=== PATIENT | male | born 1985 | race Caucasian/White ===

== ENCOUNTER → 2016-07-11 | Outpatient (REF) | payer OTHER | LOC: M SFHCCLAY 16:25 | PROVIDERS: ATTEND Nurse Practitioner Family | DX: J02.9 Acute pharyngitis, unspecified (principal) ==

== ENCOUNTER → 2016-08-20 | Outpatient (REF) | payer OTHER ==
[2016-08-20 18:34] LABS: ALBUMIN 4.3 GM/DL (3.2-5.2); ALBUMIN/GLOBULIN RATIO 1.16 (1.00-1.93); ALKALINE PHOSPHATASE 126 U/L (45-117); ALT/SGPT 40 U/L (12-78); ANION GAP 11 MEQ/L (8-16); AST/SGOT 21 U/L (15-37); BILIRUBIN,TOTAL 0.8 MG/DL (0.2-1.0); BLOOD UREA NITROGEN 13 MG/DL (7-18); CALCIUM LEVEL 9.2 MG/DL (8.5-10.1); CARBON DIOXIDE LEVEL 28 MEQ/L (21-32); CHLORIDE LEVEL 100 MEQ/L (98-107); CHOLESTEROL LEVEL 255 MG/DL (<200); CREATININE FOR GFR 0.69 MG/DL (0.70-1.30); GLOMERULAR FILTRATION RATE > 60.0 (>60); GLUCOSE, FASTING 190 MG/DL (70-105); POTASSIUM SERUM 4.2 MEQ/L (3.5-5.1); SODIUM LEVEL 139 MEQ/L (136-145); TRIGLYCERIDES LEVEL 105 MG/DL (<150)
[2016-08-20 18:35] LABS: BASO % 0.4 % (0.0-1.0); EOS # 0.1 K/mm3 (0.0-0.50); EOS % 1.3 % (0.0-3.0); LARGE UNSTAINED CELL # 0.1 K/mm3 (0.0-0.4); LARGE UNSTAINED CELL % 0.9 % (0.0-4.0); LYMPH # 1.3 K/mm3 (1.5-4.5); MEAN CORPUSCULAR HEMOGLOBIN 30.2 pg (27.0-33.0); MEAN CORPUSCULAR HGB CONC 33.5 g/dl (32.0-36.5); MEAN CORPUSCULAR VOLUME 90.1 fl (80.0-96.0); MONO # 0.3 K/mm3 (0.0-0.8); MONO % 5.3 % (0.0-5.0); NEUTROPHILS # 4.3 K/mm3 (1.8-7.7); NEUTROPHILS % 71.1 % (36.0-66.0); PLATELET COUNT, AUTOMATED 305 k/mm3 (150-450); RED CELL DISTRIBUTION WIDTH 12.3 % (11.5-14.5); WHITE BLOOD COUNT 6.1 K/mm3 (4.0-10.0)
== END ==
LOC: M SFHCCLAY 11:50
PROVIDERS: ATTEND Nurse Practitioner
DX: M25.541 Pain in joints of right hand (principal); R19.7 Diarrhea, unspecified; E11.9 Type 2 diabetes mellitus without complications; M25.542 Pain in joints of left hand

== ENCOUNTER → 2017-08-11 | Outpatient (REF) | payer OTHER ==
[2017-08-11 11:47] LABS: BASO % 0.4 % (0.0-1.0); EOS # 0.1 10^3/uL (0.0-0.50); HEMATOCRIT 45.2 % (42.0-52.0); HEMOGLOBIN 16.1 g/dl (14.0-18.0); IMMATURE GRANULOCYTE % 0.4 % (0-3.0); LYMPH # 1.6 10^3/uL (1.5-4.5); LYMPH % 31.6 % (24.0-44.0); MEAN CORPUSCULAR HEMOGLOBIN 30.3 pg (27.0-33.0); MEAN CORPUSCULAR HGB CONC 35.6 g/dl (32.0-36.5); MEAN CORPUSCULAR VOLUME 85.1 fl (80.0-96.0); MONO # 0.4 10^3/uL (0.0-0.8); NEUTROPHILS # 2.9 10^3/uL (1.8-7.7); NEUTROPHILS % 58.6 % (36.0-66.0); PLATELET COUNT, AUTOMATED 325 10^3/uL (150-450); RED BLOOD COUNT 5.31 10^6/uL (4.30-6.10); RED CELL DISTRIBUTION WIDTH 11.6 % (11.5-14.5)
[2017-08-11 12:11] LABS: ESTIMATED AVERAGE GLUCOSE 243 MG/DL (60-110); HEMOGLOBIN A1c 10.1 %
[2017-08-11 12:23] LABS: CREATININE, URINE 92.1 MG/DL; MAU/CREAT RATIO 90.1 MCG/MG (0.0-30.0)
[2017-08-11 12:24] LABS: ALBUMIN 4.1 GM/DL (3.2-5.2); ALBUMIN/GLOBULIN RATIO 1.11 (1.00-1.93); ALKALINE PHOSPHATASE 139 U/L (45-117); ALT/SGPT 37 U/L (12-78); ANION GAP 6 MEQ/L (8-16); AST/SGOT 20 U/L (7-37); BILIRUBIN,TOTAL 0.8 MG/DL (0.2-1.0); BLOOD UREA NITROGEN 9 MG/DL (7-18); CALCIUM LEVEL 9.1 MG/DL (8.5-10.1); CARBON DIOXIDE LEVEL 31 MEQ/L (21-32); CHLORIDE LEVEL 100 MEQ/L (98-107); CHOLESTEROL LEVEL 255 MG/DL (<200); CHOLESTEROL RISK RATIO 3.805 (<5); CREATININE FOR GFR 0.67 MG/DL (0.70-1.30); GLOMERULAR FILTRATION RATE > 60.0 (>60); GLUCOSE, FASTING 300 MG/DL (70-100); HDL CHOLESTEROL 67 MG/DL (>40); LDL CHOLESTEROL 167.8 MG/DL (<100); NON-HDL-C 188 MG/DL; POTASSIUM SERUM 4.3 MEQ/L (3.5-5.1); SODIUM LEVEL 137 MEQ/L (136-145); TOTAL PROTEIN 7.8 GM/DL (6.4-8.2); TRIGLYCERIDES LEVEL 101 MG/DL (<150)
[2017-08-11 12:31] LABS: TESTOSTERONE 264 NG/DL (241-827)
[2017-08-13 00:06] LABS: PSA TOTAL 0.2 ng/mL (0.0-4.0)
== END ==
LOC: M SFHCCLAY 09:17
DX: E11.9 Type 2 diabetes mellitus without complications (principal); G43.509 Persistent migraine aura without cerebral infarction, not intractable, without status migrainosus; N52.9 Male erectile dysfunction, unspecified
CPT/HCPCS: 84403

== ENCOUNTER → 2017-08-19 | Outpatient (CLI) | payer OTHER | LOC: M RAD 10:43 | DX: R10.31 Right lower quadrant pain (principal); Q55.9 Congenital malformation of male genital organ, unspecified; R93.8 Abnormal findings on diagnostic imaging of other specified body structures | CPT/HCPCS: 76870 ==

== ENCOUNTER → 2018-01-15 | Outpatient (REF) | payer OTHER | LOC: M LAB REF 16:17 | DX: L97.529 Non-pressure chronic ulcer of other part of left foot with unspecified severity (principal) | CPT/HCPCS: 87186 ==

== ENCOUNTER → 2018-01-19 | Outpatient (REF) | payer OTHER ==
[2018-01-19 11:53] LABS: HEMOGLOBIN 15.1 g/dl (13.5-17.5); MEAN CORPUSCULAR HEMOGLOBIN 29.8 pg (27.0-33.0); MEAN CORPUSCULAR HGB CONC 35.1 g/dl (32.0-36.5); PLATELET COUNT, AUTOMATED 340 10^3/uL (150-450); RED BLOOD COUNT 5.06 10^6/uL (4.30-6.10); RED CELL DISTRIBUTION WIDTH 11.7 % (11.5-14.5); WHITE BLOOD COUNT 6.1 10^3/uL (4.0-10.0)
[2018-01-19 12:25] LABS: ALBUMIN 3.8 GM/DL (3.2-5.2); ALBUMIN/GLOBULIN RATIO 0.93 (1.00-1.93); ALKALINE PHOSPHATASE 150 U/L (45-117); ALT/SGPT 57 U/L (12-78); ANION GAP 10 MEQ/L (8-16); AST/SGOT 31 U/L (7-37); BILIRUBIN,TOTAL 0.8 MG/DL (0.2-1.0); BLOOD UREA NITROGEN 18 MG/DL (7-18); CALCIUM LEVEL 9.2 MG/DL (8.5-10.1); CARBON DIOXIDE LEVEL 26 MEQ/L (21-32); CHLORIDE LEVEL 103 MEQ/L (98-107); CHOLESTEROL LEVEL 251 MG/DL (<200); CHOLESTEROL RISK RATIO 3.691 (<5); CREATININE FOR GFR 0.68 MG/DL (0.70-1.30); GLOMERULAR FILTRATION RATE > 60.0 (>60); GLUCOSE, FASTING 216 MG/DL (70-100); HDL CHOLESTEROL 68 MG/DL (>40); LDL CHOLESTEROL 167.4 MG/DL (<100); NON-HDL-C 183 MG/DL; POTASSIUM SERUM 4.7 MEQ/L (3.5-5.1); SODIUM LEVEL 139 MEQ/L (136-145); TOTAL PROTEIN 7.9 GM/DL (6.4-8.2); TRIGLYCERIDES LEVEL 78 MG/DL (<150)
[2018-01-19 12:27] LABS: CREATININE, URINE 52.8 MG/DL; MALB URINE SIEMENS 26.7 MG/L; MAU/CREAT RATIO 50.5 MCG/MG (0.0-30.0)
[2018-01-19 12:40] LABS: ESTIMATED AVERAGE GLUCOSE 203 MG/DL (60-110); HEMOGLOBIN A1c 8.7 %
== END ==
LOC: M SFHCCLAY 09:21
DX: E11.9 Type 2 diabetes mellitus without complications (principal); E78.5 Hyperlipidemia, unspecified
CPT/HCPCS: 80053

== ENCOUNTER → 2018-01-19 | Outpatient (CLI) | payer OTHER | LOC: M CLY 09:33 | DX: L97.529 Non-pressure chronic ulcer of other part of left foot with unspecified severity (principal); M79.89 Other specified soft tissue disorders | CPT/HCPCS: 73630 ==

== ENCOUNTER → 2018-02-09 | Outpatient (REF) | payer OTHER | LOC: M SFHCCLAY 12:17 | DX: L97.529 Non-pressure chronic ulcer of other part of left foot with unspecified severity (principal); Z22.322 Carrier or suspected carrier of Methicillin resistant Staphylococcus aureus ==

== ENCOUNTER → 2018-04-14 | Outpatient (REF) | payer OTHER | LOC: M SFHCCLAY 12:20 | DX: L02.91 Cutaneous abscess, unspecified (principal) ==

== ENCOUNTER → 2018-05-25 | Outpatient (REF) | payer OTHER ==
[2018-05-25 11:30] LABS: HEMOGLOBIN 15.7 g/dl (13.5-17.5); MEAN CORPUSCULAR HEMOGLOBIN 30.4 pg (27.0-33.0); MEAN CORPUSCULAR HGB CONC 34.9 g/dl (32.0-36.5); PLATELET COUNT, AUTOMATED 318 10^3/uL (150-450); RED BLOOD COUNT 5.17 10^6/uL (4.30-6.10); RED CELL DISTRIBUTION WIDTH 11.6 % (11.5-14.5); WHITE BLOOD COUNT 6.8 10^3/uL (4.0-10.0)
[2018-05-25 12:09] LABS: ALBUMIN 3.9 GM/DL (3.2-5.2); ALKALINE PHOSPHATASE 174 U/L (45-117); ALT/SGPT 55 U/L (12-78); ANION GAP 8 MEQ/L (8-16); AST/SGOT 22 U/L (7-37); BILIRUBIN,TOTAL 0.7 MG/DL (0.2-1.0); BLOOD UREA NITROGEN 12 MG/DL (7-18); CALCIUM LEVEL 9.2 MG/DL (8.5-10.1); CARBON DIOXIDE LEVEL 30 MEQ/L (21-32); CHLORIDE LEVEL 98 MEQ/L (98-107); CHOLESTEROL LEVEL 235 MG/DL (<200); CHOLESTEROL RISK RATIO 3.263 (<5); CREATININE FOR GFR 0.68 MG/DL (0.70-1.30); GLOMERULAR FILTRATION RATE > 60.0 (>60); GLUCOSE, FASTING 321 MG/DL (70-100); HDL CHOLESTEROL 72 MG/DL (>40); LDL CHOLESTEROL 143 MG/DL (<100); NON-HDL-C 163 MG/DL; SODIUM LEVEL 136 MEQ/L (136-145); TOTAL PROTEIN 7.8 GM/DL (6.4-8.2); TRIGLYCERIDES LEVEL 102 MG/DL (<150)
[2018-05-25 12:59] LABS: ESTIMATED AVERAGE GLUCOSE 209 MG/DL (60-110); HEMOGLOBIN A1c 8.9 %
== END ==
LOC: M SFHCCLAY 09:24
DX: E11.9 Type 2 diabetes mellitus without complications (principal); E78.5 Hyperlipidemia, unspecified
CPT/HCPCS: 80053

== ENCOUNTER → 2018-05-27 | Outpatient (REF) | payer OTHER | LOC: M SFHCCLAY 10:17 | DX: L02.215 Cutaneous abscess of perineum (principal) | CPT/HCPCS: 87186 ==

== ENCOUNTER → 2018-07-26 | Outpatient (REF) | payer OTHER ==
[~2018-07-26] MED LIST: ASPI81TA85 PO; CIPR-250 PO; LISI2.5T5 PO; METF-877 PO; OXYC1TAB23 PO; SIMV40TA2 PO
== END ==
LOC: M LAB REF 17:27
PROVIDERS: ATTEND Podiatrist
DX: L11.0 Acquired keratosis follicularis (principal); M79.672 Pain in left foot

== ENCOUNTER 2018-07-27 13:48 | Day surgery (SDC) | payer OTHER ==
[~2018-07-27] VITALS: Ht 180.3 cm; Wt 88.0 kg
[2018-07-27] MEDS ORDERED: VANCOMYCIN HCL 1,000 MG, VIAL MATE ADAPTER 1 EACH in D5W 250 ML IV ONE (14:00)
[2018-07-27] MEDS ORDERED: CIPR-250 PO (14:43)
[2018-07-27] MEDS ORDERED: ASPI81TA85 PO (14:43)
[2018-07-27] MEDS ORDERED: OXYC1TAB23 PO (14:43)
[2018-07-27] MEDS ORDERED: SIMV40TA2 PO (14:43)
[2018-07-27] MEDS ORDERED: LISI2.5T5 PO (14:43)
[2018-07-27] MEDS ORDERED: METF-877 PO (14:43)
[2018-07-27] MEDS ORDERED: HumaLOG INSULIN (NovoLOG) PER UNIT SC ONE (16:00)
[2018-07-27] MEDS ORDERED: dexameTHASONE 4 MG/ML 1ML VIAL (J1100) As Ordered ONE (16:01)
[2018-07-27] MEDS ORDERED: BACITRACIN PWD 50,000 UNITS VIAL As Ordered ONE (16:01)
[2018-07-27] MEDS ORDERED: BUPIVACAINE HCL 0.5% 30 ML VIAL As Ordered ONE (16:01)
[2018-07-27] MEDS ORDERED: NEOSPORIN GU IRRIG 20 ML VIAL As Ordered ONE (16:02)
[2018-07-27] MEDS ORDERED: LIDOCAINE 2% MDV 20 ML VIAL As Ordered ONE (16:02)
[2018-07-27] MEDS ORDERED: VANCOMYCIN 1000 MG/20 ML VIAL (J3370) As Ordered ONE (16:28)
[2018-07-27] MEDS ORDERED: LIDOCAINE 2% INJ 100 MG/5 ML SDV (FOR ANES.) As Ordered ONE (16:37)
[2018-07-27] MEDS ORDERED: fentaNYL 100 MCG/2 ML INJECTION (J3010) As Ordered ONE (16:37)
[2018-07-27] MEDS ORDERED: MIDAZOLAM INJ 2 MG/2 ML VIAL (J2250) As Ordered ONE (16:37)
[2018-07-27] MEDS ORDERED: PROPOFOL 200 MG/20 ML VIAL As Ordered ONE (16:37)
[2018-07-27] MEDS ORDERED: ONDANSETRON 4MG/2ML VIAL (J2405) As Ordered ONE (16:37)
[2018-07-27 18:00] VITALS: BP 136/87
--- NOTE | 2018-07-29 12:12 | RO ---
DATE OF PROCEDURE: 07/27/2018 PREOPERATIVE DIAGNOSES: Abscess left foot. POSTOPERATIVE DIAGNOSES: Abscess medial and superficial central space left foot. PROCEDURE: Release of medial and superficial central space with packing with iodoform gauze left foot. SURGEON: David Garcia DPM WIRE BASKET MAKER: None. ANESTHESIA: Local, monitored anesthesia care (MAC). IRRIGATION: 3 liters dilute vancomycin solution low pressure pulse lavage system. DRAINS UTILIZED: 1/4 inch iodoform gauze. ESTIMATED BLOOD LOSS: 10 mL. HEMOSTASIS: None. DESCRIPTION OF PROCEDURE: On 07/27/2018, this 33-year-old male was taken from his hospital room to the operating room and placed on the operating room table in a supine position. Following the induction of IV sedation and local and regional anesthesia, the left lower extremity was prepped and draped in the usual aseptic manner and the left lower extremity was returned to the operating room table, and the following procedure was performed. RELEASE OF MEDIAL AND SUPERFICIAL CENTRAL SPACE WITH PACKING WITH IODOFORM GAUZE LEFT FOOT: Attention was directed to the patient's left foot where a 5 cm incision was placed on the plantar surface of the foot in line with the plantar fascia. Dissection was then carried deep and a considerable amount of purulent material was then released and cultured from the superficial central space. The medial space was then entered and there was an abscess in that location that extended approximately 3 cm in the medial space superficial to the abductor hallucis muscle. The plantar fascia was then incised. The purulence did not extend deep to the plantar fascia. Then, utilizing 3 liters of dilute of vancomycin solution with a low pressure pulse lavage system, the wound was thoroughly irrigated. The wound was then packed including the superficial and medial compartment with iodoform gauze, and a sterile dressing was applied consisting of Adaptic, 4 x 4's, ABD and Kerlix, and a light compression Yimi wrap. The patient having apparently tolerated the surgical procedure well was taken from the operating room (OR) to the recovery room for further monitoring by the anesthesia department. The patient will continue Keflex 500 mg every 6 hours until his culture becomes available. His questions are answered.
== END 2018-07-27 18:10 | disposition home or self-care (01) ==
LOC: M SDC 13:48
PROVIDERS: ATTEND Podiatrist
DX: E11.621 Type 2 diabetes mellitus with foot ulcer (principal); L97.522 Non-pressure chronic ulcer of other part of left foot with fat layer exposed; E11.42 Type 2 diabetes mellitus with diabetic polyneuropathy; M71.072 Abscess of bursa, left ankle and foot; Z79.84 Long term (current) use of oral hypoglycemic drugs; Z79.82 Long term (current) use of aspirin; Z79.899 Other long term (current) drug therapy; I10 Essential (primary) hypertension; E78.5 Hyperlipidemia, unspecified
CPT/HCPCS: 10060; 87070; 87075; 87077; 87186; 87205; J2250; J2405; J3010; J3370

== ENCOUNTER → 2018-08-06 | Outpatient (REF) | payer OTHER ==
[2018-08-06 13:07] LABS: ALBUMIN 3.8 GM/DL (3.2-5.2); ALT/SGPT 33 U/L (12-78); BILIRUBIN,TOTAL 0.6 MG/DL (0.2-1.0); BLOOD UREA NITROGEN 18 MG/DL (7-18); CALCIUM LEVEL 9.3 MG/DL (8.5-10.1); CARBON DIOXIDE LEVEL 28 MEQ/L (21-32); CHLORIDE LEVEL 98 MEQ/L (98-107); CHOLESTEROL LEVEL 199 MG/DL (<200); CHOLESTEROL RISK RATIO 3.685 (<5); CREATININE FOR GFR 0.97 MG/DL (0.70-1.30); GLOMERULAR FILTRATION RATE > 60.0 (>60); GLUCOSE, FASTING 292 MG/DL (70-100); HDL CHOLESTEROL 54 MG/DL (>40); LDL CHOLESTEROL 111 MG/DL (<100); NON-HDL-C 145 MG/DL; POTASSIUM SERUM 4.7 MEQ/L (3.5-5.1); SODIUM LEVEL 134 MEQ/L (136-145); TRIGLYCERIDES LEVEL 169 MG/DL (<150)
[2018-08-06 13:33] LABS: HEMOGLOBIN A1c 9.6 %; MALB URINE SIEMENS 69.9 MG/L; MAU/CREAT RATIO 43.6 MCG/MG (0.0-30.0)
== END ==
LOC: M SFHCCLAY 08:38
PROVIDERS: ATTEND Nurse Practitioner Family
DX: E11.9 Type 2 diabetes mellitus without complications (principal); E78.5 Hyperlipidemia, unspecified

== ENCOUNTER → 2018-08-16 | Outpatient (REF) | payer OTHER | LOC: M LAB REF 16:40 | PROVIDERS: ATTEND Surgery | DX: E11.621 Type 2 diabetes mellitus with foot ulcer (principal) ==

== ENCOUNTER → 2018-08-24 | Outpatient (REF) | payer OTHER ==
[2018-08-24 13:39] LABS: HEMATOCRIT 39.7 % (42.0-52.0); HEMOGLOBIN 13.8 g/dl (13.5-17.5); MEAN CORPUSCULAR HEMOGLOBIN 30.7 pg (27.0-33.0); MEAN CORPUSCULAR HGB CONC 34.8 g/dl (32.0-36.5); MEAN CORPUSCULAR VOLUME 88.2 fl (80.0-96.0); PLATELET COUNT, AUTOMATED 330 10^3/uL (150-450); WHITE BLOOD COUNT 4.6 10^3/uL (4.0-10.0)
[2018-08-24 14:24] LABS: BLOOD UREA NITROGEN 17 MG/DL (7-18); CALCIUM LEVEL 9.3 MG/DL (8.5-10.1); CARBON DIOXIDE LEVEL 29 MEQ/L (21-32); CHLORIDE LEVEL 102 MEQ/L (98-107); CREATININE FOR GFR 0.71 MG/DL (0.70-1.30); ERYTHROCYTE SEDIMENTATION RATE 39 mm/hr (0-15); GLOMERULAR FILTRATION RATE > 60.0 (>60); GLUCOSE, FASTING 205 MG/DL (70-100); POTASSIUM SERUM 4.2 MEQ/L (3.5-5.1); SODIUM LEVEL 137 MEQ/L (136-145)
== END ==
LOC: M LAB REF 12:24
PROVIDERS: ATTEND Physician Assistant
DX: E11.621 Type 2 diabetes mellitus with foot ulcer (principal)

== ENCOUNTER → 2018-10-05 | Outpatient (CLI) | payer OTHER ==
[~2018-10-05] MED LIST changes: +LISI-1046 PO; -LISI2.5T5 PO
[2018-10-05 12:03] LABS: CREATININE, URINE 77.7 MG/DL; MALB URINE SIEMENS 67.8 MG/L; MAU/CREAT RATIO 87.2 MCG/MG (0.0-30.0)
== END ==
LOC: M LAB 11:06
PROVIDERS: ATTEND Nurse Practitioner Family
DX: E11.65 Type 2 diabetes mellitus with hyperglycemia (principal)

== ENCOUNTER → 2018-10-11 | Outpatient (CLI) | payer OTHER ==
--- NOTE | 2018-10-12 04:50 | REP ---
Clinical: Type 2 diabetes with lower extremity ulcers. Technique: Real time brooks scale and color Doppler evaluation of the bilateral lower extremity arterial vasculature using linear high frequency transducer. Findings: Brooks scale and color images demonstrate minimal amounts of calcified atheromatous plaquing without areas of significant stenosis identified bilaterally. Doppler interrogation demonstrates normal triphasic arterial wave forms and velocities bilaterally. Peak systolic velocities (cm/sec) RIGHT LEFT Common femoral artery 103.0 103.0 Profunda femoris 78.3 66.4 SFA (proximal) 93.2 91.1 SFA (mid) 69.0 75.2 SFA (distal) 68.3 77.4 Popliteal artery 56.5 64.2 GI (prox.) 38.9 29.2 Tibioperoneal trunk 80.6 64.2 CRAFT MANAGER (prox.) 64.4 56.0 CRAFT MANAGER (distal) 40.8 68.0 GI (distal) 78.6 60.9 Impression: Mild partially calcified atheromatous changes with areas of narrowing but no obvious focal occlusion or stenosis. Electronically Signed by Sam Dick MD 10/12/2018 04:41 A
== END ==
LOC: M RAD 10:57
PROVIDERS: ATTEND Surgery
DX: E11.621 Type 2 diabetes mellitus with foot ulcer (principal); I70.202 Unspecified atherosclerosis of native arteries of extremities, left leg; L97.529 Non-pressure chronic ulcer of other part of left foot with unspecified severity

== ENCOUNTER 2019-05-04 17:03 | Inpatient (IN) | payer OTHER ==
[~2019-05-04] VITALS: Ht 180.3 cm; Wt 93.7 kg
[2019-05-04] MEDS ORDERED: HUMA100I5 SC (17:10)
[2019-05-04] MEDS ORDERED: LANTINJ4 (17:10)
[2019-05-04] MEDS ORDERED: INVO300T PO (17:10)
[2019-05-04] MEDS ORDERED: ONDANSETRON 4MG/2ML VIAL (J2405) IV ONE (17:30)
[2019-05-04] MEDS ORDERED: MORPHINE 2 MG/ML 1ML VIAL (J2270) IV ONE (17:30)
[2019-05-04] MEDS ORDERED: NS 1,000 ML IV ONE (17:30)
[2019-05-04 18:32] LABS: BASO % 0.1 % (0.0-1.0); HEMATOCRIT 37.3 % (42.0-52.0); HEMOGLOBIN 12.9 g/dl (13.5-17.5); MEAN CORPUSCULAR HEMOGLOBIN 29.9 pg (27.0-33.0); MEAN CORPUSCULAR HGB CONC 34.6 g/dl (32.0-36.5); MEAN CORPUSCULAR VOLUME 86.3 fl (80.0-96.0); MONO # 1.1 10^3/uL (0.0-0.8); MONO % 6.6 % (0.0-5.0); NEUTROPHILS # 14.2 10^3/uL (1.5-8.5); NEUTROPHILS % 86.9 % (36.0-66.0); PLATELET COUNT, AUTOMATED 371 10^3/uL (150-450); RED BLOOD COUNT 4.32 10^6/uL (4.30-6.10); WHITE BLOOD COUNT 16.3 10^3/uL (4.0-10.0)
[2019-05-04 18:45] LABS: INR 1.19; PROTHROMBIN TIME 14.8 SECONDS (11.8-14.0)
[2019-05-04 18:46] LABS: PARTIAL THROMBOPLASTIN TIME 30.3 SECONDS (25.0-38.4)
[2019-05-04 18:47] LABS: ALBUMIN 3.4 GM/DL (3.2-5.2); ALT/SGPT 21 U/L (12-78); AMYLASE 42 U/L (25-115); BILIRUBIN,DIRECT 0.2 MG/DL (0.0-0.2); BILIRUBIN,TOTAL 0.8 MG/DL (0.2-1.0); BLOOD UREA NITROGEN 18 MG/DL (7-18); CALCIUM LEVEL 8.8 MG/DL (8.5-10.1); CARBON DIOXIDE LEVEL 24 MEQ/L (21-32); CHLORIDE LEVEL 99 MEQ/L (98-107); CK-MB VALUE MASS < 1.0 NG/ML (<3.6); CPK CREATINE PHOSPHOKINASE 95 U/L (39-308); CREATININE FOR GFR 1.03 MG/DL (0.70-1.30); GLOMERULAR FILTRATION RATE > 60.0 (>60); GLUCOSE, FASTING 243 MG/DL (70-100); MB/CK RELATIVE INDEX 1.05 (< OR =4); POTASSIUM SERUM 4.3 MEQ/L (3.5-5.1); SODIUM LEVEL 135 MEQ/L (136-145); TOTAL PROTEIN 7.3 GM/DL (6.4-8.2); TROPONIN I < 0.02 NG/ML (< 0.10)
--- NOTE | 2019-05-04 18:47 | REP ---
Four views left foot: 05/04/2019. Indication: Left foot pain and swelling. Comparison: 01/19/2018. Findings: There is no acute fracture, subluxation or dislocation. No erosive lesions of the visualized bony structures are present. Suspected left great toe swelling is noted. Impression: No acute osseous injury of the left foot. No erosive changes. Electronically Signed by Low Morales DO 05/04/2019 06:39 P
[2019-05-04 19:59] LABS: HEMOGLOBIN A1c 7.2 %
[2019-05-04] MEDS ORDERED: ACETAMINOPHEN TAB 650MG DOSE (2X325MG) PO ONE (20:00)
[2019-05-04 20:30] LABS: APPEARANCE, URINE CLEAR (CLEAR); BACTERIA, URINE AUTO NEGATIVE (NEGATIVE); BILIRUBIN, URINE AUTO NEGATIVE (NEGATIVE); BLOOD, URINE BLOOD NEGATIVE (NEGATIVE); COLOR, URINE YELLOW (YELLOW); GLUCOSE, URINE (UA) AUTO 3+ mg/dL (NEGATIVE); KETONE, URINE AUTO 1+ mg/dL (NEGATIVE); LEUKOCYTE ESTERASE, URINE AUTO NEGATIVE (NEGATIVE); NITRITE, URINE AUTO NEGATIVE (NEGATIVE); PROTEIN, URINE AUTO NEGATIVE (NEGATIVE); RBC, URINE AUTO 0 /HPF (0-3); SPECIFIC GRAVITY URINE AUTO 1.038 (1.002-1.035); SQUAMOUS EPITHELIAL CELL UR AU 0 /HPF (0-6); UROBILINOGEN, URINE AUTO 0.2 mg/dL (0.0-2.0); WBC, URINE AUTO 0 /HPF (0-3)
[2019-05-04 20:50] LABS: ERYTHROCYTE SEDIMENTATION RATE 57 mm/hr (0-15)
--- NOTE | 2019-05-04 21:03 | HPEPDOC ---
General Date of Admission 05/04/19 Date of Service: May 04, 2019 Chief Complaint The patient is a 34-year-old male admitted with a reason for visit of Skin Problem. Source: Patient Exam Limitations: No limitations Timing/Duration: Week(s) Severity: Moderate Associated Symptoms: Other (left foot pain) History of Present Illness Patient is a 34 years old male with past history of type 2 diabetes with diabetes neuropathy, hypertension presented hospital with unhealed left great toe ulcer. Patient stated that he has been having ulcer for past 2 years treated with multiple debridement by Dr. Shelton with positive effect. However, when he started a new job few weeks ago we he needs to stand up for 8 hours he started feeling that his ulcer became worse. For past few days he noticed increased pain of the left great toe associated with pus. Also he noticed chills. In emergency room patient was found to have tachycardia with heart rate 121, leukocytosis of 16.3, CRP 10.9, lactic acid with normal limit. Left foot x- ray showed no acute osseous injury of the left foot. no erosive changes. Home Medications Scheduled Canagliflozin (Invokana) 300 Mg Tablet, 300 MG PO DAILY, (Reported) Insulin Glargine,Hum.rec.anlog (Lantus Solostar) 100 Unit/1 Ml Insuln.pen, 24 UNITS QHS, (Reported) Insulin Lispro (Humalog Kwikpen U-100) 100 Unit/1 Ml Insuln.pen, 8 UNITS SC AC, (Reported) Lisinopril (Lisinopril) 2.5 Mg Tab, 2.5 MG PO DAILY, (Reported) Magnesium Oxide (Magnesium) 400 Mg Capsule, 400 MG PO DAILY, (Reported) Simvastatin (Simvastatin) 40 Mg Tab, 40 MG PO DAILY, (Reported) Allergies Coded Allergies: No Known Allergies (Unverified , 01/11/16) Past Medical History Medical History Hypertension, diabetes type 2, diabetes neuropathy Family History Both parents have hypertension, mother has diabetes Social History * Smoker: Denies Alcohol: Denies Drugs: denies A-FIB/CHADSVASC A-FIB History Current/History of A-Fib/PAF?: No Current PO Anticoag Therapy: No Review of Systems Constitutional: Reports: Chills; Denies: Fever Eyes: Denies: Pain, Vision change ENT: Denies: Head Aches, Ear Pain Skin: Denies: Rash, Lesions Pulmonary: Denies: Dyspnea, Cough Cardiovascular: Denies: Chest Pain, Palpitations Gastrointestinal: Denies: Nausea, Vomiting Genitourinary: Denies: Dysuria, Frequency Hematologic: Denies: Bruising Endocrine: Denies: Polydipsia, Polyphagia Musculoskeletal: Reports: Leg Pain, Foot Pain (left great toe pain) Neurological: Denies: Weakness, Numbness Psych: Reports: Mood Normal Physical Examination General Exam: Positive: Alert, Cooperative Eye Exam: Positive: PERRLA, Conjunctiva & lids normal ENT Exam: Positive: Atraumatic, Mucous membr. moist/pink Neck Exam: Positive: Supple; Negative: JVD Heart Exam: Positive: Tachycardic Telemetry: Positive: No significant arrhythmia Abdomen Exam: Positive: Normal bowel sounds Extremity Exam: Positive: Tenderness (over left great toe area), Swelling, Other (stage III left great toe ulcer with pus); Negative: Clubbing, Cyanosis Skin Exam: Positive: Nl turgor and temperature Neuro Exam: Positive: Strength at 5/5 X4 ext, Cranial Nerves 3-12 NL Psych Exam: Positive: Mental status NL Vital Signs Vital Signs Date Time Temp Pulse Resp B/P (MAP) Pulse Ox O2 Delivery O2 Flow Rate FiO2 05/04/19 20:44 18 05/04/19 20:43 100.1 110 104/59 (74) 97 Room Air Laboratory Data Labs 24H Laboratory Tests 2 05/04/19 17:56: Lactic Acid Level 1.6 05/04/19 18:11: Immature Granulocyte % (Auto) 0.4, Neutrophils (%) (Auto) 86.9H, Lymphocytes (%) (Auto) 6.0L, Monocytes (%) (Auto) 6.6H, Eosinophils (%) (Auto) 0.0, Basophils (%) (Auto) 0.1, Neutrophils # (Auto) 14.2H, Lymphocytes # (Auto) 1.0L, Monocytes # (Auto) 1.1H, Eosinophils # (Auto) 0.0, Basophils # (Auto) 0.0, Nucleated Red Blood Cells % (auto) 0.0, Prothrombin Time 14.8H, Prothromb Time International Ratio 1.19, Activated Partial Thromboplast Time 30.3, Anion Gap 12, Glomerular Filtration Rate > 60.0, Estimated Mean Plasma Glucose 160H, Hemoglobin A1c 7.2, Calcium Level 8.8, Total Bilirubin 0.8, Direct Bilirubin 0.2, Aspartate Amino Transf (AST/SGOT) 11, Alanine Aminotransferase (ALT/SGPT) 21, Alkaline Juan sphatase 105, Total Creatine Kinase 95, Creatine Kinase MB < 1.0, Creatine Kinase MB Relative Index 1.05, Troponin I < 0.02, C-Reactive Protein, Quantitative 10.90H, Total Protein 7.3, Albumin 3.4, Albumin/Globulin Ratio 0.87L, Amylase Level 42 05/04/19 20:17: Urine Color YELLOW, Urine Appearance CLEAR, Urine pH 5.0, Urine Specific [place] 1.038, Urine Protein NEGATIVE, Urine Glucose (Auto)(UA) 3+H, Urine Ketones (Auto) 1+H, Urine Blood NEGATIVE, Urine Nitrite NEGATIVE, Urine Bilirubin NEGATIVE, Urine Urobilinogen 0.2, Urine Leukocyte Esterase (Auto) NEGATIVE, Urine WBC (Auto) 0, Urine RBC (Auto) 0, Urine Hyaline Casts (Auto) 0, Urine Bacteria (Auto) NEGATIVE, Urine Squamous Epithelial Cells 0, Urine Sperm (Auto) CBC/BMP Laboratory Tests 05/04/19 18:11 Microbiology Microbiology 05/04/19 Gram Stain, Received Pending 05/04/19 Wound Culture, Received Pending 05/04/19 Blood Culture, Received Pending 05/04/19 Blood Culture, Received Pending Assessment/Plan Patient is a 34 years old male with past history of type 2 diabetes with diabetes neuropathy, hypertension presented hospital with unhealed left great toe ulcer. Patient stated that he has been having ulcer for past 2 years treated with multiple debridement by Dr. Shelton with positive effect. However, when he started a new job few weeks ago we he needs to stand up for 8 hours he started feeling that his ulcer became worse. For past few days he noticed increased pain of the left great toe associated with pus. Problems (1) Sepsis Status: Acute Problem Text: Secondary to left great toe ulcer. There is high suspicious for acute osteomyelitis. Patient has leukocytosis with tachycardia with increased CRP, ESR pending Wound culture, blood culture IV meropenem, IV vancomycin IV fluid Consider shoe parts molder and wound care consult in the morning (2) Infected ulcer of skin Status: Acute Problem Text: There is high suspicious for acute osteomyelitis of left great toe given stage III unhealed ulcer with pus Left foot x-ray negative. Will proceed with MRI of left foot Sedimentation rate pending, CRP 10.9 (3) Diabetes mellitus Status: Chronic Problem Text: Diabetes diet Levemir twice a day Insulin sliding scale Plan / VTE VTE Prophylaxis Ordered?: Yes EM REED DO May 04, 2019 21:03
[2019-05-04] MEDS ORDERED: GLUCOSE 4 GM CHEW TABLET PO PRN (21:15)
[2019-05-04] MEDS ORDERED: GLUCAGON FOR INJ 1 MG VIAL (J1610) SC PRN (21:15)
[2019-05-04] MEDS ORDERED: DEXTROSE 50% 50 ML SYRINGE IV PRN (21:15)
[2019-05-04] MEDS ORDERED: MAGN400C2 PO (21:17)
[2019-05-04] MEDS ORDERED: MORPHINE 2 MG/ML 1ML VIAL (J2270) IV SCH (22:00)
[2019-05-04] MEDS ORDERED: MORPHINE 2 MG/ML 1ML VIAL (J2270) IV PRN (22:30)
[2019-05-04] MEDS: NS 1,000 ML IV SCH (23:12)
[2019-05-04] MEDS: MEROPENEM INJ 1 GM in IV 1 EA IV SCH (23:13)
[2019-05-04] MEDS: HEPARIN SOD (PORCINE) 5000 UNITS/ML VIAL SC SCH (23:13)
[2019-05-04 23:50] VITALS: BP 128/72
[2019-05-05] MEDS ORDERED: VANCOMYCIN HCL 1,000 MG, VIAL MATE ADAPTER 1 EACH in D5W 250 ML IV ONE ×3
[2019-05-05] MEDS: LEVEMIR (INSULIN DETEMIR) 1 UNITS/0.01ML SC SCH ×3 (00:32→21:08)
[2019-05-05] MEDS: VANCOMYCIN HCL 1,000 MG, VIAL MATE ADAPTER 1 EACH in D5W 250 ML IV SCH ×4 (00:38→23:33)
--- NOTE | 2019-05-05 03:47 | PHACANCOPD ---
PHARMACY VANCOMYCIN DOSING Pt Demographics Demographics Patient Age:34 , Weight:93.700 , Gender: male Adjusted Body Weight Date: 05/05/19, Adjusted Body Weight: [82.66] Kg Events Past 24 Hours Events Past 24 Hours: NO: Dialysis, Diuretic Therapy, Change in CrCl, Fever, Elevation in WBC, Pending Diagnostics, Pending Procedures, Other Vancomycin Vancomycin indication: LEFT FOOT OSTEOMYELITIS Vancomycin Target Ranges: 15-20 mcg/ml Vancomycin Load Y/N: Yes Load Dose Date Time Vancomycin Load Dose: 2G Date: 05/05/19 Time:23:00 Vancomycin Dose Date: 05/05/19. Current Vancomycin Dose: [1G IV Q8H] Intermittent Dosing?: No Labs Labs Item Value Date Time White Blood Count 16.3 10^3/uL H 05/04/191810 Neutrophils # (Auto) 14.2 10^3/uL H 05/04/191810 Creatinine 1.03 MG/DL 05/04/191810 Micro Microbiology 05/04/19 Gram Stain, Received Pending 05/04/19 Wound Culture, Received Pending 05/04/19 Blood Culture, Received Pending 05/04/19 Blood Culture, Received Pending Creatinine Clearance Date:05/05/19. Creatinine Clearance: [106ML/MIN]. Pending Labs trough 05/06/19 @06:00 Assessment and Plan Maintaining Current Dose?: Yes Reason for dose change: No Dose Change Pharmacist Note Pharmacist Note Date: 05/05/19. Pharmacist note:Pt is a 34 year old male being treated for osteomyelitis of the left foot goal trough 15-20mcg/ml. The patient was last treated with vancomycin in July 2018. To achieve goal a 2g loading dose will start 05/04/19 @23:00. Maintenance therapy will consist of 1g IV every 8 hours. A trough is scheduled for 05/06/19 @06:00. We will continue to monitor and adjust the dose as needed. SHANDA BABCOCK PHARMACY May 05, 2019 03:47
[2019-05-05] MEDS: NS 1,000 ML IV SCH ×4 (05:25→23:33)
[2019-05-05] MEDS: MEROPENEM INJ 1 GM in IV 1 EA IV SCH ×3 (05:25→21:07)
[2019-05-05 06:00] VITALS: BP 105/56
[2019-05-05] MEDS: ACETAMINOPHEN TAB 650MG DOSE (2X325MG) PO PRN ×3 (06:02→18:10)
[2019-05-05 06:54] LABS: HEMATOCRIT 36.7 % (42.0-52.0); HEMOGLOBIN 12.5 g/dl (13.5-17.5); MEAN CORPUSCULAR HEMOGLOBIN 29.8 pg (27.0-33.0); MEAN CORPUSCULAR HGB CONC 34.1 g/dl (32.0-36.5); MEAN CORPUSCULAR VOLUME 87.6 fl (80.0-96.0); PLATELET COUNT, AUTOMATED 319 10^3/uL (150-450); RED BLOOD COUNT 4.19 10^6/uL (4.30-6.10); WHITE BLOOD COUNT 8.2 10^3/uL (4.0-10.0)
[2019-05-05 07:19] LABS: BLOOD UREA NITROGEN 12 MG/DL (7-18); CALCIUM LEVEL 8.3 MG/DL (8.5-10.1); CARBON DIOXIDE LEVEL 26 MEQ/L (21-32); CHLORIDE LEVEL 102 MEQ/L (98-107); CREATININE FOR GFR 0.63 MG/DL (0.70-1.30); GLOMERULAR FILTRATION RATE > 60.0 (>60); GLUCOSE, FASTING 121 MG/DL (70-100); MAGNESIUM LEVEL 1.7 MG/DL (1.8-2.4); POTASSIUM SERUM 3.7 MEQ/L (3.5-5.1); SODIUM LEVEL 135 MEQ/L (136-145)
[2019-05-05] MEDS: HumaLOG INSULIN (NovoLOG) PER UNIT SC SCH ×3 (08:59→17:38)
[2019-05-05 09:00] VITALS: BP 105/56
[2019-05-05] MEDS: HEPARIN SOD (PORCINE) 5000 UNITS/ML VIAL SC SCH ×2 (09:00→21:07)
[2019-05-05] MEDS ORDERED: LISINOPRIL *2.5 MG* TAB PO SCH (09:00)
--- NOTE | 2019-05-05 11:20 | IPNPDOC ---
Subjective Date Seen The patient was seen on 05/05/19. Subjective Chief Complaint/HPI No significant foot pain at rest. Tolerating Vanco Constitutional: Denies: Chills, Fever Pulmonary: Denies: Dyspnea, Cough Cardiovascular: Denies: Chest Pain Gastrointestinal: Denies: Nausea, Vomiting, Abdominal Pain, Diarrhea, Constipation Objective Physical Examination General Exam: Positive: Alert, Cooperative, No Acute Distress Neck Exam: Positive: Supple; Negative: JVD Heart Exam: Positive: Rate Normal, Regular Rhythm Abdomen Exam: Positive: Normal bowel sounds, Soft; Negative: Tenderness Extremity Exam: Positive: Normal pulses (2+ DP pulse Left), Tenderness (over dorsal aspect of left foot ), Swelling (Left great toe extendinginto ankle), Other (stage III left great toe ulcer with pus, no surrounding erythema) Skin Exam: Positive: Nl turgor and temperature Psych Exam: Positive: Mental status NL Assessment /Plan Problems (1) Toe osteomyelitis, left Status: Acute Problem Text: favor L 1 toe amputation (2) Sepsis Status: Acute Problem Text: Cont IVF for now. BP 105 this am. Less tachy now. Hold DEMIAN for now (3) Diabetic foot ulcer Status: Acute Problem Text: Previous h/o Left great toe ulcer had heeled with wound care by Rishabh lomax New ulcer developed about 2+ weeks ago likely related to standing on feet for long periods of time at his new job H/O MRSA in past-07/2018 B/C, Wound cultures pending Concern for osteomyeleits due to high CRP Foot x-ray neg. MRI foot ordered Cont Vanco/Meropenem 05/05 R foot MRI: Ulceration of the medial first toe. Osteomyelitis of first proximal and distal phalanges with associated cellulitis of the medial forefoot. 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 Status: Chronic (5) Diabetes mellitus Status: Chronic Problem Text: Cont Levemir and SSI Plan/VTE VTE Prophylaxis Ordered?: Yes (SQ heparin) VS, I&O, 24H, Fishbone Vital Signs/I&O Vital Signs Date Time Temp Pulse Resp B/P (MAP) Pulse Ox O2 Delivery O2 Flow Rate FiO2 05/05/19 09:00 105/56 05/05/19 06:00 97.7 97 18 98 Room Air I&O- Last 24 Hours up to 6 AM 05/05/19 06:00 Intake Total 1480 ml Output Total 650 ml Balance 830 ml Laboratory Data 24H LABS Laboratory Tests 2 05/04/19 17:56: Lactic Acid Level 1.6 05/04/19 18:11: Immature Granulocyte % (Auto) 0.4, Neutrophils (%) (Auto) 86.9H, Lymphocytes (%) (Auto) 6.0L, Monocytes (%) (Auto) 6.6H, Eosinophils (%) (Auto) 0.0, Basophils (%) (Auto) 0.1, Neutrophils # (Auto) 14.2H, Lymphocytes # (Auto) 1.0L, Monocytes # (Auto) 1.1H, Eosinophils # (Auto) 0.0, Basophils # (Auto) 0.0, Nucleated Red Blood Cells % (auto) 0.0, Erythrocyte Sedimentation Rate 57H, Prothrombin Time 14.8H, Prothromb Time International Ratio 1.19, Activated Partial Thromboplast Time 30.3, Anion Gap 12, Glomerular Filtration Rate > 60.0, Estimated Mean Plasma Glucose 160H, Hemoglobin A1c 7.2, Calcium Level 8.8, Total Bilirubin 0.8, Direct Bilirubin 0.2, Aspartate Amino Transf (AST/SGOT) 11, Alanine Aminotransferase (ALT/SGPT) 21, Alkaline Phosphatase 105, Total Creatine Kinase 95, Creatine Kinase MB < 1.0, Creatine Kinase MB Relative Index 1.05, Troponin I < 0.02, C-Reactive Protein, Quantitative 10.90H, Total Protein 7.3, Albumin 3.4, Albumin/Globulin Ratio 0.87L, Amylase Level 42 05/04/19 20:17: Urine Color YELLOW, Urine Appearance CLEAR, Urine pH 5.0, Urine Specific [place] 1.038, Urine Protein NEGATIVE, Urine Glucose (Auto)(UA) 3+H, Urine Ketones (Aut o) 1+H, Urine Blood NEGATIVE, Urine Nitrite NEGATIVE, Urine Bilirubin NEGATIVE, Urine Urobilinogen 0.2, Urine Leukocyte Esterase (Auto) NEGATIVE, Urine WBC (Auto) 0, Urine RBC (Auto) 0, Urine Hyaline Casts (Auto) 0, Urine Bacteria (Auto) NEGATIVE, Urine Squamous Epithelial Cells 0, Urine Sperm (Auto) 05/05/19 00:10: Bedside Glucose (Misc Panel) 128H 05/05/19 06:04: Methicillin-Resist S.aureus DNA PCR DETECTEDH 05/05/19 06:06: Bedside Glucose (Misc Panel) 128H 05/05/19 06:26: Nucleated Red Blood Cells % (auto) 0.0, Anion Gap 7L, Glomerular Filtration Rate > 60.0, Calcium Level 8.3L, Magnesium Level 1.7L CBC/BMP Laboratory Tests 05/04/19 18:11 05/05/19 06:26 Microbiology Microbiology 05/04/19 Gram Stain - Final, Resulted 05/04/19 Wound Culture, Resulted Pending 05/04/19 Blood Culture, Received Pending 05/04/19 Blood Culture, Received Pending DAMARI LYMAN PA-C May 05, 2019 11:20 Sj Edwards M.D. May 05, 2019 17:26
[2019-05-05] MEDS ORDERED: PROHANCE 279.3MG/ML 15ML VIAL (A9576) As Ordered ONE (12:20)
[2019-05-05] MEDS ORDERED: PROHANCE 279.3MG/ML 5ML VIAL (A9576) As Ordered ONE (12:20)
[2019-05-05 14:30] VITALS: BP 147/60
--- NOTE | 2019-05-05 15:01 | ECGEPIP ---
[facility] - ED Test Date: 2019-05-04 Pat Name: ALISSA CARR Department: Room: [place] [address] Gender: Male Post Acute Care Registered Nurse: maggy : [id number] Requested By: BACILIO MCKEON Order Number: [id number] Reading MD: Ubaldo Chao Measurements Intervals [place] Rate: 110 P: 47 ID: [id number] QRS: 3 QRSD: 96 T: 21 QT: 313 QTc: 425 Interpretive Statements SINUS TACHYCARDIA ABNORMAL RHYTHM ECG LEFT ATRIAL ENLARGEMENT NO PRIORS FOR COMPARISON Electronically Signed on 05-05-2019 15:01:22 EST by Ubaldo Chao
--- NOTE | 2019-05-05 17:15 | REP ---
MRI LEFT FOOT WITH AND WITHOUT CONTRAST: TECHNIQUE: Multiple sequences were obtained in the axial, coronal and sagittal planes prior to and following the intravenous administration of 18 mL ProHance. Skin ulceration is seen at the medial aspect of the first toe. There is diffuse ill-defined high signal in the soft-tissues of the left foot, predominately in the medial forefoot. There is associated enhancement of these soft-tissues compatible with cellulitis. There is a small amount of joint fluid seen at the first metatarsal phalangeal and interphalangeal joints. Otherwise no abscess collection is seen. There is diffuse abnormal signal of the first proximal and distal phalanges, with diffuse low signal and T1 and high signal on T2. There is diffuse enhancement as well. Findings are consistent with osteomyelitis. The remaining osseous structures of the left foot demonstrate no evidence of occult fracture or osteomyelitis. IMPRESSION: Ulceration of the medial first toe. Osteomyelitis of first proximal and distal phalanges with associated cellulitis of the medial forefoot. A small amount of joint fluid at the first metatarsal phalangeal and interphalangeal joints without other evidence of abscess. Electronically Signed by Gabriel Brooks MD 05/06/2019 04:58 P
[2019-05-05 20:00] VITALS: BP 126/74
[2019-05-06] MEDS: MEROPENEM INJ 1 GM in IV 1 EA IV SCH ×3 (05:15→20:58)
[2019-05-06 06:00] VITALS: BP 122/74
[2019-05-06 06:39] LABS: HEMATOCRIT 38.6 % (42.0-52.0); HEMOGLOBIN 12.7 g/dl (13.5-17.5); MEAN CORPUSCULAR HEMOGLOBIN 29.5 pg (27.0-33.0); MEAN CORPUSCULAR HGB CONC 32.9 g/dl (32.0-36.5); MEAN CORPUSCULAR VOLUME 89.6 fl (80.0-96.0); PLATELET COUNT, AUTOMATED 330 10^3/uL (150-450); RED BLOOD COUNT 4.31 10^6/uL (4.30-6.10); WHITE BLOOD COUNT 5.2 10^3/uL (4.0-10.0)
[2019-05-06] MEDS: NS 1,000 ML IV SCH ×3 (06:59→20:58)
[2019-05-06 07:00] LABS: ALBUMIN 2.6 GM/DL (3.2-5.2); ALT/SGPT 24 U/L (12-78); BILIRUBIN,TOTAL 0.4 MG/DL (0.2-1.0); BLOOD UREA NITROGEN 9 MG/DL (7-18); CALCIUM LEVEL 8.5 MG/DL (8.5-10.1); CARBON DIOXIDE LEVEL 27 MEQ/L (21-32); CHLORIDE LEVEL 106 MEQ/L (98-107); GLOMERULAR FILTRATION RATE > 60.0 (>60); GLUCOSE, FASTING 150 MG/DL (70-100); POTASSIUM SERUM 3.9 MEQ/L (3.5-5.1); SODIUM LEVEL 138 MEQ/L (136-145); TOTAL PROTEIN 6.8 GM/DL (6.4-8.2); VANCOMYCIN LEVEL TROUGH 10.4 UG/ML (10.0-20.0)
[2019-05-06] MEDS: ACETAMINOPHEN TAB 650MG DOSE (2X325MG) PO PRN (07:00)
[2019-05-06] MEDS: VANCOMYCIN HCL 1,000 MG, VIAL MATE ADAPTER 1 EACH in D5W 250 ML IV SCH (07:07)
[2019-05-06] MEDS: HumaLOG INSULIN (NovoLOG) PER UNIT SC SCH ×3 (07:39→17:19)
[2019-05-06] MEDS: LEVEMIR (INSULIN DETEMIR) 1 UNITS/0.01ML SC SCH ×2 (08:10→20:58)
[2019-05-06] MEDS: HEPARIN SOD (PORCINE) 5000 UNITS/ML VIAL SC SCH ×2 (08:14→20:58)
--- NOTE | 2019-05-06 08:26 | IPNPDOC ---
Subjective Date Seen The patient was seen on 05/06/19. Subjective Chief Complaint/HPI c/o headache associated with nausea this am consistent with his usual migraines. Tylenol has not helped - He usually take Excedrin Migraine at home Constitutional: Denies: Chills, Fever Pulmonary: Denies: Dyspnea, Cough Cardiovascular: Denies: Chest Pain, Palpitations, Orthopnea Gastrointestinal: Reports: Nausea; Denies: Vomiting, Abdominal Pain, Diarrhea, Constipation Objective Physical Examination General Exam: Positive: Alert, Cooperative, No Acute Distress Neck Exam: Positive: Supple; Negative: JVD Heart Exam: Positive: Rate Normal, Regular Rhythm Abdomen Exam: Positive: Normal bowel sounds, Soft; Negative: Tenderness Extremity Exam: Positive: Normal pulses (2+ DP pulse Left), Tenderness (over dorsal aspect of left foot ), Swelling (Left great toe extendinginto ankle), Other (stage III left great toe ulcer with pus, no surrounding erythema) Skin Exam: Positive: Nl turgor and temperature Psych Exam: Positive: Mental status NL Assessment /Plan Problems (1) Toe osteomyelitis, left Status: Acute Problem Text: favor L 1 toe amputation consult podiatry - Renny (2) Sepsis Status: Acute Problem Text: Cont IVF for now. BP 105 this am. Less tachy now. Hold DEMIAN for now (3) Diabetic foot ulcer Status: Acute Problem Text: Previous h/o Left great toe ulcer had heeled with wound care by Dr. lomax New ulcer developed about 2+ weeks ago likely related to standing on feet for long periods of time at his new job H/O MRSA in past-07/2018 B/C, Wound cultures pending Concern for osteomyeleits due to high CRP Foot x-ray neg. MRI foot ordered Cont Vanco/Meropenem 05/05 R foot MRI: Ulceration of the medial first toe. Osteomyelitis of first proximal and distal phalanges with associated cellulitis of the medial forefoot. 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 Status: Chronic (5) Diabetes mellitus Status: Chronic Problem Text: Cont Levemir and SSI (6) Migraine Status: Acute Problem Text: Give Excedrin migraine Plan/VTE VTE Prophylaxis Ordered?: Yes (SQ heparin) VS, I&O, 24H, Fishbone Vital Signs/I&O Vital Signs Date Time Temp Pulse Resp B/P (MAP) Pulse Ox O2 Delivery O2 Flow Rate FiO2 05/06/19 06:00 97.7 102 18 122/74 (90) 98 Room Air I&O- Last 24 Hours up to 6 AM 05/06/19 06:00 Intake Total 2335 ml Output Total 400 ml Balance 1935 ml Laboratory Data 24H LABS Laboratory Tests 2 05/05/19 13:29: Bedside Glucose (Misc Panel) 98 05/06/19 06:20: Nucleated Red Blood Cells % (auto) 0.0, Anion Gap 5L, Glomerular Filtration Rate > 60.0, Calcium Level 8.5, Total Bilirubin 0.4, Aspartate Amino Transf (AST/SGOT) 19, Alanine Aminotransferase (ALT/SGPT) 24, Alkaline Phosphatase 115, C-Reactive Protein, Quantitative 10.60H, Total Protein 6.8, Albumin 2.6#L, Albumin/Globulin Ratio 0.62L, Vancomycin Level Trough 10.4 CBC/BMP Laboratory Tests 05/06/19 06:20 Microbiology Microbiology 05/04/19 Gram Stain - Final, Resulted 05/04/19 Wound Culture - Preliminary, Resulted Klebsiella Oxytoca 05/04/19 Blood Culture - Preliminary, Resulted No growth after 24 hours . All specim... 05/04/19 Blood Culture - Preliminary, Resulted No growth after 24 hours . All specim... DAMARI LYMAN PA-C May 06, 2019 08:26
[2019-05-06] MEDS: EXCEDRIN MIGRAINE TABLET PO PRN (08:47)
[2019-05-06] MEDS ORDERED: INFLUENZA QUADRIVALENT PF VACCINE 0.5ML SYRINGE (90686) IM ONE (09:00)
[2019-05-06 14:00] VITALS: BP 130/72
[2019-05-06] MEDS: VANCOMYCIN HCL 500 MG in D5W MINI-BAG PLUS 100 ML IV SCH ×2 (14:40→22:59)
[2019-05-06] MEDS ORDERED: VANCOMYCIN HCL 750 MG in D5W 250 ML IV SCH (16:00)
[2019-05-06] MEDS: VANCOMYCIN HCL 750 MG, VIAL MATE ADAPTER 1 EACH in D5W 250 ML IV SCH (16:09)
[2019-05-06 20:00] VITALS: BP 132/81
[2019-05-07] MEDS: VANCOMYCIN HCL 750 MG, VIAL MATE ADAPTER 1 EACH in D5W 250 ML IV SCH ×4 (00:09→23:15)
[2019-05-07] MEDS: NS 1,000 ML IV SCH (04:38)
[2019-05-07] MEDS: MEROPENEM INJ 1 GM in IV 1 EA IV SCH ×3 (06:00→21:14)
[2019-05-07 06:14] VITALS: BP 134/60
[2019-05-07 07:05] LABS: ALBUMIN 2.6 GM/DL (3.2-5.2); ALT/SGPT 26 U/L (12-78); BILIRUBIN,TOTAL 0.5 MG/DL (0.2-1.0); BLOOD UREA NITROGEN 9 MG/DL (7-18); CALCIUM LEVEL 8.2 MG/DL (8.5-10.1); CARBON DIOXIDE LEVEL 28 MEQ/L (21-32); CHLORIDE LEVEL 104 MEQ/L (98-107); CREATININE FOR GFR 0.54 MG/DL (0.70-1.30); GLOMERULAR FILTRATION RATE > 60.0 (>60); GLUCOSE, FASTING 167 MG/DL (70-100); POTASSIUM SERUM 4.2 MEQ/L (3.5-5.1); SODIUM LEVEL 139 MEQ/L (136-145); TOTAL PROTEIN 6.1 GM/DL (6.4-8.2)
[2019-05-07] MEDS: HumaLOG INSULIN (NovoLOG) PER UNIT SC SCH ×3 (07:15→16:57)
[2019-05-07] MEDS: VANCOMYCIN HCL 500 MG in D5W MINI-BAG PLUS 100 ML IV SCH ×3 (07:15→22:14)
[2019-05-07] MEDS: LEVEMIR (INSULIN DETEMIR) 1 UNITS/0.01ML SC SCH ×2 (08:18→20:29)
[2019-05-07] MEDS: HEPARIN SOD (PORCINE) 5000 UNITS/ML VIAL SC SCH ×2 (08:19→20:29)
--- NOTE | 2019-05-07 08:33 | IPN ---
DATE: 05/06/2019 CHIEF COMPLAINT: 34-year-old male seen for evaluation of an ulceration on his left big toe. He states he has been dealing with this ulcer on and off for the last two years. He has been seeing Dr. Benavides in the past as well as myself. Patient states he got a new job approximately a month ago and over the last two weeks he states his ulcer became more painful. The last few days, he had considerable more pus and went to the emergency room, had a tachycardia with increased drainage and leukocytosis, was admitted, had subsequent MRI positive for osteomyelitis and is seen today for evaluation. HOME MEDICATIONS: - Invokana 300 mg daily - insulin - lisinopril 2.5 mg daily - magnesium oxide 400 mg capsule daily - simvastatin 40 mg daily ALLERGIES: No known drug allergies. PAST MEDICAL HISTORY: Hypertension. Type 2 diabetes. Diabetic neuropathy. Diabetic foot ulcers. PHYSICAL EXAMINATION: Reveals an alert, well oriented 34-year-old male in no acute distress. Evaluation of his foot reveals an ulceration on the plantar aspect of the foot with purulent discharge. The ulcer extends down to bone. The flexor halluces tendon is visible in the wound. The wound measures 1.3 cm from distal to proximal and 1.4 cm from medial to lateral, 0.4 cm in depth down to bone, stage IV infected ulcer. Dorsalis pedis and posterior tibial pulses are palpable. Erythema is present around the hallux extending onto the base of the toe. X-rays were negative for osteomyelitis, however, MRI reveals infection, ulcer and osteomyelitis of the distal and proximal phalanx. ASSESSMENT: Osteomyelitis with stage IV infected ulcer left hallux. PLAN: We discussed with the patient continuing on his present antibiotics. He is scheduled for a partial hallux amputation. The wound, depending on its appearance will be packed open for probable delayed primary closure. His questions were answered.
[2019-05-07] MEDS: EXCEDRIN MIGRAINE TABLET PO PRN ×2 (12:10→20:28)
[2019-05-07 14:00] VITALS: BP 132/77
--- NOTE | 2019-05-07 19:26 | IPNPDOC ---
Subjective Date Seen The patient was seen on 05/07/19. Subjective Chief Complaint/HPI He reports he is doing well today. Nursing asked if he still needed fluids going at 150cc/hr since he is eating and drinking fine. His vitals are fine today. He reports that his L leg feels much less swollen and tender. He still has significant drainage from his toe wound. He is going to have an amputation with Dr. Lawson on Thursday. General: Reports: Normal Appetite Constitutional: Denies: Chills, Fever Pulmonary: Denies: Dyspnea, Cough Cardiovascular: Denies: Chest Pain, Palpitations Gastrointestinal: Denies: Nausea, Vomiting, Diarrhea Genitourinary: Reports: Frequency (probably related to drinking plus fluids at 150cc/hr); Denies: Dysuria Hematologic: Denies: Bruising, Bleeding Excessively Psych: Reports: Mood Normal Objective Physical Examination General Exam: Positive: Alert, Cooperative, No Acute Distress Eye Exam: Positive: Conjunctiva & lids normal; Negative: Sclera icteric ENT Exam: Positive: Mucous membr. moist/pink Neck Exam: Positive: Supple; Negative: JVD, Lymphadenopathy Chest Exam: Positive: Clear to auscultation, Normal air movement Heart Exam: Positive: Rate Normal, Regular Rhythm Abdomen Exam: Positive: Normal bowel sounds, Soft; Negative: Tenderness Extremity Exam: Positive: Tenderness (over dorsal aspect of left foot ), Other (the toe was bandaged with a serous and purulent discharge noted on the bandage); Negative: Edema Neuro Exam: Positive: Normal Speech Psych Exam: Positive: Mental status NL Assessment /Plan Problems (1) Toe osteomyelitis, left Status: Acute Discussed With: Cutter Grinder Operator Problem Text: Dr. Lawson saw the patient and is planning to do a partial amputation of the infected toe. (2) Sepsis Status: Acute Problem Text: His vitals have stabilized and he no longer needs fluid support. He remains on vancomycin and meropenem at least through the amputation. (3) Diabetic foot ulcer Status: Acute Problem Text: B/C negative so far. Wound cultures are polymicrobial but include MRSA in the mix. Continue vancomycin and meropenem. Previous h/o Left great toe ulcer had healed with wound care by Dr. Benavides New ulcer developed about 2+ weeks ago likely related to standing on feet for long periods of time at his new job H/O MRSA in past-07/2018. 05/05 R foot MRI: Ulceration of the medial first toe. Osteomyelitis of first proximal and distal phalanges with associated cellulitis of the medial forefoot. 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 Status: Chronic Problem Text: He is growing it in his wound during this admission too. (5) Diabetes mellitus Status: Chronic Problem Text: Cont Levemir and SSI (6) Migraine Status: Acute Problem Text: Give Excedrin migraine Plan/VTE VTE Prophylaxis Ordered?: Yes (SQ heparin) VS, I&O, 24H, Fishbone Vital Signs/I&O Vital Signs Date Time Temp Pulse Resp B/P (MAP) Pulse Ox O2 Delivery O2 Flow Rate FiO2 05/07/19 14:00 96.7 94 18 132/77 (95) 98 Room Air I&O- Last 24 Hours up to 6 AM 05/07/19 06:00 Intake Total 6470 ml Output Total 1875 ml Balance 4595 ml Laboratory Data 24H LABS Laboratory Tests 2 05/06/19 20:46: Bedside Glucose (Misc Panel) 191H 05/07/19 06:14: Anion Gap 7L, Glomerular Filtration Rate > 60.0, Calcium Level 8.2L, Total Bilirubin 0.5, Aspartate Amino Transf (AST/SGOT) 14, Alanine Aminotransferase (ALT/SGPT) 26, Alkaline Phosphatase 118H, Total Protein 6.1L, Albumin 2.6L, Albumin/Globulin Ratio 0.74L, Vancomycin Level Trough 14.8 05/07/19 11:14: Bedside Glucose (Misc Panel) 142H 05/07/19 16:43: Bedside Glucose (Misc Panel) 221H CBC/BMP Laboratory Tests 05/07/19 06:14 Microbiology Microbiology 05/04/19 Gram Stain - Final, Complete 05/04/19 Wound Culture - Final, Complete Klebsiella Oxytoca Strep Agalactiae Group B Streptococcus Mitis Staph.aureus Methicillin Resis 05/04/19 Blood Culture - Preliminary, Resulted No Growth after 72 hours. All specime... 05/04/19 Blood Culture - Preliminary, Resulted No Growth after 72 hours. All specime... Sanchez Madrigal MD May 07, 2019 19:26
[2019-05-07 20:00] VITALS: BP 130/76
[2019-05-08 04:00] VITALS: BP 137/65
[2019-05-08] MEDS: MEROPENEM INJ 1 GM in IV 1 EA IV SCH ×3 (05:36→21:28)
[2019-05-08] MEDS: VANCOMYCIN HCL 500 MG in D5W MINI-BAG PLUS 100 ML IV SCH ×3 (06:08→22:19)
[2019-05-08 07:02] LABS: ALBUMIN 2.5 GM/DL (3.2-5.2); ALT/SGPT 35 U/L (12-78); BILIRUBIN,TOTAL 0.4 MG/DL (0.2-1.0); BLOOD UREA NITROGEN 12 MG/DL (7-18); CALCIUM LEVEL 8.8 MG/DL (8.5-10.1); CARBON DIOXIDE LEVEL 27 MEQ/L (21-32); CHLORIDE LEVEL 105 MEQ/L (98-107); CREATININE FOR GFR 0.54 MG/DL (0.70-1.30); GLOMERULAR FILTRATION RATE > 60.0 (>60); GLUCOSE, FASTING 192 MG/DL (70-100); POTASSIUM SERUM 4.2 MEQ/L (3.5-5.1); SODIUM LEVEL 138 MEQ/L (136-145); TOTAL PROTEIN 6.7 GM/DL (6.4-8.2)
[2019-05-08] MEDS: VANCOMYCIN HCL 750 MG, VIAL MATE ADAPTER 1 EACH in D5W 250 ML IV SCH ×2 (07:32→16:52)
[2019-05-08] MEDS: HumaLOG INSULIN (NovoLOG) PER UNIT SC SCH ×3 (07:32→16:53)
[2019-05-08] MEDS: LEVEMIR (INSULIN DETEMIR) 1 UNITS/0.01ML SC SCH ×2 (08:37→20:23)
[2019-05-08] MEDS: HEPARIN SOD (PORCINE) 5000 UNITS/ML VIAL SC SCH ×2 (08:37→20:23)
--- NOTE | 2019-05-08 10:35 | IPN ---
DATE: 05/08/2019 George is seen on [facility]. He is feeling well. No fever or chills. He feels better since he was hospitalized. Amputation is planned for tomorrow by Dr. Garcia. PHYSICAL EXAMINATION: Vital signs stable. Afebrile. 137/65. LUNGS: Clear. HEART: Regular rhythm. ABDOMEN: Soft, nontender. EXTREMITIES: His left foot is dressed. LABORATORIES: Renal function is normal. Blood sugars have been well controlled in the 100 to 200 range. White count is down to 5.2, hemoglobin 12.7, platelets 330. I reviewed his electrocardiogram (EKG) and it was normal. IMPRESSION: 1. Osteomyelitis of the left foot with partial amputation planned for tomorrow by Dr. Garcia. Surgical risk is elevated due to his diabetes, but he is optimized for surgery at this time and should be able to proceed without excessive risk. 2. Diabetic foot ulcer. Continue is current vancomycin and meropenem. 3. Diabetes. Blood sugar is well controlled on his current regimen of Levemir and sliding scale insulin.
[2019-05-08 13:59] VITALS: BP 133/82
[2019-05-08 20:00] VITALS: BP 131/81
[2019-05-08] MEDS: EXCEDRIN MIGRAINE TABLET PO PRN (20:22)
[2019-05-09] MEDS: VANCOMYCIN HCL 750 MG, VIAL MATE ADAPTER 1 EACH in D5W 250 ML IV SCH ×4 (00:15→23:47)
[2019-05-09 04:00] VITALS: BP 137/85
[2019-05-09] MEDS: MEROPENEM INJ 1 GM in IV 1 EA IV SCH ×3 (05:43→21:36)
[2019-05-09 06:43] LABS: BLOOD UREA NITROGEN 12 MG/DL (7-18); CALCIUM LEVEL 8.6 MG/DL (8.5-10.1); CARBON DIOXIDE LEVEL 29 MEQ/L (21-32); CHLORIDE LEVEL 105 MEQ/L (98-107); CREATININE FOR GFR 0.57 MG/DL (0.70-1.30); GLOMERULAR FILTRATION RATE > 60.0 (>60); GLUCOSE, FASTING 212 MG/DL (70-100); SODIUM LEVEL 140 MEQ/L (136-145)
[2019-05-09 06:44] LABS: ALBUMIN 2.5 GM/DL (3.2-5.2); ALT/SGPT 55 U/L (12-78); BILIRUBIN,TOTAL 0.4 MG/DL (0.2-1.0); TOTAL PROTEIN 6.4 GM/DL (6.4-8.2); VANCOMYCIN LEVEL TROUGH 15.3 UG/ML (10.0-20.0)
[2019-05-09] MEDS: VANCOMYCIN HCL 500 MG in D5W MINI-BAG PLUS 100 ML IV SCH ×3 (06:47→22:20)
--- NOTE | 2019-05-09 06:52 | PHACANCOPD ---
PHARMACY VANCOMYCIN DOSING Pt Demographics Demographics Patient Age:34 , Weight:93.700 , Gender: male Adjusted Body Weight Date: 05/05/19, Adjusted Body Weight: [82.66] Kg Events Past 24 Hours Events Past 24 Hours: NO: Dialysis, Diuretic Therapy, Change in CrCl, Fever, Elevation in WBC, Pending Diagnostics, Pending Procedures, Other Vancomycin Vancomycin indication: LEFT FOOT OSTEOMYELITIS Vancomycin Target Ranges: 15-20 mcg/ml Vancomycin Load Y/N: Yes Load Dose Date Time Vancomycin Load Dose: 2G Date: 05/05/19 Time:23:00 Vancomycin Dose Date: 05/09/19. Current Vancomycin Dose: [1.25G IV Q8H] Intermittent Dosing?: No Labs Labs Item Value Date Time White Blood Count 5.2 10^3/uL 05/06/19 0620 Glomerular Filtration Rate > 60.0 05/09/19 0556 Creatinine 0.57 MG/DL L 05/09/19 0556 Blood Urea Nitrogen 12 MG/DL 05/09/19 0556 Vancomycin Level Trough 15.3 UG/ML 05/09/19 0556 Vital Signs Label Value Date Time Patient Temperature 96.6 degrees F 05/09/19 0400 Temperature Source Temporal 05/09/19 0400 Micro Microbiology 05/04/19 Gram Stain - Final, Complete 05/04/19 Wound Culture - Final, Complete Klebsiella Oxytoca Strep Agalactiae Group B Streptococcus Mitis Staph.aureus Methicillin Resis 05/04/19 Blood Culture - Preliminary, Resulted No Growth after 72 hours. All specime... 05/04/19 Blood Culture - Preliminary, Resulted No Growth after 72 hours. All specime... Creatinine Clearance Date:05/05/19. Creatinine Clearance: [106ML/MIN]. Assessment and Plan Maintaining Current Dose?: Yes Reason for dose change: No Dose Change Pharmacist Note Pharmacist Note Date: 05/09/19. Pharmacist note: Trough of 15.3 is within target range. Will continue current dosing. Will continue to monitor and make adjustments as needed. DEUCE JACOME PHARMACY May 09, 2019 06:52
[2019-05-09] MEDS: HumaLOG INSULIN (NovoLOG) PER UNIT SC SCH ×3 (07:41→17:30)
[2019-05-09] MEDS: HEPARIN SOD (PORCINE) 5000 UNITS/ML VIAL SC SCH (08:36)
[2019-05-09] MEDS: LEVEMIR (INSULIN DETEMIR) 1 UNITS/0.01ML SC SCH ×2 (08:36→21:37)
[2019-05-09] MEDS: EXCEDRIN MIGRAINE TABLET PO PRN (08:43)
--- NOTE | 2019-05-09 08:51 | IPNPDOC ---
Subjective Date Seen The patient was seen on 05/09/19. Subjective Chief Complaint/HPI osteomyelitis Events since last encounter planned amputation today of LLE. Patient denies c/o. Constitutional: Denies: Chills, Fever, Night Sweats Pulmonary: Denies: Dyspnea, Cough Cardiovascular: Denies: Chest Pain, Palpitations, Orthopnea, Paroxysmal Noc. D yspnea, Lt Headedness Gastrointestinal: Denies: Nausea, Vomiting, Abdominal Pain, Diarrhea, Constipation Objective Physical Examination General Exam: Positive: Alert, Cooperative, No Acute Distress Eye Exam: Positive: Conjunctiva & lids normal; Negative: Sclera icteric ENT Exam: Positive: Mucous membr. 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 Dr. Lawson saw the patient and is planning to do a partial amputation of the infected toe. (2) Sepsis Status: Acute Problem Text: His vitals have stabilized and he no longer needs fluid support. He remains on vancomycin and meropenem at least through the amputation. (3) Diabetic foot ulcer Status: Acute Problem Text: B/C negative so far. Wound cultures are polymicrobial but include MRSA in the mix. Continue vancomycin and meropenem. Previous h/o Left great toe ulcer had healed with wound care by Dr. Benavides New ulcer developed about 2+ weeks ago likely related to standing on feet for long periods of time at his new job H/O MRSA in past-07/2018. 05/05 R foot MRI: Ulceration of the medial first toe. Osteomyelitis of first proximal and distal phalanges with associated cellulitis of the medial forefoot. 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 Status: Chronic Problem Text: He is growing it in his wound during this admission too. (5) Diabetes mellitus Status: Chronic Problem Text: Cont Levemir and SSI (6) Migraine Status: Acute Problem Text: Give Excedrin migraine Plan/VTE VTE Prophylaxis Ordered?: Yes (SQ heparin) VS, I&O, 24H, Fishbone Vital Signs/I&O Vital Signs Date Time Temp Pulse Resp B/P (MAP) Pulse Ox O2 Delivery O2 Flow Rate FiO2 05/09/19 04:00 96.6 87 16 137/85 (102) 99 Room Air I&O- Last 24 Hours up to 6 AM 05/09/19 05:59 Intake Total 3295 ml Output Total 3875 ml Balance -580 ml Laboratory Data 24H LABS Laboratory Tests 2 05/08/19 11:25: Bedside Glucose (Misc Panel) 160H 05/08/19 16:23: Bedside Glucose (Misc Panel) 255H 05/08/19 19:57: Bedside Glucose (Misc Panel) 167H 05/09/19 05:56: Anion Gap 6L, Glomerular Filtration Rate > 60.0, Calcium Level 8.6, Total Bili diamond 0.4, Aspartate Amino Transf (AST/SGOT) 42H, Alanine Aminotransferase (ALT/SGPT) 55, Alkaline Phosphatase 163H, Total Protein 6.4, Albumin 2.5L, Albumin/Globulin Ratio 0.64L, Vancomycin Level Trough 15.3 CBC/BMP Laboratory Tests 05/09/19 05:56 Microbiology Microbiology 05/04/19 Gram Stain - Final, Complete 05/04/19 Wound Culture - Final, Complete Klebsiella Oxytoca Strep Agalactiae Group B Streptococcus Mitis Staph.aureus Methicillin Resis 05/04/19 Blood Culture - Preliminary, Resulted No Growth after 72 hours. All specime... 05/04/19 Blood Culture - Preliminary, Resulted No Growth after 72 hours. All specime... Madisyn Roberts QUILT SEWER May 09, 2019 08:51
[2019-05-09 08:54] LABS: HEMATOCRIT 38.2 % (42.0-52.0); HEMOGLOBIN 12.5 g/dl (13.5-17.5); MEAN CORPUSCULAR HEMOGLOBIN 29.3 pg (27.0-33.0); MEAN CORPUSCULAR HGB CONC 32.7 g/dl (32.0-36.5); MEAN CORPUSCULAR VOLUME 89.5 fl (80.0-96.0); PLATELET COUNT, AUTOMATED 352 10^3/uL (150-450); RED BLOOD COUNT 4.27 10^6/uL (4.30-6.10); WHITE BLOOD COUNT 4.6 10^3/uL (4.0-10.0)
[2019-05-09] MEDS: D5W/0.45% SODIUM CHLORIDE 1,000 ML IV SCH (13:52)
[2019-05-09 14:36] VITALS: BP 122/77
[2019-05-09] MEDS ORDERED: PROPOFOL 200 MG/20 ML VIAL As Ordered ONE (18:19)
[2019-05-09] MEDS ORDERED: LIDOCAINE 2% INJ 100 MG/5 ML SDV (FOR ANES.) As Ordered ONE (18:19)
[2019-05-09] MEDS ORDERED: fentaNYL 100 MCG/2 ML INJECTION (J3010) As Ordered ONE (18:20)
[2019-05-09] MEDS ORDERED: MIDAZOLAM INJ 2 MG/2 ML VIAL (J2250) As Ordered ONE (18:20)
[2019-05-09] MEDS ORDERED: BUPIVACAINE HCL 0.5% 30 ML VIAL As Ordered ONE (19:11)
[2019-05-09] MEDS ORDERED: LIDOCAINE 2% MDV 20 ML VIAL As Ordered ONE (19:11)
[2019-05-09] MEDS ORDERED: VANCOMYCIN 1000 MG/20 ML VIAL (J3370) As Ordered ONE (19:21)
[2019-05-09] MEDS ORDERED: ONDANSETRON 4MG/2ML VIAL (J2405) IV PRN (20:30)
[2019-05-09] MEDS ORDERED: fentaNYL 100 MCG/2 ML INJECTION (J3010) IV PRN (20:30)
[2019-05-09] MEDS ORDERED: LR 1,000 ML IV SCH (20:30)
[2019-05-09] MEDS ORDERED: oxyCODONE 5MG TAB PO PRN (20:30)
[2019-05-09 20:45] VITALS: BP 145/87
[2019-05-10] MEDS: D5W/0.45% SODIUM CHLORIDE 1,000 ML IV SCH (01:42)
[2019-05-10] MEDS: MEROPENEM INJ 1 GM in IV 1 EA IV SCH ×3 (05:59→21:17)
[2019-05-10 06:00] VITALS: BP 132/85
[2019-05-10] MEDS: EXCEDRIN MIGRAINE TABLET PO PRN (06:43)
[2019-05-10 07:01] LABS: HEMOGLOBIN 13.2 g/dl (13.5-17.5); MEAN CORPUSCULAR HEMOGLOBIN 29.6 pg (27.0-33.0); MEAN CORPUSCULAR VOLUME 89.7 fl (80.0-96.0); PLATELET COUNT, AUTOMATED 368 10^3/uL (150-450); RED BLOOD COUNT 4.46 10^6/uL (4.30-6.10); WHITE BLOOD COUNT 6.2 10^3/uL (4.0-10.0)
[2019-05-10 07:22] LABS: BLOOD UREA NITROGEN 7 MG/DL (7-18); CALCIUM LEVEL 8.6 MG/DL (8.5-10.1); CARBON DIOXIDE LEVEL 32 MEQ/L (21-32); CHLORIDE LEVEL 102 MEQ/L (98-107); CREATININE FOR GFR 0.62 MG/DL (0.70-1.30); GLOMERULAR FILTRATION RATE > 60.0 (>60); GLUCOSE, FASTING 238 MG/DL (70-100); POTASSIUM SERUM 3.9 MEQ/L (3.5-5.1); SODIUM LEVEL 138 MEQ/L (136-145)
[2019-05-10] MEDS: VANCOMYCIN HCL 500 MG in D5W MINI-BAG PLUS 100 ML IV SCH ×3 (07:22→22:35)
--- NOTE | 2019-05-10 07:29 | REP ---
Clinical: Baseline postoperative evaluation. Technique: AP, lateral, oblique views of the left foot. Findings: The patient is status post surgical amputation through the first proximal phalanx. Overlying postsurgical changes noted. Impression: Status post surgical amputation first proximal phalanx. Electronically Signed by Sam Dick MD 05/10/2019 07:20 A
[2019-05-10] MEDS: HumaLOG INSULIN (NovoLOG) PER UNIT SC SCH ×3 (07:48→16:33)
[2019-05-10] MEDS: LEVEMIR (INSULIN DETEMIR) 1 UNITS/0.01ML SC SCH ×2 (09:24→21:17)
[2019-05-10] MEDS: HEPARIN SOD (PORCINE) 5000 UNITS/ML VIAL SQ SCH ×2 (09:24→21:17)
[2019-05-10] MEDS: VANCOMYCIN HCL 750 MG, VIAL MATE ADAPTER 1 EACH in D5W 250 ML IV SCH ×2 (09:24→16:12)
[2019-05-10] MEDS: ACETAMINOPHEN TAB 650MG DOSE (2X325MG) PO PRN ×2 (11:37→21:36)
--- NOTE | 2019-05-10 11:49 | IPNPDOC ---
Subjective Date Seen The patient was seen on 05/10/19. Subjective Chief Complaint/HPI foot ulcer Events since last encounter s/p toe amp in LLE with Dr. Garcia. WB on heel. PT/OT eval pending. Constitutional: Denies: Chills, Fever, Night Sweats Pulmonary: Denies: Dyspnea, Cough Cardiovascular: Denies: Chest Pain, Palpitations, Orthopnea, Paroxysmal Noc. Dyspnea, Lt Headedness Gastrointestinal: Denies: Nausea, Vomiting, Abdominal Pain, Diarrhea, Constipation Psych: Reports: Mood Normal; Denies: Depression, Memory Issues Objective Physical Examination General Exam: Positive: Alert, Cooperative, No Acute Distress Eye Exam: Positive: Conjunctiva & lids normal; Negative: Sclera icteric ENT Exam: Positive: Mucous membr. moist/pink Neck Exam: Positive: Supple; Negative: JVD, Lymphadenopathy Chest Exam: Positive: Clear to auscultation, Normal air movement Heart Exam: Positive: Rate Normal, Regular Rhythm Abdomen Exam: Positive: Normal bowel sounds, Soft; Negative: Tenderness Extremity Exam: Positive: Tenderness, Other (bandage to LLE); Negative: Edema Neuro Exam: Positive: Normal Speech Psych Exam: Positive: Mental status NL Assessment /Plan Problems (1) Toe osteomyelitis, left Status: Acute Discussed With: Certified Athletic Trainer Problem Text: 07/10/18: appreciate podiatry input. Anticipate potential DC home in 1-3 days. 05/09/19: planned amputation today. Dr. Garcia saw the patient and is planning to do a partial amputation of the infected toe. (2) Sepsis Status: Acute Problem Text: His vitals have stabilized and he no longer needs fluid support. He remains on vancomycin and meropenem at least through the amputation. (3) Diabetic foot ulcer Status: Acute Problem Text: B/C negative so far. Wound cultures are polymicrobial but include MRSA in the mix. Continue vancomycin and meropenem. Previous h/o Left great toe ulcer had healed with wound care by Dr. Benavides New ulcer developed about 2+ weeks ago likely related to standing on feet for long periods of time at his new job H/O MRSA in past-07/2018. 05/05 R foot MRI: Ulceration of the medial first toe. Osteomyelitis of first proximal and distal phalanges with associated cellulitis of the medial forefoot. 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 Status: Chronic Problem Text: He is growing it in his wound during this admission too. (5) Diabetes mellitus Status: Chronic Problem Text: Cont Levemir and SSI (6) Migraine Status: Acute Problem Text: Give Excedrin migraine Plan/VTE VTE Prophylaxis Ordered?: Yes (SQ heparin) VS, I&O, 24H, Fishbone Vital Signs/I&O Vital Signs Date Time Temp Pulse Resp B/P (MAP) Pulse Ox O2 Delivery O2 Flow Rate FiO2 05/10/19 06:00 97.4 84 18 132/85 (101) 98 05/09/19 20:45 Room Air I&O- Last 24 Hours up to 6 AM 05/10/19 05:59 Intake Total 1665 ml Output Total 1410 ml Balance 255 ml Laboratory Data 24H LABS Laboratory Tests 2 05/09/19 11:53: Bedside Glucose (Misc Panel) 166H 05/09/19 17:11: Bedside Glucose (Misc Panel) 117H 05/09/19 20:07: Bedside Glucose (Misc Panel) 160H 05/10/19 06:33: Nucleated Red Blood Cells % (auto) 0.0, Anion Gap 4L, Glomerular Filtration Rate > 60.0, Calcium Level 8.6 05/10/19 11:40: Bedside Glucose (Misc Panel) 183H CBC/BMP Laboratory Tests 05/10/19 06:33 Microbiology Microbiology 05/09/19 Gram Stain - Final, Resulted 05/09/19 Surgical Biopsy Culture, Resulted Pending 05/09/19 Anaerobic Culture, Resulted Pending 05/04/19 Gram Stain - Final, Complete 05/04/19 Wound Culture - Final, Complete Klebsiella Oxytoca Strep Agalactiae Group B Streptococcus Mitis Staph.aureus Methicillin Resis 05/04/19 Blood Culture - Final, Complete NO GROWTH AFTER 5 DAYS 05/04/19 Blood Culture - Final, Complete NO GROWTH AFTER 5 DAYS Madisyn Roberts MECHANICAL ENGINEERING TEACHER May 10, 2019 11:49
[2019-05-10 14:33] VITALS: BP 146/87
[2019-05-10 21:00] VITALS: BP 139/87
[2019-05-11] MEDS: VANCOMYCIN HCL 750 MG, VIAL MATE ADAPTER 1 EACH in D5W 250 ML IV SCH ×2 (00:10→08:56)
[2019-05-11] MEDS: MEROPENEM INJ 1 GM in IV 1 EA IV SCH (05:02)
[2019-05-11 06:00] VITALS: BP 132/80
[2019-05-11 06:25] LABS: HEMATOCRIT 36.9 % (42.0-52.0); HEMOGLOBIN 12.1 g/dl (13.5-17.5); MEAN CORPUSCULAR HEMOGLOBIN 29.4 pg (27.0-33.0); MEAN CORPUSCULAR HGB CONC 32.8 g/dl (32.0-36.5); MEAN CORPUSCULAR VOLUME 89.8 fl (80.0-96.0); PLATELET COUNT, AUTOMATED 353 10^3/uL (150-450); RED BLOOD COUNT 4.11 10^6/uL (4.30-6.10); WHITE BLOOD COUNT 5.7 10^3/uL (4.0-10.0)
[2019-05-11 06:54] LABS: BLOOD UREA NITROGEN 11 MG/DL (7-18); CALCIUM LEVEL 8.4 MG/DL (8.5-10.1); CARBON DIOXIDE LEVEL 33 MEQ/L (21-32); CHLORIDE LEVEL 104 MEQ/L (98-107); CREATININE FOR GFR 0.57 MG/DL (0.70-1.30); GLOMERULAR FILTRATION RATE > 60.0 (>60); GLUCOSE, FASTING 196 MG/DL (70-100); POTASSIUM SERUM 3.9 MEQ/L (3.5-5.1); SODIUM LEVEL 138 MEQ/L (136-145)
[2019-05-11] MEDS: VANCOMYCIN HCL 500 MG in D5W MINI-BAG PLUS 100 ML IV SCH (06:54)
--- NOTE | 2019-05-11 07:38 | RO ---
DATE OF PROCEDURE: 05/09/2019 PREPROCEDURE DIAGNOSIS: Osteomyelitis left hallux. POSTPROCEDURE DIAGNOSIS: Osteomyelitis left hallux. PROCEDURE: Partial hallux amputation left foot. SURGEON: David Garcia DPM CABLE TELEVISION TECHNICIAN: None. ANESTHESIA: Local, MAC. HEMOSTASIS: None. IRRIGATION: Dilute vancomycin solution, 3 liter, low pressure pulse lavage system. DRAINS UTILIZED: 1/4 inch Iodoform gauze. IMPLANTABLES USED: None. DESCRIPTION OF PROCEDURE: On 05/09/2019, this 34-year-old male was taken from his hospital room to the operating room and placed on the operating room table in a supine position. Following the induction of IV sedation, local and regional anesthesia, the left lower extremity was prepped and draped in the usual aseptic manner. Attention was directed to the patient' s left foot where there was noted to be an ulcer draining purulent matter with probing to bone on the distal interphalangeal joint of the left toe. At this time, a fishmouth was placed on the left hallux just proximal to the draining ulcer. Incision was made sharply to bone. Bleeders as encountered were ligated with #3-0 undyed Monocryl or electrocoagulated. The skin flap was retracted in a proximal direction and utilizing a power saw an osteotomy was performed through the proximal phalanx of the hallux, with more bone being taken off the plantar surface and the hallux was removed. All remaining bleeders were electrocoagulated. The wound was copiously lavaged with 3 liters with a low pressure of pulse lavage system of dilute vancomycin solution. The bone was then cultured aerobically and anaerobically and sent to microbacteriology. Specimen was sent to pathology for evaluation. After the wound was copiously lavaged, 1/4 inch Iodoform gauze was placed in the wound and three retention stitches were placed around the distal incision to prevent proximal retraction of the skin margins. The medial and lateral margins were not sutured. A sterile dressing was applied consisting of Adaptic, 4x4s, and Kerlix. The patient having apparently tolerated the surgical procedure well was taken to the recovery room for further monitoring by the anesthesia department. The patient may bear weight on his heel to pivot and transfer with a surgical shoe. His questions were answered. ROMINA
[2019-05-11 07:56] LABS: VANCOMYCIN RANDOM 14.7 UG/ML
[2019-05-11] MEDS: HEPARIN SOD (PORCINE) 5000 UNITS/ML VIAL SQ SCH (08:57)
[2019-05-11] MEDS: LEVEMIR (INSULIN DETEMIR) 1 UNITS/0.01ML SC SCH (08:57)
[2019-05-11] MEDS: HumaLOG INSULIN (NovoLOG) PER UNIT SC SCH ×2 (08:58→14:19)
[2019-05-11] MEDS: EXCEDRIN MIGRAINE TABLET PO PRN (08:58)
[2019-05-11] MEDS ORDERED: CEFU50TA PO (11:17)
[2019-05-11] MEDS ORDERED: BACT800T5 PO (11:17)
--- NOTE | 2019-05-12 13:35 | IPN ---
DATE OF VISIT: 05/11/2019 CHIEF COMPLAINT: The patient seen today for evaluation status post left partial hallux amputation. The patient states he is feeling no pain in his left foot. He denies shortness of breath or chest pain. The bandage was removed today. The iodoform gauze was pulled from the wound. The wound margins are viable. The surgical site is closed distally, however, it was left opened on the proximal aspect to allow drainage. No purulent discharge. Laboratory studies reviewed revealing his white count at 5.7, reduced from his admission of 8.2. ASSESSMENT: His wound culture from surgery are pending, however, his previous soft tissue culture reveals group B strep Klebsiella and Streptococcus and methicillin-resistant Staphylococcus aureus. PLAN: A dry sterile dressing was applied. The patient should leave in place until Thursday where this can be changed at my office. His primary care provider has put him on antibiotic coverage consisting of Bactrim DS and Ceftin. His questions are answered. He was advised to limit his weightbearing status on his left foot.
--- NOTE | 2019-05-12 19:46 | DSES ---
DATE OF ADMISSION: 05/04/2019 DATE OF DISCHARGE: 05/11/2019 PRIMARY CARE PROVIDER: Sj Edwards MD ATTENDING PHYSICIAN: Viet Ross MD HISTORY OF PRESENT ILLNESS: 34-year-old male with significant past medical history of type 2 diabetes with neuropathy, hypertension, presented to the emergency department (ED) with an unhealed left great toe ulcer. Patient had previous wound care treatment with debridement by Dr. Benavides, however patient had started a new place of employment and the ulcer continually worsened due to standing on feet. ED workup proved positive for leukocytosis with a white blood cell count of 15,000, elevated CRP of 10.9, and a heart rate of 121. Patient was subsequently admitted for infectious ulcer. HOSPITAL COURSE: Patient is status post consultation with Dr. David Garcia. It was determined patient needed a partial hallux amputation, this was completed on 05/09/2019. Patient has participated in physical therapy and has been deemed safe for discharge to home. Patient did develop significant amount of organisms on culture of this ulcer including Klebsiella, Streptococcus group B, Streptococcus mitis, and methicillin-resistant Staphylococcus aureus (MRSA). Patient was placed on meropenem as well as vancomycin IV and received a full 7 days of treatment. Patient's insulin was maintained throughout hospitalization, blood sugars were adjusted accordingly with regular insulin sliding scale. IMAGING: Patient is status post foot x-ray as well as MRI of the foot and proved positive for osteomyelitis of the first proximal and distal phalanges with associated cellulitis of the medial forefoot. PROCEDURES: Partial Hallux amputation as previously stated. CONSULTATIONS: Dr. David Garcia PHYSICAL EXAMINATION: Vital signs are stable, he is afebrile. HEENT: Neck is supple without lymphadenopathy or jugular venous distention (JVD). CARDIOVASCULAR: Heart rate and rhythm are regular. PULMONARY: Lungs are clear. ABDOMEN: Soft and nontender. BILATERAL LOWER EXTREMITIES: Without edema. Patient's left lower extremity has a dressing which is clean, dry, and intact. ASSESSMENT: 1. Osteomyelitis of the left great toe. 2. Methicillin-resistant Staphylococcus aureus (MRSA), Klebsiella, and Streptococcus infection to ulceration. 3. Diabetes with neuropathy. 4. Hypertension. PLAN: Patient will be discharged to home. Diet is carbohydrate consistent, 2 gram sodium. Activity is as tolerated with weightbearing to the heel only of the left foot. Dressing change orders will be provided by Dr. Garcia today prior to patient's discharge. He will followup with primary care provider (PCP) within the next 5-7 days and will followup with Dr. Garcia per his recommendations. PRESCRIPTIONS: Are as follows: - cefuroxime 500 mg one by mouth three times a day - Bactrim one tablet by mouth twice a day CONTINUED MEDICATIONS: Include: - Invokana 300 mg by mouth daily - Lantus SoloStar 24 units subcutaneous nightly - Lispro 8 units subcutaneus before food - lisinopril 2.5 mg by mouth daily - magnesium oxide 400 mg by mouth daily - simvastatin 40 mg by mouth daily Patient is discharged in stable and satisfactory condition with no further questions at the time of discharge.
== END 2019-05-11 15:35 | disposition home or self-care (01) | DRG 854 ==
LOC: M ED 17:03 → M ED INP 20:41 → M MS4PR 23:50 → M MSPAV 05-05 12:26 → M MS4PR 05-05 12:29 → M MSPAV 05-05 12:36 → M MS4PR 05-05 12:39
PROVIDERS: ADMIT Internal Medicine; ATTEND Family Medicine
PROC: 0Y6Q0Z1 Detachment at Left 1st Toe, High, Open Approach (ICD-10-PCS; principal; 2019-05-09 08:30)
DX: A41.9 Sepsis, unspecified organism (principal); M86.172 Other acute osteomyelitis, left ankle and foot; L97.526 Non-pressure chronic ulcer of other part of left foot with bone involvement without evidence of necrosis; E11.621 Type 2 diabetes mellitus with foot ulcer; E11.40 Type 2 diabetes mellitus with diabetic neuropathy, unspecified; G43.909 Migraine, unspecified, not intractable, without status migrainosus; B95.62 Methicillin resistant Staphylococcus aureus infection as the cause of diseases classified elsewhere; B95.1 Streptococcus, group B, as the cause of diseases classified elsewhere; B96.1 Klebsiella pneumoniae [K. pneumoniae] as the cause of diseases classified elsewhere; I10 Essential (primary) hypertension; E11.69 Type 2 diabetes mellitus with other specified complication; Z79.4 Long term (current) use of insulin; Z79.899 Other long term (current) drug therapy

== ENCOUNTER → 2019-05-30 | Outpatient (CLI) | payer OTHER ==
[~2019-05-30] MED LIST changes: +BACT800T5 PO; +CEFU50TA PO; +HUMA100I5 SC; +INVO300T PO; +LANTINJ4; +MAGN400C2 PO; -SIMV40TA2 PO; +SIMV40TA20 PO
--- NOTE | 2019-05-30 13:33 | REP ---
Chest x-ray: Two views. History: Chest discomfort, rule out pneumonia. Comparison chest x-ray: June 20, 2013. Findings: There is an infiltrate in the left lower lobe laterally consistent with pneumonia. There are a few increased markings in the left upper perihilar region as well. Pleural angles are sharp. No other infiltrate is seen. Cardiomediastinal silhouette is unremarkable. No bony abnormalities seen. Impression: Infiltrate in the left lower lobe consistent with pneumonia. Electronically Signed by Tarun Oquendo MD 05/30/2019 01:24 P
== END ==
LOC: M RAD 12:47
PROVIDERS: ATTEND Physician Assistant Medical
DX: R10.9 Unspecified abdominal pain (principal)

== ENCOUNTER → 2019-07-28 | Outpatient (CLI) | payer OTHER ==
[2019-07-28 12:48] LABS: BASO % 0.4 % (0.0-1.0); EOS # 0.1 10^3/uL (0.0-0.5); HEMATOCRIT 47.8 % (42.0-52.0); HEMOGLOBIN 15.7 g/dl (13.5-17.5); LYMPH # 2.1 10^3/uL (1.5-5.0); LYMPH % 26.2 % (24.0-44.0); MEAN CORPUSCULAR HGB CONC 32.8 g/dl (32.0-36.5); MEAN CORPUSCULAR VOLUME 88.4 fl (80.0-96.0); MONO # 0.6 10^3/uL (0.0-0.8); MONO % 6.9 % (0.0-5.0); NEUTROPHILS # 5.3 10^3/uL (1.5-8.5); NEUTROPHILS % 65.1 % (36.0-66.0); PLATELET COUNT, AUTOMATED 316 10^3/uL (150-450); RED BLOOD COUNT 5.41 10^6/uL (4.30-6.10); WHITE BLOOD COUNT 8.1 10^3/uL (4.0-10.0)
[2019-07-28 12:51] LABS: ALT/SGPT 39 U/L (12-78); BILIRUBIN,TOTAL 0.9 MG/DL (0.2-1.0); BLOOD UREA NITROGEN 14 MG/DL (7-18); CALCIUM LEVEL 9.2 MG/DL (8.5-10.1); CARBON DIOXIDE LEVEL 32 MEQ/L (21-32); CHLORIDE LEVEL 101 MEQ/L (98-107); FERRITIN 530 NG/ML (26-388); GLOMERULAR FILTRATION RATE > 60.0 (>60); GLUCOSE, FASTING 191 MG/DL (70-100); IRON (FE) 99 UG/DL (65-175); PERCENT SATURATION 32.8 % (19.7-50.0); POTASSIUM SERUM 3.9 MEQ/L (3.5-5.1); SODIUM LEVEL 139 MEQ/L (136-145); TOTAL IRON BINDING CAPACITY 302 UG/DL (250-450); TOTAL PROTEIN 7.7 GM/DL (6.4-8.2); VITAMIN B12 LEVEL 791 PG/ML (247-911)
[2019-07-28 13:21] LABS: HEMOGLOBIN A1c 7.2 %
== END ==
LOC: M PLALAB 09:14
PROVIDERS: ATTEND Physician Assistant Medical
DX: E11.8 Type 2 diabetes mellitus with unspecified complications (principal); I10 Essential (primary) hypertension; D64.9 Anemia, unspecified

== ENCOUNTER → 2019-08-09 | Outpatient (REF) | payer OTHER | LOC: M SFHCPLAZ 13:01 | PROVIDERS: ATTEND Physician Assistant Medical | DX: L73.9 Follicular disorder, unspecified (principal) ==

== ENCOUNTER → 2019-10-04 | Outpatient (REF) | payer OTHER | LOC: M SFHCPLAZ 10:03 | PROVIDERS: ATTEND Physician Assistant | DX: J34.0 Abscess, furuncle and carbuncle of nose (principal) ==

== ENCOUNTER → 2019-12-22 | Outpatient (REF) | payer OTHER ==
[~2019-12-22] MED LIST changes: -ASPI81TA85 PO; +ASPI81TA86 PO; +JARD1TAB PO; -LISI-1046 PO; +LISI2.5T2 PO; +TOBRSUS41 OU
[2019-12-22 13:03] LABS: BASO % 0.5 % (0.0-1.0); EOS # 0.1 10^3/uL (0.0-0.5); HEMATOCRIT 40.7 % (42.0-52.0); HEMOGLOBIN 13.7 g/dl (13.5-17.5); LYMPH # 2.3 10^3/uL (1.5-5.0); LYMPH % 34.9 % (24.0-44.0); MEAN CORPUSCULAR HEMOGLOBIN 29.7 pg (27.0-33.0); MEAN CORPUSCULAR HGB CONC 33.7 g/dl (32.0-36.5); MEAN CORPUSCULAR VOLUME 88.3 fl (80.0-96.0); MONO # 0.6 10^3/uL (0.0-0.8); MONO % 8.7 % (0.0-5.0); NEUTROPHILS # 3.5 10^3/uL (1.5-8.5); NEUTROPHILS % 53.4 % (36.0-66.0); PLATELET COUNT, AUTOMATED 318 10^3/uL (150-450); RED BLOOD COUNT 4.61 10^6/uL (4.30-6.10); WHITE BLOOD COUNT 6.6 10^3/uL (4.0-10.0)
[2019-12-22 13:11] LABS: ALBUMIN 3.7 GM/DL (3.2-5.2); ALT/SGPT 38 U/L (12-78); BILIRUBIN,TOTAL 0.7 MG/DL (0.2-1.0); BLOOD UREA NITROGEN 15 MG/DL (7-18); CALCIUM LEVEL 9.5 MG/DL (8.5-10.1); CARBON DIOXIDE LEVEL 31 MEQ/L (21-32); CHLORIDE LEVEL 104 MEQ/L (98-107); CREATININE FOR GFR 0.74 MG/DL (0.70-1.30); GLOMERULAR FILTRATION RATE > 60.0 (>60); GLUCOSE, FASTING 147 MG/DL (70-100); POTASSIUM SERUM 4.2 MEQ/L (3.5-5.1); SODIUM LEVEL 141 MEQ/L (136-145); TOTAL PROTEIN 7.4 GM/DL (6.4-8.2)
[2019-12-22 13:33] LABS: HEMOGLOBIN A1c 9.8 %
== END ==
LOC: M SFHCPLAZ 09:16
PROVIDERS: ATTEND Physician Assistant Medical
DX: L73.9 Follicular disorder, unspecified (principal); I10 Essential (primary) hypertension; E11.65 Type 2 diabetes mellitus with hyperglycemia; D64.9 Anemia, unspecified

== ENCOUNTER 2020-04-18 10:40 | Emergency (ER) | payer OTHER ==
[~2020-04-18] VITALS: Ht 180.3 cm; Wt 103.3 kg
[~2020-04-18 10:40] MED LIST changes: -JARD1TAB PO; -TOBRSUS41 OU
[2020-04-18] MEDS ORDERED: JARD1TAB PO (10:46)
[2020-04-18] MEDS ORDERED: FLUORESCEIN OPHTH 1 MG STRIP OU ONE (12:00)
[2020-04-18] MEDS ORDERED: TETRACAINE 0.5% OPHTH SOLN 4ML OU ONE (12:00)
[2020-04-18] MEDS ORDERED: TOBRSUS41 OU (12:40)
[2020-04-18 12:51] VITALS: BP 150/90
== END 2020-04-18 12:52 | disposition home or self-care (01) ==
LOC: M ED 10:40
DX: H01.001 Unspecified blepharitis right upper eyelid (principal)

== ENCOUNTER 2020-05-19 05:58 | Emergency (ER) | payer OTHER ==
[~2020-05-19] VITALS: Ht 180.3 cm; Wt 100.0 kg
[~2020-05-19 05:58] MED LIST changes: +JARD1TAB PO; +TOBRSUS41 OU
[2020-05-19] MEDS ORDERED: CLINDAMYCIN 900 MG in IV 1 EA IV ONE (07:00)
[2020-05-19 07:28] LABS: BASO % 0.4 % (0.0-1.0); EOS # 0.1 10^3/uL (0.0-0.5); HEMATOCRIT 46.8 % (42.0-52.0); HEMOGLOBIN 15.9 g/dl (13.5-17.5); LYMPH % 19.9 % (24.0-44.0); MEAN CORPUSCULAR HEMOGLOBIN 28.8 pg (27.0-33.0); MEAN CORPUSCULAR VOLUME 84.8 fl (80.0-96.0); MONO # 0.8 10^3/uL (0.0-0.8); NEUTROPHILS % 70.2 % (36.0-66.0); PLATELET COUNT, AUTOMATED 355 10^3/uL (150-450); RED BLOOD COUNT 5.52 10^6/uL (4.30-6.10)
[2020-05-19 07:52] LABS: BLOOD UREA NITROGEN 18 MG/DL (7-18); C REACTIVE PROTEIN QUANTITATIV 6.49 MG/DL (0.00-0.30); CALCIUM LEVEL 9.6 MG/DL (8.5-10.1); CARBON DIOXIDE LEVEL 30 MEQ/L (21-32); CHLORIDE LEVEL 100 MEQ/L (98-107); CREATININE FOR GFR 0.88 MG/DL (0.70-1.30); GLOMERULAR FILTRATION RATE > 60.0 (>60); GLUCOSE, FASTING 276 MG/DL (70-100); SODIUM LEVEL 137 MEQ/L (136-145)
[2020-05-19] MEDS ORDERED: ISOVUE-370 76% 100ML VIAL As Ordered ONE (07:55)
[2020-05-19] MEDS ORDERED: ACETAMINOPHEN 325 MG TAB PO ONE (08:00)
--- NOTE | 2020-05-19 08:20 | REP ---
INDICATION: nasal/maxilla inflammation, infection. COMPARISON: None. TECHNIQUE: 75 mL of intravenous Isovue 370 is administered. 3 mm axial images are re-formatted. Sagittal and coronal MPR images are generated and reviewed. FINDINGS: Preliminary digital photo intern radiographs are unremarkable. Maxillary sinuses are clear. The ethmoid and sphenoid sinuses are clear. Frontal sinuses show no evidence of mucosal thickening. Mastoid aeration is normal and symmetric. Bony sinus margins and orbital margins are intact. No intraorbital soft tissue mass is seen. Bony nasal septum is in the midline. Nasal turbinates soft tissues are unremarkable. Nasal ethmoid recesses and ostiomeatal complexes are clear. Zygomatic arches are intact. The bony mandible is intact. No intraorbital soft tissue lesion is seen. Visualized intracranial structures are unremarkable. Parotid and submandibular glands are normal and symmetric. There is a single hypertrophied right submandibular lymph node measuring 12 by 22 by 13 mm. No other evidence of adenopathy is seen. Tonsillar and peritonsillar soft tissues are unremarkable. There is a calcific density in the skin of the right malar region. No other soft tissue inflammatory changes are seen. IMPRESSION: There is a single mildly enlarged right lymph node consistent with reactive adenopathy. No other significant abnormality. The paranasal sinuses are clear. <Electronically signed by Gonzalez Oquendo > 05/19/20 [id number]
[2020-05-19 08:22] LABS: ERYTHROCYTE SEDIMENTATION RATE 42 mm/hr (0-15)
[2020-05-19] MEDS ORDERED: CLEO300C2 PO (08:46)
[2020-05-19 08:55] VITALS: BP 145/86
== END 2020-05-19 09:10 | disposition home or self-care (01) ==
LOC: M ED 05:58
DX: J34.0 Abscess, furuncle and carbuncle of nose (principal); Z86.14 Personal history of Methicillin resistant Staphylococcus aureus infection; K08.89 Other specified disorders of teeth and supporting structures; E11.9 Type 2 diabetes mellitus without complications; I10 Essential (primary) hypertension; Z79.899 Other long term (current) drug therapy; Z79.4 Long term (current) use of insulin
CPT/HCPCS: 70487; 80048; 85025; 85652; 86140; 96365; 99284; Q9967

== ENCOUNTER → 2020-05-21 | Outpatient (REF) | payer OTHER ==
[~2020-05-21] MED LIST changes: +CLEO300C2 PO
[2020-05-21 17:49] LABS: BASO % 0.3 % (0.0-1.0); EOS # 0.1 10^3/uL (0.0-0.5); EOS % 1.7 % (0.0-3.0); HEMATOCRIT 44.4 % (42.0-52.0); HEMOGLOBIN 14.6 g/dl (13.5-17.5); LYMPH # 1.7 10^3/uL (1.5-5.0); LYMPH % 29.6 % (24.0-44.0); MEAN CORPUSCULAR HEMOGLOBIN 28.4 pg (27.0-33.0); MEAN CORPUSCULAR HGB CONC 32.9 g/dl (32.0-36.5); MEAN CORPUSCULAR VOLUME 86.4 fl (80.0-96.0); MONO # 0.4 10^3/uL (0.0-0.8); MONO % 6.4 % (0.0-5.0); NEUTROPHILS # 3.5 10^3/uL (1.5-8.5); NEUTROPHILS % 61.5 % (36.0-66.0); PLATELET COUNT, AUTOMATED 340 10^3/uL (150-450); RED BLOOD COUNT 5.14 10^6/uL (4.30-6.10); WHITE BLOOD COUNT 5.8 10^3/uL (4.0-10.0)
[2020-05-21 17:50] LABS: ALBUMIN 3.6 GM/DL (3.2-5.2); ALT/SGPT 30 U/L (12-78); BILIRUBIN,TOTAL 0.3 MG/DL (0.2-1.0); BLOOD UREA NITROGEN 22 MG/DL (7-18); CALCIUM LEVEL 9.1 MG/DL (8.5-10.1); CARBON DIOXIDE LEVEL 30 MEQ/L (21-32); CHLORIDE LEVEL 102 MEQ/L (98-107); CHOLESTEROL LEVEL 252 MG/DL (<200); CHOLESTEROL RISK RATIO 4.666 (<5); CREATININE FOR GFR 0.82 MG/DL (0.70-1.30); GLOMERULAR FILTRATION RATE > 60.0 (>60); GLUCOSE, FASTING 233 MG/DL (70-100); HDL CHOLESTEROL 54 MG/DL (>40); LDL CHOLESTEROL 165 MG/DL (<100); NON-HDL-C 198 MG/DL; POTASSIUM SERUM 4.8 MEQ/L (3.5-5.1); SODIUM LEVEL 137 MEQ/L (136-145); TOTAL PROTEIN 7.4 GM/DL (6.4-8.2); TRIGLYCERIDES LEVEL 167 MG/DL (<150)
[2020-05-21 18:23] LABS: HEMOGLOBIN A1c 9.6 %
[2020-05-21 18:54] LABS: CREATININE, URINE 45.9 MG/DL; MAU/CREAT RATIO 270.1 MCG/MG (0.0-30.0)
== END ==
LOC: M SFHCPLAZ 13:57
PROVIDERS: ATTEND Physician Assistant Medical
DX: E11.65 Type 2 diabetes mellitus with hyperglycemia (principal); E78.5 Hyperlipidemia, unspecified; I10 Essential (primary) hypertension

== ENCOUNTER 2020-10-05 11:39 | Emergency (ER) | payer OTHER ==
[~2020-10-05] VITALS: Ht 180.3 cm; Wt 98.7 kg
[2020-10-05] MEDS ORDERED: SIMV20TA22 PO (11:47)
[2020-10-05] MEDS ORDERED: INSUHUMDS SC (11:47)
[2020-10-05 12:35] LABS: HEMATOCRIT 38.8 % (42.0-52.0); HEMOGLOBIN 13.7 g/dl (13.5-17.5); MEAN CORPUSCULAR HEMOGLOBIN 29.5 pg (27.0-33.0); MEAN CORPUSCULAR HGB CONC 35.3 g/dl (32.0-36.5); MEAN CORPUSCULAR VOLUME 83.6 fl (80.0-96.0); PLATELET COUNT, AUTOMATED 317 10^3/uL (150-450); RED BLOOD COUNT 4.64 10^6/uL (4.30-6.10); WHITE BLOOD COUNT 7.4 10^3/uL (4.0-10.0)
--- NOTE | 2020-10-05 13:01 | REP ---
INDICATION: ulcer great toe r/o osteo COMPARISON: None. TECHNIQUE: AP, lateral, bilateral oblique views right foot. FINDINGS: Soft tissue swelling surrounds the 1st toe. Lateral view demonstrates ulceration along the skin surface and soft tissue underlying the distal phalanx. There is no periosteal reaction or osseous changes to suggest osteomyelitis by radiographic evaluation. Remainder of the examination is normal. IMPRESSION: Soft tissue swelling and ulceration. Possible cellulitis. No radiographic evidence to suggest associated osteomyelitis. <Electronically signed by Sam Dick > 10/05/20 [id number]
[2020-10-05 13:17] LABS: ERYTHROCYTE SEDIMENTATION RATE 45 mm/hr (0-15)
[2020-10-05] MEDS ORDERED: BACTRIM 160MG/800MG DS TAB PO ONE (14:50)
[2020-10-05] MEDS ORDERED: BACT800T5 PO (14:53)
[2020-10-05 15:22] VITALS: BP 148/99
== END 2020-10-05 15:45 | disposition home or self-care (01) ==
LOC: M ED 11:39
DX: L03.115 Cellulitis of right lower limb (principal); E11.621 Type 2 diabetes mellitus with foot ulcer; Z89.422 Acquired absence of other left toe(s); I10 Essential (primary) hypertension; E78.00 Pure hypercholesterolemia, unspecified; F41.9 Anxiety disorder, unspecified; Z79.4 Long term (current) use of insulin; Z79.899 Other long term (current) drug therapy; Z88.8 Allergy status to other drugs, medicaments and biological substances

== ENCOUNTER 2020-11-16 00:59 | Emergency (ER) | payer OTHER ==
[~2020-11-16] VITALS: Ht 180.3 cm; Wt 101.0 kg
[~2020-11-16 00:59] MED LIST changes: +INSUHUMDS SC; +SIMV20TA22 PO
[2020-11-16] MEDS ORDERED: ASPI-161 PO (01:09)
[2020-11-16] MEDS ORDERED: BACT800T5 PO (05:24)
[2020-11-16 05:37] VITALS: BP 120/62
[2020-11-16] MEDS ORDERED: BACTRIM 160MG/800MG DS TAB PO ONE (06:00)
== END 2020-11-16 05:39 | disposition home or self-care (01) ==
LOC: M ED 00:59
DX: L03.90 Cellulitis, unspecified (principal); E11.9 Type 2 diabetes mellitus without complications; Z79.4 Long term (current) use of insulin; Z79.82 Long term (current) use of aspirin; Z79.899 Other long term (current) drug therapy; Z88.8 Allergy status to other drugs, medicaments and biological substances; Z86.14 Personal history of Methicillin resistant Staphylococcus aureus infection

== ENCOUNTER 2021-03-11 10:26 | Inpatient (IN) | payer OTHER ==
[~2021-03-11] VITALS: Ht 175.3 cm; Wt 98.4 kg
[~2021-03-11 10:26] MED LIST changes: +ASPI-161 PO; -LISI2.5T2 PO; +LISI2.5T9 PO
[2021-03-11 12:50] LABS: BASO % 0.3 % (0.0-1.0); EOS # 0.1 10^3/uL (0.0-0.5); EOS % 0.9 % (0.0-3.0); HEMATOCRIT 37.1 % (42.0-52.0); HEMOGLOBIN 13.1 g/dl (13.5-17.5); LYMPH # 1.1 10^3/uL (1.5-5.0); LYMPH % 11.1 % (24.0-44.0); MEAN CORPUSCULAR HEMOGLOBIN 29.2 pg (27.0-33.0); MEAN CORPUSCULAR HGB CONC 35.3 g/dl (32.0-36.5); MEAN CORPUSCULAR VOLUME 82.6 fl (80.0-96.0); MONO # 0.6 10^3/uL (0.0-0.8); MONO % 6.1 % (2.0-8.0); NEUTROPHILS # 7.8 10^3/uL (1.5-8.5); NEUTROPHILS % 81.2 % (36.0-66.0); PLATELET COUNT, AUTOMATED 398 10^3/uL (150-450); RED BLOOD COUNT 4.49 10^6/uL (4.30-6.10); WHITE BLOOD COUNT 9.6 10^3/uL (4.0-10.0)
--- NOTE | 2021-03-11 12:57 | REP ---
INDICATION: right great toe only: cellulitis r/o osteo. COMPARISON: Comparison right foot radiographs October 05, 2020. TECHNIQUE: Four views of the right great toe. FINDINGS: Four views of the right great toe demonstrate soft tissue swelling about the proximal and distal phalanges. Joint spaces are preserved. There is a focal soft tissue deficit adjacent to the medial aspect of the distal phalanx. On oblique radiograph, there is radiolucency within the bony distal phalanx consistent with osteomyelitis. No fracture or subluxation is seen. No opaque foreign body noted. There is a plantar heel spur and some dorsal forefoot swelling is seen. No soft tissue gas is seen apart from the ulceration in the distal phalanx of the great toe. IMPRESSION: Findings consistent with osteomyelitis with bone destruction in the distal phalanx of the great toe adjacent to a soft tissue deficit representing an ulcer. There is soft tissue swelling. <Electronically signed by Gonzalez Oquendo > 03/11/21 [id number]
[2021-03-11 13:24] LABS: BLOOD UREA NITROGEN 17 MG/DL (7-18); C REACTIVE PROTEIN QUANTITATIV 8.97 MG/DL (0.00-0.30); CALCIUM LEVEL 9.4 MG/DL (8.5-10.1); CARBON DIOXIDE LEVEL 27 MEQ/L (21-32); CHLORIDE LEVEL 101 MEQ/L (98-107); CREATININE FOR GFR 0.94 MG/DL (0.70-1.30); GLOMERULAR FILTRATION RATE > 60.0 (>60); GLUCOSE, FASTING 421 MG/DL (70-100); POTASSIUM SERUM 4.3 MEQ/L (3.5-5.1); SODIUM LEVEL 135 MEQ/L (136-145); URIC ACID 4.6 MG/DL (3.5-7.2)
[2021-03-11 13:25] LABS: ERYTHROCYTE SEDIMENTATION RATE 72 mm/hr (0-15)
[2021-03-11] MEDS ORDERED: VANCOMYCIN HCL 1,000 MG, VIAL MATE ADAPTER 1 EACH in NS 250 ML IV SCH (15:00)
[2021-03-11] MEDS ORDERED: HOME MED LIST COMPLETE! XX SCH (15:20)
[2021-03-11] MEDS ORDERED: GLUCAGON INJ 1MG VIAL SC PRN (15:55)
[2021-03-11] MEDS ORDERED: GLUCOSE 4GM CHEW TABLET PO PRN (15:55)
[2021-03-11] MEDS ORDERED: DEXTROSE 50% 50 ML SYRINGE IV PRN (15:55)
[2021-03-11 16:05] LABS: HEMOGLOBIN A1c 11.1 %
--- NOTE | 2021-03-11 16:50 | HPEPDOC ---
[facility] Medical History & Physical Date of Admission Mar 11, 2021 Date of Service: Mar 11, 2021 Primary Care Physician: Lexus Marquez Other Provider Dr. Julio Garcia Attending Physician: OBINNA TOSCANO MD History and Physical CHIEF COMPLAINT: Pain/swelling in right great toe along with accompanying diabetic ulcer HISTORY OF PRESENT ILLNESS: Patient is a 36-year-old male with an extensive history of type 2 diabetes accompanied by complications; states that last Thursday, his right great toe became sore and redness Since then it has worsened and has started to drain [id number] fluid from the ulcer, and has developed shooting pain from his toe up to his knee. He also states that he experiences charley horse-like cramping in his right calf. He has tried Excedrin, aspirin, Tylenol and has experienced temporary relief. He states this pain is worse when sitting still and when his foot is raised. He states the only relief he gets is when he is sleeping. Last year, he states he experienced the same presenting symptoms in his left great toe, which was subsequently amputated. He has not experienced any fevers or chills while at home. PAST MEDICAL HISTORY: 1. Chronic type 2 diabetes under poor control with secondary peripheral neur opathy/diabetic foot ulcers status post left first hallux amputation, microalbuminuria. 2. Hyperlipidemia 3. Hypertension 4. Migraine headaches. 5. Recurrent MRSA infection 6. Overweight hypertension 7. Chronic sinusitis PAST SURGICAL HISTORY: 1. January 2016: Left inguinal hernia repair. 2. May 09, 2019: Left partial hallux amputation. SOCIAL HISTORY: Marital status: . Resides in: Apartment Children: 2 sons Employment: Works in [employer] Tobacco use: No ETOH: < 1 glass a month Illicit drug use: No Tattoos done unprofessionally: No IV drug use: No FAMILY HISTORY: Father: 48 yrs, workplace accident, diagnosed with Hypertension Mother: alive 63 yrs, Hypertension, Diabetes in 40 Siblings: alive, brother diabetes at age 37 yo Children: 2 sons Hereditary Diseases: Diabetes Unexpected deaths due to medical reasons: Paternal aunt passed from heart valve defect 15yo ALLERGIES: Metformin (headaches and vomiting), cat dander REVIEW OF SYSTEMS: CONSTITUTIONAL: Endorses night sweats, denies fever. CARDIOVASCULAR: Denies chest pain; endorses tachycardia and palpitations when the pain is severe. RESPIRATORY: Denies shortness of breath, pain with breathing. GASTROINTESTINAL: Denies nausea, vomiting, diarrhea, constipation, melena, bright red blood per rectum GENITOURINARY: Denies dysuria, hematuria. SKIN: Endorses swelling and redness of right lower extremity and right great toe along with ulcer on the bottom of right great toe. MUSCULOSKELETAL: Right lower extremity pain. NEUROLOGICAL: Endorses migraine history; denies dizziness, loss of consciousne ss. HOME MEDICATIONS: Please see below. PHYSICAL EXAMINATION: VITAL SIGNS: Temperature [97.7], pulse [110], respiratory rate [18], blood pressure [152/83], pulse oximetry [97]% on room air. GENERAL APPEARANCE: 36-year-old male, resting on bed, no acute distress. HEENT: Head normocephalic atraumatic, eyes EOMI. CARDIOVASCULAR: Regular rate and rhythm; no murmurs, rubs, gallop. LUNGS: Clear to auscultation bilaterally. ABDOMEN: Normoactive bowel sounds in all 4 quadrants, nontender to palpation in all 4 quadrants. EXTREMITIES: Moderate swelling appreciated in the patient's right foot versus left foot, right great toe is obviously erythematous and swollen compared to left foot, open ulcer appreciated on the plantar aspect of the right great toe, not draining during examination LABORATORY DATA: See below. IMAGING: X-ray 03/11/2021: Findings consistent with osteomyelitis with bone destruction in the distal phalanx of the great toe adjacent to a soft tissue deficit representing an ulcer. There is soft tissue swelling. MICROBIOLOGY: Please see below. ASSESSMENT: Patient is a 36-year-old male with a history of uncontrolled type 2 diabetes mellitus with accompanying complications. He presented to the ED today after a week long period of right foot pain, swelling, erythema, diabetic ulcer on the plantar surface of the first great toe. PLAN: #Osteomyelitis/diabetic foot ulcer of the plantar aspect of the first great toe - Afebrile - Physical with RLE swelling and R 1st digit with ulceration and drainage, surround by erythema - Elevated ESR / CRP - Imaging noted above consistent with osteomyelitis - Will get Duplex US of RLE to r/o DVT - Vancomycin and Zosyn has been started for infection prophylaxis and treatment - Dr. Garcia has been consulted for management and will be performing surgery tomorrow afternoon -Make patient n.p.o. after breakfast tomorrow morning -Morphine 2 mg every 4 hours as needed for moderate pain #Hyperlipidemia -Simvastatin #Hypertension -Lisinopril #Type 2 diabetes -Levemir and Humalog insulins, glucagon -Levemir dose reduced; will adjust based on glucose levels inpatient #DVT prophylaxis -Lovenox Vital Signs Vital Signs Date Time Temp Pulse Resp B/P (MAP) Pulse Ox O2 Delivery O2 Flow Rate FiO2 03/11/21 15:58 97.7 110 18 152/83 (106) 97 Room Air Laboratory Data Labs 24H Laboratory Tests 2 03/11/21 11:53: Immature Granulocyte % (Auto) 0.4, Neutrophils (%) (Auto) 81.2H, Lymphocytes (%) (Auto) 11.1L, Monocytes (%) (Auto) 6.1, Eosinophils (%) (Auto) 0.9, Basophils (%) (Auto) 0.3, Neutrophils # (Auto) 7.8, Lymphocytes # (Auto) 1.1L, Monocytes # (Auto) 0.6, Eosinophils # (Auto) 0.1, Basophils # (Auto) 0.0, Nucleated Red Blood Cells % (auto) 0.0, Erythrocyte Sedimentation Rate 72H, Anion Gap 7L, Susana merular Filtration Rate > 60.0, Uric Acid 4.6, Calcium Level 9.4, C-Reactive Protein, Quantitative 8.97H 03/11/21 12:06: Estimated Mean Plasma Glucose 272H, Hemoglobin A1c 11.1 CBC/BMP Laboratory Tests 03/11/21 11:53 Microbiology Microbiology 03/11/21 Gram Stain - Final, Resulted 03/11/21 Wound Culture, Resulted Pending 03/11/21 Respiratory Virus Panel (PCR) (SUJATA) - Final, Complete Home Medications Scheduled Aspirin (Aspirin EC) 81 Mg Tablet.dr, 81 MG PO DAILY Empagliflozin (Jardiance) 10 Mg Tablet, 10 MG PO DAILY Insulin Glargine,Hum.rec.anlog (Lantus Solostar) 100 Unit/1 Ml Insuln.pen, 24 UNITS QHS Insulin Human Lispro (Humalog) 100 Unit/1 Ml Vial, 8 UNITS SC ACHS Lisinopril (Lisinopril) 2.5 Mg Tab, 2.5 MG PO DAILY Simvastatin (Simvastatin) 20 Mg Tablet, 20 MG PO QPM Allergies Coded Allergies: metformin (Verified Adverse Reaction, Mild, VOMITING, 03/11/21) GME ATTESTATION GME ATTESTATION My faculty preceptor for this patient encounter was physically present during the encounter and was fully available. All aspects of the patient interview, examination, medical decision making process, and medical care plan development were reviewed and approved by the faculty preceptor. The faculty preceptor is aware and concurs with the plan as stated in the body of this note and will attest to such by his/her cosignature. ATTENDING NOTE I, Obinna Toscano, have independently examined this patient and performed my own physical exam, as well as reviewed the documentation and edited where necessary. I have discussed in detail with the resident / student the findings and plan of treatment as documented by the resident / student and edited their note. I agree with their findings and treatment plan and have edited their documentation. I will continue to follow the patient during this hospital stay. David Larkin DO Mar 11, 2021 16:50 OBINNA TOSCANO MD Mar 11, 2021 17:04
[2021-03-11] MEDS: MORPHINE 2 MG/ML 1ML VIAL (J2270) IV PRN ×2 (17:07→21:43)
--- NOTE | 2021-03-11 17:08 | REP ---
INDICATION: RLE Swelling. COMPARISON: None. TECHNIQUE: Right {lower extremity duplex venous scanning is performed from the groin to the ankle level. FINDINGS: The deep veins are anechoic and fully compressible from the groin to the popliteal fossa in the right lower extremity. Color flow imaging is homogeneous. Spectral Doppler interrogation demonstrates intact respiratory variation in flow and normal manual augmentation of flow. There is no evidence of deep vein thrombosis above the knee. There is no evidence of DVT in the visualized calf veins. Doppler interrogation of the contralateral common femoral vein shows normal symmetric respiratory phasicity. IMPRESSION: No evidence of DVT in the right lower extremity femoropopliteal veins. No DVT in the visible portions of the calf veins. <Electronically signed by Gonzalez Oquendo > 03/11/21 [id number]
[2021-03-11] MEDS: HumaLOG INSULIN (NovoLOG) PER UNIT SC SCH ×2 (17:38→21:00)
[2021-03-11] MEDS ORDERED: VANCOMYCIN HCL 1,000 MG, VIAL MATE ADAPTER 1 EACH in NS 250 ML IV ONE ×2 (18:00→19:00)
[2021-03-11 18:30] VITALS: BP 147/91
[2021-03-11] MEDS: LISINOPRIL *2.5 MG* TAB PO SCH (19:02)
[2021-03-11] MEDS: ASPIRIN 81MG ENTERIC TABLET PO SCH (19:02)
[2021-03-11] MEDS: PIPERACILLIN/TAZOBACTAM SOD 3.375 GM in D5W MINI-BAG PLUS 50 ML IV SCH (19:03)
[2021-03-11] MEDS: SIMVASTATIN 20 MG TAB PO SCH (21:38)
[2021-03-11] MEDS: LEVEMIR (INSULIN DETEMIR) 1 UNITS/0.01ML SC SCH (21:40)
[2021-03-11 22:00] VITALS: BP 158/87
[2021-03-11] MEDS: NS 1,000 ML IV SCH (23:09)
--- NOTE | 2021-03-11 23:52 | IPN ---
PROGRESS NOTE DATE: 03/11/2021 at approximately 8:45 p.m. CHIEF COMPLAINT: This 36-year-old male, well known to me, was seen today at bedside for evaluation of an ulceration on the plantar aspect of the right foot. He had a similar problem in the past which required a partial left hallux amputation. Patient states that approximately last Thursday he noticed increased redness and pain, and on Thursday it became painful, worsening and discharging a whitish to yellow discharge from the ulcer itself. The patient states this increased swelling of his foot as well as lower leg and he has noticed some calf tenderness in that right calf. Patient states that he went to work, but the pain got worse and he presented to the Emergency Room for evaluation. PAST MEDICAL HISTORY: Type 2 diabetes; poor control, hypertension, hypertension, migraines, recurrent MRSA infections. PAST SURGICAL HISTORY: Left inguinal hernia repair, left partial hallux amputation. HOME MEDICATIONS: Aspirin, Jardiance 10 mg daily, Lantus, Lisinopril 2.5 mg p.o. daily, Simvastatin 20 mg at night. ALLERGIES: Metformin. EVALUATION: Evaluation of the patient's right foot reveals 6 cm of erythema and swelling proximal from the ulcer site of the foot. There was a yellow type discharge from the ulceration on the plantar aspect of the right hallux. The ulceration measures 1.5 cm from distal to proximal, 1 cm from medial to lateral and approximately 0.5 cm in depth. X-rays were reviewed and reveal some erosive changes on the medial aspect of the distal phalanx, consistent with osteomyelitis. The dorsalis pedis and posterior tibial pulses are palpable. ASSESSMENT: Osteomyelitis right hallux. PLAN: We discussed with the patient a partial right hallux amputation. Patient will be n.p.o. after breakfast. He is scheduled around approximately 5:00 p.m. for a partial right hallux amputation. Informed consent was obtained and signed by the patient.
[2021-03-12] VITALS (8 sets, daily range): BP systolic 123–150; BP diastolic 70–92
[2021-03-12] MEDS: PIPERACILLIN/TAZOBACTAM SOD 3.375 GM in D5W MINI-BAG PLUS 50 ML IV SCH ×4 (00:24→20:03)
[2021-03-12] MEDS: ONDANSETRON 4MG/2ML VIAL IV PRN (02:52)
[2021-03-12] MEDS: MORPHINE 2 MG/ML 1ML VIAL (J2270) IV PRN (02:53)
[2021-03-12] MEDS: VANCOMYCIN HCL 750 MG, VIAL MATE ADAPTER 1 EACH in NS 250 ML IV SCH ×3 (05:52→21:38)
[2021-03-12 06:25] LABS: BASO % 0.3 % (0.0-1.0); EOS # 0.1 10^3/uL (0.0-0.5); EOS % 1.1 % (0.0-3.0); HEMATOCRIT 33.8 % (42.0-52.0); HEMOGLOBIN 11.9 g/dl (13.5-17.5); MEAN CORPUSCULAR HEMOGLOBIN 29.4 pg (27.0-33.0); MEAN CORPUSCULAR HGB CONC 35.2 g/dl (32.0-36.5); MEAN CORPUSCULAR VOLUME 83.5 fl (80.0-96.0); MONO # 0.6 10^3/uL (0.0-0.8); MONO % 8.5 % (2.0-8.0); NEUTROPHILS # 5.8 10^3/uL (1.5-8.5); NEUTROPHILS % 76.7 % (36.0-66.0); PLATELET COUNT, AUTOMATED 341 10^3/uL (150-450); RED BLOOD COUNT 4.05 10^6/uL (4.30-6.10); WHITE BLOOD COUNT 7.6 10^3/uL (4.0-10.0)
[2021-03-12 06:49] LABS: ALBUMIN 2.6 GM/DL (3.2-5.2); ALT/SGPT 16 U/L (12-78); BILIRUBIN,TOTAL 0.8 MG/DL (0.2-1.0); BLOOD UREA NITROGEN 19 MG/DL (7-18); C REACTIVE PROTEIN QUANTITATIV 8.44 MG/DL (0.00-0.30); CALCIUM LEVEL 8.3 MG/DL (8.5-10.1); CARBON DIOXIDE LEVEL 28 MEQ/L (21-32); CHLORIDE LEVEL 100 MEQ/L (98-107); CREATININE FOR GFR 0.92 MG/DL (0.70-1.30); GLOMERULAR FILTRATION RATE > 60.0 (>60); GLUCOSE, FASTING 310 MG/DL (70-100); POTASSIUM SERUM 4.1 MEQ/L (3.5-5.1); SODIUM LEVEL 134 MEQ/L (136-145); TOTAL PROTEIN 6.1 GM/DL (6.4-8.2)
[2021-03-12] MEDS: VANCOMYCIN HCL 500 MG in D5W MINI-BAG PLUS 100 ML IV SCH ×3 (07:07→22:56)
[2021-03-12] MEDS: HumaLOG INSULIN (NovoLOG) PER UNIT SC SCH ×4 (08:50→20:14)
[2021-03-12] MEDS: ENOXAPARIN 40MG/0.4ML SYRINGE (J1650 PER 10MG) SC SCH (08:52)
[2021-03-12] MEDS ORDERED: INFLUENZA QUADRIVALENT PF VACCINE 0.5ML SYRINGE IM ONE (09:00)
[2021-03-12] MEDS ORDERED: MOM 30ML SUSPENSION UDC PO PRN ×2 (10:35)
[2021-03-12] MEDS ORDERED: SENNA 8.6 MG TAB (SENOKOT) PO PRN (10:35)
--- NOTE | 2021-03-12 10:43 | IPNPDOC ---
Date Seen The patient was seen on 03/12/21. Progress Note SUBJECTIVE: Patient is a 36-year-old male with diabetic foot ulcer on plantar aspect of right great hallux Chief Complaint Pain/swelling in right great toe along with accompanying diabetic ulcer History of Present Illness: Patient is a 36-year-old male with an extensive history of type 2 diabetes accompanied by complications; states that last Thursday, his right great toe became sore and redness Since then it has worsened and has started to drain [id number]-[id number] fluid from the ulcer, and has developed shooting pain from his toe up to his knee. He also states that he experiences charley horse-like cramping in his right calf. He has tried Excedrin, aspirin, Tylenol and has experienced temporary relief. He states this pain is worse when sitting still and when his foot is raised. He states the only relief he gets is when he is sleeping. Last year, he states he experienced the same presenting symptoms in his left great toe, which was subsequently amputated. Events since last encounter: Per patient he did not sleep well overnight. Had a migraine and vomited overnight which is normal for him. Morphine did help with pain control. Dr. Garcia did come and see the patient in a partial right hallux amputation is scheduled for later today. This morning the patient describes the pain as much better than it was yesterday (today he reports the pain at a 3-4/10, yesterday he reported it was an 8-9/10; 10 being the worst pain). He still describes a slight throbbing sensation at times especially when he puts weight on his right foot. He also states that the calf and foot are not nearly as swollen and tender as they were yesterday. At this time he reports adequate pain control. Review of systems: Constitutional: Endorses night sweats and chills; denies fever Cardiovascular: Endorses tachycardia at times; denies chest pain, palpitations Respiratory: Denies shortness of breath, pain with breathing Gastrointestinal: Endorses vomiting and vomiting when had migraine; denies diarrhea, constipation, melena, bright red blood per rectum Genitourinary: Denies dysuria, hematuria Skin: Reports decreased swelling and pain in his right lower extremity Musculoskeletal: Pain is exacerbated when patient stands up and occasionally when lying down Neurological: Endorses recent migraine with nausea and vomiting (patient reports that this is a normal occurrence for him); denies dizziness, loss of consciousness OBJECTIVE Physical Examination: General: 36-year-old male, resting comfortably in bed, no acute distress HEENT: Normocephalic atraumatic Cardiovascular: Regular rate and rhythm, no murmurs, no rubs, no gallops Respiratory: Clear to auscultation bilaterally Abdominal: Normoactive bowel sounds in all 4 quadrants, non-tender to palpation Extremities: Swelling seem to decrease compared to yesterday in his right ankle versus left ankle; right lower extremity not nearly as tender to palpation as was yesterday; right ankle and wound generously wrapped up by Dr. Garcia, area of bandage under ulcer on right great toe is tinged with brownish discharge from ulcer LABORATORY DATA, IMAGING STUDIES, MICROBIOLOGY: Please see below. DVT prophylaxis ordered?: Vinoangie ASSESSMENT AND PLAN: ASSESSMENT AND PLAN: This is a 36-year-old male with diabetic foot ulcer on plantar surface of right great toe. Dr. Garcia plans to perform a right partial hallux amputation this afternoon for which the patient has been made n.p.o. for. Reporting adequate pain control at the moment and is currently on antibiotics. #Osteomyelitis/diabetic foot ulcer of the plantar aspect of the first great toe - Afebrile - Physical with RLE swelling and R 1st digit with ulceration and drainage, surround by erythema - Elevated ESR / CRP - Imaging consistent with osteomyelitis - Duplex ultrasound (03/11/2021) of RLE ruled out DVT - Vancomycin and Zosyn have been started for infection prophylaxis and treatment - Dr. Garcia has been consulted for management and will be performing surgery tomorrow afternoon - Patient is n.p.o. - PT will be ordered and consulted to help patient adjust after surgery - Morphine 2 mg every 4 hours as needed for moderate pain - Senna and milk of magnesia will be ordered for constipation #Hyperlipidemia -Simvastatin #Hypertension -Lisinopril #Type 2 diabetes -Levemir and Humalog insulins, glucagon -Levemir dose reduced; will adjust based on glucose levels inpatient -Glucose is down trended from 421 yesterday to 310 today; will continue to monitor #DVT prophylaxis -Lovenox DISPOSITION: N.p.o. prior to procedure this afternoon; discharge pending clinical improvement. VS, I&O, 24H, Fishbone Vital Signs/I&O Vital Signs Date Time Temp Pulse Resp B/P (MAP) Pulse Ox O2 Delivery O2 Flow Rate FiO2 03/12/21 06:00 97.9 97 18 134/78 (96) 97 Room Air I&O- Last 24 Hours up to 6 AM 03/12/21 06:00 Intake Total 1870 ml Output Total 600 ml Balance 1270 ml Laboratory Data 24H LABS Laboratory Tests 2 03/11/21 11:53: Immature Granulocyte % (Auto) 0.4, Neutrophils (%) (Auto) 81.2H, Lymphocytes (%) (Auto) 11.1L, Monocytes (%) (Auto) 6.1, Eosinophils (%) (Auto) 0.9, Basophils (%) (Auto) 0.3, Neutrophils # (Auto) 7.8, Lymphocytes # (Auto) 1.1L, Monocytes # (Auto) 0.6, Eosinophils # (Auto) 0.1, Basophils # (Auto) 0.0, Nucleated Red Blood Cells % (auto) 0.0, Erythrocyte Sedimentation Rate 72H, Anion Gap 7L, Glomerular Filtration Rate > 60.0, Uric Acid 4.6, Calcium Level 9.4, C-Reactive Protein, Quantitative 8.97H 03/11/21 12:06: Estimated Mean Plasma Glucose 272H, Hemoglobin A1c 11.1 03/11/21 17:02: Lactic Acid Level 1.5, Procalcitonin <0.05 03/11/21 17:27: Bedside Glucose (Misc Panel) 310H 03/11/21 19:50: Bedside Glucose (Misc Panel) 177H 03/12/21 03:01: Bedside Glucose (Misc Panel) 312H 03/12/21 05:34: Immature Granulocyte % (Auto) 0.4, Neutrophils (%) (Auto) 76.7H, Lymphocytes (%) (Auto) 13.0L, Monocytes (%) (Auto) 8.5H, Eosinophils (%) (Auto) 1.1, Basophils (%) (Auto) 0.3, Neutrophils # (Auto) 5.8, Lymphocytes # (Auto) 1.0L, Monocytes # (Auto) 0.6, Eosinophils # (Auto) 0.1, Basophils # (Auto) 0.0, Nucleated Red Blood Cells % (auto) 0.0, Anion Gap 6L, Glomerular Filtration Rate > 60.0, Calcium Level 8.3L, Total Bilirubin 0.8, Aspartate Amino Transf (AST/SGOT) 10, Alanine Aminotransferase (ALT/SGPT) 16, Alkaline Phosphatase 120H, C-Reactive Protein, Quantitative 8.44H, Total Protein 6.1L, Albumin 2.6L, Albumin/Globulin Ratio 0.7 CBC/BMP Laboratory Tests 03/11/21 11:53 03/12/21 05:34 Microbiology Microbiology 03/11/21 Blood Culture, Received Pending 03/11/21 Blood Culture, Received Pending 03/11/21 Gram Stain - Final, Resulted 03/11/21 Wound Culture, Resulted Pending 03/11/21 Respiratory Virus Panel (PCR) (SUJATA) - Final, Complete GME ATTESTATION GME ATTESTATION My faculty preceptor for this patient encounter was physically present during the encounter and was fully available. All aspects of the patient interview, examination, medical decision making process, and medical care plan development were reviewed and approved by the faculty preceptor. The faculty preceptor is aware and concurs with the plan as stated in the body of this note and will attest to such by his/her cosignature. ATTENDING NOTE I have personally examined the patient and discussed his physical examination, imaging and lab findings with the resident team, and I agree with the above no matheus exam findings, studies and plan as detailed above. Briefly, Mr. Cleaning is a 36-year-old man with poorly controlled DM, HTN, obesity with a history of LE diabetic foot ulcers, who was admitted for a R plantar surface foot ulcer and osteomyelitis currently empirically on vanc/piptazo and pending a right partial hallux amputation this afternoon by Dr. Garcia. David Larkin DO Mar 12, 2021 10:43 MURALI RUIZ MD Mar 12, 2021 11:37
[2021-03-12] MEDS: ASPIRIN 81MG ENTERIC TABLET PO SCH (10:44)
[2021-03-12] MEDS: LISINOPRIL *2.5 MG* TAB PO SCH (10:45)
[2021-03-12] MEDS: NS 1,000 ML IV SCH ×2 (10:46→20:10)
[2021-03-12] MEDS ORDERED: LIDOCAINE 2% MDV 20ML VIAL As Ordered ONE (17:40)
[2021-03-12] MEDS ORDERED: BUPIVACAINE HCL 0.5% 10ML VIAL As Ordered ONE (17:40)
[2021-03-12] MEDS ORDERED: fentaNYL 100 MCG/2 ML INJECTION (J3010) As Ordered ONE (17:49)
[2021-03-12] MEDS ORDERED: LIDOCAINE 2% 100MG/5ML SDV (FOR ANES.) As Ordered ONE (17:49)
[2021-03-12] MEDS ORDERED: propofoL 200 MG/20 ML VIAL As Ordered ONE ×2 (17:49→18:50)
[2021-03-12] MEDS ORDERED: MIDAZOLAM INJ 2MG/2ML VIAL (J2250 PER 1MG) As Ordered ONE (17:50)
[2021-03-12] MEDS ORDERED: VANCOMYCIN 1000MG/20ML VIAL As Ordered ONE (17:50)
[2021-03-12] MEDS ORDERED: GENTAMICIN SULF 80MG/2ML VIAL As Ordered ONE (17:51)
[2021-03-12] MEDS: SIMVASTATIN 20 MG TAB PO SCH (20:12)
[2021-03-12] MEDS: LEVEMIR (INSULIN DETEMIR) 1 UNITS/0.01ML SC SCH (20:14)
--- NOTE | 2021-03-12 20:31 | RO ---
OPERATIVE NOTE DATE OF OPERATION: 03/12/2021 PREOPERATIVE DIAGNOSIS: Osteomyelitis, distal phalanx, right hallux. POSTOPERATIVE DIAGNOSIS: Osteomyelitis, distal phalanx, right hallux. PROCEDURES PERFORMED: Partial right hallux amputation, right foot. ESTIMATED BLOOD LOSS: Less than 10 mL. SURGEON: David Garcia DPM OPERATIONS REPRESENTATIVE: None. ANESTHESIA: Local MAC. IRRIGATION: Dilute gentamicin solution, low pressure pulse lavage system. IMPLANTABLES UTILIZED: Three 5-mm Vancomycin impregnated beads. HEMOSTASIS: None. DESCRIPTION OF OPERATION PROCEDURE: On 03/12/2021, this 36-year-old male was taken from his hospital room to the operating room and placed on the operating room table in the supine position. Following the induction of IV sedation and local and regional anesthesia, the right lower extremity was prepped and draped in the usual aseptic manner. Attention was directed to the patient's right hallux where there was a draining ulceration noted to bone. At this time, a modified fishmouth incision was placed on the right hallux at the level of the interphalangeal joint. The incision was carried straight to bone. The hallux was disarticulated at the interphalangeal joint. All bleeders encountered were electrocoagulated. Dissection was carried to the level of the proximal phalanx where an oblique osteotomy was performed with more bone being removed from the inferior surface on the dorsal just proximal to the articular cartilage. The distal aspect of the wound was debulked to allow good coaptation of the flaps. The wound was flushed with 1 liter of dilute gentamicin solution with a low pressure pulse lavage system. Three 5-mm Vancomycin impregnated beads were placed in the wound and the wound was closed with 3-0 nylon suture in a simple interrupted type fashion. Sterile dressings were applied consisting of Adaptic, 4 x 4's, 4 x 4 splints, Marcus, Kerlix, and Coban. The patient, having apparently tolerated the surgical procedure well, was taken from the OR to the recovery room for further monitoring by the anesthesia department. Postoperative instructions were given to the patient.
[2021-03-13] MEDS: ONDANSETRON 4MG/2ML VIAL IV PRN ×4 (00:03→22:22)
[2021-03-13] MEDS: MORPHINE 2 MG/ML 1ML VIAL (J2270) IV PRN ×2 (00:04→21:43)
[2021-03-13] MEDS: PIPERACILLIN/TAZOBACTAM SOD 3.375 GM in D5W MINI-BAG PLUS 50 ML IV SCH ×5 (00:05→22:10)
[2021-03-13 00:40] VITALS: BP 137/91
[2021-03-13 02:00] VITALS: BP 137/89
[2021-03-13] MEDS: NS 1,000 ML IV SCH ×3 (04:45→20:35)
[2021-03-13 06:00] VITALS: BP 144/78
[2021-03-13] MEDS: VANCOMYCIN HCL 750 MG, VIAL MATE ADAPTER 1 EACH in NS 250 ML IV SCH (06:14)
[2021-03-13 06:51] LABS: BASO % 0.3 % (0.0-1.0); EOS % 0.1 % (0.0-3.0); HEMATOCRIT 33.1 % (42.0-52.0); HEMOGLOBIN 11.5 g/dl (13.5-17.5); LYMPH % 13.8 % (24.0-44.0); MEAN CORPUSCULAR HEMOGLOBIN 29.5 pg (27.0-33.0); MEAN CORPUSCULAR HGB CONC 34.7 g/dl (32.0-36.5); MEAN CORPUSCULAR VOLUME 84.9 fl (80.0-96.0); MONO # 0.4 10^3/uL (0.0-0.8); MONO % 6.3 % (2.0-8.0); NEUTROPHILS # 5.5 10^3/uL (1.5-8.5); NEUTROPHILS % 79.2 % (36.0-66.0); PLATELET COUNT, AUTOMATED 334 10^3/uL (150-450)
[2021-03-13 07:03] LABS: ALBUMIN 2.6 GM/DL (3.2-5.2); ALT/SGPT 16 U/L (12-78); BILIRUBIN,TOTAL 0.6 MG/DL (0.2-1.0); BLOOD UREA NITROGEN 17 MG/DL (7-18); C REACTIVE PROTEIN QUANTITATIV 5.37 MG/DL (0.00-0.30); CALCIUM LEVEL 8.1 MG/DL (8.5-10.1); CARBON DIOXIDE LEVEL 29 MEQ/L (21-32); CHLORIDE LEVEL 104 MEQ/L (98-107); CREATININE FOR GFR 1.31 MG/DL (0.70-1.30); GLOMERULAR FILTRATION RATE > 60.0 (>60); GLUCOSE, FASTING 341 MG/DL (70-100); POTASSIUM SERUM 4.4 MEQ/L (3.5-5.1); SODIUM LEVEL 136 MEQ/L (136-145); TOTAL PROTEIN 6.4 GM/DL (6.4-8.2)
[2021-03-13] MEDS: HumaLOG INSULIN (NovoLOG) PER UNIT SC SCH ×4 (08:36→21:00)
[2021-03-13] MEDS: ASPIRIN 81MG ENTERIC TABLET PO SCH (08:36)
[2021-03-13] MEDS: LISINOPRIL *2.5 MG* TAB PO SCH (08:36)
[2021-03-13] MEDS: ENOXAPARIN 40MG/0.4ML SYRINGE (J1650 PER 10MG) SC SCH (08:37)
--- NOTE | 2021-03-13 08:50 | REP ---
INDICATION: POST OP RIGHT FOOT 3 VIEWS COMPARISON: None. TECHNIQUE: AP, lateral, oblique views of the right foot FINDINGS: Baseline images demonstrate the patient to be status post amputation through the 1st toe proximal phalanx. Remainder of the examination is essentially normal. IMPRESSION: Status post partial amputation at the 1st proximal phalanx. <Electronically signed by Sam Dick > 03/13/21 0846
[2021-03-13 10:49] VITALS: BP 152/96
[2021-03-13] MEDS ORDERED: PROMETHAZINE INJ 25 MG/ML VIAL (J2550) IV PRN (12:45)
[2021-03-13] MEDS ORDERED: MOM 30ML SUSPENSION UDC PO PRN (13:45)
--- NOTE | 2021-03-13 13:52 | IPNPDOC ---
Date Seen The patient was seen on 03/13/21. Progress Note SUBJECTIVE: Patient is a 36-year-old male with diabetic foot ulcer on plantar aspect of right great hallux History of present illness: Patient is a 36-year-old male with an extensive history of type 2 diabetes accompanied by complications; states that between last Thursday and when he presented to the ER, his right great toe became sore and red. In that time it has worsened and has started to drain [id number] fluid from the ulcer, and a shooting pain from his toe up to his knee developed. He also states that he experiencing charley horse-like cramping in his right calf. He has tried Excedrin, aspirin, Tylenol producing temporary relief. He stated this pain is worse when sitting still and when his foot is raised. He stated the only relief he gets is when he is sleeping. Last year, states experiencing the same presenting symptoms in his left great toe, which was subsequently amputated. Events his last encounter: Patient had a rough night last night. Was vomiting and nauseous on and off through the night and he could not keep any food down. He was given Zofran but that did not seem to help. At one point his morphine was stopped to see if that was making him nauseous but he continued to be. He says he is able to move around and hobble on his heel. He describes some stinging sensation when he tries to move around on it. He reports last right lower extremity pain than yesterday. Review of systems: Constitutional: Denies fevers, chills, night sweats Cardiovascular: Denies chest pain, palpitations; endorses tachycardia at times but attributes it to anxiety and pain Respiratory: Denies shortness of breath, pain with breathing Gastrointestinal: Denies diarrhea, constipation, recent bowel movement; no bowel movement since being here, but has not eaten a lot and been able to keep it down); endorses vomiting and nausea Genitourinary: Denies dysuria, hematuria Skin: Reports decreased swelling of his right foot and leg Musculoskeletal: Reports adequate pain control; is able to hobble on his heel to the bathroom; feels some stinging pain at times when pressure is applied; leg is less tender to the touch as it was yesterday Neurological: Denies dizziness, loss consciousness, no headache since last night OBJECTIVE PHYSICAL EXAMINATION: VITAL SIGNS: Please see below. General: 36-year-old male, sitting in bed, dry heaving in a catch bag, otherwise no acute distress HEENT: Head normocephalic atraumatic, eyes EOMI and PERRLA Cardiovascular: Regular rate and rhythm; no murmurs, rubs, or gallops Respiratory: Clear to auscultation bilaterally Gastrointestinal: Normoactive bowel sounds in all 4 quadrants, tender to palpation in right upper quadrant and left lower quadrant; bile-tinged vomit seen in blue bags in the trash Lower extremities: Right lower extremity slightly tender to palpation; right foot prescribed medications thoroughly bandaged and wrapped, unable to visualize surgical site as a result LABORATORY DATA, IMAGING STUDIES, MICROBIOLOGY: Please see below. DVT prophylaxis ordered?: Lovenox ASSESSMENT AND PLAN: This is a 36-year-old male status post right partial hallux amputation performed last night by Dr. Garcia. He reports adequate pain control but did suffer from nausea and vomiting overnight. PROBLEMS: #Osteomyelitis/diabetic foot ulcer of the plantar aspect of the first great toe - Afebrile - Elevated ESR / CRP - Imaging consistent with osteomyelitis - Duplex ultrasound (03/11/2021) of RLE ruled out DVT - Vancomycin and Zosyn have been started for infection prophylaxis and treatment - Dr. Garcia performed right partial hallux amputation of first toe last night - PT will be ordered and consulted to help patient adjust after surgery - Morphine 2 mg every 4 hours as needed for moderate pain - Milk of magnesia will be ordered for constipation - Continue with physical therapy and adhere to recommendations for recovery #Hyperlipidemia -Simvastatin #Hypertension -Lisinopril #Type 2 diabetes -Levemir and Humalog insulins, glucagon -Levemir dose reduced; will adjust based on glucose levels inpatient #Nausea -Ondansetron and Phenergan have been added as needed -100 mL/h normal saline started #DVT prophylaxis -Lovenox Disposition: Discharge pending PT evaluation VS, I&O, 24H, Fishbone Vital Signs/I&O Vital Signs Date Time Temp Pulse Resp B/P (MAP) Pulse Ox O2 Delivery O2 Flow Rate FiO2 03/13/21 10:49 152/96 (114) 03/13/21 06:00 97.2 97 14 97 Room Air I&O- Last 24 Hours up to 6 AM 03/13/21 06:00 Intake Total 2715 ml Output Total 2060 ml Balance 655 ml Laboratory Data 24H LABS Laboratory Tests 2 03/12/21 12:10: Bedside Glucose (Misc Panel) 351H 03/12/21 14:45: Methicillin-Resist S.aureus DNA PCR DETECTEDA 03/12/21 17:57: Bedside Glucose (Misc Panel) 299H 03/12/21 19:13: Bedside Glucose (Misc Panel) 253H 03/12/21 20:53: Vancomycin Level Trough 20.6H 03/13/21 06:23: Immature Granulocyte % (Auto) 0.3, Neutrophils (%) (Auto) 79.2H, Lymphocytes (%) (Auto) 13.8L, Monocytes (%) (Auto) 6.3, Eosinophils (%) (Auto) 0.1, Basophils (%) (Auto) 0.3, Neutrophils # (Auto) 5.5, Lymphocytes # (Auto) 1.0L, Monocytes # (Auto) 0.4, Eosinophils # (Auto) 0.0, Basophils # (Auto) 0.0, Nucleated Red Blood Cells % (auto) 0.0, Anion Gap 3L, Glomerular Filtration Rate > 60.0, Calcium Level 8.1L, Total Bilirubin 0.6, Aspartate Amino Transf (AST/SGOT) 12, Alanine Aminotransferase (ALT/SGPT) 16, Alkaline Phosphatase 120H, C-Reactive Protein, Quantitative 5.37H, Total Protein 6.4, Albumin 2.6L, Albumin/Globulin Ratio 0.7 CBC/BMP Laboratory Tests 03/13/21 06:23 Microbiology Microbiology 03/12/21 Wound Culture, Received Pending 03/12/21 Anaerobic Culture, Received Pending 03/11/21 Blood Culture - Preliminary, Resulted No growth after 24 hours . All specim... 03/11/21 Blood Culture - Preliminary, Resulted No growth after 24 hours . All specim... 03/11/21 Gram Stain - Final, Resulted 03/11/21 Wound Culture, Resulted Pending 03/11/21 Respiratory Virus Panel (PCR) (SUJATA) - Final, Complete GME ATTESTATION GME ATTESTATION My faculty preceptor for this patient encounter was physically present during the encounter and was fully available. All aspects of the patient interview, examination, medical decision making process, and medical care plan development were reviewed and approved by the faculty preceptor. The faculty preceptor is aware and concurs with the plan as stated in the body of this note and will attest to such by his/her cosignature. ATTENDING NOTE I personally examined the patient, and discussed his exam findings, investigations and management with the resident team, and I agree with the above noted summary. Mr Cleaning is now s/p surgery and his course is c/b post-op nausea today but is otherwise afebrile and doing well. David Larkin DO Mar 13, 2021 13:33 MURALI RUIZ MD Mar 13, 2021 17:19
[2021-03-13 14:00] VITALS: BP 156/96
[2021-03-13] MEDS: VANCOMYCIN HCL 1,000 MG, VIAL MATE ADAPTER 1 EACH in NS 250 ML IV SCH ×2 (14:32→23:40)
[2021-03-13] MEDS: SIMVASTATIN 20 MG TAB PO SCH (21:41)
[2021-03-13] MEDS: LEVEMIR (INSULIN DETEMIR) 1 UNITS/0.01ML SC SCH (21:43)
[2021-03-13 22:00] VITALS: BP 168/82
[2021-03-13] MEDS ORDERED: diphenhydrAMINE 50MG/ML VIAL (J1200) IV ONE (23:15)
[2021-03-13] MEDS ORDERED: KETOROLAC 30 MG/ML 1ML VIAL IV ONE (23:15)
[2021-03-13] MEDS ORDERED: METOCLOPRAMIDE INJ 10MG/2ML VIAL (J2765 PER 1) IV ONE (23:15)
[2021-03-14] MEDS: NS 1,000 ML IV SCH ×2 (04:07→16:57)
[2021-03-14] MEDS: PIPERACILLIN/TAZOBACTAM SOD 3.375 GM in D5W MINI-BAG PLUS 50 ML IV SCH (04:19)
[2021-03-14 06:00] VITALS: BP 156/86
[2021-03-14] MEDS: VANCOMYCIN HCL 1,000 MG, VIAL MATE ADAPTER 1 EACH in NS 250 ML IV SCH ×2 (06:34→17:00)
[2021-03-14 07:01] LABS: BASO % 0.3 % (0.0-1.0); EOS # 0.1 10^3/uL (0.0-0.5); EOS % 0.8 % (0.0-3.0); HEMATOCRIT 34.4 % (42.0-52.0); HEMOGLOBIN 11.7 g/dl (13.5-17.5); LYMPH # 1.7 10^3/uL (1.5-5.0); LYMPH % 28.8 % (24.0-44.0); MEAN CORPUSCULAR HEMOGLOBIN 29.2 pg (27.0-33.0); MEAN CORPUSCULAR VOLUME 85.8 fl (80.0-96.0); MONO # 0.5 10^3/uL (0.0-0.8); MONO % 8.5 % (2.0-8.0); NEUTROPHILS # 3.7 10^3/uL (1.5-8.5); NEUTROPHILS % 61.3 % (36.0-66.0); PLATELET COUNT, AUTOMATED 374 10^3/uL (150-450); RED BLOOD COUNT 4.01 10^6/uL (4.30-6.10)
[2021-03-14 07:27] LABS: ALBUMIN 2.4 GM/DL (3.2-5.2); ALT/SGPT 15 U/L (12-78); BILIRUBIN,TOTAL 0.7 MG/DL (0.2-1.0); BLOOD UREA NITROGEN 14 MG/DL (7-18); C REACTIVE PROTEIN QUANTITATIV 2.73 MG/DL (0.00-0.30); CALCIUM LEVEL 8.2 MG/DL (8.5-10.1); CARBON DIOXIDE LEVEL 29 MEQ/L (21-32); CHLORIDE LEVEL 108 MEQ/L (98-107); GLOMERULAR FILTRATION RATE > 60.0 (>60); GLUCOSE, FASTING 207 MG/DL (70-100); POTASSIUM SERUM 3.8 MEQ/L (3.5-5.1); SODIUM LEVEL 143 MEQ/L (136-145); TOTAL PROTEIN 6.1 GM/DL (6.4-8.2)
[2021-03-14] MEDS: HumaLOG INSULIN (NovoLOG) PER UNIT SC SCH ×4 (07:59→20:39)
[2021-03-14] MEDS: LISINOPRIL *2.5 MG* TAB PO SCH (08:00)
[2021-03-14] MEDS: ASPIRIN 81MG ENTERIC TABLET PO SCH (08:00)
[2021-03-14] MEDS: ENOXAPARIN 40MG/0.4ML SYRINGE (J1650 PER 10MG) SC SCH (08:02)
[2021-03-14] MEDS ORDERED: SENNA 8.6 MG TAB (SENOKOT) PO PRN (09:45)
[2021-03-14] MEDS ORDERED: AUGMENTIN 875 MG TAB PO SCH (11:00)
[2021-03-14] MEDS ORDERED: cefTRIAXone SOD 1 GM in D5W MINI-BAG PLUS 50 ML IV SCH (11:00)
[2021-03-14] MEDS: ONDANSETRON 4MG/2ML VIAL IV PRN (11:28)
--- NOTE | 2021-03-14 11:39 | REP ---
INDICATION: Nausea and vomiting. COMPARISON: None. TECHNIQUE: Single view KUB. FINDINGS: Supine view of the abdomen demonstrates a normal bowel gas pattern. Flank stripes are intact. Psoas margins appear normal. No mass or organomegaly is seen. There is some calcification in the left pelvis suggesting vas deferens calcification. No other pathologic calcification seen. IMPRESSION: Normal bowel gas pattern. <Electronically signed by Gonzalez Oquendo > 03/14/21 1835
[2021-03-14 14:00] VITALS: BP 178/92
[2021-03-14] MEDS ORDERED: lisinopriL 5 MG TAB PO ONE (15:05)
--- NOTE | 2021-03-14 15:33 | IPNPDOC ---
Date Seen The patient was seen on 03/14/21. Progress Note SUBJECTIVE: Patient is a 36-year-old male status post partial right hallux amputation due to diabetic ulcer and osteomyelitis, experiencing ongoing nausea and vomiting since the procedure. Review of systems: Constitutional: Denies fevers, chills, night sweats Cardiovascular: Denies chest pain, palpitations; endorses periods of tachycardia with vomiting Respiratory: Denies shortness of breath, pain with breathing Gastrointestinal: Denies diarrhea, constipation; endorses vomiting and nausea, has not had a bowel movement since being admitted Genitourinary: Denies dysuria, hematuria Skin: Reports continued decrease feeling of the right leg Musculoskeletal: Reports adequate pain control and stinging sensation experienced when puts pressure on foot when walking is less painful than it was yesterday; right lower extremity is less tender to the touch OBJECTIVE PHYSICAL EXAMINATION: VITAL SIGNS: Please see below. GENERAL: 36-year-old male, resting in bed, holding vomit catch back, in no acute distress HEENT: Normocephalic atraumatic, clear conjunctivobilaterally CARDIOVASCULAR: Regular rate and rhythm, no rubs, no gallops. RESPIRATORY: Clear to auscultation bilaterally. ABDOMINAL: Normoactive bowel sounds in all quadrants, nontender to palpation EXTREMITIES: Lower extremities visually appears similar in size, left decreasingly tender to palpation compared to right LABORATORY DATA, IMAGING STUDIES, MICROBIOLOGY: Please see below. Echocardiogram: . DVT prophylaxis ordered?: Lovenox ASSESSMENT AND PLAN: This is a 36-year-old [GENDER] with nausea vomiting status post partial right hallux amputation. PROBLEMS: #Osteomyelitis/diabetic foot ulcer of the plantar aspect of the first great toe - Afebrile - Elevated ESR / CRP - Imaging consistent with osteomyelitis - Duplex ultrasound (03/11/2021) of RLE ruled out DVT - Dr. Garcia performed right partial hallux amputation - Currently on vancomycin and ceftriaxone - PT as determined patient is in safe to discharge pending medical clearance - Morphine 2 mg every 4 hours as needed for moderate pain - Senna ordered for constipation prophylaxis #Hyperlipidemia -Simvastatin #Hypertension - Patient's blood pressure continues to be elevated - Patient will receive 5 mg lisinopril this afternoon in addition to the 2.5 mg lisinopril he already received this morning - Going forward patient will be on 5 mg lisinopril daily #Type 2 diabetes -Tanialog insulins, glucagon -Levemir dose reduced; will adjust based on glucose levels inpatient #Nausea -Ondansetron and Phenergan have been added as needed -100 mL/h normal saline started DVT prophylaxis: Lovenox DISPOSITION: Discharge pending clinical improvement and able to tolerate p.o. intake. VS, I&O, 24H, Fishbone Vital Signs/I&O Vital Signs Date Time Temp Pulse Resp B/P (MAP) Pulse Ox O2 Delivery O2 Flow Rate FiO2 03/14/21 08:00 163/102 03/14/21 06:00 97.5 90 16 97 Room Air I&O- Last 24 Hours up to 6 AM 03/14/21 05:59 Intake Total 3420 ml Output Total 2000 ml Balance 1420 ml Laboratory Data 24H LABS Laboratory Tests 2 03/13/21 17:21: Bedside Glucose (Misc Panel) 154H 03/13/21 20:11: Bedside Glucose (Misc Panel) 195H 03/14/21 06:45: Immature Granulocyte % (Auto) 0.3, Neutrophils (%) (Auto) 61.3, Lymphocytes (%) (Auto) 28.8, Monocytes (%) (Auto) 8.5H, Eosinophils (%) (Auto) 0.8, Basophils ( %) (Auto) 0.3, Neutrophils # (Auto) 3.7, Lymphocytes # (Auto) 1.7, Monocytes # (Auto) 0.5, Eosinophils # (Auto) 0.1, Basophils # (Auto) 0.0, Nucleated Red Blood Cells % (auto) 0.0, Anion Gap 6L, Glomerular Filtration Rate > 60.0, Calcium Level 8.2L, Total Bilirubin 0.7, Aspartate Amino Transf (AST/SGOT) 12, Alanine Aminotransferase (ALT/SGPT) 15, Alkaline Phosphatase 109, C-Reactive Protein, Quantitative 2.73H, Total Protein 6.1L, Albumin 2.4L, Albumin/Globulin Ratio 0.6 03/14/21 12:20: Bedside Glucose (Misc Panel) 164H 03/14/21 14:19: Vancomycin Level Trough 19.4 CBC/BMP Laboratory Tests 03/14/21 06:45 Microbiology Microbiology 03/12/21 Wound Culture, Received Pending 03/12/21 Anaerobic Culture, Received Pending 03/11/21 Blood Culture - Preliminary, Resulted No Growth after 48 hours. All Specime... 03/11/21 Blood Culture - Preliminary, Resulted No Growth after 48 hours. All Specime... 03/11/21 Gram Stain - Final, Resulted 03/11/21 Wound Culture - Preliminary, Resulted Staph.aureus Methicillin Resis Strep Agalactiae Group B Corynebacterium Species 03/11/21 Respiratory Virus Panel (PCR) (SUJATA) - Final, Complete GME ATTESTATION GME ATTESTATION My faculty preceptor for this patient encounter was physically present during the encounter and was fully available. All aspects of the patient interview, examination, medical decision making process, and medical care plan development were reviewed and approved by the faculty preceptor. The faculty preceptor is aware and concurs with the plan as stated in the body of this note and will attest to such by his/her cosignature. ATTENDING NOTE I personally examined the patient and gathered the interim history of profound n ausea and some emesis and dry heaving post op. I discussed his findings, investigative results and I agree with the above noted resident findings, assessment and plan. David Larkin DO Mar 14, 2021 15:33 MURALI RUIZ MD Mar 15, 2021 09:03
[2021-03-14] MEDS ORDERED: CALCIUM CARBONATE 500 MG CHEW U/D PO PRN (19:55)
[2021-03-14] MEDS: SIMVASTATIN 20 MG TAB PO SCH (20:38)
[2021-03-14] MEDS: LEVEMIR (INSULIN DETEMIR) 1 UNITS/0.01ML SC SCH (20:39)
[2021-03-14] MEDS ORDERED: DOXYCYCLINE HYCLATE 100MG TABLET PO SCH (21:00)
[2021-03-15] MEDS: METOCLOPRAMIDE INJ 10MG/2ML VIAL (J2765 PER 1) IV PRN ×2 (01:24→20:51)
[2021-03-15] MEDS: NS 1,000 ML IV SCH ×3 (03:33→22:32)
[2021-03-15] MEDS: VANCOMYCIN HCL 1,000 MG, VIAL MATE ADAPTER 1 EACH in NS 250 ML IV SCH (04:29)
[2021-03-15 06:00] VITALS: BP 162/90
[2021-03-15 06:50] LABS: BASO % 0.3 % (0.0-1.0); EOS % 0.1 % (0.0-3.0); HEMATOCRIT 32.1 % (42.0-52.0); LYMPH # 0.9 10^3/uL (1.5-5.0); LYMPH % 12.4 % (24.0-44.0); MEAN CORPUSCULAR HEMOGLOBIN 29.3 pg (27.0-33.0); MEAN CORPUSCULAR HGB CONC 34.3 g/dl (32.0-36.5); MEAN CORPUSCULAR VOLUME 85.4 fl (80.0-96.0); MONO # 0.4 10^3/uL (0.0-0.8); MONO % 5.6 % (2.0-8.0); NEUTROPHILS # 5.6 10^3/uL (1.5-8.5); NEUTROPHILS % 80.9 % (36.0-66.0); PLATELET COUNT, AUTOMATED 399 10^3/uL (150-450); RED BLOOD COUNT 3.76 10^6/uL (4.30-6.10); WHITE BLOOD COUNT 6.9 10^3/uL (4.0-10.0)
[2021-03-15 07:18] LABS: ALBUMIN 2.5 GM/DL (3.2-5.2); ALT/SGPT 15 U/L (12-78); BLOOD UREA NITROGEN 12 MG/DL (7-18); CALCIUM LEVEL 8.3 MG/DL (8.5-10.1); CARBON DIOXIDE LEVEL 26 MEQ/L (21-32); CHLORIDE LEVEL 106 MEQ/L (98-107); CREATININE FOR GFR 1.19 MG/DL (0.70-1.30); GLOMERULAR FILTRATION RATE > 60.0 (>60); GLUCOSE, FASTING 211 MG/DL (70-100); POTASSIUM SERUM 3.7 MEQ/L (3.5-5.1); SODIUM LEVEL 140 MEQ/L (136-145); TOTAL PROTEIN 6.2 GM/DL (6.4-8.2)
[2021-03-15] MEDS: PANTOPRAZOLE 40MG VIAL (C9113 PER 1) IV SCH (08:44)
[2021-03-15] MEDS: ENOXAPARIN 40MG/0.4ML SYRINGE (J1650 PER 10MG) SC SCH (08:45)
[2021-03-15] MEDS: HumaLOG INSULIN (NovoLOG) PER UNIT SC SCH ×4 (08:45→20:52)
[2021-03-15] MEDS: ASPIRIN 81MG ENTERIC TABLET PO SCH (08:45)
[2021-03-15] MEDS ORDERED: lisinopriL 5 MG TAB PO SCH (09:00)
[2021-03-15] MEDS ORDERED: SCOPOLAMINE 1MG TRANSDERMAL PATCH TOP SCH (11:00)
--- NOTE | 2021-03-15 13:10 | IPN ---
PROGRESS NOTE DATE: 03/15/2021 CHIEF COMPLAINT: Patient seen at bedside for evaluation of his right foot. Patient states he no longer has calf pain and swelling. He has no foot pain today. He does have nausea still from utilizing vancomycin. PHYSICAL EXAMINATION: The bandage was removed today. The incision is well coapted and maintained. IMAGING DATA: X-rays were reviewed revealing good resection at the neck area of the proximal interphalangeal joint. Antibiotic beads are visible in the wound. LABORATORY DATA: Culture was reviewed revealing growth of methicillin-resistant Staphylococcus aureus (MRSA) and Streptococcus group B and Streptococcus mitis. Patient's white count is 6.9. ASSESSMENT: Resection of osteomyelitis with a resolving cellulitis. PLAN: Since the patient is having considerable nausea with vancomycin, several studies have shown good success with utilizing amoxicillin and doxycycline. Would recommend amoxicillin 500 mg every 8 hours and doxycycline 100 mg twice a day. This will cover all three organisms. Patient has had both medications in the past and states that they did not cause him any issues. His questions are answered. From a podiatric standpoint, patient can be discharged on oral medication. He can be seen in my office in one week for followup examination.
[2021-03-15 14:00] VITALS: BP 170/90
[2021-03-15] MEDS: DOXYCYCLINE HYCLATE 100MG TABLET PO SCH ×2 (14:26→20:49)
[2021-03-15] MEDS: AUGMENTIN 875 MG TAB PO SCH ×2 (14:26→20:49)
[2021-03-15] MEDS ORDERED: lisinopriL 5 MG TAB PO ONE (17:10)
--- NOTE | 2021-03-15 18:17 | IPNPDOC ---
Date Seen The patient was seen on 03/15/21. Progress Note SUBJECTIVE: Patient is a 36-year-old male status post right partial hallux amputation with recurrent nausea and vomiting since procedure was performed. Event since last encounter: Patient continues to report improvement in pain in right lower extremity. He states that he is able to walk with increasingly less stabbing pain in his right foot. However nausea and vomiting are still persistent. Last night metoclopramide was added to the regimen of ondansetron and Phenergan, but the nausea persisted. Scopolamine patch was added today for attempted control nausea while patient transitions to p.o. medications and a full diet. Review of systems: Constitutional: Denies fevers, chills, night sweats Cardiovascular: Denies chest pain; reports tachycardia and palpitations with nausea vomiting Respiratory: Denies shortness of breath, pain with breathing Gastrointestinal: Denies diarrhea, constipation; reports vomiting and nausea commenting tiny bowel movements yesterday Genitourinary: Denies dysuria, hematuria OBJECTIVE PHYSICAL EXAMINATION: VITAL SIGNS: Please see below. GENERAL: 36-year-old male, lying in bed, no acute distress on exam HEENT: Head normocephalic atraumatic, eyes EOMI PERRLA CARDIOVASCULAR: The rate and rhythm, no murmurs, no rubs, no gallop. RESPIRATORY: Clear to auscultation bilaterally, no wheezes, no rhonchi, no crackles. ABDOMINAL: Normoactive bowel sounds in all 4 quadrants, nontender to palpation EXTREMITIES: Right lower extremity left lower extremity appear to be equal size, right leg no longer tender to palpation LABORATORY DATA, IMAGING STUDIES, MICROBIOLOGY: Please see below. Echocardiogram: . DVT prophylaxis ordered?: Lovenox ASSESSMENT AND PLAN: This is a -year-old [RACE] [GENDER] with . PROBLEMS: #Osteomyelitis/diabetic foot ulcer of the plantar aspect of the first great toe - Afebrile - Elevated ESR / CRP - Dr. Garcia performed right partial hallux amputation - Vancomycin and ceftriaxone have been stopped - Oral doxycycline and Augmentin have been started - PT as determined patient is in safe to discharge pending medical clearance - Morphine 2 mg every 4 hours as needed for moderate pain - Senna ordered for constipation prophylaxis #Nausea -Since coming out of the procedure, patient has been having difficulty with nausea and vomiting making p.o. intake difficult. He has seemed to tolerate p.o. antibiotics as of this note and has eaten part of a meal. -Is on ondansetron, Phenergan, Zofran -Scopolamine patch is also been given for nausea prophylaxis -Regular diet has been started in patient will be monitored to see if this needs to be adjusted to clear full liquid diet #Hyperlipidemia -Simvastatin #Hypertension - Patient's blood pressure continues to be elevated - Patient's blood pressure continues to be difficult to control. Believe this is due to response to nausea and vomiting - Extra dose of 5 mg lisinopril was given today for a total of 10 mg - Going forward patient will take 7.5 mg lisinopril daily #Type 2 diabetes - Levemir and Humalog insulins, glucagon - Levemir dose reduced; will adjust based on glucose levels inpatient DVT prophylaxis: Lovenox DISPOSITION: Discharge pending clinical improvement and able to tolerate p.o. intake. VS, I&O, 24H, Fishbone Vital Signs/I&O Vital Signs Date Time Temp Pulse Resp B/P (MAP) Pulse Ox O2 Delivery O2 Flow Rate FiO2 03/15/21 08:49 176/94 03/15/21 06:00 97.6 98 18 97 Room Air I&O- Last 24 Hours up to 6 AM 03/15/21 06:00 Intake Total 3145 ml Output Total 1800 ml Balance 1345 ml Laboratory Data 24H LABS Laboratory Tests 2 03/14/21 20:17: Bedside Glucose (Misc Panel) 199H 03/15/21 05:41: Immature Granulocyte % (Auto) 0.7, Neutrophils (%) (Auto) 80.9H, Lymphocytes (%) (Auto) 12.4L, Monocytes (%) (Auto) 5.6, Eosinophils (%) (Auto) 0.1, Basophils (%) (Auto) 0.3, Neutrophils # (Auto) 5.6, Lymphocytes # (Auto) 0.9L, Monocytes # (Auto) 0.4, Eosinophils # (Auto) 0.0, Basophils # (Auto) 0.0, Nucleated Red Blood Cells % (auto) 0.0, Anion Gap 8, Glomerular Filtration Rate > 60.0, Calcium Level 8.3L, Total Bilirubin 1.0, Aspartate Amino Transf (AST/SGOT) 14, Alanine Aminotransferase (ALT/SGPT) 15, Alkaline Phosphatase 106, Total Protein 6.2L, Albumin 2.5L, Albumin/Globulin Ratio 0.7 03/15/21 12:19: Bedside Glucose (Misc Panel) 194H 03/15/21 17:09: Bedside Glucose (Misc Panel) 232H CBC/BMP Laboratory Tests 03/15/21 05:41 Microbiology Microbiology 03/12/21 Wound Culture, Received Pending 03/12/21 Anaerobic Culture, Received Pending 03/11/21 Blood Culture - Preliminary, Resulted No Growth after 72 hours. All specime... 03/11/21 Blood Culture - Preliminary, Resulted No Growth after 72 hours. All specime... 03/11/21 Gram Stain - Final, Complete 03/11/21 Wound Culture - Final, Complete Staph.aureus Methicillin Resis Strep Agalactiae Group B Streptococcus Mitis Corynebacterium Species 03/11/21 Respiratory Virus Panel (PCR) (SUJATA) - Final, Complete GME ATTESTATION GME ATTESTATION My faculty preceptor for this patient encounter was physically present during the encounter and was fully available. All aspects of the patient interview, examination, medical decision making process, and medical care plan development were reviewed and approved by the faculty preceptor. The faculty preceptor is aware and concurs with the plan as stated in the body of this note and will attest to such by his/her cosignature. ATTENDING NOTE I personally examined the patient and discussed his interim history, assessment and plan with the resident staff as noted above. I agree with the above assessment and plan and we will proceed with switching his IV antibiotics to PO antibiotics with doxy/augmentin and offer a scopolamine patch for ongoing N/V that is persistent without obvious abdominal pathology except likely postop nausea. David Larkin DO Mar 15, 2021 18:17 MURALI RUIZ MD Mar 16, 2021 08:49
[2021-03-15] MEDS ORDERED: KETOROLAC 30 MG/ML 1ML VIAL IV PRN (20:10)
[2021-03-15] MEDS: SIMVASTATIN 20 MG TAB PO SCH (20:49)
[2021-03-15] MEDS: LEVEMIR (INSULIN DETEMIR) 1 UNITS/0.01ML SC SCH (20:52)
[2021-03-15 22:00] VITALS: BP 174/78
[2021-03-16] MEDS: METOCLOPRAMIDE INJ 10MG/2ML VIAL (J2765 PER 1) IV PRN ×2 (03:03→09:21)
[2021-03-16 06:00] VITALS: BP 168/68
[2021-03-16 07:17] LABS: BASO % 0.3 % (0.0-1.0); EOS % 0.3 % (0.0-3.0); HEMATOCRIT 28.6 % (42.0-52.0); HEMOGLOBIN 9.8 g/dl (13.5-17.5); LYMPH # 1.2 10^3/uL (1.5-5.0); LYMPH % 16.3 % (24.0-44.0); MEAN CORPUSCULAR HEMOGLOBIN 29.1 pg (27.0-33.0); MEAN CORPUSCULAR HGB CONC 34.3 g/dl (32.0-36.5); MEAN CORPUSCULAR VOLUME 84.9 fl (80.0-96.0); MONO # 0.6 10^3/uL (0.0-0.8); NEUTROPHILS # 5.6 10^3/uL (1.5-8.5); NEUTROPHILS % 74.3 % (36.0-66.0); PLATELET COUNT, AUTOMATED 402 10^3/uL (150-450); RED BLOOD COUNT 3.37 10^6/uL (4.30-6.10); WHITE BLOOD COUNT 7.5 10^3/uL (4.0-10.0)
[2021-03-16 07:47] LABS: ALBUMIN 2.1 GM/DL (3.2-5.2); ALT/SGPT 13 U/L (12-78); BILIRUBIN,TOTAL 0.9 MG/DL (0.2-1.0); BLOOD UREA NITROGEN 15 MG/DL (7-18); CALCIUM LEVEL 7.9 MG/DL (8.5-10.1); CARBON DIOXIDE LEVEL 26 MEQ/L (21-32); CHLORIDE LEVEL 109 MEQ/L (98-107); CREATININE FOR GFR 1.07 MG/DL (0.70-1.30); GLOMERULAR FILTRATION RATE > 60.0 (>60); GLUCOSE, FASTING 225 MG/DL (70-100); POTASSIUM SERUM 3.6 MEQ/L (3.5-5.1); SODIUM LEVEL 142 MEQ/L (136-145); TOTAL PROTEIN 5.4 GM/DL (6.4-8.2)
[2021-03-16] MEDS ORDERED: LISINOPRIL *2.5 MG* TAB PO SCH (09:00)
[2021-03-16] MEDS: AUGMENTIN 875 MG TAB PO SCH (09:20)
[2021-03-16] MEDS: DOXYCYCLINE HYCLATE 100MG TABLET PO SCH (09:20)
[2021-03-16] MEDS: ASPIRIN 81MG ENTERIC TABLET PO SCH (09:20)
[2021-03-16 09:21] VITALS: BP 168/68
[2021-03-16] MEDS: ENOXAPARIN 40MG/0.4ML SYRINGE (J1650 PER 10MG) SC SCH (09:21)
[2021-03-16] MEDS: PANTOPRAZOLE 40MG VIAL (C9113 PER 1) IV SCH (09:21)
[2021-03-16] MEDS: HumaLOG INSULIN (NovoLOG) PER UNIT SC SCH ×2 (09:22→12:47)
--- NOTE | 2021-03-16 11:00 | ECGEPIP ---
[facility] Test Date: 2021-03-15 Pat Name: DAKOTA CARR Department: Room: [place] [address] Gender: Male Director Risk: TAMARA : 1985 Requested By: David Wiley Order Number: [id number] Reading MD: Jorge Trinidad Measurements Intervals [place] Rate: 97 P: 41 [place]: 142 QRS: -6 QRSD: 88 T: 26 QT: 360 QTc: 457 Interpretive Statements Normal sinus rhythm Decreased heart rate compared with 05/04/2019. Electronically Signed on 03-16-2021 10:59:50 EDT by Jorge Trinidad
[2021-03-16] MEDS ORDERED: DOXY100T PO (11:25)
[2021-03-16] MEDS ORDERED: TRAN1DIS4 TOP (11:25)
[2021-03-16] MEDS ORDERED: LISI10TA22 PO (11:25)
[2021-03-16] MEDS ORDERED: AMOX875T2 PO (11:25)
--- NOTE | 2021-03-16 12:55 | DS.PDOC ---
Discharge Summary General Date of Admission Mar 11, 2021 at 13:55 Date of Discharge Mar 16, 2021 Primary Care Physician: Lexus Marquez Attending Physician: MURALI RUIZ MD Specialist/Consultants Involve: David Garcia DPM Discharge Summary PROCEDURES PERFORMED DURING STAY: Partial right hallux amputation. ADMITTING DIAGNOSES: 1. Osteomyelitis/diabetic foot ulcer the plantar aspect of the first great toe 2. Hyperlipidemia 3. Hypertension 4. Type 2 diabetes DISCHARGE DIAGNOSES: 1. Osteomyelitis/diabetic foot ulcer the plantar aspect of the first great toe 2. Hyperlipidemia 3. Hypertension 4. Type 2 diabetes COMPLICATIONS/CHIEF COMPLAINT: Osteomyelitis Of Great Toe Of Right Foot. HISTORY OF PRESENT ILLNESS: Patient is a 36-year-old male with extensive history of type 2 diabetes accompanied by complications who presented to the ED on 03/11/2021. Stated that beginning Thursday, March 04, his great right toe started to become sore and inflamed which gradually worsened throughout the week. He developed into a diabetic ulcer which started to drain white-cream like fluid, along with a shooting pain that would go from his toe up to his knee. This was also accompanied by charley horse-like cramping in his right calf. Znzg-sda-biwokun medications only provided temporary relief. He also experienced similar complications and presenting symptoms in 2018 and his left great toe which was eventually partially amputated as well. HOSPITAL COURSE: 03/11/2021: Patient presented to the ED with right great toe pain and erythema. Was admitted for further inpatient management and treatment. Antibiotics were started as well and a podiatry consult was placed 03/12/2021: Patient reported better pain control with morphine. Dr. Garcia came to see the patient. Enter partial right hallux amputation was planned for later that day. Swelling and tenderness in the right calf also improved. Was made n.p.o. for procedure. 03/13/2021: Per patient Dr. Garcia surgery went well. However after procedure patient started developed nausea and vomiting. He was given Zofran but that did not seem to help. He states the pain control is still adequate. Phenergan was also added for nausea prophylaxis he was started on normal saline at 100 mL/h. IV antibiotics were continued. PT determined patient was safe to be discharged when medically clear. 03/14: IV antibiotics were continued. Patient reported continuing improvement and pain and decreased swelling. He was given an extra dose of 5 mg lisinopril for the day totaling 7.5 mg a day. Nausea persisted and patient was started on metoclopramide as well. 03/15/2021: Nausea and vomiting still persisted but per patient less than previous days. Decision was made to transition to p.o. antibiotics and full diet. Patient was able to tolerate p.o. oral antibiotics (doxycycline and Augmentin). Scopolamine patch was also ordered for further nausea prophylaxis. Blood pressure was still elevated and was given a total of 10 mg lisinopril for the day. 03/16/2021: Patient reported feeling better and nausea and vomiting have been less than they have been in previous days. Reports continuing adequate pain control in his right lower extremity. Has been tolerating p.o. antibiotics and p.o. intake. He is to be discharged with follow-up with Dr. Garcia and PCP for hypertension. He is to continue taking 5 mg lisinopril daily along with home propranolol as directed. He is to continue course of antibiotics until finished. DISCHARGE MEDICATIONS: Please see below. ALLERGIES: Please see below. PHYSICAL EXAMINATION ON DISCHARGE: General: 36-year-old male, lying in bed, no acute distress HEENT: Head normocephalic atraumatic eyes EOMI Cardiovascular: Regular rate and rhythm, no murmurs, rubs, no gallops Respiratory: Clear to auscultation bilaterally, no wheezes, no rhonchi, no crackles Abdominal: Normoactive bowel sounds in all 4 quadrants nontender to palpation Extremities: Right lower extremity no longer tender to palpation, right foot and toe newly patch by Dr. Garcia LABORATORY DATA: Please see below. IMAGING: Toe x-ray 03/11/2021: Findings consistent with osteomyelitis with bone destruction in the distal phalanx of the right great toe adjacent to the soft tissue deficit representing an ulcer along with soft tissue swelling. Vascular ultrasound 03/11/2021: No evidence of DVT in the right lower extremity femoral-popliteal veins; no DVT in the visible portions of the calf veins. Foot x-ray 03/13/2021: Essentially normal status post amputation of the first proximal phalanx of the right foot. Abdomen x-ray 03/14/2021: Normal gas pattern. PROGNOSIS: Good ACTIVITY: [As tolerated]. DIET: As tolerated DISPOSITION: Home DISCHARGE INSTRUCTIONS AND ITEMS TO FOLLOW-UP ON OUTPATIENT Call Dr. Garcia's office Thursday and schedule follow-up within 1 week. Follow-up with PCP within next 2 weeks to discuss recent hospitalization and blood pressure management. Continue lisinopril 5 mg daily, and resume propranolol as directed. Continue other home medications as directed Use Scopolamine patches prescribed for antinausea. Complete course of antibiotics (doxycycline and Augmentin). Do not take Tums wi thin, or before 2 hours of taking doxycycline. Keep incision/wound site clean and dry. Presenting symptoms return and/or worsen, or signs of infection at incision site appear (erythema, drainage, pain) call PCP/Dr. Garcia and/or return to ED for further management and evaluation. DISCHARGE CONDITION: [Stable]. TIME SPENT ON DISCHARGE: 35 minutes. Vital Signs/I&Os Vital Signs Date Time Temp Pulse Resp B/P (MAP) Pulse Ox O2 Delivery O2 Flow Rate FiO2 03/16/21 09:21 168/68 03/16/21 06:00 97.9 98 16 98 Room Air I&O- Last 24 Hours up to 6 AM 03/16/21 06:00 Intake Total 1980 ml Output Total 1100 ml Balance 880 ml Laboratory Data Labs 24H Laboratory Tests 2 03/15/21 17:09: Bedside Glucose (Misc Panel) 232H 03/15/21 20:37: Bedside Glucose (Misc Panel) 240H 03/16/21 05:52: Immature Granulocyte % (Auto) 0.8, Neutrophils (%) (Auto) 74.3H, Lymphocytes (%) (Auto) 16.3L, Monocytes (%) (Auto) 8.0, Eosinophils (%) (Auto) 0.3, Basophils (%) (Auto) 0.3, Neutrophils # (Auto) 5.6, Lymphocytes # (Auto) 1.2L, Monocytes # (Auto) 0.6, Eosinophils # (Auto) 0.0, Basophils # (Auto) 0.0, Nucleated Red Blood Cells % (auto) 0.0, Anion Gap 7L, Glomerular Filtration Rate > 60.0, Calcium Level 7.9L, Total Bilirubin 0.9, Aspartate Amino Transf (AST/SGOT) 9, Alanine Aminotransferase (ALT/SGPT) 13, Alkaline Phosphatase 91, Total Protein 5.4L, Albumin 2.1L, Albumin/Globulin Ratio 0.6 03/16/21 11:50: Bedside Glucose (Misc Panel) 167H CBC/BMP Laboratory Tests 03/16/21 05:52 FSBS Laboratory Tests Test 03/15/21 17:09 03/15/21 20:37 03/16/21 11:50 Range/Units Bedside Glucose (Misc Panel) 232 240 167 70-105 MG/DL Microbiology Microbiology 03/12/21 Wound Culture - Final, Resulted Strep Alactolyticus (Viridan) Corynebacterium Species 03/12/21 Anaerobic Culture, Resulted Pending 03/11/21 Blood Culture - Preliminary, Resulted No Growth after 72 hours. All specime... 03/11/21 Blood Culture - Preliminary, Resulted No Growth after 72 hours. All specime... 03/11/21 Gram Stain - Final, Complete 03/11/21 Wound Culture - Final, Complete Staph.aureus Methicillin Resis Strep Agalactiae Group B Streptococcus Mitis Corynebacterium Species 03/11/21 Respiratory Virus Panel (PCR) (SUJATA) - Final, Complete Discharge Medications Scheduled Amoxicillin/Potassium Clav (Amox-Clav 875-125 mg Tablet) 1 Each Tablet, 875 MG PO BID Take ONCE at night of 03/16/2021; take 1 tab twice daily from 03/17/2021 to 03/21/2021 Aspirin (Aspirin EC) 81 Mg Tablet.dr, 81 MG PO DAILY, (Reported) Doxycycline Hyclate (Doxycycline Hyclate) 100 Mg Tablet, 100 MG PO BID Take ONCE in p.m. of 03/16/2021; take 1 tab twice daily from 03/17/2021 till 03/21/2021. Empagliflozin (Jardiance) 10 Mg Tablet, 10 MG PO DAILY, (Reported) Insulin Glargine,Hum.rec.anlog (Lantus Solostar) 100 Unit/1 Ml Insuln.pen, 24 UNITS QHS, (Reported) Insulin Human Lispro (Humalog) 100 Unit/1 Ml Vial, 8 UNITS SC ACHS, (Reported) Lisinopril (Lisinopril) 10 Mg Tablet, 5 MG PO DAILY Take 1 tab daily; follow-up with PCP for blood pressure management Scopolamine (Transderm-Scop) 1 Each Patch.td.3, 1 MG TOP Q72H Apply as needed for nausea; 1 patch lasts 72 hours; DO NOT apply more than 1 patch at a time. Simvastatin (Simvastatin) 20 Mg Tablet, 20 MG PO QPM, (Reported) Allergies Coded Allergies: metformin (Verified Adverse Reaction, Mild, VOMITING, 03/11/21) GME ATTESTATION GME ATTESTATION My faculty preceptor for this patient encounter was physically present during the encounter and was fully available. All aspects of the patient interview, examination, medical decision making process, and medical care plan development were reviewed and approved by the faculty preceptor. The faculty preceptor is aware and concurs with the plan as stated in the body of this note and will at test to such by his/her cosignature. ATTENDING NOTE I personally examined the patient and discussed his interim improvement, hospital course, assessment and discharge plan with the resident as noted above. I agree with the above assessment and plan and at this time, we are discharging him home with plan for PO antibiotic course with doxy/augmentin with close PCP follow up and podiatry follow up. David Larkin DO Mar 16, 2021 12:55 MURALI RUIZ MD Mar 17, 2021 17:07
== END 2021-03-16 13:51 | disposition home or self-care (01) | DRG 617 ==
LOC: M ED 10:26 → M ED INP 13:55 → ENRESERV 15:50 → M MSPAV 18:28
PROVIDERS: ADMIT Internal Medicine; ATTEND Internal Medicine
PROC: 0Y6P0Z3 Detachment at Right 1st Toe, Low, Open Approach (ICD-10-PCS; principal; 2021-03-12 16:30)
DX: E11.69 Type 2 diabetes mellitus with other specified complication (principal); L97.518 Non-pressure chronic ulcer of other part of right foot with other specified severity; M86.171 Other acute osteomyelitis, right ankle and foot; E11.42 Type 2 diabetes mellitus with diabetic polyneuropathy; E11.65 Type 2 diabetes mellitus with hyperglycemia; E78.5 Hyperlipidemia, unspecified; R11.2 Nausea with vomiting, unspecified; I10 Essential (primary) hypertension; B95.62 Methicillin resistant Staphylococcus aureus infection as the cause of diseases classified elsewhere; G43.909 Migraine, unspecified, not intractable, without status migrainosus; L03.031 Cellulitis of right toe; J32.9 Chronic sinusitis, unspecified; E11.621 Type 2 diabetes mellitus with foot ulcer; Z79.4 Long term (current) use of insulin; Z79.82 Long term (current) use of aspirin; Z79.899 Other long term (current) drug therapy; Z88.8 Allergy status to other drugs, medicaments and biological substances

== ENCOUNTER 2021-04-03 12:48 | Observation (INO) | payer OTHER ==
[~2021-04-03] VITALS: Ht 180.3 cm; Wt 88.9 kg
[~2021-04-03 12:48] MED LIST changes: +AMOX875T2 PO; +DOXY100T PO; -LANTINJ4; +LANTINJ4 SC; +LISI10TA22 PO; +TRAN1DIS4 TOP
--- OUTSIDE RECORDS SUMMARY | 2021-04-03 12:56 | CCD ---
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 Name Role Phone Lyndsay ANDRADE EDWARD RPA Unavailable Unavailable ANDRADE, G EDWARD RPA Unavailable Unavailable ANDRADE, Lyndsay EDWARD RPA Unavailable Unavailable ANDRADE, G EDWARD RPA Unavailable Unavailable ANDRADE, G EDWARD RPA Unavailable Unavailable ANDRADE, G EDWARD RPA Unavailable Unavailable ANDRADE, G EDWARD RPA Unavailable Unavailable RAYMOND G EDWARD RPA Unavailable Unavailable ANDRADE, G EDWARD RPA Unavailable Unavailable ANDRADE, G EDWARD RPA Unavailable Unavailable ANDRADE, G EDWARD RPA Unavailable Unavailable ANDRADE, G EDWARD RPA Unavailable Unavailable ANDRADE, G EDWARD RPA Unavailable Unavailable ANDRADE, G EDWARD RPA Unavailable Unavailable ANDRADE, G EDWARD RPA Unavailable Unavailable ANDRADE, G EDWARD RPA Unavailable Unavailable ANDRADE, G EDWARD RPA Unavailable Unavailable ANDRADE, G EDWARD RPA Unavailable Unavailable ANDRADE, G EDWARD RPA Unavailable Unavailable ANDRADE, G EDWARD RPA Unavailable Unavailable ANDRADE, G EDWARD RPA Unavailable Unavailable ANDRADE, G EDWARD RPA Unavailable Unavailable ANDRADE, G EDWARD RPA Unavailable Unavailable ANDRADE, G EDWARD RPA Unavailable Unavailable ANDRADE, G EDWARD RPA Unavailable Unavailable ANDRADE, G EDWARD RPA Unavailable Unavailable ANDRADE, G EDWARD RPA Unavailable Unavailable ANDRADE, G EDWARD RPA Unavailable Unavailable ANDRADE, G EDWARD RPA Unavailable Unavailable ANDRADE, G EDWARD RPA Unavailable Unavailable ANDRADE, G EDWARD RPA Unavailable Unavailable ANDRADE, G EDWARD RPA Unavailable Unavailable ANDRADE, G EDWARD RPA Unavailable Unavailable ANDRADE, G EDWARD RPA Unavailable Unavailable ANDRADE, G EDWARD RPA Unavailable Unavailable Re-disclosure Warning The records that you are about to access may contain information from federally-assisted alcohol or drug abuse programs. If such information is present, then the following federally mandated warning applies: This information has been disclosed to you from records protected by federal confidentiality rules (42 CFR part 2). The federal rules prohibit you from making any further disclosure of this information unless further disclosure is expressly permitted by the written consent of the person to whom it pertains or as otherwise permitted by 42 CFR part 2. A general authorization for the release of medical or other information is NOT sufficient for this purpose. The Federal rules restrict any use of the information to criminally investigate or prosecute any alcohol or drug abuse patient.The records that you are about to access may contain highly sensitive health information, the redisclosure of which is protected by Article 27-F of the [facility] Public Health law. If you continue you may have access to information: Regarding HIV / AIDS; Provided by facilities licensed or operated by the [facility] Office of Mental Health; or Provided by the [facility] Office for People With Developmental Disabilities. If such information is present, then the following [facility] mandated warning applies: This information has been disclosed to you from confidential records which are protected by state law. State law prohibits you from making any further disclosure of this information without the specific written consent of the person to whom it pertains, or as otherwise permitted by law. Any unauthorized further disclosure in violation of state law may result in a fine or long-term sentence or both. A general authorization for the release of medical or other information is NOT sufficient authorization for further disc losure. Family History Family Member Name Family Member Gender Family Member Status Date o f Status Description Data Source(s) Unknown Male Problem MEDENT ([facility]) Unknown Female Problem MEDENT ([facility], ) Unknown Female Problem MEDENT ([facility], ) Encounters Encounter Providers Location Date Indications Data Source(s ) Unknown [address] [facility] [address] 12/07/2020 12:00:00 AM EDT eCW1 ([facility]) Outpatient [address] [facility] [address] 11/22/2020 12:00:00 AM EDT eCW1 ([facility]) Unknown [address] [facility] [place] [address] 11/21/2020 12:00:00 AM EDT eCW1 ([facility]) Outpatient Attender: ABI ANDRADE RPA 11/20 08:31:57 AM EDT - 11/20/2020 09:21:41 AM EDT DocuTap ([facility] ) [place] [address] [facility] [address] 08/07/2020 12:00:00 AM EST eCW1 ([facility]) Outpatient [address] [facility] [address] 07/11/2020 12:00:00 AM EST eCW1 ([facility]) Unknown [address] [facility] [address] 05/25/2020 12:00:00 AM EST eCW1 ([facility]) Unknown [address] [facility] [address] 05/24/2020 12:00:00 AM EST eCW1 ([facility]) Outpatient [address] [facility] [address] 05/22/2020 12:00:00 AM EST eCW1 ([facility]) Unknown [address] [facility] [address] 05/21/2020 12:00:00 AM EST eCW1 ([facility]) Unknown [address] [facility] [address] 04/19/2020 12:00:00 AM EST eCW1 ([facility]) Unknown [address] [facility] [address] 04/18/2020 12:00:00 AM EST eCW1 ([facility]) Unknown [address] [facility] [address] 04/10/2020 12:00:00 AM EDT eCW1 ([facility]) Unknown [address] [facility] [address] 04/10/2020 12:00:00 AM EDT eCW1 ([facility]) Unknown [address] [facility] [address] 04/02/2020 12:00:00 AM EDT eCW1 ([facility]) Immunizations Vaccine Date Status Description Data Source(s) COVID-19 VACCINE [employer] 07/31/2020 12:00:00 AM EST completed [facility] Vaccine Series Complete: NOThis Data was Submitted to [facility]. COVID-19 VACCINE Pfizer 07/10/2020 12:00:00 AM EST completed [facility] Vaccine Series Complete: NOThis Data was Submitted to [facility]. Medications Medication Brand Name Start Date Product Form Dose Route Admi nistrative Instructions Pharmacy Instructions Status Indications Reaction Description Data Source(s) Fluconazole 100 MG Oral Tablet [Diflucan] Diflucan 100 MG Di flucan 100 MG 11/22/2020 12:00:00 AM EDT 1.0 {tablet} active Diflucan 100 MG eCW1 (Formerly [facility], 1928[facility]1983) chlorhexidine gluconate 40 MG/ML Medicat ed Liquid Soap [Hibiclens] Hibiclens 4 % Hibiclens 4 % 11/22/2020 12:00:00 AM EDT act simran Hibiclens 4 % eCW1 (Formerly [facility], 1928–1983) Fluconazole 100 MG Oral Tablet [Diflucan] Diflucan 100 MG Di flucan 100 MG 11/22/2020 12:00:00 AM EDT 1.0 {tablet} active Diflucan 100 MG eCW1 (Formerly [facility], 1928–1983) chlorhexidine gluconate 40 MG/ML Medicat ed Liquid Soap [Hibiclens] Hibiclens 4 % Hibiclens 4 % 11/22/2020 12:00:00 AM EDT act simran Hibiclens 4 % eCW1 (Formerly [facility], 1928–1983) Mupirocin 20 MG/ML Topical Cream Mupirocin Calcium 2 % Mupir ocin Calcium 2 % 11/22/2020 12:00:00 AM EDT 1.0 {application} act simran Mupirocin Calcium 2 % eCW1 (Formerly [facility], 1928–1983) Sulfamethoxazole 800 MG / Trimethoprim 1 60 MG Oral Tablet [Bactrim] Bactrim DS 800-160 MG Bactrim DS 800-160 MG 11/22/2020 12:00:00 AM EDT 1.0 {table t} active Bactrim DS 800-160 MG eCW1 ( Formerly [facility], 1928–1983) Nystatin 402474 UNT/ML Topical Cream Nystatin 865007 U NIT/GM Nystatin 362259 UNIT/GM 11/22/2020 12:00:00 AM EDT 1.0 {application} active Nystatin 314701 UNIT/GM eCW1 (Formerly [facility], 1928–1983) Doxycycline Monohydrate 100 MG Oral Capsule Doxycycline [place] hydrate 100 MG 11/22/2020 12:00:00 AM EDT 1.0 {capsule} active Doxycycline Monohydrate 100 MG eCW1 (Formerly [facility], 1928–1983) Nystatin 100 UNT/MG Topical Powder Nystatin 406994 UNI T/GM Nystatin 918583 UNIT/GM 11/22/2020 12:00:00 AM EDT 1.0 {application} active Nystatin 251232 UNIT/GM eCW1 (Formerly [facility], 1928–1983) Nystatin 100 UNT/MG Topical Powder Nystatin 169926 UNI T/GM Nystatin 727693 UNIT/GM 11/22/2020 12:00:00 AM EDT 1.0 {application} active Nystatin 149833 UNIT/GM eCW1 (Formerly [facility], 1928–1983) Mupirocin 20 MG/ML Topical Cream Mupirocin Calcium 2 % Mupir ocin Calcium 2 % 11/22/2020 12:00:00 AM EDT 1.0 {application} act simran Mupirocin Calcium 2 % eCW1 (Formerly [facility], 1928–1983) Nystatin 794403 UNT/ML Topical Cream Nystatin 508674 U NIT/GM Nystatin 796852 UNIT/GM 11/22/2020 12:00:00 AM EDT 1.0 {application} active Nystatin 578636 UNIT/GM eCW1 (Formerly [facility], 1928–1983) Sulfamethoxazole 800 MG / Trimethoprim 1 60 MG Oral Tablet [Bactrim] Bactrim DS 800-160 MG Bactrim DS 800-160 MG 11/22/2020 12:00:00 AM EDT 1.0 {table t} active Bactrim DS 800-160 MG eCW1 ( Formerly [facility], 1928–1983) Doxycycline Monohydrate 100 MG Oral Capsule Doxycycline [place] hydrate 100 MG 11/22/2020 12:00:00 AM EDT 1.0 {capsule} active Doxycycline Monohydrate 100 MG eCW1 (Formerly [facility], 1928–1983) Amlodipine 5 MG Oral Tablet AmLODIPine Besylate 5 MG AmLODIP ine Besylate 5 MG 07/11/2020 12:00:00 AM EST 1.0 {tablet} active AmLODIPine Besylate 5 MG eCW1 (Formerly [facility], 1928–1983) Propranolol Hydrochloride 10 MG Oral Tablet Propranolo l HCl 10 MG Propranolol HCl 10 MG 05/24/2020 12:00:00 AM EST 1.0 {tablet} ac tive Propranolol HCl 10 MG eCW1 (Formerly [facility], [facility]–1983) Propranolol Hydrochloride 10 MG Oral Tablet Propranolo l HCl 10 MG Propranolol HCl 10 MG 05/24/2020 12:00:00 AM EST 1.0 {tablet} ac tive Propranolol HCl 10 MG eCW1 (Formerly [facility], 1928–1983) valacyclovir 1000 MG Oral Tablet [Valtrex] Valtrex 1 GM Valt samuel 1 GM 05/24/2020 12:00:00 AM EST 1.0 {tablet} active Va ltrex 1 GM eCW1 (Formerly [facility], 1928–1983) Propranolol Hydrochloride 10 MG Oral Tablet Propranolo l HCl 10 MG Propranolol HCl 10 MG 05/24/2020 12:00:00 AM EST 1.0 {tablet} ac tive Propranolol HCl 10 MG eCW1 (Formerly [facility], 1928–1983) valacyclovir 1000 MG Oral Tablet [Valtrex] Valtrex 1 GM Valt samuel 1 GM 05/24/2020 12:00:00 AM EST 1.0 {tablet} active Va ltrex 1 GM eCW1 (Formerly [facility], 1928–1983) valacyclovir 1000 MG Oral Tablet [Valtrex] Valtrex 1 GM Valt samuel 1 GM 05/24/2020 12:00:00 AM EST 1.0 {tablet} active Va ltrex 1 GM eCW1 (Formerly [facility], 1928–1983) Clindamycin 300 MG Oral Capsule Clindamycin HCl 300 MG Clind amycin HCl 300 MG 05/22/2020 12:00:00 AM EST 2.0 {capsules} active Clindamycin HCl 300 MG eCW1 (Formerly [facility], 1928–1983) Mupirocin 20 MG/ML Topical Cream Mupirocin Calcium 2 % Mupir ocin Calcium 2 % 05/22/2020 12:00:00 AM EST active Mupirocin Calcium 2 % eCW1 ([facility]ly [facility], 1928–1983) Mupirocin 20 MG/ML Topical Cream Mupirocin Calcium 2 % Mupir ocin Calcium 2 % 05/22/2020 12:00:00 AM EST active Mupirocin Calcium 2 % eCW1 ([facility], 1928–1983) Mupirocin 20 MG/ML Topical Cream Mupirocin Calcium 2 % Mupir ocin Calcium 2 % 05/22/2020 12:00:00 AM EST active Mupirocin Calcium 2 % eCW1 (Formerly [facility], 1928–1983) Clindamycin 300 MG Oral Capsule Clindamycin HCl 300 MG Clind amycin HCl 300 MG 05/22/2020 12:00:00 AM EST 2.0 {capsules} active Clindamycin HCl 300 MG eCW1 (Formerly [facility], 1928–1983) Clindamycin 300 MG Oral Capsule Clindamycin HCl 300 MG Clind amycin HCl 300 MG 05/22/2020 12:00:00 AM EST 2.0 {capsules} active Clindamycin HCl 300 MG eCW1 ([facility]ly [facility], 1928–1983) Mupirocin 20 MG/ML Topical Cream Mupirocin Calcium 2 % Mupir ocin Calcium 2 % 05/22/2020 12:00:00 AM EST active Mupirocin Calcium 2 % eCW1 ([facility]ly [facility], 1928–1983) Clindamycin 300 MG Oral Capsule Clindamycin HCl 300 MG Clind amycin HCl 300 MG 05/22/2020 12:00:00 AM EST 2.0 {capsules} active Clindamycin HCl 300 MG eCW1 (Formerly [facility], 1928–1983) Lancets - Lancets - 04/10/2020 12:00:00 AM EDT act simran Lancets - eCW1 (Formerly [facility], 1928–1983) Lancets - Lancets - 04/10/2020 12:00:00 AM EDT act simran Lancets - eCW1 (Formerly [facility], 1928–1983) Lancets - Lancets - 04/10/2020 12:00:00 AM EDT act simran Lancets - eCW1 (Formerly [facility], 1928–1983) Lancets - Lancets - 04/10/2020 12:00:00 AM EDT act simran Lancets - eCW1 (Formerly [facility], 1928–1983) Lancets - Lancets - 04/10/2020 12:00:00 AM EDT act simran Lancets - eCW1 (Formerly [facility], 1928–1983) Lancets - Lancets - 04/10/2020 12:00:00 AM EDT act simran Lancets - eCW1 (Formerly [facility], 1928–1983) Lancets - Lancets - 04/10/2020 12:00:00 AM EDT act simran Lancets - eCW1 ([facility]ly [facility], 1928–1983) Lancets - Lancets - 04/10/2020 12:00:00 AM EDT act simran Lancets - eCW1 ([facility]ly [facility], 1928–1983) Lancets - Lancets - 04/10/2020 12:00:00 AM EDT act simran Lancets - eCW1 ([facility]ly [facility], 1928–1983) Lancets - Lancets - 04/10/2020 12:00:00 AM EDT act simran Lancets - eCW1 ([facility]ly [facility], 1928–1983) Lancets - Lancets - 04/10/2020 12:00:00 AM EDT act simran Lancets - eCW1 (Formerly [facility], 1928–1983) Lancets - Lancets - 04/10/2020 12:00:00 AM EDT act simran Lancets - eCW1 (Formerly [facility], 1928–1983) Lancets - Lancets - 04/10/2020 12:00:00 AM EDT act simran Lancets - eCW1 (Formerly [facility], 1928–1983) Insurance Providers Payer name Policy type / Coverage type Policy ID Covered alliance party ID Covered alliance party's relationship to eaton Policy Eaton Plan Information [facility] [id number] SP [id number] [facility] Commercial Insurance Co. [id number] Spouse [id number] MEDICAID [id number] SP [id number] UNHC COMMUNITY PLAN MCDO [id number] SP [id number] [facility] [id number] 18 [id number] OTHER WORKERS COMPENSATION [id number] SP [id number] [place] [employer] [id number] SP [id number] [facility] P [id number] S [id number] SELF PAY UNAVAILABLE SP [facility] BLE [place] O [id number] S [id number] [facility] Health Maintenance Organization (HMO) [id number] Self UNHC COMMUNITY PLAN MCDO [id number] SP [id number] UNHC COMMUNITY PLAN MCDO [id number] SP [id number] [facility] O [id number] S [id number] ANSI-Commercial [id number] ANSI-Not a Secondary Insurance [id number] ANSI-Medicaid [id number] ANSI-Medicaid [id number] [facility] [id number] SP [id number] ANSI-Not a Secondary Insurance [id number] ANSI-Commercial [id number] ANSI-Medicaid [id number] ANSI-Medicaid [id number] R O [id number] S [id number] ANSI-Commercial [id number] ANSI-Medicaid [id number] ANSI-Medicaid [id number] ANSI-Not a Secondary Insurance [id number] ANSI-Commercial [id number] ANSI-Medicaid [id number] ANSI-Medicaid [id number] ANSI-Not a Secondary Insurance [id number] ANSI-Not a Secondary Insurance [id number] ANSI-Medicaid [id number] ANSI-Commercial [id number] ANSI-Medicaid [id number] ANSI-Medicaid [id number] ANSI-Not a Secondary Insurance [id number] ANSI-Medicaid [id number] ANSI-Commercial [id number] ANSI-Medicaid [id number] ANSI-Not a Secondary Insurance [id number] ANSI-Medicaid [id number] ANSI-Commercial [id number] ANSI-Not a Secondary Insurance [id number] ANSI-Commercial [id number] ANSI-Medicaid [id number] ANSI-Medicaid [id number] ANSI-Medicaid [id number] ANSI-Not a Secondary Insurance [id number] ANSI-Commercial [id number] ANSI-Medicaid [id number] ANSI-Not a Secondary Insurance [id number] ANSI-Medicaid [id number] ANSI-Medicaid [id number] ANSI-Commercial [id number] ANSI-Not a Secondary Insurance [id number] ANSI-Medicaid [id number] ANSI-Commercial [id number] ANSI-Medicaid [id number] ANSI-Not a Secondary Insurance [id number] ANSI-Medicaid [id number] ANSI-Commercial [id number] ANSI-Medicaid [id number] ANSI-Medicaid [id number] ANSI-Not a Secondary Insurance [id number] ANSI-Medicaid [id number] ANSI-Commercial [id number] ANSI-Not a Secondary Insurance [id number] ANSI-Commercial [id number] ANSI-Medicaid [id number] ANSI-Medicaid [id number] ANSI-Not a Secondary Insurance [id number] ANSI-Medicaid [id number] ANSI-Medicaid [id number] ANSI-Commercial [id number] ANSI-Commercial [id number] 2862uuzf-418d-5z436r03-8936-e9qv0e9wxc10 ANSI-Not a Secondary Insurance 1k9av5wo-9caz-6w6p-r5a5-od80p 9rs8rl8 2j3ur1tm-2cal-5u8v-d4h5-zg52d3cq4qv0 ANSI-Medicaid [id number] ANSI-Medicaid [id number] ANSI-Commercial w9qxd9ck-b987-1u50-9qo6-037q82y76b3x y7lds7ou-s983-0x58-4sa0-023u32k20q0h ANSI-Not a Secondary Insurance 5k7kuo90-3fo9-9512-088m-m01u4 5p5gt08 2i1sua14-3tm7-0298-174l-u79h93d0oy71 ANSI-Medicaid [id number] ANSI-Medicaid [id number] ANSI-Commercial 60l0q731-2xt3-6keb-kd91-14m51r4b209h 50y9u514-6nn3-5tpa-iq23-32g01t1t766x ANSI-Not a Secondary Insurance [id number]-41005 [id number]-[id number] ANSI-Medicaid [id number] ANSI-Medicaid [id number] 5nqz3x4o-kjn5-7z3q-gbw1-02pp7g229s9u ANSI-Commercial pkm52x7o-k94n-6a99-07w5-u305p972i40k iro20v7a-t46r-7r08-07k1-n967z800p13o ANSI-Medicaid [id number] ANSI-Medicaid [id number] ANSI-Not a Secondary Insurance g09pi154-a6u3-609i-f0y9-5s73u 845z110 j08lb547-m9c0-966r-[id number] ANSI-Medicaid [id number]-8s2u-[id number] ANSI-Medicaid [id number] ANSI-Not a Secondary Insurance [id number]-6a8t-[id number] 8p1032y 16p2i91s-5w7w-4u45-7888-889686v3273t ANSI-Commercial [id number]-5629-595b-q22t-p01e2509128i 0899v53h-3245-707i-v29k-e99t9053279g ANSI-Commercial 5b66c4gg-55co-031h-6w11-8787v9124q60 4u37e8av-01td-696o-8c33-4050h8895t45 ANSI-Medicaid [id number] ANSI-Medicaid [id number] ANSI-Not a Secondary Insurance 400301vj-7f03-4o7a-g148-ae8jd dh829u8 [id number]-9y55-1l6k-o947-[id number] ANSI-Medicaid [id number] ANSI-Medicaid [id number] ANSI-Commercial [id number]-tfj9-859b-4o1k-[id number] [id number]-mze0-808o-5w0f-[id number] ANSI-Not a Secondary Insurance 3x9powb9-15vj-2ehn-1ye6-2xh94 [id number] 9y8kgfb3-07po-4gfg-4cj6-4rg26pz26a44 ANSI-Medicaid [id number] ANSI-Not a Secondary Insurance [id number]-78fu-d20y-1569x 44id05r y5a361n3-5h4e-74ii-d42r-5233v10vn06s ANSI-Commercial 1j1z6eki-8q16-14vc-a54g-0fm60z1n34w8 9t3g3cuz-2v44-82jx-b32h-1fr91n7h04a9 ANSI-Medicaid [id number]-8x55-901e-99n6-[id number] 83t43sau-0s39-369z-59h8-g06t81h6l2j9 ANSI-Commercial 096k55uh-6980-4mz1-8951-4l4x3316e3y1 725p84db-1957-4nt7-5579-2l8t4956o1x5 ANSI-Not a Secondary Insurance 7m1433cg-93hr-7167-8731-xox41 15g342a 5h1795hb-63br-3786-4034-kqt0137v546g ANSI-Medicaid bk0zu6g3-u19d-8am5-vfvk-e3lqfs5vwfqq fn0xf5z2-h44w-0ns5-lvey-q0txvm3clfbx ANSI-Medicaid [id number]-[id number] ANSI-Medicaid [id number]-3y26-[id number] ANSI-Medicaid z8tsgxs5-0w89-78q6-796y-[id number] d6sbqtg5-1d24-47k4-089h-2dh36088m2di ANSI-Commercial y787285d-c220-32y5-373v-6tj277ly29a6 c196926g-q101-67b5-244k-0lz410xd06i4 ANSI-Not a Secondary Insurance 9487yk33-h25q-7ql9-1b0b-0nb4n 328u89u 8247lo58-d23y-2xc6-3f7k-2ol7s156i43b ANSI-Medicaid [id number]-g2e2-31ye-818d-[id number] 534b24i8-w9g8-61qw-604h-t7diq560u339 ANSI-Commercial c25f2vuz-6oxj-7s88-3u29-291x57y1f281 m95h7yyf-2gqu-8u34-9r80-828k85r7y698 ANSI-Medicaid [id number]-[id number] 4q77y16g-jg39-95y6-y7o7-3nd11522y5p9 ANSI-Not a Secondary Insurance 4971dju7-9m3t-787z-w06s-ep3d7 907v8tk 8588ymj3-7h3t-276z-b35t-fs6z4646l8rm ANSI-Medicaid [id number]-w005-[id number] 5ir7z0z1-1gn1-427z-g838-h9wet7o7660a ANSI-Not a Secondary Insurance 7u784u30-j5k1-015n-tt8l-01d49 y42k35z 1p983p52-y9g3-111x-dx8k-76i02n92j18q ANSI-Commercial f8r81vuf-i184-8860-4549-7g7q7vl4j572 z6j39dzd-r311-8515-4010-2b4x4mz0r629 ANSI-Medicaid [id number]-8l16-1285-mz49-14c9me8011ch ANSI-Medicaid [id number]-9g1g-[id number]-3a0v-9pjd-[id number] ANSI-Commercial 17m450ap-5li3-6960-h109-013ybah5q540 37k880fa-0yl6-0857-z119-124ebfz8b094 ANSI-Medicaid [id number]-eq23-3870-[id number]-[id number] 2pm12n48-fn78-8704-m596-[id number] ANSI-Not a Secondary Insurance hizv3258-o8fa-4613-j1e8-3931p u3wd5a7 bxmp6592-c3cq-4092-c1p6-9155zp6lq4d6 ANSI-Medicaid [id number]-[id number]-v8y7-3986-l8su-u4qyy81kap23 ANSI-Not a Secondary Insurance v0i8s754-0h23-87n8-fhne-iz8vc u30953f o1w4x157-7x21-88r6-jwbe-wy5oia78039o ANSI-Commercial 9k0081px-8j4s-2d32-63n7-582755212399 5v7441pq-2f7w-8u27-05j5-364389530704 ANSI-Medicaid [id number]-[id number]-32c0-6223-0s3f9ol3rhs0 ANSI-Not a Secondary Insurance c8q6rda0-0324-7ey4-k926-3e518 e028004 r4q6wlz3-6031-3ub7-z509-6i354g912614 ANSI-Medicaid [id number]-20z7-[id number] 6tp4o5t7-26cv-70d8-d942-[id number] ANSI-Commercial 648835gn-5g0a-6wg4-512s-0730y4u83929 482737fw-8w5v-8bp0-422b-3212t5m19007 ANSI-Medicaid [id number]-29ts-7okv-[id number] 3654l12l-40iy-0woo-xjc7-502b72x66zll ANSI-Commercial 63g92x88-xks6-43q7-nay7-w0yu3tq0n273 17h91a47-keb1-88x8-kgy6-u4pg5ed0u398 ANSI-Not a Secondary Insurance 53xhs6fv-s60o-7fru-1428-62j05 386ta8c 77svh3pq-o84z-2vkp-5728-52b36459vu2t ANSI-Medicaid [id number]-7156-[id number] 00stwj17-3kvj-8371-[id number] ANSI-Medicaid [id number]-1hzf-2306-01h0-[id number] any11p8w-6cyv-1173-52l4-jo3ol447w38f ANSI-Medicaid [id number]-[id number] l629h189-4x17-0xyc-vpr2-51s1tj2x5j04 ANSI-Medicaid [id number] 10j72t10-48gc-56g9-0929-v02951uur258 ANSI-Commercial 21ua052m-99x4-0205-8u0p-28538w2qre51 06ml559j-46x4-4475-5e0j-25600b7oxr39 ANSI-Not a Secondary Insurance p57l6672-by66-9612-7d27-15013 6618541 x86z8359-tr92-2039-1r26-733364512238 ANSI-Medicaid [id number]-[id number] pw1d6572-w6z8-6000-89n6-8901122s31bq ANSI-Medicaid [id number]-[id number]-[id number] 0979z5mi-6237-2645-bx91-[id number] ANSI-Commercial 73g4yk08-l958-1280-bi77-u4su81427sz8 39j7dm39-k995-4027-ty45-w6fj86768ng7 ANSI-Not a Secondary Insurance re0j8726-r205-56h2-j1r7-8o711 x12b6nk tn4e2179-n397-66i9-x1a8-9q413v03g3yz ANSI-Medicaid [id number]-4n7p-[id number] jw80vsa6-31op-824n-2d7w-2uby955g7263 ANSI-Commercial 307022w0-7m78-9pp1-v21f-941w29l5xq4c 729928z0-6d08-1tu7-g19h-732n62o1vv6r ANSI-Not a Secondary Insurance mg84407q-t108-58t3-8914-msar8 0j6fye8 du22442p-n777-82s0-0423-uwnx96g9asi5 ANSI-Medicaid [id number]-9iso-[id number] 0g20i4d4-317q-6lwh-[id number] [facility] Part B [id number] Self [id number] ANSI-Medicaid [id number]-[id number] 143o443s-gyb3-586b-8g7w-88a41987nx6z ANSI-Commercial jh9k0374-486q-8s07-87l9-5d6a3l577654 ak6w6180-499t-0k59-04d3-3v0r6l307595 ANSI-Medicaid [id number] n21q28c7-vo60-7u69-83k0-5620c68636pi ANSI-Not a Secondary Insurance a6g22222-9v26-0817-1s14-669k2 5581679 d9t22668-9y93-9343-3t38-472q17882378 ANSI-Medicaid t9feln9y-04fi-5x5a-p1o6-78922o9kv4e6 e7lhzj1q-85dk-4b1f-p4o8-64660y8os9o8 ANSI-Not a Secondary Insurance o877v5q0-7181-48sh-000w-x6987 hy11m42 s564e0i4-4228-21dr-099j-h1766xk86q42 ANSI-Commercial wu62u66y-n1qq-4py1-9r70-g8b45xe246u3 ej78y88g-c5ny-5rr7-7w32-u1a19qs895p1 ANSI-Medicaid [id number]-[id number]-o50x-[id number] ANSI-Medicaid [id number]-7ed0-7v4m-a23w-51i2p69m8wa8 3g3620ms-1ok5-9g8e-d70n-85e4z31c5rt4 ANSI-Medicaid [id number]-5855-y7me-[id number] 73b0hp99-631z-2284-c4rb-[id number] ANSI-Not a Secondary Insurance 5l4h2m89-o222-31p0-8jyd-7369q n2y59k6 4e7b0u66-q275-86n7-2ocw-6187vf4n89z2 ANSI-Commercial 6m1783cn-58o0-3010-1c6n-9e96od5ru603 5q2396bf-68a6-3344-2l1z-3b82df9tt912 ANSI-Medicaid [id number]-60x8-5w8g-o7um-[id number] p3at896p-16z4-9i1v-e0ir-j862079tec65 ANSI-Medicaid [id number]-i5n1-232b-j870-[id number] 7bma9727-g9f0-885z-g680-ov913v5f41g0 ANSI-Not a Secondary Insurance 1dwz0y18-60y3-4y04-p764-3w830 ch74977 1bpg8e62-74y5-1k75-n692-9m798se57321 ANSI-Commercial 143d1882-1228-66ik-qkk8-8277puf3e17e 490i4472-0859-37vq-opg5-9859xau7k42n ANSI-Commercial 73kc31a3-9sq5-1986-261k-x1976h8050ea 22zb07y4-6se3-9443-252z-s3252z8811jd ANSI-Medicaid 597a9m3g-8ath-5z4q-6yu3-[id number] 431l0j9p-9rfw-8c9l-4bv3-w524bh52zie6 ANSI-Not a Secondary Insurance 32rfd739-n943-8qv2-0e9e-c0bjg cd80l31 62rpw572-t601-8ua2-8a7u-i9oukbe21j63 ANSI-Medicaid qzf1drzg-t66c-[id number] iqf0wvhs-b60d-5629-8273-m08on2847389 ANSI-Medicaid [id number] 91t[id number] ANSI-Not a Secondary Insurance rl30id05-9eb2-11b5-s41w-h4199 86505p3 dj54db68-7gv8-05p5-g89k-b965004698x9 ANSI-Commercial 013nt4ak-f336-8741-j748-9x75e27nw09x 037sy8gi-n296-1753-f441-4n08v04gk90o ANSI-Medicaid l9nqv27v-68fs-2pkd-[id number] a4nxe30h-30ym-4nbc-ttu9-1q391ft00557 ANSI-Medicaid odmt10me-950c-190h-11pv-[id number] igik76az-331h-625m-74dt-gh93774g5v5f ANSI-Medicaid [id number]-[id number] [id number]-w2x5-7m75382f4v3y ANSI-Not a Secondary Insurance 5zx5a6zv-4y29-581p-ke11-y7629 81997r2 4zc7w0pq-4d93-918h-xm45-f966291143g4 ANSI-Commercial 72s9o8y6-f7m8-602t-bf6m-47om87xlob03 71f6l5q5-b9u7-421e-wc5t-59um85khie12 ANSI-Medicaid [id number]-q4zp-[id number]-i6cy-[id number] ANSI-Medicaid [id number]-v11o-87ig-lp34-i907ahh1cprf y4591p17-a90e-17au-ny10-e931epe0uhcz ANSI-Commercial owhndh39-6355-739w-b0k2-w0q289fs934u ofmvcz19-5772-865e-z1d2-m1c688iw256r ANSI-Not a Secondary Insurance 4y5cj1e6-lb15-3194-4t5z-re5re o315k9a 8p7zw5s1-te01-1935-2y6h-dz8pol107k2v ANSI-Not a Secondary Insurance k577015j-t54j-7409-56hz-074a4 acco74x d078436x-i85b-4913-89uh-215i2ppst70h ANSI-Medicaid 6boqxupo-21dp-[id number]-[id number]-[id number] 3ktzhjqs-88qe-8c987t18-i4ws-35n1385782nt ANSI-Commercial 8a792qbd-w210-2a95-l7e3-96g0day12369 2x401liw-a495-1t04-y9i0-43y3vff85023 ANSI-Medicaid 40j040og-277t-6300-[id number] 22s349mc-052f-1289-p5i3-2fg802352yf5 ANSI-Not a Secondary Insurance i1d120uj-t525-713h-1gbh-11924 42gb761 k0d593jh-h081-751v-1yzt-6869576mj366 ANSI-Medicaid [id number]-q597-9sfq-omvs-273g0qo770f7 lh2o6006-l536-4lrz-owtk-458g8du805n7 ANSI-Medicaid [id number]-vxra-544k-61uo-[id number] 891911v0-idfl-157h-80en-6asz6y177l83 ANSI-Commercial 990fltcz-5b6k-50x57m5g-94r1-14cu-ysc7t2304y65 351yqxky-2w0z-28h50a1s-33g2-16fg-gtu9t5784z57 ANSI-Not a Secondary Insurance ki6qbi72-956u-5v29-64e7-r1i1j jgm2780 cn1yrb11-277k-2r44-83z3-y9f7nipb4173 ANSI-Medicaid [id number]-[id number]-[id number] ANSI-Medicaid [id number]-[id number] 2q70q562-74g2-713s-wq65-3129yy8jm66u ANSI-Commercial 37g14f93-47i6-51hj-8239-y6i9jh02gg14 01a59c39-17w4-65ms-1964-a5p8cq03qk69 ANSI-Medicaid [id number]-e188-8ur8-[id number] ANSI-Not a Secondary Insurance w1k94398-9672-7mu6-w032-9zc49 5k421k8 n8q37681-9447-9hu9-v570-4kw971s737i1 ANSI-Medicaid 1g7nb756-327j-88s9-h97x-322ibusi8v67 6e8zp436-438f-40f7-s60s-059wrfya3y41 ANSI-Commercial 672fjhne-p13q-8671a72h-6947-6qo0-p4jxpv901d3l 084vjkqo-f82c-6911a17l-3713-3mn1-k8bbpu813d3u ANSI-Commercial g039x91m-030v-8b0b-wc15-6z6t9dtfi74x m034u11a-558o-9y2j-ky11-4l0r8xwfq73y ANSI-Not a Secondary Insurance qgyx6q92-7v55-517x-399r-w59k0 u5g2476 vume7m47-3b59-838m-350w-p42g0p9r3443 ANSI-Medicaid [id number] uxb61p47-3879-9i8f-t722-[id number] ANSI-Medicaid [id number]-[id number]-29i4-2t78-249g-dh91m132c855 ANSI-Medicaid [id number]-0b92-4st3-5r94939cxg7s 7w9o71k1-33vu-4f94-0mh2-1k48587wlf4d ANSI-Medicaid [id number]-584p-6063-4b19-[id number] 8oc3d80t-344d-5591-3u88-qqu552l75876 ANSI-Commercial 57f4cotz-q9y2-97j0-653r-7747k2o2082y 75v9uiju-b6k4-74m2-097x-4676k7n5547c ANSI-Not a Secondary Insurance z5xn9790-10uu-9q52-a5z8-3y992 [id number] x5fz8888-05ej-0t08-q5r3-9x9503448529 ANSI-Not a Secondary Insurance n552md7f-697c-93lk-807k-j040a 8f8f63c m994az4z-297p-30gf-224b-o339q9d4n80q ANSI-Medicaid [id number]-7044-5370-s56h-j90igubr22kq 8lst00xc-8172-2599-t75o-q21ojebq66ts ANSI-Commercial 0z8yc7zm-8353-8j22-l91e-7nz8i4oh947a 3u5am9tb-2306-3p55-x52x-2ux6x1oi398h ANSI-Medicaid [id number]-r391-7xcs-2582-[id number]-m772-3bcy-8761-z07ce9340cf7 ANSI-Medicaid [id number]-[id number] ANSI-Not a Secondary Insurance 35kt9sh7-0w6g-6ml1-no71-8q9o5 8f8bd41 84bo4ob0-8i5q-4xk9-oy43-8y6b63t8rq16 ANSI-Medicaid [id number]-286l-[id number]-665m-xh66-[id number] ANSI-Commercial pi31w218-nu47-7r1e-t4jj-q714ko940m32 da76k721-sz47-4b2v-w2wm-x730br282r69 ANSI-Medicaid [id number]-[id number]-p118-a4490fett3q9 ANSI-Not a Secondary Insurance y8857d58-6ve8-75a9-4561-795r4 nwiu3vh t8579b67-3ym6-79t3-3260-591h7poxr3ld ANSI-Commercial d9827960-5z61-42wr-j415-169921x05n5g b4839190-8x68-23ah-c036-083301b02j9g ANSI-Medicaid [id number]-a009-485s-xn40-[id number] ANSI-Commercial e5pj163n-c8g4-4wsk-32k3-230a9k402r74 f3su234f-l8c1-1fve-82z4-664g6a189m68 ANSI-Medicaid [id number] d9727co3-18m5-7l73-20jt-[id number] ANSI-Medicaid [id number]-3z76-[id number]-[id number]-f65t-2x10-e43m-s90hq4368zv8 ANSI-Not a Secondary Insurance k62v41c4-688f-7t36-0o0y-b8c36 4iw6695 a13k47r1-947a-5g66-1d5a-m2j518qd6415 ANSI-Medicaid [id number]-[id number] ANSI-Medicaid 101083w3-y9c3-7x97-fazr-[id number] 153670s3-j5v4-3l33-jlry-o1xh065xth32 ANSI-Not a Secondary Insurance 0ljxw050-x0w6-5093-3r48-mx71w 272k3fq 1rybp983-r0c4-8002-6o25-vd60a129f1wo ANSI-Commercial 3as05x68-857m-9t4w-wj9i-p8jr90yg77p8 6dg86b97-873b-2g7h-cq5i-q7pm86oa57l7 ANSI-Medicaid [id number]-ny58-[id number]-mu33-[id number] ANSI-Commercial 63gehs11-1952-4338-ucj9-1ls0co8dal79 71iudu37-6890-6411-dcl0-0si4bi0jyg89 ANSI-Not a Secondary Insurance 3bl23992-78i9-5dc1-rnm2-7385c 97c9qp1 8jo41763-99d2-4ow9-axm2-0496k43y7gh9 ANSI-Medicaid [id number]-[id number]-w685-02f7-scx6-8u8k600l78p7 r (pr) Commercial MRN.991.m63ac8q8-b300-36yr-ohi5-7n8x 518ex7p1 [place] [id number] MRN.991.[id number] -y249-29bd-wjx0-5y1m477ff0r3 Self [id number] [facility] Medigap Part B MRN.991.a77rc8n2-w373-74jq-ehm3-6g9k119ji4x8 Self [id number] ANSI-Commercial 441dn236-3i7h-6897-07n9-56y5d8y1lc22 333fh053-6m4t-5596-84r9-08a2w0v7qk58 ANSI-Medicaid [id number]-4387-5r46-[id number] ANSI-Not a Secondary Insurance 64s12844-203n-7716-w346-01sm5 07k4n7f 72h46871-646r-2161-g899-50zf036g8z9s ANSI-Medicaid [id number] 6q8k3736-7m55-2q4g-[id number] ANSI-Not a Secondary Insurance [id number]-583y-3k7b-00ft-u1942 5x702i7 0410618s-243f-5k5d-08gi-j33867j568c8 ANSI-Medicaid [id number]-058g-[id number]-809e-9k6y-[id number] ANSI-Medicaid [id number] ANSI-Commercial 9j5n9vnh-p158-7i4w-0550-z6f3tms7u84k 5d2w3qxq-o955-7q4s-6171-n5h0pbr9l61p ANSI-Not a Secondary Insurance 66023scz-302n-9i5z-lm83-lp097 rp40yxh 35901ilq-788n-0b7a-hf53-tg592tv09zqh ANSI-Medicaid [id number]-[id number] ANSI-Medicaid [id number] j1ubc3h4-l537-78u5-1x23-03x109hb65a3 ANSI-Commercial 7706u11l-nw7r-4k73-55x7-y5f6725g7g04 7346l45e-xa1e-6j75-76v7-d5n5420i8x07 [facility] [id number] [facility] [place] [id number] ANSI-Medicaid [id number] 125iidop-zxo9-60h873f4-[id number] ANSI-Not a Secondary Insurance 1q1x1nxs-2p6l-3923-fy7y-ilu2b 730by7v 6f2o1xcv-9c8r-2484-xc6t-qdi2z462tj5j ANSI-Commercial 83482224-7rnw-53ri-xv70-tig51588a156 89094712-7yje-38be-ln94-eoy17446d934 ANSI-Medicaid [id number]-unfn-[id number] [facility] [id number] ANSI-Not a Secondary Insurance 46yn4h2f-5531-3tx5-p857-[id number] ANSI-Commercial [id number] ANSI-Medicaid [id number] ANSI-Medicaid [id number] ANSI-Medicaid [id number] ANSI-Commercial [id number] ANSI-Medicaid [id number] ANSI-Not a Secondary Insurance [id number] ANSI-Commercial [id number] ANSI-Medicaid [id number] ANSI-Not a Secondary Insurance [id number] ANSI-Medicaid [id number] D Managed Care [facility] P [id number] S [id number] [facility] [id number] [id number] Medicaid Dental S [id number] O [id number] S [id number] Problems, Conditions, and Diagnoses Code Display Name Description Problem Type Effective Dates Data Source(s) Z86.14 717552247 H/O methicillin resistant Staphy lococcus aureus infection Problem 11/22/2020 12:00:00 AM EDT [facility] (Critical access hospital) Surgeries/Procedures No Information Results ID Date Data Source [id number] 03/11/2021 12:06:00 PM EDT [facility] Name Value Range Interpretation Code Description Data Kia rce(s) Supporting Document(s) SARS-CoV-2 (COVID 19) NEGATIVE - SARS-CoV-2 (COVID19) [facility] This lab was ordered by [facility] a nd reported by [facility]. ID Date Data Source [id number] 03/05/2021 12:00:00 AM EDT [facility] Name Value Range Interpretation Code Description Data Kia rce(s) Supporting Document(s) SARS coronavirus 2 Ag NEGATIVE [facility] This lab was ordered by [facility] and reported by [facility]. ID Date Data Source [id number] 02/21/2021 12:00:00 AM EDT [facility] Name Value Range Interpretation Code Description Data Kia rce(s) Supporting Document(s) SARS coronavirus 2 Ag NEGATIVE [facility] This lab was ordered by [facility] and reported by [facility]. ID Date Data Source [id number] 11/13/2020 12:00:00 AM EDT [facility] Name Value Range Interpretation Code Description Data Kia rce(s) Supporting Document(s) SARS coronavirus 2 Ag NEGATIVE [facility] This lab [facility] and reported by [facility]. ID Date Data Source [id number] 11/08/2020 12:00:00 AM EDT [facility] Name Value Range Interpretation Code Description Data Kia rce(s) Supporting Document(s) SARS coronavirus 2 Ag NEGATIVE [facility] This lab was ordered by [facility] and reported by [facility]. ID Date Data Source [id number] 11/05/2020 12:00:00 AM EDT [facility] Name Value Range Interpretation Code Description Data Kia rce(s) Supporting Document(s) SARS coronavirus 2 Ag NEGATIVE [facility] This lab was ordered by [facility] and reported by [facility]. ID Date Data Source [id number] 10/29/2020 12:00:00 AM EDT [facility] Name Value Range Interpretation Code Description Data Kia rce(s) Supporting Document(s) SARS coronavirus 2 Ag NEGATIVE [facility] This lab was ordered by [facility] and reported by [facility]. ID Date Data Source [id number] 10/25/2020 12:00:00 AM EDT [facility] Name Value Range Interpretation Code Description Data Kia rce(s) Supporting Document(s) SARS coronavirus 2 Ag NEGATIVE [facility] This lab was ordered [facility] and reported by [facility]. ID Date Data Source [id number] 10/22/2020 12:00:00 AM EDT [facility] Name Value Range Interpretation Code Description Data Kia rce(s) Supporting Document(s) SARS coronavirus 2 Ag NEGATIVE [facility] This lab was ordered by [facility] and reported by [facility]. ID Date Data Source [id number] 10/18/2020 12:00:00 AM EDT [facility] Name Value Range Interpretation Code Description Data Kia rce(s) Supporting Document(s) SARS coronavirus 2 Ag NEGATIVE [facility] This lab was ordered by [facility] and reported by [facility]. ID Date Data Source [id number] 10/15/2020 12:00:00 AM EDT [facility] Name Value Range Interpretation Code Description Data Kia rce(s) Supporting Document(s) SARS coronavirus 2 Ag NEGATIVE [facility] This lab was ordered by [facility] and reported by [facility]. ID Date Data Source [id number] 10/11/2020 12:00:00 AM EDT [facility] Name Value Range Interpretation Code Description Data Kia rce(s) Supporting Document(s) SARS coronavirus 2 Ag NEGATIVE [facility] This lab was ordered [facility] and reported by [facility]. ID Date Data Source [id number] 10/08/2020 12:00:00 AM EDT [facility] Name Value Range Interpretation Code Description Data Kia rce(s) Supporting Document(s) SARS coronavirus 2 Ag Negative [facility] This lab was ordered by [facility] and reported by [facility]. ID Date Data Source [id number] 10/04/2020 12:00:00 AM EDT [facility] Name Value Range Interpretation Code Description Data Kia rce(s) Supporting Document(s) SARS coronavirus 2 Ag NEGATIVE [facility] This lab was ordered by [facility] and reported by [facility]. ID Date Data Source [id number] 10/01/2020 12:00:00 AM EDT [facility] Name Value Range Interpretation Code Description Data Kia rce(s) Supporting Document(s) SARS coronavirus 2 Ag NEGATIVE [facility] This lab was ordered by [facility] and reported by [facility]. ID Date Data Source [id number] 09/17/2020 12:00:00 AM EDT [facility] Name Value Range Interpretation Code Description Data Kia rce(s) Supporting Document(s) SARS coronavirus 2 Ag NEGATIVE [facility] This lab was ordered by [facility] and reported by [facility]. ID Date Data Source [id number] 09/13/2020 12:00:00 AM EDT [facility] Name Value Range Interpretation Code Description Data Kia rce(s) Supporting Document(s) SARS coronavirus 2 Ag NEGATIVE [facility] This lab was ordered by [facility] and reported by [facility]. ID Date Data Source [id number] 09/10/2020 12:00:00 AM EDT [facility] Name Value Range Interpretation Code Description Data Kia rce(s) Supporting Document(s) SARS coronavirus 2 Ag NEGATIVE [facility] This lab was ordered by [facility] and reported by [facility]. ID Date Data Source [id number] 09/06/2020 12:00:00 AM EDT [facility] Name Value Range Interpretation Code Description Data Kia rce(s) Supporting Document(s) SARS coronavirus 2 Ag NEGATIVE [facility] This lab was ordered by [facility] and reported by [facility]. ID Date Data Source [id number] 09/03/2020 07:07:00 AM EDT [facility] Name Value Range Interpretation Code Description Data Kia rce(s) Supporting Document(s) SARS coronavirus 2 RNA Not Detected [facility] [place] This lab was ordered by [facility] and reported by [facility]. ID Date Data Source [id number] 08/30/2020 12:00:00 AM EDT [facility] Name Value Range Interpretation Code Description Data Kia rce(s) Supporting Document(s) SARS coronavirus 2 Ag NEGATIVE [facility] This lab was ordered by [facility] and reported by [facility]. ID Date Data Source [id number] 08/27/2020 07:30:00 AM EDT [facility] Name Value Range Interpretation Code Description Data Kia rce(s) Supporting Document(s) SARS coronavirus 2 RNA Not Detected [facility] [place] This lab was ordered by [facility] and reported by [facility]. ID Date Data Source [id number] 08/23/2020 12:00:00 AM EST [facility] Name Value Range Interpretation Code Description Data Kia rce(s) Supporting Document(s) SARS coronavirus 2 Ag NEGATIVE [facility] This lab was ordered by [facility] and reported by [facility]. ID Date Data Source [id number] 08/20/2020 07:39:00 AM EST [facility] Name Value Range Interpretation Code Description Data Kia rce(s) Supporting Document(s) SARS coronavirus 2 RNA Not Detected [facility] [place] This lab was ordered by [facility] and reported by [facility]. ID Date Data Source [id number] 08/16/2020 12:00:00 AM EST [facility] Name Value Range Interpretation Code Description Data Kia rce(s) Supporting Document(s) SARS coronavirus 2 Ag NEGATIVE [facility] This lab was ordered by [facility] and reported by [facility]. ID Date Data Source [id number] 08/13/2020 07:00:00 AM EST [facility] Name Value Range Interpretation Code Description Data Kia rce(s) Supporting Document(s) SARS coronavirus 2 RNA Not Detected [facility] [place] This lab was ordered by [facility] and reported by [facility]. ID Date Data Source [id number] 08/09/2020 12:00:00 AM EST [facility] Name Value Range Interpretation Code Description Data Kia rce(s) Supporting Document(s) SARS coronavirus 2 Ag NEGATIVE [facility] This lab was ordered by [facility] and reported by [facility]. ID Date Data Source [id number] 08/06/2020 08:00:00 AM EST [facility] Name Value Range Interpretation Code Description Data Kia rce(s) Supporting Document(s) SARS coronavirus 2 RNA Not Detected [facility] [place] This lab was ordered by [facility] and reported by [facility]. ID Date Data Source [id number] 08/03/2020 12:00:00 AM EST [facility] Name Value Range Interpretation Code Description Data Kia rce(s) Supporting Document(s) SARS-CoV2 Rapid Antigen Negative [facility] This lab was ordered by [facility] and reported by [facility]. ID Date Data Source [id number] 08/02/2020 12:00:00 AM EST [facility] Name Value Range Interpretation Code Description Data Kia rce(s) Supporting Document(s) SARS coronavirus 2 Ag NEGATIVE [facility] This lab was ordered by [facility] and [facility] [facility] ID Date Data Source [id number] 07/30/2020 02:00:00 PM EST [facility] Name Value Range Interpretation Code Description Data Kia rce(s) Supporting Document(s) SARS coronavirus 2 RNA Not Detected [facility] This lab was ordered by [facility] and reported by [facility]. ID Date Data Source [id number] 07/26/2020 12:00:00 AM EST [facility] Name Value Range Interpretation Code Description Data Kia rce(s) Supporting Document(s) SARS coronavirus 2 Ag NEGATIVE [facility] This lab was ordered by [facility] and reported by [facility]. ID Date Data Source [id number] 07/23/2020 06:00:00 AM EST [facility] Name Value Range Interpretation Code Description Data Kia rce(s) Supporting Document(s) SARS coronavirus 2 RNA Not Detected [facility] This lab was ordered by [facility] and reported by [facility]. ID Date Data Source [id number] 07/19/2020 12:00:00 AM EST [facility] Name Value Range Interpretation Code Description Data Kia rce(s) Supporting Document(s) SARS coronavirus 2 Ag [facility] This lab was ordered by [facility] and reported by [facility]. ID Date Data Source [id number] 07/16/2020 06:00:00 AM EST [facility] Name Value Range Interpretation Code Description Data Kia rce(s) Supporting Document(s) SARS coronavirus 2 RNA Not Detected [facility] This lab was ordered by [facility] and reported by [facility]. ID Date Data Source [id number] 07/09/2020 06:12:00 AM EST [facility] Name Value Range Interpretation Code Description Data Kia rce(s) Supporting Document(s) SARS coronavirus 2 RNA Not Detected [facility] This lab was ordered by [facility] and reported by [facility]. ID Date Data Source [id number] 07/05/2020 12:00:00 AM EST [facility] Name Value Range Interpretation Code Description Data Kia rce(s) Supporting Document(s) SARS coronavirus 2 Ag Negative [facility] This lab was ordered by [facility] and reported by [facility]. ID Date Data Source [id number] 07/02/2020 11:00:00 AM EST [facility] Name Value Range Interpretation Code Description Data Kia rce(s) Supporting Document(s) SARS coronavirus 2 RNA Not Detected [facility] This lab was ordered by [facility] and reported by [facility]. ID Date Data Source [id number] 06/28/2020 12:00:00 AM EST [facility] Name Value Range Interpretation Code Description Data Kia rce(s) Supporting Document(s) SARS-CoV2 Rapid Antigen Negative [facility] This lab was ordered by [facility] and reported by [facility]. ID Date Data Source [id number] 06/25/2020 10:57:00 AM EST [facility] Name Value Range Interpretation Code Description Data Kia rce(s) Supporting Document(s) SARS coronavirus 2 RNA Not Detected [facility] This lab was ordered by [facility] and reported by [facility]. ID Date Data Source [id number] 06/18/2020 06:00:00 AM EST [facility] Name Value Range Interpretation Code Description Data Kia rce(s) Supporting Document(s) SARS coronavirus 2 RNA [facility] This lab was ordered by [facility] and reported by [facility]. ID Date Data Source [id number] 06/11/2020 02:36:00 PM EST [facility] Name Value Range Interpretation Code Description Data Kia rce(s) Supporting Document(s) SARS coronavirus 2 RNA [facility] This lab was ordered by [facility] and reported by [facility]. ID Date Data Source [id number] 06/04/2020 07:00:00 AM EST [facility] Name Value Range Interpretation Code Description Data Kia rce(s) Supporting Document(s) SARS coronavirus 2 RNA [facility] This lab was ordered by [facility] and reported by [facility]. ID Date Data Source [id number] 05/28/2020 08:00:00 AM EST [facility] Name Value Range Interpretation Code Description Data Kia rce(s) Supporting Document(s) SARS coronavirus 2 RNA [facility] This lab was ordered by [facility] and reported by [facility]. ID Date Data Source [id number] 05/14/2020 10:23:00 AM EST [facility] Name Value Range Interpretation Code Description Data Kia rce(s) Supporting Document(s) SARS coronavirus 2 RNA [facility] This lab was ordered by [facility] and reported by [facility]. ID Date Data Source [id number] 05/12/2020 12:00:00 AM EST [facility] Name Value Range Interpretation Code Description Data Kia rce(s) Supporting Document(s) SARS-CoV2 Rapid Antigen [facility] This lab was ordered by [facility] and reported by [facility]. ID Date Data Source [id number] 05/07/2020 01:45:00 PM EST [facility] Name Value Range Interpretation Code Description Data Kia rce(s) Supporting Document(s) SARS coronavirus 2 RNA [facility] This lab was ordered by [facility] and reported by [facility]. ID Date Data Source [id number] 04/30/2020 11:09:00 AM EST [facility] Name Value Range Interpretation Code Description Data Kia rce(s) Supporting Document(s) SARS coronavirus 2 RNA [facility] This lab was ordered by [facility] and reported by [facility]. ID Date Data Source [id number] 04/23/2020 01:00:00 PM EST [facility] Name Value Range Interpretation Code Description Data Kia rce(s) Supporting Document(s) SARS coronavirus 2 RNA [facility] This lab was ordered by [facility] and reported by [facility]. ID Date Data Source [id number] 04/16/2020 02:00:00 PM EST [facility] Name Value Range Interpretation Code Description Data Kia rce(s) Supporting Document(s) SARS coronavirus 2 RNA [facility] This lab was ordered by [facility] and reported by [facility]. ID Date Data Source [id number] 04/09/2020 12:00:00 PM EDT [facility] Name Value Range Interpretation Code Description Data Kia rce(s) Supporting Document(s) SARS coronavirus 2 RNA [facility] This lab was ordered by [facility] and reported by [facility]. ID Date Data Source [id number] 04/02/2020 07:30:00 AM EDT [facility] Name Value Range Interpretation Code Description Data Kia rce(s) Supporting Document(s) SARS coronavirus 2 RNA [facility] This lab was ordered by [facility] and reported by [facility]. ID Date Data Source [id number] 03/26/2020 08:00:00 AM EDT [facility] Name Value Range Interpretation Code Description Data Kia rce(s) Supporting Document(s) SARS coronavirus 2 RNA [facility] This lab was ordered by [facility] and reported by [facility]. ID Date Data Source [id number] 03/19/2020 10:00:00 AM EDT [facility] Name Value Range Interpretation Code Description Data Kia rce(s) Supporting Document(s) SARS coronavirus 2 RNA [facility] This lab was ordered by [facility] and reported by [facility]. ID Date Data Source [id number] 03/12/2020 12:20:00 PM EDT [facility] Name Value Range Interpretation Code Description Data Kia rce(s) Supporting Document(s) SARS coronavirus 2 RNA [facility] This lab was ordered by [facility] and reported by [facility]. ID Date Data Source [id number] 03/05/2020 12:00:00 PM EDT [facility] Name Value Range Interpretation Code Description Data Kia rce(s) Supporting Document(s) SARS coronavirus 2 RNA [facility] This lab was ordered by [facility] and reported by [facility]. ID Date Data Source [id number] 02/27/2020 05:30:00 AM EDT [facility] Name Value Range Interpretation Code Description Data Kia rce(s) Supporting Document(s) SARS coronavirus 2 RNA [facility] This lab was ordered by [facility] and reported by [facility]. ID Date Data Source [id number] 02/22/2020 12:00:00 PM EDT [facility] Name Value Range Interpretation Code Description Data Kia rce(s) Supporting Document(s) SARS coronavirus 2 RNA [facility] This lab was ordered by [facility] and reported by [facility]. ID Date Data Source [id number] 02/13/2020 12:19:00 PM EDT [facility] Name Value Range Interpretation Code Description Data Kia rce(s) Supporting Document(s) SARS coronavirus 2 RNA [facility] This lab was ordered by [facility] and reported by [facility]. ID Date Data Source [id number] 02/06/2020 11:45:00 AM EDT [facility] Name Value Range Interpretation Code Description Data Kia rce(s) Supporting Document(s) SARS coronavirus 2 RNA [facility] This lab was ordered by [facility] and reported by [facility]. Procedure Social History Code Duration Value Status Description Data Source(s ) Smoking 11/22/2020 12:00:00 AM EDT Never Smoker completed Never S moker eCW1 (Formerly [facility], 1928–1983) Smoking 11/22/2020 12:00:00 AM EDT Never Smoker completed Never S moker eCW1 (Formerly [facility], 1928–1983) Smoking 07/11/2020 12:00:00 AM EST Never Smoker completed Never S moker eCW1 (Formerly [facility], 1928–1983) Smoking 07/11/2020 12:00:00 AM EST Never Smoker completed Never S moker eCW1 (Formerly [facility], 1928–1983) Smoking 07/11/2020 12:00:00 AM EST Never Smoker completed Never S moker eCW1 (Formerly [facility], [facility]–1983) Smoking 05/22/2020 12:00:00 AM EST Never Smoker completed Never S moker eCW1 (Formerly [facility], 1928–1983) Smoking 05/22/2020 12:00:00 AM EST Never Smoker completed Never S moker eCW1 (Formerly [facility], 1928–1983) Smoking 05/22/2020 12:00:00 AM EST Never Smoker completed Never S moker eCW1 (Formerly [facility], 1928–1983) Smoking 05/22/2020 12:00:00 AM EST Never Smoker completed Never S moker eCW1 (Formerly [facility], 1928–1983) Vital Signs ID Date Data Source UNK Name Value Range Interpretation Code Description Data Source(s) Body weight 221.2 [lb_av] 221.2 [lb_av] eCW1 ([facility]) Body height [in_i] eCW1 ([facility]) Body mass index (BMI) [Ratio] 31.29 kg/m2 31.29 kg/m2 W1 (Formerly [facility], 1928–1983) Heart rate 96 /min 96 /min eCW1 ([facility]) Respiratory rate 18 /min 18 /min eCW1 ([facility]) Body temperature 97 [degF] 97 [degF] eCW1 ([facility]) Systolic blood pressure 140 mm[Hg] 140 mm[Hg] e CW1 (Formerly [facility], 1928–1983) Diastolic blood pressure 90 mm[Hg] 90 mm[Hg] eCW1 (Formerly [facility], 1928–1983) Body weight 223.8 [lb_av] 223.8 [lb_av] eCW1 ([facility]) Body height [in_i] eCW1 ([facility]) Body mass index (BMI) [Ratio] 31.65 kg/m2 31.65 kg/m2 W1 (Formerly [facility], 1928–1983) Heart rate 108 /min 108 /min eCW1 ([facility]) Respiratory rate 18 /min 18 /min eCW1 ([facility]) Body temperature 97.1 [degF] 97.1 [degF] eCW1 ( Formerly [facility], [facility]) Systolic blood pressure 148 mm[Hg] 148 mm[Hg] e CW1 (Formerly [facility], 1928–1983) Diastolic blood pressure 90 mm[Hg] 90 mm[Hg] eCW1 (Formerly [facility], [facility]–1983) Heart rate 104 /min 104 /min eCW1 ([facility]) Body height [in_i] eCW1 ([facility]) Body weight 225.4 [lb_av] 225.4 [lb_av] eCW1 ([facility]) Respiratory rate 18 /min 18 /min eCW1 ([facility]) Body temperature 97.2 [degF] 97.2 [degF] eCW1 ( Formerly [facility], [facility]) Systolic blood pressure 170 mm[Hg] 170 mm[Hg] e CW1 (Formerly [facility], 1928–1983) Diastolic blood pressure 100 mm[Hg] 100 mm[Hg] eCW1 (Formerly [facility], 1928–1983) Body mass index (BMI) [Ratio] 31.88 kg/m2 31.88 kg/m2 eCW1 (Formerly [facility], 1928–1983) Patient Treatment Plan of Care Planned Activity Planned Date Details Description Data Source (s) Mupirocin 20 MG/ML Topical Cream 11/22/2020 12:00:00 AM EDT eCW1 (Formerly [facility], [facility]–1983) Nystatin 100 UNT/MG Topical Powder 11/22/2020 12:00:00 AM EDT eCW1 (Formerly [facility], 1928–1983) Nystatin 455591 UNT/ML Topical Cream 11/22/2020 12:00:00 AM EDT eCW1 (Formerly [facility], 1928–1983) chlorhexidine gluconate 40 MG/ML Medicated Liquid Soap [Hibiclens] 11/22/2020 12:00:00 AM EDT eCW1 ([facility]) Fluconazole 100 MG Oral Tablet [Diflucan] 11/22/2020 12:00:00 AM ED T eCW1 (Formerly [facility], 1928–1983) Doxycycline Monohydrate 100 MG Oral Capsule 11/22/2020 12:00:00 AM EDT eCW1 (Formerly [facility], 1928–1983) Sulfamethoxazole 800 MG / Trimethoprim 160 MG Oral Tab let [Bactrim] 11/22/2020 12:00:00 AM EDT eCW1 ([facility]) Mupirocin 20 MG/ML Topical Cream 11/22/2020 12:00:00 AM EDT eCW1 (Formerly [facility], 1928–1983) Nystatin 100 UNT/MG Topical Powder 11/22/2020 12:00:00 AM EDT eCW1 (Formerly [facility], 1928–1983) Nystatin 987753 UNT/ML Topical Cream 11/22/2020 12:00:00 AM EDT eCW1 (Formerly [facility], 1928–1983) chlorhexidine gluconate 40 MG/ML Medicated Liquid Soap [Hibiclens] 11/22/2020 12:00:00 AM EDT eCW1 ([facility]) Doxycycline Monohydrate 100 MG Oral Capsule 11/22/2020 12:00:00 AM EDT eCW1 (Formerly [facility], [facility]–1983) Fluconazole 100 MG Oral Tablet [Diflucan] 11/22/2020 12:00:00 AM ED T eCW1 (Formerly [facility], [facility]–1983) Sulfamethoxazole 800 MG / Trimethoprim 160 MG Oral Tab let [Bactrim] 11/22/2020 12:00:00 AM EDT eCW1 ([facility]) Amlodipine 5 MG Oral Tablet 07/11/2020 12:00:00 AM EST eCW1 (Formerly [facility], [facility]–1983) Propranolol Hydrochloride 10 MG Oral Tablet 05/24/2020 12:00:00 AM EST eCW1 (Formerly [facility], [facility]–1983) valacyclovir 1000 MG Oral Tablet [Valtrex] 05/24/2020 12:00:[address] eCW1 (Formerly [facility], [facility]–1983) Propranolol Hydrochloride 10 MG Oral Tablet 05/24/2020 12:00:00 AM EST eCW1 (Formerly [facility], 1928–1983) valacyclovir 1000 MG Oral Tablet [Valtrex] 05/24/2020 12:00:[address] eCW1 (Formerly [facility], [facility]–1983) Propranolol Hydrochloride 10 MG Oral Tablet 05/24/2020 12:00:00 AM EST eCW1 (Formerly [facility], [facility]–1983) valacyclovir 1000 MG Oral Tablet [Valtrex] 05/24/2020 12:00:[address] eCW1 (Formerly [facility], [facility]–1983) Mupirocin 20 MG/ML Topical Cream 05/22/2020 12:00:00 AM EST eCW1 (Formerly [facility], [facility]–1983) Clindamycin 300 MG Oral Capsule 05/22/2020 12:00:00 AM EST eCW1 (Formerly [facility], [facility]–1983) Mupirocin 20 MG/ML Topical Cream 05/22/2020 12:00:00 AM EST eCW1 (Formerly [facility], 1928–1983) Clindamycin 300 MG Oral Capsule 05/22/2020 12:00:00 AM EST eCW1 (Formerly [facility], 1928–1983) Mupirocin 20 MG/ML Topical Cream 05/22/2020 12:00:00 AM EST eCW1 (Formerly [facility], [facility]–1983) Clindamycin 300 MG Oral Capsule 05/22/2020 12:00:00 AM EST eCW1 (Formerly [facility], [facility]–1983) Clindamycin 300 MG Oral Capsule 05/22/2020 12:00:00 AM EST eCW1 (Formerly [facility], [facility]–1983) Mupirocin 20 MG/ML Topical Cream 05/22/2020 12:00:00 AM EST eCW1 (Formerly [facility], [facility]–1983) Lancets - 04/10/2020 12:00:00 AM EDT e CW1 (Formerly [facility], [facility]–1983) Lancets - 04/10/2020 12:00:00 AM EDT e CW1 (Formerly [facility], [facility]–1983) Lancets - 04/10/2020 12:00:00 AM EDT e CW1 (Formerly [facility], [facility]–1983) Lancets - 04/10/2020 12:00:00 AM EDT e CW1 (Formerly [facility], [facility]–1983)
[2021-04-03 13:23] LABS: BASO % 0.3 % (0.0-1.0); EOS # 0.1 10^3/uL (0.0-0.5); EOS % 1.1 % (0.0-3.0); HEMATOCRIT 37.9 % (42.0-52.0); HEMOGLOBIN 13.4 g/dl (13.5-17.5); LYMPH # 1.6 10^3/uL (1.5-5.0); LYMPH % 20.4 % (24.0-44.0); MEAN CORPUSCULAR HEMOGLOBIN 29.3 pg (27.0-33.0); MEAN CORPUSCULAR HGB CONC 35.4 g/dl (32.0-36.5); MEAN CORPUSCULAR VOLUME 82.9 fl (80.0-96.0); MONO # 0.5 10^3/uL (0.0-0.8); MONO % 6.1 % (2.0-8.0); NEUTROPHILS # 5.6 10^3/uL (1.5-8.5); NEUTROPHILS % 71.8 % (36.0-66.0); PLATELET COUNT, AUTOMATED 289 10^3/uL (150-450); RED BLOOD COUNT 4.57 10^6/uL (4.30-6.10); WHITE BLOOD COUNT 7.8 10^3/uL (4.0-10.0)
[2021-04-03 14:04] LABS: ALBUMIN 3.3 GM/DL (3.2-5.2); ALT/SGPT 27 U/L (12-78); BILIRUBIN,DIRECT 0.1 MG/DL (0.0-0.2); BILIRUBIN,TOTAL 0.6 MG/DL (0.2-1.0); BLOOD UREA NITROGEN 23 MG/DL (7-18); CARBON DIOXIDE LEVEL 26 MEQ/L (21-32); CHLORIDE LEVEL 95 MEQ/L (98-107); CREATININE FOR GFR 1.38 MG/DL (0.70-1.30); GLOMERULAR FILTRATION RATE > 60.0 (>60); GLUCOSE, FASTING 577 MG/DL (70-100); LIPASE 786 U/L (73-393); POTASSIUM SERUM 4.2 MEQ/L (3.5-5.1); SODIUM LEVEL 133 MEQ/L (136-145); TOTAL PROTEIN 7.4 GM/DL (6.4-8.2)
[2021-04-03] MEDS ORDERED: NS 1,000 ML IV ONE ×2 (14:25→18:05)
[2021-04-03 15:14] LABS: HEMOGLOBIN A1c 11.6 %
--- OUTSIDE RECORDS SUMMARY | 2021-04-03 15:18 | CCD ---
Author Author [facility] Organization [facility] Address Unknown Phone Unavailable Care Team Providers Care Launch Engineer Name Role Phone Lyndsay ANDRADE EDWARD RPA [...] is protected by Article 27-F of the [facility] Public Health law. If you continue you may have access to information: Regarding HIV / AIDS; Provided by facilities licensed or operated by the [facility] Office of Mental Health; or Provided by the [facility] Office for People With Developmental Disabilities. If such information is present, then the following [facility] mandated warning applies: This information has [...] law may result in a fine or shelter sentence or both. A general authorization for the release of medical or other information is NOT sufficient authorization for further disc losure. Family History Family Member Name Family Member Gender Family Member Status Date o f Status Description Data Source(s) Unknown Male Problem MEDENT ([facility]) Unknown Female Problem MEDENT ([facility], ) Unknown Female Problem MEDENT ([facility], ) Encounters Encounter Providers Location Date Indications Data Source(s ) [place] [address] [facility] [address] 12/07/2020 12:00:00 AM EDT [facility]CW1 [facility] [place] [address] [facility] [address] 11/22/2020 12:00:00 AM EDT [facility]CW1 [facility]) Unknown [address] [facility] [place] [address] 11/21/2020 12:00:00 AM EDT eCW1 ([facility]) Outpatient Attender: ABI ANDRADE RPA 11/20 08:31:57 AM EDT - 11/20/2020 09:21:41 AM EDT DocuTap ([facility] ) [place] [address] [facility] [address] 08/07/2020 12:00:00 AM EST eCW1 [facility] [place] [address] [facility] [address] 07/11/2020 12:00:00 AM EST [facility]CW1 [facility] [place] [address] [facility] [address] 05/25/2020 12:00:00 AM EST [facility]CW1 [facility] [place] [address] [facility] [address] 05/24/2020 12:00:00 AM EST [facility]CW1 [facility] Out[place] [address] [facility] [address] 05/22/2020 12:00:00 AM EST eCW1 ([facility]) Unknown [address] [facility] [address] 05/21/2020 12:00:00 AM EST eCW1 ([facility]) Unknown [address] [facility] [address] 04/19/2020 12:00:00 AM EST eCW1 ([facility]) Unknown [address] [facility] [address] 04/18/2020 12:00:00 AM EST eCW1 ([facility]) Unknown [address] [facility] [address] 04/10/2020 12:00:00 AM EDT eCW1 ([facility]) Unknown [address] [facility] [address] 04/10/2020 12:00:00 AM EDT eCW1 ([facility]) Unknown [address] [facility] [address] 04/02/2020 12:00:00 AM EDT eCW1 ([facility]) Immunizations Vaccine Date Status Description Data Source(s) COVID-19 VACCINE [email or web address] 07/31/2020 12:00:00 AM EST completed [facility] Vaccine Series Complete: NOThis Data was Submitted to [facility] Via [email or web address]. COVID-19 VACCINE Pfizer 07/10/2020 12:00:00 AM EST completed [facility] Vaccine Series Complete: NOThis Data was Submitted to [facility] Via [email or web address]. Medications Medication Brand Name Start Date Product Form Dose Route Admi nistrative Instructions Pharmacy Instructions Status Indications Reaction Description Data Source(s) Fluconazole 100 MG Oral Tablet [Diflucan] Diflucan 100 MG Di flucan 100 MG 11/22/2020 12:00:00 AM EDT 1.0 {tablet} active Diflucan 100 MG eCW1 ([facility]) chlorhexidine gluconate 40 MG/ML Medicat ed Liquid Soap [Hibiclens] Hibiclens 4 % Hibiclens 4 % 11/22/2020 12:00:00 AM EDT act simran Hibiclens 4 % eCW1 ([facility]) Fluconazole 100 MG Oral Tablet [Diflucan] Diflucan 100 MG Di flucan 100 MG 11/22/2020 12:00:00 AM EDT 1.0 {tablet} active Diflucan 100 MG eCW1 ([facility]) chlorhexidine gluconate 40 MG/ML Medicat ed Liquid Soap [Hibiclens] Hibiclens 4 % Hibiclens 4 % 11/22/2020 12:00:00 AM EDT act simran Hibiclens 4 % eCW1 ([facility]) Mupirocin 20 MG/ML Topical Cream Mupirocin Calcium 2 % Mupir ocin Calcium 2 % 11/22/2020 12:00:00 AM EDT 1.0 {application} act simran Mupirocin Calcium 2 % eCW1 ([facility]) Sulfamethoxazole 800 MG / Trimethoprim 1 60 MG Oral Tablet [Bactrim] Bactrim DS 800-160 MG Bactrim DS 800-160 MG 11/22/2020 12:00:00 AM EDT 1.0 {table t} active Bactrim DS 800-160 MG eCW1 ( [facility]) Nystatin 680500 UNT/ML Topical Cream Nystatin 175966 U NIT/GM Nystatin 845778 UNIT/GM 11/22/2020 12:00:00 AM EDT 1.0 {application} active Nystatin 938290 UNIT/GM eCW1 ([facility]) Doxycycline Monohydrate 100 MG Oral Capsule Doxycycline [place] hydrate 100 MG 11/22/2020 12:00:00 AM EDT 1.0 {capsule} active Doxycycline Monohydrate 100 MG eCW1 ([facility]) Nystatin 100 UNT/MG Topical Powder Nystatin 518382 UNI T/GM Nystatin 812570 UNIT/GM 11/22/2020 12:00:00 AM EDT 1.0 {application} active Nystatin 159626 UNIT/GM eCW1 ([facility]) Nystatin 100 UNT/MG Topical Powder Nystatin 995929 UNI T/GM Nystatin 572923 UNIT/GM 11/22/2020 12:00:00 AM EDT 1.0 {application} active Nystatin 989792 UNIT/GM eCW1 ([facility]) Mupirocin 20 MG/ML Topical Cream Mupirocin Calcium 2 % Mupir ocin Calcium 2 % 11/22/2020 12:00:00 AM EDT 1.0 {application} act simran Mupirocin Calcium 2 % eCW1 ([facility]) Nystatin 682365 UNT/ML Topical Cream Nystatin 360921 U NIT/GM Nystatin 314986 UNIT/GM 11/22/2020 12:00:00 AM EDT 1.0 {application} active Nystatin 387901 UNIT/GM eCW1 ([facility]) Sulfamethoxazole 800 MG / Trimethoprim 1 60 MG Oral Tablet [Bactrim] Bactrim DS 800-160 MG Bactrim DS 800-160 MG 11/22/2020 12:00:00 AM EDT 1.0 {table t} active Bactrim DS 800-160 MG eCW1 ( [facility]) Doxycycline Monohydrate 100 MG Oral Capsule Doxycycline [place] hydrate 100 MG 11/22/2020 12:00:00 AM EDT 1.0 {capsule} active Doxycycline Monohydrate 100 MG eCW1 ([facility]) Amlodipine 5 MG Oral Tablet AmLODIPine Besylate 5 MG AmLODIP ine Besylate 5 MG 07/11/2020 12:00:00 AM EST 1.0 {tablet} active AmLODIPine Besylate 5 MG eCW1 ([facility]) Propranolol Hydrochloride 10 MG Oral Tablet Propranolo l HCl 10 MG Propranolol HCl 10 MG 05/24/2020 12:00:00 AM EST 1.0 {tablet} ac tive Propranolol HCl 10 MG eCW1 ([facility]) Propranolol Hydrochloride 10 MG Oral Tablet Propranolo l HCl 10 MG Propranolol HCl 10 MG 05/24/2020 12:00:00 AM EST 1.0 {tablet} ac tive Propranolol HCl 10 MG eCW1 ([facility]) valacyclovir 1000 MG Oral Tablet [Valtrex] Valtrex 1 GM Valt samuel 1 GM 05/24/2020 12:00:00 AM EST 1.0 {tablet} active Va ltrex 1 GM eCW1 ([facility]) Propranolol Hydrochloride 10 MG Oral Tablet Propranolo l HCl 10 MG Propranolol HCl 10 MG 05/24/2020 12:00:00 AM EST 1.0 {tablet} ac tive Propranolol HCl 10 MG eCW1 ([facility]) valacyclovir 1000 MG Oral Tablet [Valtrex] Valtrex 1 GM Valt samuel 1 GM 05/24/2020 12:00:00 AM EST 1.0 {tablet} active Va ltrex 1 GM eCW1 ([facility]) valacyclovir 1000 MG Oral Tablet [Valtrex] Valtrex 1 GM Valt samuel 1 GM 05/24/2020 12:00:00 AM EST 1.0 {tablet} active Va ltrex 1 GM eCW1 ([facility]) Clindamycin 300 MG Oral Capsule Clindamycin HCl 300 MG Clind amycin HCl 300 MG 05/22/2020 12:00:00 AM EST 2.0 {capsules} active Clindamycin HCl 300 MG eCW1 ([facility]) Mupirocin 20 MG/ML Topical Cream Mupirocin Calcium 2 % Mupir ocin Calcium 2 % 05/22/2020 12:00:00 AM EST active Mupirocin Calcium 2 % eCW1 ([facility]) Mupirocin 20 MG/ML Topical Cream Mupirocin Calcium 2 % Mupir ocin Calcium 2 % 05/22/2020 12:00:00 AM EST active Mupirocin Calcium 2 % eCW1 ([facility]) Mupirocin 20 MG/ML Topical Cream Mupirocin Calcium 2 % Mupir ocin Calcium 2 % 05/22/2020 12:00:00 AM EST active Mupirocin Calcium 2 % eCW1 ([facility]) Clindamycin 300 MG Oral Capsule Clindamycin HCl 300 MG Clind amycin HCl 300 MG 05/22/2020 12:00:00 AM EST 2.0 {capsules} active Clindamycin HCl 300 MG eCW1 ([facility]) Clindamycin 300 MG Oral Capsule Clindamycin HCl 300 MG Clind amycin HCl 300 MG 05/22/2020 12:00:00 AM EST 2.0 {capsules} active Clindamycin HCl 300 MG eCW1 ([facility]) Mupirocin 20 MG/ML Topical Cream Mupirocin Calcium 2 % Mupir ocin Calcium 2 % 05/22/2020 12:00:00 AM EST active Mupirocin Calcium 2 % eCW1 ([facility]) Clindamycin 300 MG Oral Capsule Clindamycin HCl 300 MG Clind amycin HCl 300 MG 05/22/2020 12:00:00 AM EST 2.0 {capsules} active Clindamycin HCl 300 MG eCW1 ([facility]) Lancets - Lancets - 04/10/2020 12:00:00 AM EDT act simran Lancets - eCW1 ([facility]) Lancets - Lancets - 04/10/2020 12:00:00 AM EDT act simran Lancets - eCW1 ([facility]) Lancets - Lancets - 04/10/2020 12:00:00 AM EDT act simran Lancets - eCW1 ([facility]) Lancets - Lancets - 04/10/2020 12:00:00 AM EDT act ismran Lancets - eCW1 ([facility]) Lancets - Lancets - 04/10/2020 12:00:00 AM EDT act simran Lancets - eCW1 ([facility]) Lancets - Lancets - 04/10/2020 12:00:00 AM EDT act simran Lancets - eCW1 ([facility]) Lancets - Lancets - 04/10/2020 12:00:00 AM EDT act simran Lancets - eCW1 ([facility]) Lancets - Lancets - 04/10/2020 12:00:00 AM EDT act simran Lancets - eCW1 ([facility]) Lancets - Lancets - 04/10/2020 12:00:00 AM EDT act simran Lancets - eCW1 ([facility]) Lancets - Lancets - 04/10/2020 12:00:00 AM EDT act simran Lancets - eCW1 ([facility]) Lancets - Lancets - 04/10/2020 12:00:00 AM EDT act simran Lancets - eCW1 ([facility]) Lancets - Lancets - 04/10/2020 12:00:00 AM EDT act simran Lancets - eCW1 ([facility]) Lancets - Lancets - 04/10/2020 12:00:00 AM EDT act simran Lancets - eCW1 ([facility]) Insurance Providers Payer name Policy type / Coverage type Policy ID Covered libertarian ID Covered libertarian's relationship to eaton Policy [place] Plan Information [facility] [id number] SP [id number] [facility] Commercial Insurance Co. [id number] Spouse [id number] MEDICAID [id number] SP [id number] UNHC COMMUNITY PLAN MCDO [id number] SP [id number] [facility] [id number] 18 [id number] OTHER WORKERS COMPENSATION [id number] SP [id number] [employer] [id number] SP [id number] [employer] P [id number] S [id number] SELF PAY UNAVAILABLE SP UNAVAILA BLE [facility] [id number] S [id number] [facility] Health Maintenance Organization (HMO) [id number] Self UNHC COMMUNITY PLAN MCDO [id number] SP [id number] UNHC COMMUNITY PLAN MCDO [id number] SP [id number] [facility] O [id number] S [id number] ANSI-Commercial [id number] ANSI-Not a Secondary Insurance [id number] ANSI-Medicaid [id number] ANSI-Medicaid [id number] [facility] [id number] SP [id number] ANSI-Not a Secondary Insurance [id number] ANSI-Commercial [id number] ANSI-Medicaid [id number] ANSI-Medicaid [id number] R O [id number] S [id number] ANSI-Commercial [id number] ANSI-Medicaid [id number] ANSI-Medicaid [id number] ANSI-Not a Secondary Insurance [id number] ANSI-Commercial [id number] ANSI-Medicaid [id number] ANSI-Medicaid [id number] ANSI-Not a Secondary Insurance [id number] ANSI-Not a Secondary Insurance [id number] ANSI-Medicaid [id number] ANSI-Commercial [id number] ANSI-Medicaid [id number] ANSI-Medicaid [id number] ANSI-Not a Secondary Insurance [id number] ANSI-Medicaid [id number] ANSI-Commercial [id number] ANSI-Medicaid [id number] ANSI-Not a Secondary Insurance [id number] ANSI-Medicaid [id number] ANSI-Commercial [id number] ANSI-Not a Secondary Insurance [id number] ANSI-Commercial [id number]-6963-[id number] [id number]-[id number]-[id number] ANSI-Medicaid [id number] ANSI-Medicaid [id number] ANSI-Medicaid [id number] ANSI-Not a Secondary Insurance [id number] [id number]-[id number]-[id number] ANSI-Commercial [id number]-7q15-170n-40lr-[id number] [id number]-0t08-828e-57ce-[id number] ANSI-Medicaid [id number] ANSI-Not a Secondary Insurance [id number] ANSI-Medicaid [id number] ANSI-Medicaid [id number] ANSI-Commercial [id number]-[id number]-m1j7-8lzj-[id number] ANSI-Not a Secondary Insurance [id number] ANSI-Medicaid [id number] ANSI-Commercial [id number]-[id number] ANSI-Medicaid [id number] ANSI-Not a Secondary Insurance [id number]-[id number] ANSI-Medicaid [id number] ANSI-Commercial [id number] ANSI-Medicaid [id number] ANSI-Medicaid [id number] ANSI-Not a Secondary Insurance [id number] ANSI-Medicaid [id number] ANSI-Commercial [id number]-muzb-5gv4-zpss-[id number] [id number]-owsn-1qy7-bgmj-[id number] ANSI-Not a Secondary Insurance [id number] ANSI-Commercial [id number] ANSI-Medicaid [id number] ANSI-Medicaid [id number] ANSI-Not a Secondary Insurance [id number] ANSI-Medicaid [id number] ANSI-Medicaid [id number] ANSI-Commercial [id number]-[id number]-mv99-3w1g-[id number] ANSI-Commercial [id number]-[id number]-[id number] [id number]-976d-[id number]-[id number] ANSI-Not a Secondary Insurance [id number]-[id number]-m3l9-[id number]-8vqg-2n6t-b5h2-[id number] ANSI-Medicaid [id number] ANSI-Medicaid [id number] ANSI-Commercial [id number]-[id number] k4dce0wb-[id number] ANSI-Not a Secondary Insurance [id number] ANSI-Medicaid [id number] ANSI-Medicaid [id number] ANSI-Commercial [id number]-[id number]-[id number] ANSI-Not a Secondary Insurance [id number] ANSI-Medicaid [id number] ANSI-Medicaid [id number] ANSI-Commercial [id number]-1g32-19d4-[id number] gyc44o8y-g50v-8r44-60x6-[id number] ANSI-Medicaid [id number] ANSI-Medicaid [id number] ANSI-Not a Secondary Insurance [id number]-g8u3-389x-b8k8-9v65q [id number] m98qs728-d8x5-664g-z5g6-4o38h717q065 ANSI-Medicaid [id number]-[id number] ANSI-Medicaid [id number]-[id number] ANSI-Not a Secondary Insurance 92x2r46j-5n9u-0p25-3233-34922 [id number] 44v1j53d-6t8s-[id number] ANSI-Commercial 5693a34n-6277-038x-e85u-o91s8871564g 1647i96m-2700-820k-m28f-y64y3488923g ANSI-Commercial 9n03b8ly-61qr-069c-6e30-4618n0201t07 3n13a5tv-12wv-530t-[id number] ANSI-Medicaid [id number] ANSI-Medicaid [id number] ANSI-Not a Secondary Insurance 228191un-9z23-7f2z-h813-di8uz rj927n1 951433ov-3n09-1q1o-t000-he2nhrg629m8 ANSI-Medicaid [id number]-j04g-0q78-f30d-[id number] ANSI-Medicaid [id number] ANSI-Commercial [id number]-mkq0-239e-4d3v-f05761o85d21 2a063081-qlj3-030d-0g1e-o96559l34p73 ANSI-Not a Secondary Insurance 7t4bkhd1-35hu-0kue-4gw1-1vt10 rq77x78 1i0hqqf8-70im-1uxb-6lz3-4sx90av41c23 ANSI-Medicaid [id number] ANSI-Not a Secondary Insurance o2u254c5-3i8f-01cm-v56t-1535f 91ud74y y8v662u8-3f3d-81ax-m00o-8341b27gc98g ANSI-Commercial 8c8v8kgj-7m21-31yn-l01s-6gm23i5z77j4 3p3p5tbj-5v46-40pl-c36h-6ko20w1p66q8 ANSI-Medicaid [id number] 22g83rxo-0h93-285j-73s4-f19o78k3h3c9 ANSI-Commercial 355d25rc-0605-3fx3-5505-1w2l8349k2x8 028h93fg-4274-8az8-2572-5l6f7894n8k3 ANSI-Not a Secondary Insurance 4f2702xj-49jm-8700-8544-tuo80 64z898s 7p4577cv-56lm-0270-9117-dum9935x802y ANSI-Medicaid [id number]-2gj7-fkls-[id number] vf8tz0s1-g28v-1nm7-kbls-g6kcva4kbfoj ANSI-Medicaid [id number] ANSI-Medicaid [id number] ANSI-Medicaid [id number] c9wsmde2-6b50-07x5-677c-[id number] ANSI-Commercial q789871k-b816-49f6-562e-6gu134ty68c7 w529074j-n194-11l6-388a-0jq753hp64d3 ANSI-Not a Secondary Insurance 2284ci50-t18w-9bt8-2g0j-8fb4w 000o22t 0563aq34-x79y-1qt8-3w1r-9wd0l877i48m ANSI-Medicaid [id number]-h7h5-03ld-774z-[id number] ANSI-Commercial c68j6ksi-6yll-4q88-2m55-617y03s0c001 b63d8wnx-7utl-5b18-0o16-611u88i3d420 ANSI-Medicaid [id number] 1g46q13a-pj83-38z2-h9f5-6bb12721s0o9 ANSI-Not a Secondary Insurance 7699gkv5-1w7z-560n-t91f-ti7j4 625z7sp 8163aqr0-9t9w-490i-k60p-vi4f5097s1vt ANSI-Medicaid [id number] 2lx9k7f8-0rw8-746v-d391-l4xgk7f5039t ANSI-Not a Secondary Insurance 0y784k05-k4h1-459f-yg3o-52n97 l47q75d 0g727c22-u3e2-603f-zj1z-58e22j87e50j ANSI-Commercial f7p34mwq-d405-2287-8460-2h7e4ig9z632 p6y10rzf-v226-6247-5189-4v4s3gv0o655 ANSI-Medicaid [id number]-7j73-0076-qj87-71m3ah2053zu ANSI-Medicaid [id number] oj88r096-242m-2u6d-7rjd-25312x18ru41 ANSI-Commercial 01e148yp-5cv7-8794-c220-042mmys8u770 90x703gh-9uf5-8909-b305-773jrsq0h723 ANSI-Medicaid [id number] ANSI-Not a Secondary Insurance eeml3714-t2cq-4683-r2w4-2059c q3mv9x5 opvg9719-j0ct-4835-g8t7-1325dg7cd7n1 ANSI-Medicaid [id number]-j6et-[id number] ANSI-Not a Secondary Insurance s7q4b057-9w22-71j8-dlue-kr2qx b82579p z3h9t013-4v65-06h9-owmv-os4rqe61376f ANSI-Commercial 8l2690pd-8f7u-[id number] 4w3593pu-3p9m-[id number] ANSI-Medicaid [id number]-[id number] ANSI-Not a Secondary Insurance y7y9zur3-7657-0xr8-z951-7k331 [id number] w6a6qdc5-2858-2ou9-l861-9b477q004083 ANSI-Medicaid [id number]-[id number] ANSI-Commercial 941967uw-0s4c-6lu9-026e-0709i5d00803 809691ys-8x8x-8rn6-887d-6280c6l60980 ANSI-Medicaid [id number]-3rjk-[id number] ANSI-Commercial 71i65c09-ijb8-65c0-cbs6-n7jx0mt2c438 19w68v77-rhl3-13c4-wrc3-m3pk2ez5s956 ANSI-Not a Secondary Insurance 89dta7gf-g92u-9yab-6890-17m36 802af1i 57rkr8wz-i38w-9dea-5420-29z59814zh4n ANSI-Medicaid [id number] 80wjyq76-2dxt-0445-[id number] ANSI-Medicaid [id number] myw75n0u-4hry-6337-08q3-rp9hb795v00q ANSI-Medicaid [id number]-ejj8-51m7dr3k2o18 ANSI-Medicaid [id number] ANSI-Commercial 30cs820h-85s3-3240-0q8o-18740r1cwb80 69ed654m-77n8-1452-8k8z-66085g9kst02 ANSI-Not a Secondary Insurance [id number]-yb54-0095-9i18-89694 [id number]-[id number] ANSI-Medicaid [id number] ANSI-Medicaid [id number] ANSI-Commercial 61s1pv52-k496-5243-qm11-t5ct92005ak5 45z0vh82-l958-2560-np99-u7ag34339fp5 ANSI-Not a Secondary Insurance [id number]-y754-15j0-e0a8-9k835 q65c7wx da9k6093-n162-71h1-a3p5-5v727x62r4pf ANSI-Medicaid [id number] ANSI-Commercial 061269v9-1l72-5vj1-b17m-119d27v0ic5d 088796u4-0x14-2wx1-z06i-419f82r7fg8s ANSI-Not a Secondary Insurance [id number]-o526-80i8-9423-nwbb4 2b1lmb7 gh64471f-h612-30w1-4914-cxnq50r9cug4 ANSI-Medicaid [id number] [facility] Part B [id number] Self [id number] ANSI-Medicaid [id number] ANSI-Commercial wr1x1553-817d-5h79-39b0-4i8o3k329844 sv9y8574-054r-9s21-58h6-2c9k1z412916 ANSI-Medicaid [id number] ANSI-Not a Secondary Insurance [id number] ANSI-Medicaid [id number] ANSI-Not a Secondary Insurance [id number]-071h-y3828 [id number] z457o2w7-5000-70lh-305h-o7087qg14v80 ANSI-Commercial pl57z44a-z1bl-1lb7-2r86-d4e56gu039y2 cz25n43u-q0wt-1ty5-2u52-x3i11qc526t3 ANSI-Medicaid [id number] ANSI-Medicaid [id number]-[id number] ANSI-Medicaid [id number] ANSI-Not a Secondary Insurance [id number]-j939-94h2-0icp-0494n i3g90r7 9i3l2q80-z839-42d6-1ceq-8223va3u35r5 ANSI-Commercial 2b0908ln-88f6-0689-7h3o-7t81fg7wc884 6y6110vf-68c7-0492-2v3l-4n42yy8xq795 ANSI-Medicaid [id number] ANSI-Medicaid [id number] ANSI-Not a Secondary Insurance [id number]-n525-9t801 [id number] 1kvd5x04-57x5-9a38-u346-8b969nm19016 ANSI-Commercial 154h4180-5952-19ft-cio0-0359wdv8y12u 681z0694-9789-02tx-sdb9-0274yil0j75p ANSI-Commercial 29kg02q8-8ds3-1466-388a-n8433n6072nr 21fl85o9-3wq6-5984-607u-b0083d4639na ANSI-Medicaid [id number]-6fvr-5i8f-8og9-x571sp87uij5 ANSI-Not a Secondary Insurance 83uzi828-s838-7jh2-9y3f-k5paa fe59f87 48vlu406-p907-8nq2-6v1p-j3pogwb38b34 ANSI-Medicaid [id number] ANSI-Medicaid [id number] ANSI-Not a Secondary Insurance [id number]-z63e-f0562 [id number] qv05hs08-9za2-47c4-c47x-y523995219w2 ANSI-Commercial 616dv8zp-i555-6737-a876-0c93l67jq13o 872nt6lf-q225-5704-w078-6u02e59vk50d ANSI-Medicaid [id number] ANSI-Medicaid [id number] ANSI-Medicaid [id number] ANSI-Not a Secondary Insurance [id number]-4f69-720o-ik52-z9373 [id number] 4qe7b3od-3u07-374r-dq57-[id number] ANSI-Commercial 56j0t9c9-e7u1-923p-by7t-44qe92susp41 60m3a6d7-d4q8-133m-zj2v-81bg98lhxw60 ANSI-Medicaid [id number] ANSI-Medicaid [id number] ANSI-Commercial ctyswv12-5701-884p-a4o4-f6e531ah328p joukpi51-1341-852s-j0p3-n6j015xu658g ANSI-Not a Secondary Insurance 3o5gh1x2-rq16-1029-6j8s-ui2ph j403x2t 2b3el4p2-in78-9576-0b2f-us8rkt056i0d ANSI-Not a Secondary Insurance [id number]-w43j-9985-78hs-477l5 xnvc32d f496971k-o44n-8713-87sg-883c8pdyi74h ANSI-Medicaid [id number]-52ko-[id number] ANSI-Commercial 7q636xdu-e931-8g02-x8p3-46q4nyd50758 6k481mlb-f210-1u69-j7p4-52b7mhm14980 ANSI-Medicaid [id number] ANSI-Not a Secondary Insurance [id number]-o967-731j-0mfa-93551 28js329 t5f108pe-o894-504q-8hde-6414991go082 ANSI-Medicaid [id number] ANSI-Medicaid [id number] ANSI-Commercial 966achbp-3e5m-46o22w2y-18z7-24dx-dip5h6016k65 069vtevc-6t2h-21x17b3h-43i3-63xu-bow8i3868d76 ANSI-Not a Secondary Insurance ra4wlv77-830g-8j22-07k9-t1n8t pih2673 uk9zts92-103c-3c47-41f9-c3s7geoi0009 ANSI-Medicaid [id number] ANSI-Medicaid [id number] ANSI-Commercial 45p34v14-75a9-56hd-2712-y4q9uq75zo19 59d01g57-14d2-77ez-0660-n4z4gi04qa02 ANSI-Medicaid [id number] ANSI-Not a Secondary Insurance [id number]-n241-9mg66 9z673d0 f3j19373-9026-1ny3-g520-7sl914u134y1 ANSI-Medicaid [id number]-[id number] ANSI-Commercial 424tcuon-l84g-7767v84f-5761-3au4-d4lqmn067n8a 388rvrpn-k25h-8185y27q-2597-0fs5-k7tlrx754q9y ANSI-Commercial s329d98y-012u-5i2g-gn92-6w2l7bfqm67f q151s64k-202m-4b3l-jt24-5b9x2jqad07c ANSI-Not a Secondary Insurance vzqj8c53-9x31-512c-940f-l61c3 v6s1001 xfyc7w54-4n25-608l-902z-l04u6j6m8414 ANSI-Medicaid [id number] ANSI-Medicaid [id number] ANSI-Medicaid [id number]-[id number] ANSI-Medicaid [id number] ANSI-Commercial 36k2wklb-h5z1-42k6-933r-7080h2s5005l 06q6youj-w2c4-62t4-925x-9813g3f1658p ANSI-Not a Secondary Insurance [id number]-3k84-y8u5-7l644 [id number] c7pn3056-54hk-8k82-q6z1-1r0200155386 ANSI-Not a Secondary Insurance n957qi6b-788a-49zv-707f-o290j 6l4g60o f037jy5t-138f-41uc-683m-m005k2z9h44r ANSI-Medicaid [id number]-[id number] ANSI-Commercial 4f3ua8zc-5332-7a24-q70m-7ll6d7es580i 6a4tt9gf-9474-0j70-l50k-0wa6o8fc347n ANSI-Medicaid [id number]-[id number] ANSI-Medicaid [id number] ANSI-Not a Secondary Insurance 95gq7tw5-9y5b-1sp4-eu79-7g2m6 8y6dd48 44tl9ks5-2r8u-5rm9-uw55-0o5u40s4hz42 ANSI-Medicaid [id number] ANSI-Commercial jm50i694-un18-0j0r-b7hz-r603sj990y26 qm59p151-vm94-0j9k-i9jx-n554eb144b01 ANSI-Medicaid [id number]-u357-[id number] ANSI-Not a Secondary Insurance b9996i95-8lu3-81a3-0509-610j0 uwfo4lk o9089w08-5gk6-38n9-4127-339f8yszz5xx ANSI-Commercial v1862657-8c20-42nv-e675-779880q66j3m z1515270-7m27-11eq-z178-670114j80w8i ANSI-Medicaid [id number] ANSI-Commercial v3bv495p-q6l5-3kek-39a3-442r5f133k50 k9tk229h-t4i1-5caq-21s6-195b5y681x89 ANSI-Medicaid [id number] ANSI-Medicaid [id number] ANSI-Not a Secondary Insurance j57q55w7-283q-5n12-0q3k-q7m38 9uk3000 c74c78f6-013b-8c87-1f7c-u1k373xw8410 ANSI-Medicaid [id number] ANSI-Medicaid [id number]-uzzw-[id number] ANSI-Not a Secondary Insurance 6fphb332-b6j5-7077-1w48-ni46y 640u6eu 5kgla090-b0z0-4490-4o14-pg96u791o4jq ANSI-Commercial 3te38k34-985v-9o5o-de0i-d0pg31ue60k1 0pi66g67-138j-2u3x-ra1c-n7ys48bx58b7 ANSI-Medicaid [id number] ANSI-Commercial 89etrc14-5857-3799-hgy5-1oh6gk1tah97 24vemz65-5573-6280-yvq7-4kw6zx0udb51 ANSI-Not a Secondary Insurance [id number]-ufi6-0164q 70r7fc8 2bt98227-35e5-0oc3-ngf4-0002t57c2lb4 ANSI-Medicaid [id number]-[id number] r (pr) Commercial [id number].[id number] [place] [id number] Self [id number] [facility] Medigap Part B [id number] Self [id number] ANSI-Commercial 181yj944-4e8u-3873-90s4-70t8p6z8fu98 483io921-0f0e-3260-08k2-90f1l7y9rh59 ANSI-Medicaid [id number] ANSI-Not a Secondary Insurance [id number]-8045-r951-50tt1 87q5v6f 04z81554-181d-3100-y034-58im958f9c8f ANSI-Medicaid [id number] ANSI-Not a Secondary Insurance [id number]-8a2d-26fl-y1294 [id number] 5692957b-076s-2r1d-80nc-s21228g560d8 ANSI-Medicaid [id number] ANSI-Medicaid [id number] ANSI-Commercial 7i8h5kam-x969-2r2r-7218-c9w1qdd4x33p 4q4d8uhm-y438-9p2n-0889-j6l3kto5b48m ANSI-Not a Secondary Insurance [id number]-700w-5y6z-ml02-sw602 wr47umi 25785lmz-369k-5q1x-ef75-tr562ds41gtv ANSI-Medicaid [id number] ANSI-Medicaid [id number] r0lcz0c0-[id number] ANSI-Commercial 1576j22k-jm7v-8d97-67z5-q1y4222j9x13 6034b26v-fx5u-5e97-03y9-h7t2890d8t28 [facility] [id number] [facility] [place] [id number] ANSI-Medicaid [id number] ANSI-Not a Secondary Insurance 2w3s3vgs-6w2w-6095-ev4q-hfh4z 733yz6l 5d4r8hmd-9y2q-8213-or1s-wxc2p221mw7i ANSI-Commercial 57422277-6bvu-46id-wn51-gry06831j431 09393784-6hgd-45sx-gc30-wcc02226a052 ANSI-Medicaid [id number] [facility] [id number] ANSI-Not a Secondary Insurance 10cg6m4a-8775-5ak5-j156-x45s7 401lg8j 59cl4e5t-2721-4wr1-t301-h93f6316ui5z ANSI-Commercial xf178jp5-42k7-6ee4-zv2o-xvo55227736e jq769yd9-29e9-3pc1-cb6g-vis60928109j ANSI-Medicaid [id number] ANSI-Medicaid [id number] ANSI-Medicaid [id number] ANSI-Commercial [id number]-473x-9cg3-2423-v2a3lmv48943 8090241x-481p-0bb1-7375-l1i2izz84799 ANSI-Medicaid [id number] ANSI-Not a Secondary Insurance [id number]-p3p7-2t4w-e93i-y1233 [id number]-p5h9-8o1u-d18f-[id number] ANSI-Commercial 15rag714-fcn7-7994-8n53-i0z1t30n60ll 51fum841-mbd5-1651-5y87-w3u3q35d54qt ANSI-Medicaid [id number] ANSI-Not a Secondary Insurance [id number]-75y3-w84q8 [id number] u386a5qz-hb76-343q-35r1-c56z2e0495hz ANSI-Medicaid [id number] D Managed Care [facility] P [id number] S [id number] [facility] [id number] [place] [id number] Medicaid Dental S [id number] S [id number] O [id number] S [id number] Problems, Conditions, and Diagnoses Code Display Name Description Problem Type Effective Dates Data Source(s) Z86.14 271398865 H/O methicillin resistant Staphy lococcus aureus infection Problem 11/22/2020 12:00:00 AM EDT [facility] (Critical access hospital) Surgeries/Procedures No Information Results ID Date Data Source [id number] 03/11/2021 12:06:00 PM EDT [facility] Name Value Range Interpretation Code Description Data Kia rce(s) Supporting Document(s) SARS-CoV-2 (COVID 19) NEGATIVE - SARS-CoV-2 (COVID19) [facility] This lab was ordered by [facility] a nd reported by [facility]. ID Date Data Source [id number] 03/05/2021 12:00:00 AM EDT [facility] Name Value Range Interpretation Code Description Data Kia rce(s) Supporting Document(s) SARS coronavirus 2 Ag NEGATIVE [facility] This lab was ordered by [facility] and reported by [facility]. ID Date Data Source [id number] 02/21/2021 12:00:00 AM EDT [facility] Name Value Range Interpretation Code Description Data Kai rce(s) Supporting Document(s) SARS coronavirus 2 Ag NEGATIVE [facility] This lab was ordered by [facility] and reported by [facility]. ID Date Data Source [id number] 11/13/2020 12:00:00 AM EDT [facility] Name Value Range Interpretation Code Description Data Kia rce(s) Supporting Document(s) SARS coronavirus 2 Ag NEGATIVE [facility] This lab was ordered by [facility] and reported by [facility]. ID Date Data Source [id number] 11/08/2020 12:00:00 AM EDT [facility] Name Value Range Interpretation Code Description Data Kia rce(s) Supporting Document(s) SARS coronavirus 2 Ag NEGATIVE [facility] This lab was ordered by [facility] and reported by [facility]. ID Date Data Source [id number] 11/05/2020 12:00:00 AM EDT [facility] Name Value Range Interpretation Code Description Data Kia rce(s) Supporting Document(s) SARS coronavirus 2 Ag NEGATIVE [facility] This lab was ordered by [facility] and reported by [facility]. ID Date Data Source [id number] 10/29/2020 12:00:00 AM EDT [facility] Name Value Range Interpretation Code Description Data Kia rce(s) Supporting Document(s) SARS coronavirus 2 Ag NEGATIVE [facility] This lab was ordered by [facility] and reported by [facility]. ID Date Data Source [id number] 10/25/2020 12:00:00 AM EDT [facility] Name Value Range Interpretation Code Description Data Kia rce(s) Supporting Document(s) SARS coronavirus 2 Ag NEGATIVE [facility] This lab was ordered by [facility] and reported by [facility]. ID Date Data Source [id number] 10/22/2020 12:00:00 AM EDT [facility] Name Value Range Interpretation Code Description Data Kia rce(s) Supporting Document(s) SARS coronavirus 2 Ag NEGATIVE [facility] This lab was ordered by [facility] and reported by [facility]. ID Date Data Source [id number] 10/18/2020 12:00:00 AM EDT [facility] Name Value Range Interpretation Code Description Data Kia rce(s) Supporting Document(s) SARS coronavirus 2 Ag NEGATIVE [facility] This lab was ordered by [facility] and reported by [facility]. ID Date Data Source [id number] 10/15/2020 12:00:00 AM EDT [facility] Name Value Range Interpretation Code Description Data Kia rce(s) Supporting Document(s) SARS coronavirus 2 Ag NEGATIVE [facility] This lab was ordered by [facility] and reported by [facility]. ID Date Data Source [id number] 10/11/2020 12:00:00 AM EDT [facility] Name Value Range Interpretation Code Description Data Kia rce(s) Supporting Document(s) SARS coronavirus 2 Ag NEGATIVE [facility] This lab was ordered by [facility] and reported by [facility]. ID Date Data Source [id number] 10/08/2020 12:00:00 AM EDT [facility] Name Value Range Interpretation Code Description Data Kia rce(s) Supporting Document(s) SARS coronavirus 2 Ag Negative [facility] This lab was ordered by [facility] and reported by [facility]. ID Date Data Source [id number] 10/04/2020 12:00:00 AM EDT [facility] Name Value Range Interpretation Code Description Data Kia rce(s) Supporting Document(s) SARS coronavirus 2 Ag NEGATIVE [facility] This lab was ordered by [facility] and reported by [facility]. ID Date Data Source [id number] 10/01/2020 12:00:00 AM EDT [facility] Name Value Range Interpretation Code Description Data Kia rce(s) Supporting Document(s) SARS coronavirus 2 Ag NEGATIVE [facility] This lab was ordered by [facility] and reported by [facility]. ID Date Data Source [id number] 09/17/2020 12:00:00 AM EDT [facility] Name Value Range Interpretation Code Description Data Kia rce(s) Supporting Document(s) SARS coronavirus 2 Ag NEGATIVE [facility] This lab was ordered by [facility] and reported by [facility]. ID Date Data Source [id number] 09/13/2020 12:00:00 AM EDT [facility] Name Value Range Interpretation Code Description Data Kia rce(s) Supporting Document(s) SARS coronavirus 2 Ag NEGATIVE [facility] This lab was ordered by [facility] and reported by [facility]. ID Date Data Source [id number] 09/10/2020 12:00:00 AM EDT [facility] Name Value Range Interpretation Code Description Data Kia rce(s) Supporting Document(s) SARS coronavirus 2 Ag NEGATIVE [facility] This lab was ordered by [facility] and reported by [facility]. ID Date Data Source [id number] 09/06/2020 12:00:00 AM EDT [facility] Name Value Range Interpretation Code Description Data Kia rce(s) Supporting Document(s) SARS coronavirus 2 Ag NEGATIVE [facility] This lab was ordered by [facility] and reported by [facility]. ID Date Data Source [id number] 09/03/2020 07:07:00 AM EDT [facility] Name Value Range Interpretation Code Description Data Kia rce(s) Supporting Document(s) SARS coronavirus 2 RNA Not Detected [facility] This lab was ordered by [facility] and reported by [facility]. ID Date Data Source [id number] 08/30/2020 12:00:00 AM EDT [facility] Name Value Range Interpretation Code Description Data Kia rce(s) Supporting Document(s) SARS coronavirus 2 Ag NEGATIVE [facility] This lab was ordered by [facility] and reported by [facility]. ID Date Data Source [id number] 08/27/2020 07:30:00 AM EDT [facility] Name Value Range Interpretation Code Description Data Kia rce(s) Supporting Document(s) SARS coronavirus 2 RNA Not Detected [facility] [place] This lab was ordered by [facility] and reported by [facility]. ID Date Data Source [id number] 08/23/2020 12:00:00 AM EST [facility] Name Value Range Interpretation Code Description Data Kia rce(s) Supporting Document(s) SARS coronavirus 2 Ag NEGATIVE [facility] This lab was ordered by [facility] and reported by [facility]. ID Date Data Source [id number] 08/20/2020 07:39:00 AM EST [facility] Name Value Range Interpretation Code Description Data Kia rce(s) Supporting Document(s) SARS coronavirus 2 RNA Not Detected [facility] [place] This lab was ordered by [facility] and reported by [facility]. ID Date Data Source [id number] 08/16/2020 12:00:00 AM EST [facility] Name Value Range Interpretation Code Description Data Kia rce(s) Supporting Document(s) SARS coronavirus 2 Ag NEGATIVE [facility] This lab was ordered by [facility] and reported by [facility]. ID Date Data Source [id number] 08/13/2020 07:00:00 AM EST [facility] Name Value Range Interpretation Code Description Data Kia rce(s) Supporting Document(s) SARS coronavirus 2 RNA Not Detected [facility] [place] This lab was ordered by [facility] and reported by [facility]. ID Date Data Source [id number] 08/09/2020 12:00:00 AM EST [facility] Name Value Range Interpretation Code Description Data Kia rce(s) Supporting Document(s) SARS coronavirus 2 Ag NEGATIVE [facility] This lab was ordered by [facility] and reported by [facility]. ID Date Data Source [id number] 08/06/2020 08:00:00 AM EST [facility] Name Value Range Interpretation Code Description Data Kia rce(s) Supporting Document(s) SARS coronavirus 2 RNA Not Detected [facility] [place] This lab was ordered by [facility] and reported by [facility]. ID Date Data Source [id number] 08/03/2020 12:00:00 AM EST [facility] Name Value Range Interpretation Code Description Data Kia rce(s) Supporting Document(s) SARS-CoV2 Rapid Antigen Negative [facility] This lab was ordered by [facility] and reported by [facility]. ID Date Data Source [id number] 08/02/2020 12:00:00 AM EST [facility] Name Value Range Interpretation Code Description Data Kia rce(s) Supporting Document(s) SARS coronavirus 2 Ag NEGATIVE [facility] This lab was ordered by [facility] and reported by [facility]. ID Date Data Source [id number] 07/30/2020 02:00:00 PM EST [facility] Name Value Range Interpretation Code Description Data Kia rce(s) Supporting Document(s) SARS coronavirus 2 RNA Not Detected [facility] [place] This lab was ordered by [facility] and reported by [facility]. ID Date Data Source [id number] 07/26/2020 12:00:00 AM EST [facility] Name Value Range Interpretation Code Description Data Kia rce(s) Supporting Document(s) SARS coronavirus 2 Ag NEGATIVE [facility] This lab was ordered by [facility] and reported by [facility]. ID Date Data Source [id number] 07/23/2020 06:00:00 AM EST [facility] Name Value Range Interpretation Code Description Data Kia rce(s) Supporting Document(s) SARS coronavirus 2 RNA Not Detected [facility] [place] This lab was ordered by [facility] and reported by [facility]. ID Date Data Source [id number] 07/19/2020 12:00:00 AM EST [facility] Name Value Range Interpretation Code Description Data Kia rce(s) Supporting Document(s) SARS coronavirus 2 Ag [facility] This lab was ordered by [facility] and reported by [facility]. ID Date Data Source [id number] 07/16/2020 06:00:00 AM EST [facility] Name Value Range Interpretation Code Description Data Kia rce(s) Supporting Document(s) SARS coronavirus 2 RNA Not Detected [facility] [place] This lab was ordered by [facility] and reported by [facility]. ID Date Data Source [id number] 07/09/2020 06:12:00 AM EST [facility] Name Value Range Interpretation Code Description Data Kia rce(s) Supporting Document(s) SARS coronavirus 2 RNA Not Detected [facility] [place] This lab was ordered by [facility] and reported by [facility]. ID Date Data Source [id number] 07/05/2020 12:00:00 AM EST [facility] Name Value Range Interpretation Code Description Data Kia rce(s) Supporting Document(s) SARS coronavirus 2 Ag Negative [facility] This lab was ordered by [facility] and reported by [facility]. ID Date Data Source [id number] 07/02/2020 11:00:00 AM EST [facility] Name Value Range Interpretation Code Description Data Kia rce(s) Supporting Document(s) SARS coronavirus 2 RNA Not Detected [facility] This lab was ordered by [facility] and reported by [facility]. ID Date Data Source [id number] 06/28/2020 12:00:00 AM EST [facility] Name Value Range Interpretation Code Description Data Kia rce(s) Supporting Document(s) SARS-CoV2 Rapid Antigen Negative [facility] This lab was ordered by [facility] and reported by [facility]. ID Date Data Source [id number] 06/25/2020 10:57:00 AM EST [facility] Name Value Range Interpretation Code Description Data Kia rce(s) Supporting Document(s) SARS coronavirus 2 RNA Not Detected [facility] This lab was ordered by [facility] and reported by [facility]. ID Date Data Source [id number] 06/18/2020 06:00:00 AM EST [facility] Name Value Range Interpretation Code Description Data Kia rce(s) Supporting Document(s) SARS coronavirus 2 RNA [facility] This lab was ordered by [facility] and reported by [facility]. ID Date Data Source [id number] 06/11/2020 02:36:00 PM EST [facility] Name Value Range Interpretation Code Description Data Kia rce(s) Supporting Document(s) SARS coronavirus 2 RNA [facility] This lab was ordered by [facility] and reported by [facility]. ID Date Data Source [id number] 06/04/2020 07:00:00 AM EST [facility] Name Value Range Interpretation Code Description Data Kia rce(s) Supporting Document(s) SARS coronavirus 2 RNA [facility] This lab was ordered by [facility] and reported by [facility]. ID Date Data Source [id number] 05/28/2020 08:00:00 AM EST [facility] Name Value Range Interpretation Code Description Data Kia rce(s) Supporting Document(s) SARS coronavirus 2 RNA [facility] This lab was ordered by [facility] and reported by [facility]. ID Date Data Source [id number] 05/14/2020 10:23:00 AM EST [facility] Name Value Range Interpretation Code Description Data Kia rce(s) Supporting Document(s) SARS coronavirus 2 RNA [facility] This lab was ordered by [facility] and reported by [facility]. ID Date Data Source [id number] 05/12/2020 12:00:00 AM EST [facility] Name Value Range Interpretation Code Description Data Kia rce(s) Supporting Document(s) SARS-CoV2 Rapid Antigen [facility] This lab was ordered by [facility] and reported by [facility]. ID Date Data Source [id number] 05/07/2020 01:45:00 PM EST [facility] Name Value Range Interpretation Code Description Data Kia rce(s) Supporting Document(s) SARS coronavirus 2 RNA [facility] This lab was ordered by [facility] and reported by [facility]. ID Date Data Source [id number] 04/30/2020 11:09:00 AM EST [facility] Name Value Range Interpretation Code Description Data Kia rce(s) Supporting Document(s) SARS coronavirus 2 RNA [facility] This lab was ordered by [facility] and reported by [facility]. ID Date Data Source [id number] 04/23/2020 01:00:00 PM EST [facility] Name Value Range Interpretation Code Description Data Kia rce(s) Supporting Document(s) SARS coronavirus 2 RNA [facility] This lab was ordered by [facility] and reported by [facility]. ID Date Data Source [id number] 04/16/2020 02:00:00 PM EST [facility] Name Value Range Interpretation Code Description Data Kia rce(s) Supporting Document(s) SARS coronavirus 2 RNA [facility] This lab was ordered by [facility] and reported by [facility]. ID Date Data Source [id number] 04/09/2020 12:00:00 PM EDT [facility] Name Value Range Interpretation Code Description Data Kia rce(s) Supporting Document(s) SARS coronavirus 2 RNA [facility] This lab was ordered by [facility] and reported by [facility]. ID Date Data Source [id number] 04/02/2020 07:30:00 AM EDT [facility] Name Value Range Interpretation Code Description Data Kia rce(s) Supporting Document(s) SARS coronavirus 2 RNA [facility] This lab was ordered by [facility] and reported by [facility]. ID Date Data Source [id number] 03/26/2020 08:00:00 AM EDT [facility] Name Value Range Interpretation Code Description Data Kia rce(s) Supporting Document(s) SARS coronavirus 2 RNA [facility] This lab was ordered by [facility] and reported by [facility]. ID Date Data Source [id number] 03/19/2020 10:00:00 AM EDT [facility] Name Value Range Interpretation Code Description Data Kia rce(s) Supporting Document(s) SARS coronavirus 2 RNA [facility] This lab was ordered by [facility] and reported by [facility]. ID Date Data Source [id number] 03/12/2020 12:20:00 PM EDT [facility] Name Value Range Interpretation Code Description Data Kia rce(s) Supporting Document(s) SARS coronavirus 2 RNA [facility] This lab was ordered by [facility] and reported by [facility]. ID Date Data Source [id number] 03/05/2020 12:00:00 PM EDT [facility] Name Value Range Interpretation Code Description Data Kia rce(s) Supporting Document(s) SARS coronavirus 2 RNA [facility] This lab was ordered by [facility] and reported by [facility]. ID Date Data Source [id number] 02/27/2020 05:30:00 AM EDT [facility] Name Value Range Interpretation Code Description Data Kia rce(s) Supporting Document(s) SARS coronavirus 2 RNA [facility] This lab was ordered by [facility] and reported by [facility]. ID Date Data Source [id number] 02/22/2020 12:00:00 PM EDT [facility] Name Value Range Interpretation Code Description Data Kia rce(s) Supporting Document(s) SARS coronavirus 2 RNA [facility] This lab was ordered by [facility] and reported by [facility]. ID Date Data Source [id number] 02/13/2020 12:19:00 PM EDT [facility] Name Value Range Interpretation Code Description Data Kia rce(s) Supporting Document(s) SARS coronavirus 2 RNA [facility] This lab was ordered by [facility] and reported by [facility]. ID Date Data Source [id number] 02/06/2020 11:45:00 AM EDT [facility] Name Value Range Interpretation Code Description Data Kia rce(s) Supporting Document(s) SARS coronavirus 2 RNA [facility] This lab was ordered by [facility] and reported by [facility]. Procedure Social History Code Duration Value Status Description Data Source(s ) Smoking 11/22/2020 12:00:00 AM EDT Never Smoker completed Never S moker eCW1 ([facility]) Smoking 11/22/2020 12:00:00 AM EDT Never Smoker completed Never S moker eCW1 ([facility]) Smoking 07/11/2020 12:00:00 AM EST Never Smoker completed Never S moker eCW1 ([facility]) Smoking 07/11/2020 12:00:00 AM EST Never Smoker completed Never S moker eCW1 ([facility]) Smoking 07/11/2020 12:00:00 AM EST Never Smoker completed Never S moker eCW1 ([facility]) Smoking 05/22/2020 12:00:00 AM EST Never Smoker completed Never S moker eCW1 ([facility]) Smoking 05/22/2020 12:00:00 AM EST Never Smoker completed Never S moker eCW1 ([facility]) Smoking 05/22/2020 12:00:00 AM EST Never Smoker completed Never S moker eCW1 ([facility]) Smoking 05/22/2020 12:00:00 AM EST Never Smoker completed Never S moker eCW1 ([facility]) Vital Signs ID Date Data Source UNK Name Value Range Interpretation Code Description Data Source(s) Body weight 221.2 [lb_av] 221.2 [lb_av] eCW1 ([facility]) Body height [in_i] eCW1 ([facility]) Body mass index (BMI) [Ratio] 31.29 kg/m2 31.29 kg/m2 W1 ([facility]) Heart rate 96 /min 96 /min eCW1 ([facility]) Respiratory rate 18 /min 18 /min eCW1 ([facility]) Body temperature 97 [degF] 97 [degF] eCW1 ([facility]) Systolic blood pressure 140 mm[Hg] 140 mm[Hg] e CW1 ([facility]) Diastolic blood pressure 90 mm[Hg] 90 mm[Hg] eCW1 ([facility]) Body weight 223.8 [lb_av] 223.8 [lb_av] eCW1 ([facility]) Body height [in_i] eCW1 ([facility]) Body mass index (BMI) [Ratio] 31.65 kg/m2 31.65 kg/m2 W1 ([facility]) Heart rate 108 /min 108 /min eCW1 ([facility]) Respiratory rate 18 /min 18 /min eCW1 ([facility]) Body temperature 97.1 [degF] 97.1 [degF] eCW1 ( [facility]) Systolic blood pressure 148 mm[Hg] 148 mm[Hg] e CW1 ([facility]) Diastolic blood pressure 90 mm[Hg] 90 mm[Hg] eCW1 ([facility]) Body weight 225.4 [lb_av] 225.4 [lb_av] eCW1 ([facility]) Body height [in_i] eCW1 ([facility]) Body mass index (BMI) [Ratio] 31.88 kg/m2 31.88 kg/m2 eCW1 ([facility]) Heart rate 104 /min 104 /min eCW1 ([facility]) Respiratory rate 18 /min 18 /min eCW1 ([facility]) Body temperature 97.2 [degF] 97.2 [degF] eCW1 ( [facility]) Systolic blood pressure 170 mm[Hg] 170 mm[Hg] e CW1 ([facility]) Diastolic blood pressure 100 mm[Hg] 100 mm[Hg] eCW1 ([facility]) Patient Treatment Plan of Care Planned Activity Planned Date Details Description Data Source (s) Mupirocin 20 MG/ML Topical Cream 11/22/2020 12:00:00 AM EDT eCW1 ([facility]) Nystatin 100 UNT/MG Topical Powder 11/22/2020 12:00:00 AM EDT eCW1 ([facility]) Nystatin 537291 UNT/ML Topical Cream 11/22/2020 12:00:00 AM EDT eCW1 ([facility]) chlorhexidine gluconate 40 MG/ML Medicated Liquid Soap [Hibiclens] 11/22/2020 12:00:00 AM EDT eCW1 ([facility]) Fluconazole 100 MG Oral Tablet [Diflucan] 11/22/2020 12:00:00 AM ED T eCW1 ([facility]) Doxycycline Monohydrate 100 MG Oral Capsule 11/22/2020 12:00:00 AM EDT eCW1 ([facility]) Sulfamethoxazole 800 MG / Trimethoprim 160 MG Oral Tab let [Bactrim] 11/22/2020 12:00:00 AM EDT eCW1 ([facility]) Mupirocin 20 MG/ML Topical Cream 11/22/2020 12:00:00 AM EDT eCW1 ([facility]) Nystatin 100 UNT/MG Topical Powder 11/22/2020 12:00:00 AM EDT eCW1 ([facility]) Nystatin 914410 UNT/ML Topical Cream 11/22/2020 12:00:00 AM EDT eCW1 ([facility]) chlorhexidine gluconate 40 MG/ML Medicated Liquid Soap [Hibiclens] 11/22/2020 12:00:00 AM EDT eCW1 ([facility]) Doxycycline Monohydrate 100 MG Oral Capsule 11/22/2020 12:00:00 AM EDT eCW1 ([facility]) Fluconazole 100 MG Oral Tablet [Diflucan] 11/22/2020 12:00:00 AM ED T eCW1 ([facility]) Sulfamethoxazole 800 MG / Trimethoprim 160 MG Oral Tab let [Bactrim] 11/22/2020 12:00:00 AM EDT eCW1 ([facility]) Amlodipine 5 MG Oral Tablet 07/11/2020 12:00:00 AM EST eCW1 ([facility]) Propranolol Hydrochloride 10 MG Oral Tablet 05/24/2020 12:00:00 AM EST eCW1 ([facility]) valacyclovir 1000 MG Oral Tablet [Valtrex] 05/24/2020 12:00:[address] eCW1 ([facility]) Propranolol Hydrochloride 10 MG Oral Tablet 05/24/2020 12:00:00 AM EST eCW1 ([facility]) valacyclovir 1000 MG Oral Tablet [Valtrex] 05/24/2020 12:00:[address] eCW1 ([facility]) Propranolol Hydrochloride 10 MG Oral Tablet 05/24/2020 12:00:00 AM EST eCW1 ([facility]) valacyclovir 1000 MG Oral Tablet [Valtrex] 05/24/2020 12:00:[address] eCW1 ([facility]) Mupirocin 20 MG/ML Topical Cream 05/22/2020 12:00:00 AM EST eCW1 ([facility]) Clindamycin 300 MG Oral Capsule 05/22/2020 12:00:00 AM EST eCW1 ([facility]) Mupirocin 20 MG/ML Topical Cream 05/22/2020 12:00:00 AM EST eCW1 ([facility]) Clindamycin 300 MG Oral Capsule 05/22/2020 12:00:00 AM EST eCW1 ([facility]) Mupirocin 20 MG/ML Topical Cream 05/22/2020 12:00:00 AM EST eCW1 ([facility]) Clindamycin 300 MG Oral Capsule 05/22/2020 12:00:00 AM EST eCW1 ([facility]) Clindamycin 300 MG Oral Capsule 05/22/2020 12:00:00 AM EST eCW1 ([facility]) Mupirocin 20 MG/ML Topical Cream 05/22/2020 12:00:00 AM EST eCW1 ([facility]) Lancets - 04/10/2020 12:00:00 AM EDT e CW1 ([facility]) Lancets - 04/10/2020 12:00:00 AM EDT e CW1 ([facility]) Lancets - 04/10/2020 12:00:00 AM EDT e CW1 ([facility]) Lancets - 04/10/2020 12:00:00 AM EDT e CW1 ([facility])
[2021-04-03] MEDS ORDERED: ONDANSETRON 4MG/2ML VIAL IV ONE (16:25)
[2021-04-03] MEDS ORDERED: HumuLIN R (REGULAR) INSULIN (NovoLIN R) **100U/ML** PER UNIT IV ONE (16:25)
[2021-04-03] MEDS ORDERED: ISOVUE-370 76% 100ML VIAL As Ordered ONE (16:32)
--- NOTE | 2021-04-03 16:48 | REP ---
INDICATION: vomiting. COMPARISON: 05/30/2019. TECHNIQUE: Single portable AP view of the chest was performed. FINDINGS: There is no acute infiltrate or pulmonary edema. Lungs are clear. The heart is not significantly enlarged. The mediastinal silhouette is unremarkable. The visualized osseous structures are intact. IMPRESSION: No acute pulmonary disease. <Electronically signed by Gabriel Brooks > 04/03/21 [id number]
--- NOTE | 2021-04-03 17:45 | REP ---
INDICATION: ruq pain. COMPARISON: None. TECHNIQUE: Real-time sonographic evaluation of right upper quadrant performed. FINDINGS: The gallbladder demonstrates no evidence of intraluminal sludge or calculi, wall thickening or pericholecystic fluid. There is no intrahepatic or extrahepatic biliary dilatation, common bile duct measures 3 mm in maximum diameter. The liver demonstrates homogeneous echotexture with no gross mass. Pancreas is not visualized due to overlying bowel gas. The right kidney demonstrates no hydronephrosis, with a normal size of 13.0 cm in length. No free fluid is seen. IMPRESSION: Negative right upper quadrant ultrasound. <Electronically signed by Gabriel Brooks > 04/03/21 [id number]
--- NOTE | 2021-04-03 17:51 | REPVR ---
PROCEDURE INFORMATION: Exam: CT Abdomen And Pelvis With Contrast Exam date and time: 04/03/2021 4:51 PM Age: 36 years old Clinical indication: Abnormal findings; Abnormal lab test; Elevated lipase; Additional info: Elevated lipase TECHNIQUE: Imaging protocol: Computed tomography of the abdomen and pelvis with contrast. Radiation optimization: All CT scans at this facility use at least one of these dose optimization techniques: automated exposure control; mA and/or kV adjustment per patient size (includes targeted exams where dose is matched to clinical indication); or iterative reconstruction. Contrast material: ISOVUE 370; Contrast volume: 100 ml; Contrast route: INTRAVENOUS (IV); COMPARISON: CR Abdomen,Flat Plate KUB 03/14/2021 11:16 AM FINDINGS: Liver: Normal. No mass. Gallbladder and bile ducts: Normal. No calcified stones. No ductal dilation. Pancreas: Normal. No ductal dilation. Spleen: Normal. No splenomegaly. Adrenal glands: Normal. No mass. Kidneys and ureters: Normal. No hydronephrosis. Stomach and bowel: Unremarkable. No obstruction. No mucosal thickening. Appendix: No evidence of appendicitis. Intraperitoneal space: Unremarkable. No free air. No significant fluid collection. Vasculature: Unremarkable. No abdominal aortic aneurysm. Lymph nodes: Unremarkable. No enlarged lymph nodes. Urinary bladder: Unremarkable as visualized. Reproductive: Unremarkable as visualized. Bones/joints: Unremarkable. No acute fracture. Soft tissues: Unremarkable. IMPRESSION: No acute findings. Electronically signed by: Edson Mehta On 04/03/2021 17:51:19 PM
[2021-04-03] MEDS ORDERED: ACETAMINOPHEN TAB 650MG DOSE (2X325MG) PO PRN (18:30)
[2021-04-03] MEDS ORDERED: GLUCAGON INJ 1MG VIAL SC PRN (18:30)
[2021-04-03] MEDS ORDERED: ONDANSETRON 4MG/2ML VIAL IV PRN (18:30)
[2021-04-03] MEDS ORDERED: GLUCOSE 4GM CHEW TABLET PO PRN (18:30)
[2021-04-03] MEDS ORDERED: DEXTROSE 50% 50 ML SYRINGE IV PRN (18:30)
[2021-04-03] MEDS ORDERED: LEVEMIR (INSULIN DETEMIR) 1 UNITS/0.01ML SC ONE (18:35)
--- OUTSIDE RECORDS SUMMARY | 2021-04-03 18:39 | CCD ---
Author Author [facility] Organization [facility] Address Unknown Phone Unavailable Care Team Providers Care Data Analytics Architect Name Role Phone Lyndsay ANDRADE EDWARD RPA [...] is protected by Article 27-F of the [facility] Public Health law. If you continue you may have access to information: Regarding HIV / AIDS; Provided by facilities licensed or operated by the [facility] Office of Mental Health; or Provided by the [facility] Office for People With Developmental Disabilities. If such information is present, then the following [facility] mandated warning applies: This information [...] law may result in a fine or alf sentence or both. A general authorization for the release of medical or other information is NOT sufficient authorization for further disc losure. Family History Family Member Name Family Member Gender Family Member Status Date o f Status Description Data Source(s) Unknown Male Problem MEDENT ([facility]) Unknown Female Problem [facility] ([facility] ) Unknown Female Problem [facility] ([facility] ) Encounters Encounter Providers Location Date Indications Data Source(s ) Unknown [address] [facility] [address] 12/07/2020 12:00:00 AM EDT eCW1 [facility] Outpatient [address] [facility] [address] 11/22/2020 12:00:00 AM EDT eCW1 ([facility]) Unknown [address] [facility] [place] [address] 11/21/2020 12:00:00 AM EDT eCW1 ([facility]) Outpatient Attender: ABI ANDRADE RPA 11/20 08:31:57 AM EDT - 11/20/2020 09:21:41 AM EDT DocuTap ([facility] ) Unknown [address] [facility] [address] 08/07/2020 12:00:00 AM EST eCW1 ([facility]) Outpatient [address] [facility] [address] 07/11/2020 12:00:00 AM EST eCW1 ([facility]) Unknown [address] [facility] [address] 05/25/2020 12:00:00 AM EST eCW1 ([facility]) Unknown [address] [facility] [address] 05/24/2020 12:00:00 AM EST eCW1 ([facility]) Outpatient [address] [facility] [address] 05/22/2020 12:00:00 AM EST eCW1 ([facility]) Unknown [address] [facility] [address] 05/21/2020 12:00:00 AM EST eCW1 ([facility]) Unknown [address] [facility] [address] 04/19/2020 12:00:00 AM EST eCW1 ([facility]) Unknown [address] [facility] [address] 04/18/2020 12:00:00 AM EST eCW1 ([facility]) Unknown [address] [facility] [address] 04/10/2020 12:00:00 AM EDT eCW1 ([facility]) Unknown [address] [facility] [address] 04/10/2020 12:00:00 AM EDT eCW1 ([facility]) Unknown [address] [facility] [address] 04/02/2020 12:00:00 AM EDT eCW1 ([facility]) Immunizations Vaccine Date Status Description Data Source(s) COVID-19 VACCINE [employer] 07/31/2020 12:00:00 AM EST completed [facility] Vaccine Series Complete: NOThis Data was Submitted to [facility] Via [employer]. COVID-19 VACCINE Pfizer 07/10/2020 12:00:00 AM EST completed [facility] Vaccine Series Complete: NOThis Data was Submitted to [facility] Via [employer]. Medications Medication Brand Name Start Date Product Form Dose Route Admi nistrative Instructions Pharmacy Instructions Status Indications Reaction Description Data Source(s) Fluconazole 100 MG Oral Tablet [Diflucan] Diflucan 100 MG Di flucan 100 MG 11/22/2020 12:00:00 AM EDT 1.0 {tablet} active Diflucan 100 MG eCW1 ([facility]) chlorhexidine gluconate 40 MG/ML Medicat ed Liquid Soap [Hibiclens] Hibiclens 4 % Hibiclens 4 % 11/22/2020 12:00:00 AM EDT act simran Hibiclens 4 % eCW1 ([facility]) Fluconazole 100 MG Oral Tablet [Diflucan] Diflucan 100 MG Di flucan 100 MG 11/22/2020 12:00:00 AM EDT 1.0 {tablet} active Diflucan 100 MG eCW1 ([facility]) chlorhexidine gluconate 40 MG/ML Medicat ed Liquid Soap [Hibiclens] Hibiclens 4 % Hibiclens 4 % 11/22/2020 12:00:00 AM EDT act simran Hibiclens 4 % eCW1 ([facility]) Mupirocin 20 MG/ML Topical Cream Mupirocin Calcium 2 % Mupir ocin Calcium 2 % 11/22/2020 12:00:00 AM EDT 1.0 {application} act simran Mupirocin Calcium 2 % eCW1 ([facility]) Sulfamethoxazole 800 MG / Trimethoprim 1 60 MG Oral Tablet [Bactrim] Bactrim DS 800-160 MG Bactrim DS 800-160 MG 11/22/2020 12:00:00 AM EDT 1.0 {table t} active Bactrim DS 800-160 MG eCW1 ( [facility]) Nystatin 963324 UNT/ML Topical Cream Nystatin 914328 U NIT/GM Nystatin 743283 UNIT/GM 11/22/2020 12:00:00 AM EDT 1.0 {application} active Nystatin 055325 UNIT/GM eCW1 ([facility]) Doxycycline Monohydrate 100 MG Oral Capsule Doxycycline Mora hydrate 100 MG 11/22/2020 12:00:00 AM EDT 1.0 {capsule} active Doxycycline Monohydrate 100 MG eCW1 ([facility]) Nystatin 100 UNT/MG Topical Powder Nystatin 383599 UNI T/GM Nystatin 438539 UNIT/GM 11/22/2020 12:00:00 AM EDT 1.0 {application} active Nystatin 076699 UNIT/GM eCW1 ([facility]) Nystatin 100 UNT/MG Topical Powder Nystatin 643578 UNI T/GM Nystatin 173499 UNIT/GM 11/22/2020 12:00:00 AM EDT 1.0 {application} active Nystatin 803930 UNIT/GM eCW1 ([facility]) Mupirocin 20 MG/ML Topical Cream Mupirocin Calcium 2 % Mupir ocin Calcium 2 % 11/22/2020 12:00:00 AM EDT 1.0 {application} act simran Mupirocin Calcium 2 % eCW1 ([facility]) Nystatin 402635 UNT/ML Topical Cream Nystatin 867033 U NIT/GM Nystatin 742371 UNIT/GM 11/22/2020 12:00:00 AM EDT 1.0 {application} active Nystatin 664543 UNIT/GM eCW1 ([facility]) Sulfamethoxazole 800 MG / Trimethoprim 1 60 MG Oral Tablet [Bactrim] Bactrim DS 800-160 MG Bactrim DS 800-160 MG 11/22/2020 12:00:00 AM EDT 1.0 {table t} active Bactrim DS 800-160 MG eCW1 ( [facility]) Doxycycline Monohydrate 100 MG Oral Capsule Doxycycline Mora hydrate 100 MG 11/22/2020 12:00:00 AM EDT 1.0 {capsule} active Doxycycline Monohydrate 100 MG eCW1 ([facility]) Amlodipine 5 MG Oral Tablet AmLODIPine Besylate 5 MG AmLODIP ine Besylate 5 MG 07/11/2020 12:00:00 AM EST 1.0 {tablet} active AmLODIPine Besylate 5 MG eCW1 ([facility]) Propranolol Hydrochloride 10 MG Oral Tablet Propranolo l HCl 10 MG Propranolol HCl 10 MG 05/24/2020 12:00:00 AM EST 1.0 {tablet} ac tive Propranolol HCl 10 MG eCW1 ([facility]) Propranolol Hydrochloride 10 MG Oral Tablet Propranolo l HCl 10 MG Propranolol HCl 10 MG 05/24/2020 12:00:00 AM EST 1.0 {tablet} ac tive Propranolol HCl 10 MG eCW1 ([facility]) valacyclovir 1000 MG Oral Tablet [Valtrex] Valtrex 1 GM Valt samuel 1 GM 05/24/2020 12:00:00 AM EST 1.0 {tablet} active Va ltrex 1 GM eCW1 ([facility]) Propranolol Hydrochloride 10 MG Oral Tablet Propranolo l HCl 10 MG Propranolol HCl 10 MG 05/24/2020 12:00:00 AM EST 1.0 {tablet} ac tive Propranolol HCl 10 MG eCW1 ([facility]) valacyclovir 1000 MG Oral Tablet [Valtrex] Valtrex 1 GM Valt samuel 1 GM 05/24/2020 12:00:00 AM EST 1.0 {tablet} active Va ltrex 1 GM eCW1 ([facility]) valacyclovir 1000 MG Oral Tablet [Valtrex] Valtrex 1 GM Valt samuel 1 GM 05/24/2020 12:00:00 AM EST 1.0 {tablet} active Va ltrex 1 GM eCW1 ([facility]) Clindamycin 300 MG Oral Capsule Clindamycin HCl 300 MG Clind amycin HCl 300 MG 05/22/2020 12:00:00 AM EST 2.0 {capsules} active Clindamycin HCl 300 MG eCW1 ([facility]) Mupirocin 20 MG/ML Topical Cream Mupirocin Calcium 2 % Mupir ocin Calcium 2 % 05/22/2020 12:00:00 AM EST active Mupirocin Calcium 2 % eCW1 ([facility]) Mupirocin 20 MG/ML Topical Cream Mupirocin Calcium 2 % Mupir ocin Calcium 2 % 05/22/2020 12:00:00 AM EST active Mupirocin Calcium 2 % eCW1 ([facility]) Mupirocin 20 MG/ML Topical Cream Mupirocin Calcium 2 % Mupir ocin Calcium 2 % 05/22/2020 12:00:00 AM EST active Mupirocin Calcium 2 % eCW1 ([facility]) Clindamycin 300 MG Oral Capsule Clindamycin HCl 300 MG Clind amycin HCl 300 MG 05/22/2020 12:00:00 AM EST 2.0 {capsules} active Clindamycin HCl 300 MG eCW1 ([facility]) Clindamycin 300 MG Oral Capsule Clindamycin HCl 300 MG Clind amycin HCl 300 MG 05/22/2020 12:00:00 AM EST 2.0 {capsules} active Clindamycin HCl 300 MG eCW1 ([facility]) Mupirocin 20 MG/ML Topical Cream Mupirocin Calcium 2 % Mupir ocin Calcium 2 % 05/22/2020 12:00:00 AM EST active Mupirocin Calcium 2 % eCW1 ([facility]) Clindamycin 300 MG Oral Capsule Clindamycin HCl 300 MG Clind amycin HCl 300 MG 05/22/2020 12:00:00 AM EST 2.0 {capsules} active Clindamycin HCl 300 MG eCW1 ([facility]) Lancets - Lancets - 04/10/2020 12:00:00 AM EDT act simran Lancets - eCW1 ([facility]) Lancets - Lancets - 04/10/2020 12:00:00 AM EDT act simran Lancets - eCW1 ([facility]) Lancets - Lancets - 04/10/2020 12:00:00 AM EDT act simran Lancets - eCW1 ([facility]) Lancets - Lancets - 04/10/2020 12:00:00 AM EDT act simran Lancets - eCW1 ([facility]) Lancets - Lancets - 04/10/2020 12:00:00 AM EDT act simran Lancets - eCW1 ([facility]) Lancets - Lancets - 04/10/2020 12:00:00 AM EDT act simran Lancets - eCW1 ([facility]) Lancets - Lancets - 04/10/2020 12:00:00 AM EDT act simran Lancets - eCW1 ([facility]) Lancets - Lancets - 04/10/2020 12:00:00 AM EDT act simran Lancets - eCW1 ([facility]) Lancets - Lancets - 04/10/2020 12:00:00 AM EDT act simran Lancets - eCW1 ([facility]) Lancets - Lancets - 04/10/2020 12:00:00 AM EDT act simran Lancets - eCW1 ([facility]) Lancets - Lancets - 04/10/2020 12:00:00 AM EDT act simran Lancets - eCW1 ([facility]) Lancets - Lancets - 04/10/2020 12:00:00 AM EDT act simran Lancets - eCW1 ([facility]) Lancets - Lancets - 04/10/2020 12:00:00 AM EDT act simran Lancets - eCW1 ([facility]) Insurance Providers Payer name Policy type / Coverage type Policy ID Covered alliance party ID Covered alliance party's relationship to eaton Policy Eaton Plan Information [facility] [id number] SP [id number] [facility] Commercial [employer] Co. [id number] Spouse [id number] MEDICAID [id number] SP [id number] UNHC COMMUNITY PLAN MCDO [id number] SP [id number] [facility] [id number] 18 [id number] OTHER WORKERS COMPENSATION [id number] SP [id number] [employer] [id number] SP [id number] [employer] P [id number] S [id number] SELF PAY UNAVAILABLE SP UNAVAILA BLE [facility] O [id number] S [id number] [facility] Health Maintenance Organization (HMO) [id number] Self UNHC COMMUNITY PLAN MCDO [id number] SP [id number] UNHC COMMUNITY PLAN MCDO [id number] SP [id number] [facility] O [id number] S [id number] ANSI-Commercial [id number] ANSI-Not a Secondary Insurance [id number] ANSI-Medicaid [id number] ANSI-Medicaid [id number] [facility] [id number] SP [id number] ANSI-Not a Secondary Insurance [id number] ANSI-Commercial [id number] ANSI-Medicaid [id number] ANSI-Medicaid [id number] R O [id number] S [id number] ANSI-Commercial [id number] ANSI-Medicaid [id number] ANSI-Medicaid [id number] ANSI-Not a Secondary Insurance [id number] ANSI-Commercial [id number] ANSI-Medicaid [id number] ANSI-Medicaid [id number] ANSI-Not a Secondary Insurance [id number] ANSI-Not a Secondary Insurance [id number] [id number] ANSI-Medicaid [id number] ANSI-Commercial [id number] ANSI-Medicaid [id number] ANSI-Medicaid [id number] ANSI-Not a Secondary Insurance [id number] ANSI-Medicaid [id number] ANSI-Commercial [id number] ANSI-Medicaid [id number] ANSI-Not a Secondary Insurance [id number] ANSI-Medicaid [id number] ANSI-Commercial [id number] ANSI-Not a Secondary Insurance [id number] ANSI-Commercial [id number]-9093-qwg9-[id number] ANSI-Medicaid [id number] ANSI-Medicaid [id number] ANSI-Medicaid [id number] ANSI-Not a Secondary Insurance [id number] [id number] [id number]-g143-779r-[id number] ANSI-Commercial [id number]-[id number]-[id number]-8q59-660z-[id number] ANSI-Medicaid [id number] ANSI-Not a Secondary Insurance [id number] ANSI-Medicaid [id number] ANSI-Medicaid [id number] ANSI-Commercial [id number]-[id number]-[id number]-b8z3-5sxk-[id number] ANSI-Not a Secondary Insurance [id number] ANSI-Medicaid [id number] ANSI-Commercial [id number] ANSI-Medicaid [id number] ANSI-Not a Secondary Insurance [id number] ANSI-Medicaid [id number] ANSI-Commercial [id number] ANSI-Medicaid [id number] ANSI-Medicaid [id number] ANSI-Not a Secondary Insurance [id number] ANSI-Medicaid [id number] ANSI-Commercial [id number]-htfl-0xr3-jsyn-3c57h9np9lae [id number]-mbsv-7de9-dbhl-[id number] ANSI-Not a Secondary Insurance [id number] ANSI-Commercial [id number] ANSI-Medicaid [id number] ANSI-Medicaid [id number] ANSI-Not a Secondary Insurance [id number] ANSI-Medicaid [id number] ANSI-Medicaid [id number] ANSI-Commercial [id number]-[id number] [id number]-rq22-7t9o-[id number] ANSI-Commercial [id number]-257y-[id number]-[id number] 6986grsl-706e-[id number]-[id number] ANSI-Not a Secondary Insurance [id number]-6lml-[id number]-[id number] ANSI-Medicaid [id number] ANSI-Medicaid [id number] ANSI-Commercial [id number] a5jvs6vu-[id number] ANSI-Not a Secondary Insurance [id number] ANSI-Medicaid [id number] ANSI-Medicaid [id number] ANSI-Commercial [id number]-[id number]-[id number] ANSI-Not a Secondary Insurance [id number] ANSI-Medicaid [id number] ANSI-Medicaid [id number] ANSI-Commercial [id number]-g28a-0l99-28i2-[id number] rkb77t2q-s19p-4f38-51j2-[id number] ANSI-Medicaid [id number] ANSI-Medicaid [id number] ANSI-Not a Secondary Insurance [id number]-c8o5-7i83o 455a122 m55yp875-t7w0-387q-[id number] ANSI-Medicaid [id number]-k8d1-7h0s-4p9r-[id number] ANSI-Medicaid [id number]-e31i-[id number] ANSI-Not a Secondary Insurance 21d3v25d-7f8b-4c04-6935-72687 8z0348i 27t8y26w-4m9n-3r00-9968-629640g1570l ANSI-Commercial 0306r42k-3766-139f-y61p-h59h8972250x 5738o82i-7477-421x-a15s-g71g2419879b ANSI-Commercial 8z38r2sp-40ws-854p-5a16-0677l8295k97 1n51e0bs-46wa-700y-[id number] ANSI-Medicaid [id number] ANSI-Medicaid [id number] ANSI-Not a Secondary Insurance 288100il-1b47-5b6p-x200-ow7sf wk538p1 193605pd-9q49-3w0h-v742-dg5htjk798c1 ANSI-Medicaid [id number]-s68k-8a31-u97o-[id number] ANSI-Medicaid [id number]-[id number]-[id number] ANSI-Commercial 6e078162-jzt3-602z-6i8s-m47818b34y27 6u873415-ylx1-443k-1q4z-n16428p37y13 ANSI-Not a Secondary Insurance 2t1wmah3-26sf-5uql-6ru8-1ka84 rx00d41 3r0wvie6-89qo-1zzj-1yk5-3ru93gm82h03 ANSI-Medicaid [id number] ANSI-Not a Secondary Insurance x0o313q9-9i9d-60fs-l95d-1961o 19gi55z q4d622d7-2w3o-36tp-x32u-3144n10sv26e ANSI-Commercial 0t9y5gva-8o36-73cy-q13z-2kx76n6y24h4 3l8n6eis-9w28-32yh-v73d-6sc33c4w78d9 ANSI-Medicaid [id number]-5g80-731t-07t5-g45l47g1x4a6 ANSI-Commercial 862h56rq-8753-6ay3-9678-2h9s1125x4w1 520p93ug-2385-1xx9-6167-5l7u3657f7h0 ANSI-Not a Secondary Insurance 8u8522jc-27dc-2862-1565-mzq25 12z231g 0k6433tf-11og-2502-4906-qpn9378i798d ANSI-Medicaid [id number]-y22z-7ri6-bqot-[id number] oy3ss3i6-g93c-4rz5-ovlw-g7xmfp9nrjjh ANSI-Medicaid [id number] ANSI-Medicaid [id number] ANSI-Medicaid [id number] j4udymj1-2p53-27p5-583n-6og37984k7lx ANSI-Commercial f770391a-b750-50y7-258y-9fq696wt56l1 m476956e-h472-15z8-484d-3tl572xk75w3 ANSI-Not a Secondary Insurance 1720ni68-z24g-7zg5-6t7p-5cj6f 250h66n 4294fz78-w48w-4za9-0k0o-4vi4a048y67t ANSI-Medicaid [id number]-550j-[id number] ANSI-Commercial z58z2ynx-5xzg-5d50-6o22-379f65y1v809 r42h8ggc-2mlz-8j64-5f24-407f33o7d750 ANSI-Medicaid [id number]-wu41-89n3-[id number] ANSI-Not a Secondary Insurance 9283qzj0-6a7k-299g-k34p-nr1o0 555x4op 4820gir0-5a0r-015n-v71n-sb3s5045o0sh ANSI-Medicaid [id number] 2tu8j2g7-3kl0-385q-e254-k6fek3b1874f ANSI-Not a Secondary Insurance 1z867g20-j3g3-821i-dm6s-10s56 l28h25l 9s740d12-d7e9-491i-hx5m-21g41k42p28t ANSI-Commercial m8n82oqa-f165-4515-4942-3h8y8dr4t458 r7h26fco-d144-0157-1706-8w5d5lp7m628 ANSI-Medicaid [id number] ANSI-Medicaid [id number]-[id number]-5v8h-[id number] ANSI-Commercial 72d460ca-7qr0-7769-y041-239zhya0d153 23z143zw-3rt3-4882-i541-924mmmy3q924 ANSI-Medicaid [id number]-[id number] ANSI-Not a Secondary Insurance ubez5996-u5mk-9515-q9o6-8190l i1xl2n6 swxe6566-r3oj-1275-k9t3-7156ga4lf7b1 ANSI-Medicaid [id number]-j9o9-3947-p1pj-[id number] ANSI-Not a Secondary Insurance a3j0j216-2q69-58f4-ybxc-rr4rb j97073r e5s0h103-5a76-53t4-xhje-uj1sfc94376u ANSI-Commercial 7n0870bc-9e8w-6c09-06b0-020037897037 3p5828oz-4k4w-[id number] ANSI-Medicaid [id number] ANSI-Not a Secondary Insurance m5d8sxd1-3311-7jh0-t216-0q625 [id number] o0x4ixd0-3207-9el6-[id number] ANSI-Medicaid [id number]-38i2-u468-[id number] ANSI-Commercial 155121fd-5r2v-8yz1-031h-[id number] 522467qm-6f2g-3vz0-580k-3380e4l88995 ANSI-Medicaid [id number]-93lo-3yzc-[id number] ANSI-Commercial 43b88n04-juu5-82y3-yca6-f3bh9lr4n041 97v61w27-ong7-68v1-owt3-z3cu2mu2l253 ANSI-Not a Secondary Insurance 94ajc2ur-q60d-8vjq-6538-51h54 151py0e 38ozf7cf-z51r-1nez-1475-53e14655ow7t ANSI-Medicaid [id number]-[id number] ANSI-Medicaid [id number] dss56o9q-2zfn-2395-36r1-[id number] ANSI-Medicaid [id number]-lwk1-66m5ep6u2d76 ANSI-Medicaid [id number] ANSI-Commercial 42cs621w-27o5-4423-1p0l-64616g7awf81 62jr936l-40p2-5933-9s4f-63015g5mzs84 ANSI-Not a Secondary Insurance [id number]-ti49-4244-3j51-99060 [id number]-[id number] ANSI-Medicaid [id number] ANSI-Medicaid [id number] ANSI-Commercial 38k1yg75-o511-2715-gy80-v9hi90606fk9 33o7rr19-w080-4981-oi13-a6nc76081pv2 ANSI-Not a Secondary Insurance aj5j8278-n755-94o6-w2w9-3u719 l28y0io qc3v5114-e165-36r7-b9q1-1c848r57a3bs ANSI-Medicaid dg11saz9-94qx-014p-2t9v-1tuk332u5191 fr68shx3-11jm-253f-6a4w-8ouq705l6391 ANSI-Commercial 501576k3-9s22-3by4-c65r-632f28h2gf4w 606533a6-6z70-6ie2-s14i-211z27g5ta2d ANSI-Not a Secondary Insurance ep43411w-j295-40t5-4944-tbge7 8n9dbl0 ou78250d-x050-21d5-3689-hzwf87i1hkx5 ANSI-Medicaid [id number] [facility] Part B [id number] Self [id number] ANSI-Medicaid [id number] ANSI-Commercial eq5x9434-970r-[id number] xd6s2056-129r-[id number] ANSI-Medicaid [id number] ANSI-Not a Secondary Insurance [id number] ANSI-Medicaid [id number]-8h6r-[id number] ANSI-Not a Secondary Insurance h186g3v7-4253-35hd-653h-d6932 gc11c67 s331f3x8-1437-34by-317t-j2496cp45o98 ANSI-Commercial oe99q02r-z0qy-9fe4-6z38-i1b69jg054o1 kn46c62o-z5dt-3dq2-4h99-s4y85cf724n3 ANSI-Medicaid [id number] ANSI-Medicaid [id number]-[id number] ANSI-Medicaid [id number] ANSI-Not a Secondary Insurance [id number]-z123-71n3-7bnl-9346c y1g72d5 5i3y4d50-y295-07b6-2fwt-9569ld6h77b9 ANSI-Commercial 1c9280xq-08v5-9053-4t7u-1n76av6pg690 1f2679li-98x2-8793-4q6a-8f64vt7rz299 ANSI-Medicaid [id number]-[id number] ANSI-Medicaid [id number] ANSI-Not a Secondary Insurance [id number]-m273-5o157 [id number] 8skq0r64-79j4-1s47-m808-0z332sc57206 ANSI-Commercial 120m2775-3874-18nc-vpf2-0017byp4o27i 214z1422-5906-67wv-vjm7-2294gfq9t42t ANSI-Commercial 61ns27s6-8yk4-7905-190r-a0313l7048iw 68gb08w8-7qo3-4117-748l-l9049g7023mq ANSI-Medicaid [id number]-2dhz-0h1u-[id number] ANSI-Not a Secondary Insurance 93lvl869-q112-3za6-5p8c-h3wda wj88h90 97swq118-l041-1md9-1b4a-z7xgjhq19y52 ANSI-Medicaid [id number] ANSI-Medicaid [id number] ANSI-Not a Secondary Insurance gw86aa66-7vw4-50q7-s81w-k6049 [id number] pc39eq03-3fi3-68q1-o36b-b436725164x3 ANSI-Commercial 941ag1gk-k457-1484-h453-2d07l86mu71y 952fr9tk-f073-0680-g275-8k62m89ee24l ANSI-Medicaid [id number]-85yf-1oaq-[id number] ANSI-Medicaid [id number] ANSI-Medicaid [id number] ANSI-Not a Secondary Insurance 4od8i0rt-5z60-394s-cp90-t5008 [id number] 4eg5x3zp-4b72-366s-ri27-a379055592n4 ANSI-Commercial 61a4o2s3-s8f3-518w-xu4y-98kx14rcxq85 23n6z5j1-b8s7-675q-oi0q-00my37madt91 ANSI-Medicaid [id number] ANSI-Medicaid [id number] ANSI-Commercial ylpqre51-0055-748t-j0o2-d8w336jb254w tllejz56-6379-967q-e1c7-l4y027kc761k ANSI-Not a Secondary Insurance 8f2wj4j4-wg56-7282-9q7c-tt2zs o351h8y 3p7mu5c6-yd14-8525-3w8w-tt1xck968u8w ANSI-Not a Secondary Insurance [id number]-q85s-4438-96lz-925y2 hzqa25h r367409y-a59t-3780-04gm-204g4ayqr91y ANSI-Medicaid [id number] ANSI-Commercial 9o379gtc-k297-2x07-b1v3-11x1ked74018 3z798jgk-f840-4c46-s9l3-28l4wib80924 ANSI-Medicaid [id number] ANSI-Not a Secondary Insurance [id number]-x870-415b-2aol-53953 [id number] m1o716zw-a351-764k-5trw-1640574ip159 ANSI-Medicaid [id number]-s012-6zia-wcte-562m1gx895w4 ANSI-Medicaid [id number] ANSI-Commercial 947mkhsp-4x8v-64u84q9c-79f9-10sj-pmm4v8139v03 111ekksj-5w7v-02k11p9l-02d8-37bk-gtm9z8784o48 ANSI-Not a Secondary Insurance tm5ogg89-294w-8s09-48d8-a5y5p tij0664 of4ccq24-935k-7f14-11r1-m2e2vbiv1504 ANSI-Medicaid [id number] ANSI-Medicaid [id number] ANSI-Commercial 38c01r66-28q9-04sy-7507-z7x7vg76hi86 65q63i99-39g2-47mk-6688-k0s6mk53vu34 ANSI-Medicaid [id number] ANSI-Not a Secondary Insurance [id number]-p556-0rw32 1e027k1 f5g26359-6762-4qj1-y801-8qh656z946e3 ANSI-Medicaid [id number]-[id number] ANSI-Commercial 339maesg-d47m-1769k51s-8058-7tn8-g6ntlx557q8f 317qxbhe-x64c-8896f70f-3287-4ju2-w7cdye780i1y ANSI-Commercial p714o00g-150j-5f7q-gu43-8w0w5otfc49v k086u35d-896s-8x2b-xq53-9j1j2mhgq68d ANSI-Not a Secondary Insurance pbla3u76-3a58-777v-882o-l81z0 m8m3877 tehz4r56-0i47-296o-775c-l82l3z0z4866 ANSI-Medicaid [id number] ANSI-Medicaid [id number] ANSI-Medicaid [id number]-9w98-2wg9-2x25278twa9u ANSI-Medicaid [id number]-[id number] ANSI-Commercial 46p0rlac-t6k3-01l9-406g-9174d0z8179w 07u4pptn-m0c8-69t0-344a-8989e7e8767q ANSI-Not a Secondary Insurance [id number]-4y45-p4x9-1h215 [id number] j1zi9214-08ar-9w25-m4s6-7v1870094075 ANSI-Not a Secondary Insurance d505ag7l-775n-81du-476m-y797h 2l4d28t i591br1e-088l-85pc-410v-w464s5w2g02g ANSI-Medicaid [id number]-8538-2476-t97w-n71oefli84kt ANSI-Commercial 2i7kb9oc-9469-9h78-r04f-9sq3p6ey489h 4q8il0wd-7629-3i51-x33d-9ub4t3oz834r ANSI-Medicaid [id number] ANSI-Medicaid [id number] ANSI-Not a Secondary Insurance 88wn0qt8-3q1v-3wo0-an07-1g2i3 8v9rp75 88mq3af6-8g3i-5za4-ow63-9a6k79m5lf57 ANSI-Medicaid [id number] ANSI-Commercial dq38r828-pj81-4p1v-j3ja-f360wr067z91 hq82z119-kk53-9u6q-n6gm-h259qj831n06 ANSI-Medicaid [id number]-k012-b2935gtbj7w5 ANSI-Not a Secondary Insurance a1378p24-7ll1-21c3-1692-628h6 szmk5uk m9914c66-7ey6-46i9-3952-940r0pjab1oz ANSI-Commercial l1878097-4q17-66xq-l168-352659e75r2d d4262905-0i93-98sg-h212-677281x12x4b ANSI-Medicaid [id number] ANSI-Commercial c8hj272l-m5j7-0per-83w8-242v5f748j51 s0ci200i-n5g6-4aud-51h0-681i9o609b94 ANSI-Medicaid [id number] ANSI-Medicaid [id number]-[id number] ANSI-Not a Secondary Insurance g53w93y3-196n-6j62-9p0k-n0p59 [id number] n43t29f6-999r-4t78-9w0q-i0f067mx7610 ANSI-Medicaid [id number] ANSI-Medicaid [id number]-e5a5-7j12-jrwq-j7tr683ubp20 ANSI-Not a Secondary Insurance 0zxfl451-v3h3-2009-4t42-us74m 070w4yv 8gnpb260-w8v7-2114-0o67-xj71g359z9ic ANSI-Commercial 7th47p28-834k-0v7z-lx6b-s9cu74cp07s1 8ry94h96-641z-9g9z-nl5r-c3pr24dy81t4 ANSI-Medicaid [id number] ANSI-Commercial 72jzfw15-2338-8777-yru5-3jr0qm6hfu62 77hyuk97-9744-4918-hli7-0at3fv6nxf45 ANSI-Not a Secondary Insurance [id number]-rnb7-8095m 71k3rr4 6ho95008-33c2-5wk7-ctv8-4544y50u1ab3 ANSI-Medicaid [id number]-rvj4-5b2i039c02b4 r (pr) Commercial [id number].[id number] [id number] [place] Med[place] Part [place] [id number].[id number] Self [id number] [facility] Medigap Part B [id number]-[id number] Self [id number] ANSI-Commercial 994bp416-3o3w-7572-00b6-10d2b8u0gw90 022ts101-7p3x-9403-04w0-82i6r7j2mh23 ANSI-Medicaid [id number] ANSI-Not a Secondary Insurance [id number]-[id number] 10k4v2o 68h74285-759o-3940-c145-18se668y7y7f ANSI-Medicaid [id number] ANSI-Not a Secondary Insurance [id number]-8g3d-81qb-q8664 [id number]-715q-6e7d-65cd-f67539i658x1 ANSI-Medicaid [id number] ANSI-Medicaid [id number] ANSI-Commercial 8m7y0fyh-b213-5u4r-3746-t7t3mhk8a55d 7o6l0vkt-w919-3q4b-4689-g5i2eva4l81l ANSI-Not a Secondary Insurance 25443bgg-108v-3s8u-mh11-gm394 ba36nvr 71418oxu-484q-4h0q-yd99-do329fi96all ANSI-Medicaid [id number] ANSI-Medicaid [id number] ANSI-Commercial 4038e96s-dp9c-2a36-06k1-w8w3664w4a77 6060w42f-bp0l-9q15-16s6-i0k9167r8x42 [facility] [id number] [facility] [id number] ANSI-Medicaid [id number] ANSI-Not a Secondary Insurance 5r2w5rwx-2s3w-7137-dy7s-szm4y 665uw1q 2g6y3bgq-2a2j-6404-pa3l-ebc4b610zx5x ANSI-Commercial [id number]-42la-sr12-mcs60959q030 83515906-3svm-10pq-ra44-[id number] ANSI-Medicaid [id number] [facility] [id number] ANSI-Not a Secondary Insurance [id number]-0225-5uc7-l720-u62r1 137ue6n 69qc1a4y-3614-9vb4-o542-m19h3287ps0y ANSI-Commercial bz434bh8-80n6-8il6-wm7g-qvf37747383w jp327wj3-83g9-0uw5-gk1v-qzk63129857w ANSI-Medicaid [id number] ANSI-Medicaid [id number] ANSI-Medicaid [id number] ANSI-Commercial [id number]-015o-7yg2-3869-t8c3vei65706 2758625z-251g-0jp3-1207-d3j8pxo11042 ANSI-Medicaid [id number] ANSI-Not a Secondary Insurance [id number]-[id number] 0h60wn74-z2e0-4b6s-m48l-[id number] ANSI-Commercial 44jhy575-ieu4-4197-6p94-c8r4s61v69qh 34kwj532-yym8-7933-8f47-m6o9u28r11xb ANSI-Medicaid [id number] ANSI-Not a Secondary Insurance [id number]-84n5-j37g1 u0899qw n453l9hx-cl36-452z-21b3-[id number] ANSI-Medicaid [id number] D Managed Care [facility] P [id number] S [id number] [facility] [id number] [place] [id number] Medicaid Dental S [id number] S [id number] O [id number] S [id number] Problems, Conditions, and Diagnoses Code Display Name Description Problem Type Effective Dates Data Source(s) Z86.14 901926344 H/O methicillin resistant Staphy lococcus aureus infection Problem 11/22/2020 12:00:00 AM EDT eCW1 (Formerly [facility]) Surgeries/Procedures No Information Results ID Date Data Source [id number] 03/11/2021 12:06:00 PM EDT [facility] Name Value Range Interpretation Code Description Data Kia rce(s) Supporting Document(s) SARS-CoV-2 (COVID 19) NEGATIVE - SARS-CoV-2 (COVID19) [facility] This lab was ordered by [facility] a nd reported by [facility]. ID Date Data Source [id number] 03/05/2021 12:00:00 AM EDT [facility] Name Value Range Interpretation Code Description Data Kia rce(s) Supporting Document(s) SARS coronavirus 2 Ag NEGATIVE [facility] This lab was ordered by [facility] and reported by [facility]. ID Date Data Source [id number] 02/21/2021 12:00:00 AM EDT [facility] Name Value Range Interpretation Code Description Data Kia rce(s) Supporting Document(s) SARS coronavirus 2 Ag NEGATIVE [facility] This lab was ordered by [facility] and reported by [facility]. ID Date Data Source [id number] 11/13/2020 12:00:00 AM EDT [facility] Name Value Range Interpretation Code Description Data Kia rce(s) Supporting Document(s) SARS coronavirus 2 Ag NEGATIVE [facility] and reported by [facility]. ID Date Data Source [id number] 11/08/2020 12:00:00 AM EDT [facility] Name Value Range Interpretation Code Description Data Kia rce(s) Supporting Document(s) SARS coronavirus 2 Ag NEGATIVE [facility] This lab was ordered by [facility] and reported by [facility]. ID Date Data Source [id number] 11/05/2020 12:00:00 AM EDT [facility] Name Value Range Interpretation Code Description Data Kia rce(s) Supporting Document(s) SARS coronavirus 2 Ag NEGATIVE [facility] This lab was ordered by [facility] and reported by [facility]. ID Date Data Source [id number] 10/29/2020 12:00:00 AM EDT [facility] Name Value Range Interpretation Code Description Data Kia rce(s) Supporting Document(s) SARS coronavirus 2 Ag NEGATIVE [facility] This lab was ordered by [facility] and reported by [facility]. ID Date Data Source [id number] 10/25/2020 12:00:00 AM EDT [facility] Name Value Range Interpretation Code Description Data Kai rce(s) Supporting Document(s) SARS coronavirus 2 Ag NEGATIVE [facility] This lab was [facility] and reported by [facility]. ID Date Data Source [id number] 10/22/2020 12:00:00 AM EDT [facility] Name Value Range Interpretation Code Description Data Kia rce(s) Supporting Document(s) SARS coronavirus 2 Ag NEGATIVE [facility] This lab was [facility] and reported by [facility]. ID Date Data Source [id number] 10/18/2020 12:00:00 AM EDT [facility] Name Value Range Interpretation Code Description Data Kia rce(s) Supporting Document(s) SARS coronavirus 2 Ag NEGATIVE [facility] This lab [facility] and reported by [facility]. ID Date Data Source [id number] 10/15/2020 12:00:00 AM EDT [facility] Name Value Range Interpretation Code Description Data Kia rce(s) Supporting Document(s) SARS coronavirus 2 Ag NEGATIVE [facility] This lab was [facility] and reported by [facility]. ID Date Data Source [id number] 10/11/2020 12:00:00 AM EDT [facility] Name Value Range Interpretation Code Description Data Kia rce(s) Supporting Document(s) SARS coronavirus 2 Ag NEGATIVE [facility] This lab was [facility] and reported by [facility]. ID Date Data Source [id number] 10/08/2020 12:00:00 AM EDT [facility] Name Value Range Interpretation Code Description Data Kia rce(s) Supporting Document(s) SARS coronavirus 2 Ag Negative [facility] This lab [facility] and reported by [facility]. ID Date Data Source [id number] 10/04/2020 12:00:00 AM EDT [facility] Name Value Range Interpretation Code Description Data Kia rce(s) Supporting Document(s) SARS coronavirus 2 Ag NEGATIVE [facility] This lab was ordered by [facility] and reported by [facility]. ID Date Data Source [id number] 10/01/2020 12:00:00 AM EDT [facility] Name Value Range Interpretation Code Description Data Kia rce(s) Supporting Document(s) SARS coronavirus 2 Ag NEGATIVE [facility] This lab was ordered by [facility] and reported by [facility]. ID Date Data Source [id number] 09/17/2020 12:00:00 AM EDT [facility] Name Value Range Interpretation Code Description Data Kia rce(s) Supporting Document(s) SARS coronavirus 2 Ag NEGATIVE [facility] This lab was ordered by [facility] and reported by [facility]. ID Date Data Source [id number] 09/13/2020 12:00:00 AM EDT [facility] Name Value Range Interpretation Code Description Data Kia rce(s) Supporting Document(s) SARS coronavirus 2 Ag NEGATIVE [facility] This lab was ordered by [facility] and reported by [facility]. ID Date Data Source [id number] 09/10/2020 12:00:00 AM EDT [facility] Name Value Range Interpretation Code Description Data Kia rce(s) Supporting Document(s) SARS coronavirus 2 Ag NEGATIVE [facility] This lab was ordered by [facility] and reported by [facility]. ID Date Data Source [id number] 09/06/2020 12:00:00 AM EDT [facility] Name Value Range Interpretation Code Description Data Kia rce(s) Supporting Document(s) SARS coronavirus 2 Ag NEGATIVE [facility] This lab was ordered by [facility] and reported by [facility]. ID Date Data Source [id number] 09/03/2020 07:07:00 AM EDT [facility] Name Value Range Interpretation Code Description Data Kia rce(s) Supporting Document(s) SARS coronavirus 2 RNA Not Detected [facility] [place] This lab was ordered by [facility] and reported by [facility]. ID Date Data Source [id number] 08/30/2020 12:00:00 AM EDT [facility] Name Value Range Interpretation Code Description Data Kia rce(s) Supporting Document(s) SARS coronavirus 2 Ag NEGATIVE [facility] This lab was ordered by [facility] and reported by [facility]. ID Date Data Source [id number] 08/27/2020 07:30:00 AM EDT [facility] Name Value Range Interpretation Code Description Data Kia rce(s) Supporting Document(s) SARS coronavirus 2 RNA Not Detected [facility] [place] This lab was ordered by [facility] and reported by [facility]. ID Date Data Source [id number] 08/23/2020 12:00:00 AM EST [facility] Name Value Range Interpretation Code Description Data Kia rce(s) Supporting Document(s) SARS coronavirus 2 Ag NEGATIVE [facility] This lab was ordered by [facility] and reported by [facility]. ID Date Data Source [id number] 08/20/2020 07:39:00 AM EST [facility] Name Value Range Interpretation Code Description Data Kia rce(s) Supporting Document(s) SARS coronavirus 2 RNA Not Detected [facility] [place] This lab was ordered by [facility] and reported by [facility]. ID Date Data Source [id number] 08/16/2020 12:00:00 AM EST [facility] Name Value Range Interpretation Code Description Data Kia rce(s) Supporting Document(s) SARS coronavirus 2 Ag NEGATIVE [facility] This lab was ordered by [facility] and reported by [facility]. ID Date Data Source [id number] 08/13/2020 07:00:00 AM EST [facility] Name Value Range Interpretation Code Description Data Kia rce(s) Supporting Document(s) SARS coronavirus 2 RNA Not Detected [facility] [place] This lab was ordered by [facility] and reported by [facility]. ID Date Data Source [id number] 08/09/2020 12:00:00 AM EST [facility] Name Value Range Interpretation Code Description Data Kia rce(s) Supporting Document(s) SARS coronavirus 2 Ag NEGATIVE [facility] This lab was ordered by [facility] and reported by [facility]. ID Date Data Source [id number] 08/06/2020 08:00:00 AM EST [facility] Name Value Range Interpretation Code Description Data Kia rce(s) Supporting Document(s) SARS coronavirus 2 RNA Not Detected [facility] [place] This lab was ordered by [facility] and reported by [facility]. ID Date Data Source [id number] 08/03/2020 12:00:00 AM EST [facility] Name Value Range Interpretation Code Description Data Kia rce(s) Supporting Document(s) SARS-CoV2 Rapid Antigen Negative [facility] This lab was ordered by [facility] and reported by [facility]. ID Date Data Source [id number] 08/02/2020 12:00:00 AM EST [facility] Name Value Range Interpretation Code Description Data Kia rce(s) Supporting Document(s) SARS coronavirus 2 Ag NEGATIVE [facility] This lab was ordered by [facility] and reported by [facility]. ID Date Data Source [id number] 07/30/2020 02:00:00 PM EST [facility] Name Value Range Interpretation Code Description Data Kia rce(s) Supporting Document(s) SARS coronavirus 2 RNA Not Detected [facility] [place] This lab was ordered by [facility] and reported by [facility]. ID Date Data Source [id number] 07/26/2020 12:00:00 AM EST [facility] Name Value Range Interpretation Code Description Data Kia rce(s) Supporting Document(s) SARS coronavirus 2 Ag NEGATIVE [facility] This lab was ordered by [facility] and reported by [facility]. ID Date Data Source [id number] 07/23/2020 06:00:00 AM EST [facility] Name Value Range Interpretation Code Description Data Kia rce(s) Supporting Document(s) SARS coronavirus 2 RNA Not Detected [facility] [place] This lab was ordered by [facility] and reported by [facility]. ID Date Data Source [id number] 07/19/2020 12:00:00 AM EST [facility] Name Value Range Interpretation Code Description Data Kia rce(s) Supporting Document(s) SARS coronavirus 2 Ag [facility] This lab was ordered by [facility] and reported by [facility]. ID Date Data Source [id number] 07/16/2020 06:00:00 AM EST [facility] Name Value Range Interpretation Code Description Data Kia rce(s) Supporting Document(s) SARS coronavirus 2 RNA Not Detected [facility] [place] This lab was ordered by [facility] and reported by [facility]. ID Date Data Source [id number] 07/09/2020 06:12:00 AM EST [facility] Name Value Range Interpretation Code Description Data Kia rce(s) Supporting Document(s) SARS coronavirus 2 RNA Not Detected [facility] [place] This lab was ordered by [facility] and reported by [facility]. ID Date Data Source [id number] 07/05/2020 12:00:00 AM EST [facility] Name Value Range Interpretation Code Description Data Kia rce(s) Supporting Document(s) SARS coronavirus 2 Ag Negative [facility] This lab was ordered by [facility] and reported by [facility]. ID Date Data Source [id number] 07/02/2020 11:00:00 AM EST [facility] Name Value Range Interpretation Code Description Data Kia rce(s) Supporting Document(s) SARS coronavirus 2 RNA Not Detected [facility] [place] This lab was ordered by [facility] and reported by [facility]. ID Date Data Source [id number] 06/28/2020 12:00:00 AM EST [facility] Name Value Range Interpretation Code Description Data Kia rce(s) Supporting Document(s) SARS-CoV2 Rapid Antigen Negative [facility] This lab was ordered by [facility] and reported by [facility]. ID Date Data Source [id number] 06/25/2020 10:57:00 AM EST [facility] Name Value Range Interpretation Code Description Data Kia rce(s) Supporting Document(s) SARS coronavirus 2 RNA Not Detected [facility] [place] This lab was ordered by [facility] and reported by [facility]. ID Date Data Source [id number] 06/18/2020 06:00:00 AM EST [facility] Name Value Range Interpretation Code Description Data Kia rce(s) Supporting Document(s) SARS coronavirus 2 RNA [facility] This lab was ordered by [facility] and reported by [facility]. ID Date Data Source [id number] 06/11/2020 02:36:00 PM EST [facility] Name Value Range Interpretation Code Description Data Kia rce(s) Supporting Document(s) SARS coronavirus 2 RNA [facility] This lab was ordered by [facility] and reported by [facility]. ID Date Data Source [id number] 06/04/2020 07:00:00 AM EST [facility] Name Value Range Interpretation Code Description Data Kia rce(s) Supporting Document(s) SARS coronavirus 2 RNA [facility] This lab was ordered by [facility] and reported by [facility]. ID Date Data Source [id number] 05/28/2020 08:00:00 AM EST [facility] Name Value Range Interpretation Code Description Data Kia rce(s) Supporting Document(s) SARS coronavirus 2 RNA [facility] This lab was ordered by [facility] and reported by [facility]. ID Date Data Source [id number] 05/14/2020 10:23:00 AM EST [facility] Name Value Range Interpretation Code Description Data Kia rce(s) Supporting Document(s) SARS coronavirus 2 RNA [facility] This lab was ordered by [facility] and reported by [facility]. ID Date Data Source [id number] 05/12/2020 12:00:00 AM EST [facility] Name Value Range Interpretation Code Description Data Kia rce(s) Supporting Document(s) SARS-CoV2 Rapid Antigen [facility] This lab was ordered by [facility] and reported by [facility]. ID Date Data Source [id number] 05/07/2020 01:45:00 PM EST [facility] Name Value Range Interpretation Code Description Data Kia rce(s) Supporting Document(s) SARS coronavirus 2 RNA [facility] This lab was ordered by [facility] and reported by [facility]. ID Date Data Source [id number] 04/30/2020 11:09:00 AM EST [facility] Name Value Range Interpretation Code Description Data Kia rce(s) Supporting Document(s) SARS coronavirus 2 RNA [facility] This lab was ordered by [facility] and reported by [facility]. ID Date Data Source [id number] 04/23/2020 01:00:00 PM EST [facility] Name Value Range Interpretation Code Description Data Kia rce(s) Supporting Document(s) SARS coronavirus 2 RNA [facility] This lab was ordered by [facility] and reported by [facility]. ID Date Data Source [id number] 04/16/2020 02:00:00 PM EST [facility] Name Value Range Interpretation Code Description Data Kia rce(s) Supporting Document(s) SARS coronavirus 2 RNA [facility] This lab was ordered by [facility] and reported by [facility]. ID Date Data Source [id number] 04/09/2020 12:00:00 PM EDT [facility] Name Value Range Interpretation Code Description Data Kia rce(s) Supporting Document(s) SARS coronavirus 2 RNA [facility] This lab was ordered by [facility] and reported by [facility]. ID Date Data Source [id number] 04/02/2020 07:30:00 AM EDT [facility] Name Value Range Interpretation Code Description Data Kia rce(s) Supporting Document(s) SARS coronavirus 2 RNA [facility] This lab was ordered by [facility] and reported by [facility]. ID Date Data Source [id number] 03/26/2020 08:00:00 AM EDT [facility] Name Value Range Interpretation Code Description Data Kia rce(s) Supporting Document(s) SARS coronavirus 2 RNA [facility] This lab was ordered by [facility] and reported by [facility]. ID Date Data Source [id number] 03/19/2020 10:00:00 AM EDT [facility] Name Value Range Interpretation Code Description Data Kia rce(s) Supporting Document(s) SARS coronavirus 2 RNA [facility] This lab was ordered by [facility] and reported by [facility]. ID Date Data Source [id number] 03/12/2020 12:20:00 PM EDT [facility] Name Value Range Interpretation Code Description Data Kia rce(s) Supporting Document(s) SARS coronavirus 2 RNA [facility] This lab was ordered by [facility] and reported by [facility]. ID Date Data Source [id number] 03/05/2020 12:00:00 PM EDT [facility] Name Value Range Interpretation Code Description Data Kia rce(s) Supporting Document(s) SARS coronavirus 2 RNA [facility] This lab was ordered by [facility] and reported by [facility]. ID Date Data Source [id number] 02/27/2020 05:30:00 AM EDT [facility] Name Value Range Interpretation Code Description Data Kia rce(s) Supporting Document(s) SARS coronavirus 2 RNA [facility] This lab was ordered by [facility] and reported by [facility]. ID Date Data Source [id number] 02/22/2020 12:00:00 PM EDT [facility] Name Value Range Interpretation Code Description Data Kia rce(s) Supporting Document(s) SARS coronavirus 2 RNA [facility] This lab was ordered by [facility] and reported by [facility]. ID Date Data Source [id number] 02/13/2020 12:19:00 PM EDT [facility] Name Value Range Interpretation Code Description Data Kia rce(s) Supporting Document(s) SARS coronavirus 2 RNA [facility] This lab was ordered by [facility] and reported by [facility]. ID Date Data Source [id number] 02/06/2020 11:45:00 AM EDT [facility] Name Value Range Interpretation Code Description Data Kia rce(s) Supporting Document(s) SARS coronavirus 2 RNA [facility] This lab was ordered by [facility] and reported by [facility]. Procedure Social History Code Duration Value Status Description Data Source(s ) Smoking 11/22/2020 12:00:00 AM EDT Never Smoker completed Never S moker eCW1 ([facility]) Smoking 11/22/2020 12:00:00 AM EDT Never Smoker completed Never S moker eCW1 ([facility]) Smoking 07/11/2020 12:00:00 AM EST Never Smoker completed Never S moker eCW1 ([facility]) Smoking 07/11/2020 12:00:00 AM EST Never Smoker completed Never S moker eCW1 ([facility]) Smoking 07/11/2020 12:00:00 AM EST Never Smoker completed Never S moker eCW1 ([facility]) Smoking 05/22/2020 12:00:00 AM EST Never Smoker completed Never S moker eCW1 ([facility]) Smoking 05/22/2020 12:00:00 AM EST Never Smoker completed Never S moker eCW1 ([facility]) Smoking 05/22/2020 12:00:00 AM EST Never Smoker completed Never S moker eCW1 ([facility]) Smoking 05/22/2020 12:00:00 AM EST Never Smoker completed Never S moker eCW1 ([facility]) Vital Signs ID Date Data Source UNK Name Value Range Interpretation Code Description Data Source(s) Body weight 221.2 [lb_av] 221.2 [lb_av] eCW1 ([facility]) Body height [in_i] eCW1 ([facility]) Body mass index (BMI) [Ratio] 31.29 kg/m2 31.29 kg/m2 eCW1 ([facility]) Heart rate 96 /min 96 /min eCW1 ([facility]) Respiratory rate 18 /min 18 /min eCW1 ([facility]) Body temperature 97 [degF] 97 [degF] eCW1 ([facility]) Systolic blood pressure 140 mm[Hg] 140 mm[Hg] e CW1 ([facility]) Diastolic blood pressure 90 mm[Hg] 90 mm[Hg] eCW1 ([facility]) Diastolic blood pressure 90 mm[Hg] 90 mm[Hg] eCW1 ([facility]) Body weight 223.8 [lb_av] 223.8 [lb_av] eCW1 ([facility]) Body height [in_i] eCW1 ([facility]) Body mass index (BMI) [Ratio] 31.65 kg/m2 31.65 kg/m2 eCW1 ([facility]) Heart rate 108 /min 108 /min eCW1 ([facility]) Respiratory rate 18 /min 18 /min eCW1 ([facility]) Body temperature 97.1 [degF] 97.1 [degF] eCW1 ( [facility]) Systolic blood pressure 148 mm[Hg] 148 mm[Hg] e CW1 ([facility]) Heart rate 104 /min 104 /min eCW1 ([facility]) Body weight 225.4 [lb_av] 225.4 [lb_av] eCW1 ([facility]) Body height [in_i] eCW1 ([facility]) Body mass index (BMI) [Ratio] 31.88 kg/m2 31.88 kg/m2 eCW1 ([facility]) Respiratory rate 18 /min 18 /min eCW1 ([facility]) Body temperature 97.2 [degF] 97.2 [degF] eCW1 ( [facility]) Systolic blood pressure 170 mm[Hg] 170 mm[Hg] e CW1 ([facility]) Diastolic blood pressure 100 mm[Hg] 100 mm[Hg] eCW1 ([facility]) Patient Treatment Plan of Care Planned Activity Planned Date Details Description Data Source (s) Mupirocin 20 MG/ML Topical Cream 11/22/2020 12:00:00 AM EDT eCW1 ([facility]) Nystatin 100 UNT/MG Topical Powder 11/22/2020 12:00:00 AM EDT eCW1 ([facility]) Nystatin 860226 UNT/ML Topical Cream 11/22/2020 12:00:00 AM EDT eCW1 ([facility]) chlorhexidine gluconate 40 MG/ML Medicated Liquid Soap [Hibiclens] 11/22/2020 12:00:00 AM EDT eCW1 ([facility]) Fluconazole 100 MG Oral Tablet [Diflucan] 11/22/2020 12:00:00 AM ED T eCW1 ([facility]) Doxycycline Monohydrate 100 MG Oral Capsule 11/22/2020 12:00:00 AM EDT eCW1 ([facility]) Sulfamethoxazole 800 MG / Trimethoprim 160 MG Oral Tab let [Bactrim] 11/22/2020 12:00:00 AM EDT eCW1 ([facility], [facility]) Mupirocin 20 MG/ML Topical Cream 11/22/2020 12:00:00 AM EDT eCW1 ([facility]) Nystatin 100 UNT/MG Topical Powder 11/22/2020 12:00:00 AM EDT eCW1 ([facility]) Nystatin 715503 UNT/ML Topical Cream 11/22/2020 12:00:00 AM EDT eCW1 ([facility]) chlorhexidine gluconate 40 MG/ML Medicated Liquid Soap [Hibiclens] 11/22/2020 12:00:00 AM EDT eCW1 ([facility]) Doxycycline Monohydrate 100 MG Oral Capsule 11/22/2020 12:00:00 AM EDT eCW1 ([facility]) Fluconazole 100 MG Oral Tablet [Diflucan] 11/22/2020 12:00:00 AM ED T eCW1 ([facility]) Sulfamethoxazole 800 MG / Trimethoprim 160 MG Oral Tab let [Bactrim] 11/22/2020 12:00:00 AM EDT eCW1 ([facility]) Amlodipine 5 MG Oral Tablet 07/11/2020 12:00:00 AM EST eCW1 ([facility]) Propranolol Hydrochloride 10 MG Oral Tablet 05/24/2020 12:00:00 AM EST eCW1 ([facility]) valacyclovir 1000 MG Oral Tablet [Valtrex] 05/24/2020 12:00:[address] eCW1 ([facility]) Propranolol Hydrochloride 10 MG Oral Tablet 05/24/2020 12:00:00 AM EST eCW1 ([facility]) valacyclovir 1000 MG Oral Tablet [Valtrex] 05/24/2020 12:00:[address] eCW1 ([facility]) Propranolol Hydrochloride 10 MG Oral Tablet 05/24/2020 12:00:00 AM EST eCW1 ([facility]) valacyclovir 1000 MG Oral Tablet [Valtrex] 05/24/2020 12:00:[address] eCW1 ([facility]) Mupirocin 20 MG/ML Topical Cream 05/22/2020 12:00:00 AM EST eCW1 ([facility]) Clindamycin 300 MG Oral Capsule 05/22/2020 12:00:00 AM EST eCW1 ([facility]) Mupirocin 20 MG/ML Topical Cream 05/22/2020 12:00:00 AM EST eCW1 ([facility]) Clindamycin 300 MG Oral Capsule 05/22/2020 12:00:00 AM EST eCW1 ([facility]) Mupirocin 20 MG/ML Topical Cream 05/22/2020 12:00:00 AM EST eCW1 ([facility]) Clindamycin 300 MG Oral Capsule 05/22/2020 12:00:00 AM EST eCW1 ([facility]) Clindamycin 300 MG Oral Capsule 05/22/2020 12:00:00 AM EST eCW1 ([facility]) Mupirocin 20 MG/ML Topical Cream 05/22/2020 12:00:00 AM EST eCW1 ([facility]) Lancets - 04/10/2020 12:00:00 AM EDT e CW1 ([facility]) Lancets - 04/10/2020 12:00:00 AM EDT e CW1 ([facility]) Lancets - 04/10/2020 12:00:00 AM EDT e CW1 ([facility]) Lancets - 04/10/2020 12:00:00 AM EDT e CW1 ([facility])
[2021-04-03 19:10] LABS: CHOLESTEROL LEVEL 318 MG/DL (<200); CHOLESTEROL RISK RATIO 5.781 (<5); HDL CHOLESTEROL 55 MG/DL (>40); LDL CHOLESTEROL 210 MG/DL (<100); NON-HDL-C 263 MG/DL; TRIGLYCERIDES LEVEL 264 MG/DL (<150)
[2021-04-03 19:11] LABS: MAGNESIUM LEVEL 1.8 MG/DL (1.8-2.4)
[2021-04-03] MEDS: NS 1,000 ML IV SCH (19:16)
[2021-04-03 19:27] LABS: RSV AMPLIFICATION NEGATIVE (NEGATIVE)
[2021-04-03] MEDS ORDERED: LISI-898 PO (19:50)
[2021-04-03] MEDS ORDERED: EXCETAB33 PO (19:50)
[2021-04-03] MEDS ORDERED: HOME MED LIST COMPLETE! XX SCH (19:55)
[2021-04-03 20:06] VITALS: BP 172/100
[2021-04-03] MEDS ORDERED: LORazepam 2 MG/ML VIAL IV PRN (20:20)
[2021-04-03] MEDS ORDERED: MAG SULF 1GM/100ML (MAG RUN) 1 GM in IV 1 EA IV ONE (20:25)
--- NOTE | 2021-04-03 20:55 | HPEPDOC ---
General Date of Admission Apr 03, 2021 at 12:49 Date of Service: Apr 03, 2021 Chief Complaint The patient is a 36-year-old male admitted with a reason for visit of Hyperglycemia. Source: Patient History of Present Illness Arjun Cleaning is a 36-year-old male with significant medical history of hyperlipidemia, hypertension and diabetes who presents with complaints of intractable nausea vomiting and abdominal pain. Patient reports that he has had nausea vomiting since he left the hospital 4 weeks ago when he had a diabetic ulcer and subsequent right toe amputation. Patient reports that he has had barely tolerated p.o. intake and has lost 23 pounds in the past month. Patient describes nausea and vomiting as well as right upper quadrant and generalized abdominal discomfort during his 4 weeks. Pt denies best, sinus congestion, sore throat, productive cough, sob,chest pain, d, weakness, sensory changes or syncope. Patient does endorse at times palpitations. At one point he describes nocturnal projectile vomiting episodes and feeling "heart racing". He denies dizziness or chest pain. He denies any cardiac history. Pt also describes some esophageal discomfort sometimes "pressure or sticking" sensation that is relieved with emesis. He denies any history of esophageal spasms, gastroparesis or esophageal stricture. He denies history of ulcers or any GI work-up such as endoscopy. He denies history of lactose intoelrance, but he says he cannot "handle any dairy except activa". He does have notably uncontrolled blood glucose level. He reports at home he is 2-300s typically. A1c 11.6. Patient reports that he attempted to see his PCP for his complaints however he had an appointment on the that I had to be pushed back and rescheduled until . Since patient losing weight and "miserable" he decided to come in the hospital. Patient reports that he has not seen an firer retort in the past. He reports compliance with his medications however past 2 days he has been unable to take any medications due to the nausea vomiting. Of note, patient afebrile, no leukocytosis. He is sinus tach heart rate 116. Hypertensive 187/76. Respiratory rate 18. blood glucose 577. No acidosis per BMP, pH pending. Lipase 735. CT abdomen pelvis completed nonacute. Gallbladder ultrasound completed negative. Chest x-ray nonacute. UA pending. Given patient's inability to tolerate p.o. and notable elevation in creatinine from 1.01-1.38. BUN 23. Patient will be observed for further evaluation management of presenting concerns Home Medications Scheduled Aspirin (Aspirin EC) 81 Mg Tablet.dr, 81 MG PO DAILY, (Reported) Empagliflozin (Jardiance) 10 Mg Tablet, 10 MG PO DAILY, (Reported) Insulin Glargine,Hum.rec.anlog (Lantus Solostar) 100 Unit/1 Ml Insuln.pen, 24 UNITS SC QHS, (Reported) Insulin Human Lispro (Humalog) 100 Unit/1 Ml Vial, 8 UNITS SC AC, (Reported) Lisinopril (Lisinopril) 5 Mg Tablet, 5 MG PO DAILY, (Reported) Simvastatin (Simvastatin) 20 Mg Tablet, 20 MG PO QHS, (Reported) Scheduled PRN Aspirin/Acetaminophen/Caffeine (Excedrin Migraine Caplet) 1 Each Tablet, 1 TAB PO DAILY PRN for MIGRAINE, (Reported) Allergies Coded Allergies: metformin (Verified Adverse Reaction, Mild, VOMITING, 03/11/21) Past Medical History Medical History Hyperlipidemia, hypertension, diabetes, MRSA infection Surgical History Inguinal hernia repair, ear tube surgery, toe amputation right and left toe Family History Significant Family History: Diabetes, Heart disease Fatherhypertension, motherdiabetes, asthma and hypertension, brotherdiabetes and asthma Social History * Smoker: Denies Alcohol: rarely (Monthly or every other month) Drugs: denies Recent Travel/Sick Contacts: Denies: Recent travel, Recent sick contacts Psychosocial History: No pertinent psych hx Patient works at [employer] A-FIB/[employer] A-FIB History Current/History of A-Fib/PAF?: No Current PO Anticoag Therapy: No Review of Systems Constitutional: Reports: Weakness, Fatigue; Denies: Chills, Fever, Night Sweats Eyes: Denies: Pain, Vision change ENT: Denies: Head Aches, Ear Pain, Dysphagia Skin: Denies: Rash, Lesions, Breakdown Pulmonary: Denies: Dyspnea, Cough Cardiovascular: Reports: Palpitations; Denies: Chest Pain, Orthopnea, Paroxysmal Noc. Dyspnea, Lt Headedness Gastrointestinal: Reports: Nausea, Vomiting, Abdominal Pain, Other Symptoms (Bloating); Denies: Diarrhea Genitourinary: Denies: Dysuria, Frequency, Incontinence, Retention Hematologic: Denies: Bruising, Bleeding Excessively Musculoskeletal: Denies: Neck Pain, Back Pain, Joint Pain, Muscle Pain, Spasms Neurological: Denies: Weakness, Numbness, Change in speech, Confusion Psych: Reports: Anxiety; Denies: Depression, Memory Issues Physical Examination General Exam: Positive: Alert, Cooperative, No Acute Distress Eye Exam: Positive: PERRLA, Conjunctiva & lids normal, EOMI; Negative: Sclera icteric ENT Exam: Positive: Atraumatic, Mucous membr. moist/pink, Pharynx Normal Neck Exam: Positive: Supple; Negative: JVD, thyromegaly Chest Exam: Positive: Clear to auscultation, Normal air movement Heart Exam: Positive: Tachycardic, Normal S1, Normal S2; Negative: Murmurs, Rubs Telemetry: Positive: Sinus, Tachycardia Abdomen Exam: Positive: Normal bowel sounds, Soft, Tenderness (generalized); Negative: Hepatospenomegaly Extremity Exam: Positive: Normal pulses; Negative: Clubbing, Cyanosis, Edema Skin Exam: Positive: Nl turgor and temperature; Negative: Breakdown, Lesion Neuro Exam: Positive: Normal Gait, Normal Speech, Cranial Nerves 3-12 NL, Reflexes 2+ Psych Exam: Positive: Mental status NL, Anxiety (Patient mildly anxious that it point with his concern regarding his nausea vomiting for the past month and weight loss he gets somewhat tearful and this increases his blood pressure and heart rate noticeably during exam), Oriented x 3 Vital Signs Vital Signs Date Time Temp Pulse Resp B/P (MAP) Pulse Ox O2 Delivery O2 Flow Rate FiO2 04/03/21 20:03 110 16 99 Room Air 04/03/21 20:00 156/90 (112) 04/03/21 12:50 97.0 Laboratory Data Labs 24H Laboratory Tests 2 04/03/21 13:12: Immature Granulocyte % (Auto) 0.3, Neutrophils (%) (Auto) 71.8H, Lymphocytes (%) (Auto) 20.4L, Monocytes (%) (Auto) 6.1, Eosinophils (%) (Auto) 1.1, Basophils (%) (Auto) 0.3, Neutrophils # (Auto) 5.6, Lymphocytes # (Auto) 1.6, Monocytes # (Auto) 0.5, Eosinophils # (Auto) 0.1, Basophils # (Auto) 0.0, Nucleated Red Blood Cells % (auto) 0.0, Anion Gap 12, Glomerular Filtration Rate > 60.0, Estimated Mean Plasma Glucose 286H, Hemoglobin A1c 11.6, Calcium Level 9.0, Magnesium Level 1.8, Total Bilirubin 0.6, Direct Bilirubin 0.1, Aspartate Amino Transf (AST/SGOT) 15, Alanine Aminotransferase (ALT/SGPT) 27, Alkaline Phosphatase 161H, Total Protein 7.4, Albumin 3.3, Albumin/Globulin Ratio 0.8, Triglycerides Level 264H, Total Cholesterol 318H, LDL Cholesterol 210H, Non-HDL Cholesterol (LDL + VLDL) 263, Total HDL Cholesterol 55, Cholesterol/HDL Ratio 5.781H, Lipase 786H 04/03/21 18:10: Bedside Glucose (Misc Panel) 393H 04/03/21 18:18: Coronavirus (COVID-19)(PCR) NEGATIVE, Influenza Type A (RT-PCR) NEGATIVE, Influenza Type B (RT-PCR) NEGATIVE, Respiratory Syncytial Virus (PCR) NEGATIVE 04/03/21 19:15: Bedside Glucose (Misc Panel) 398H CBC/BMP Laboratory Tests 04/03/21 13:12 Assessment/Plan 1. Intractable nausea/vomiting in patient with hyperglycemia: Concern for gastroparesis. Lipase less than 2 times normal limit consider developing pancreatitis although ct a/p nonacute. -Clear diet -Aggressive IV hydration -Symptom management/supportive care with antiemetics and analgesics: We will schedule Reglan and as needed for breakthrough -A.m. lab -Consider GI consult if pt without improvement -*Of consideration, patient does endorse reflux of bloating and some darker emesis however hemoglobin is stable. Monitor for overt bleeding or hemoglobin drop. 2. Hyperglycemia in diabetic: No anion gap acidosis at admission. Repeat BMP/pH pending -Monitor patient blood glucose q6h. -Sliding scale insulin and continue home long-acting. -A.m. labs. -Encourage pt for PCP f/u with discharge and probable benefit from endocrinology as pt outlines elevated a1c over years. 3. KO: Mild patient creatinine increased from 1.01-1.38 in setting of decreased p.o. and GI losses. Patient does appear dehydrated with dry mucous membrane. -Plan for hydration as noted above repeat BMP. -Monitor urine output and will check UA. -Consider nephrology pending no improvement with fluid challenge. Avoid nephrotoxins as able. 4. Tachycardia in setting of dehydration: Hydrate patient as noted above. Magnesium 1.8 -repletion given. Telemetry monitoring for consideration of t achyarrhythmia given patient had some reported palpitation episodes at home, but likely all related to GI upset above. 5. HTN: -Monitor BP in setting of above. -Repeat BMP. Plan for lisinopril continuation tomorrow if creatinine normalizing. -Should patient be without improvement from hydration consider alternate blood pressure controlling agent. 6. HDL: Check lipid panel for consideration of above. Continue statin DVT prophylaxis: SCDs CODE STATUS: Full code Disposition planning: Home once tolerating p.o. Plan / VTE VTE Prophylaxis Ordered?: Yes ADITYA SMILEY NP Apr 03, 2021 20:24
[2021-04-03] MEDS: PANTOPRAZOLE 40MG VIAL (C9113 PER 1) IV SCH (20:59)
[2021-04-03] MEDS: METOCLOPRAMIDE INJ 10MG/2ML VIAL (J2765 PER 1) IV SCH (20:59)
[2021-04-03] MEDS: HumaLOG INSULIN (NovoLOG) PER UNIT SC SCH (21:00)
[2021-04-03 21:44] VITALS: BP 138/68
[2021-04-03] MEDS: SIMVASTATIN 20 MG TAB PO SCH (22:11)
[2021-04-03] MEDS: LEVEMIR (INSULIN DETEMIR) 1 UNITS/0.01ML SC SCH (22:12)
[2021-04-03 22:17] LABS: VENOUS BASE EXCESS -0.6 (-2.0-2.0); VENOUS HCO3 22.5 MEQ/L (23.0-27.0); VENOUS O2 SATURATION 99.1 % (60.0-80.0); VENOUS PARTIAL PRESSURE CO2 32.4 mmHg (38.0-50.0); VENOUS PARTIAL PRESSURE O2 196.2 mmHg (30.0-50.0); VENOUS PH 7.459 UNITS (7.330-7.430); VENOUS TOTAL CO2 23.5 MEQ/L (24.0-28.0)
[2021-04-03 22:52] LABS: BLOOD UREA NITROGEN 22 MG/DL (7-18); CALCIUM LEVEL 8.3 MG/DL (8.5-10.1); CARBON DIOXIDE LEVEL 26 MEQ/L (21-32); CHLORIDE LEVEL 104 MEQ/L (98-107); GLOMERULAR FILTRATION RATE > 60.0 (>60); GLUCOSE, FASTING 410 MG/DL (70-100); POTASSIUM SERUM 3.3 MEQ/L (3.5-5.1); SODIUM LEVEL 138 MEQ/L (136-145)
[2021-04-04] MEDS: METOCLOPRAMIDE INJ 10MG/2ML VIAL (J2765 PER 1) IV SCH ×4 (02:35→21:46)
[2021-04-04] MEDS: HumaLOG INSULIN (NovoLOG) PER UNIT SC SCH ×2 (02:36→17:53)
[2021-04-04] MEDS: NS 1,000 ML IV SCH ×3 (04:15→23:28)
[2021-04-04 06:00] VITALS: BP 142/88
[2021-04-04 07:19] LABS: BASO % 0.3 % (0.0-1.0); EOS # 0.2 10^3/uL (0.0-0.5); HEMATOCRIT 35.4 % (42.0-52.0); HEMOGLOBIN 12.3 g/dl (13.5-17.5); LYMPH # 2.6 10^3/uL (1.5-5.0); MEAN CORPUSCULAR HEMOGLOBIN 29.4 pg (27.0-33.0); MEAN CORPUSCULAR HGB CONC 34.7 g/dl (32.0-36.5); MEAN CORPUSCULAR VOLUME 84.7 fl (80.0-96.0); MONO # 0.5 10^3/uL (0.0-0.8); MONO % 7.1 % (2.0-8.0); NEUTROPHILS # 4.3 10^3/uL (1.5-8.5); NEUTROPHILS % 56.3 % (36.0-66.0); PLATELET COUNT, AUTOMATED 260 10^3/uL (150-450); RED BLOOD COUNT 4.18 10^6/uL (4.30-6.10); WHITE BLOOD COUNT 7.6 10^3/uL (4.0-10.0)
[2021-04-04 07:45] LABS: BLOOD UREA NITROGEN 19 MG/DL (7-18); CALCIUM LEVEL 8.2 MG/DL (8.5-10.1); CARBON DIOXIDE LEVEL 31 MEQ/L (21-32); CHLORIDE LEVEL 103 MEQ/L (98-107); CREATININE FOR GFR 1.05 MG/DL (0.70-1.30); GLOMERULAR FILTRATION RATE > 60.0 (>60); GLUCOSE, FASTING 109 MG/DL (70-100); LIPASE 158 U/L (73-393); POTASSIUM SERUM 3.5 MEQ/L (3.5-5.1); SODIUM LEVEL 141 MEQ/L (136-145)
[2021-04-04] MEDS: ASPIRIN 81MG ENTERIC TABLET PO SCH (08:27)
[2021-04-04] MEDS: lisinopriL 5 MG TAB PO SCH (08:28)
[2021-04-04] MEDS ORDERED: INFLUENZA QUADRIVALENT PF VACCINE 0.5ML SYRINGE IM ONE (09:00)
--- NOTE | 2021-04-04 11:46 | IPNPDOC ---
Subjective Date Seen The patient was seen on 04/04/21. Subjective Chief Complaint/HPI Continues to have some nausea however has been able to keep clear liquids down. Has not had any episodes of vomiting since admission. Patient reports that he has gone down 4 pant sizes in the past 1 month. He reports that he would be feeling okay for couple days and then he would have several days when he would be vomiting for 5 times a day did not feel better another 1 or 2 days and again the cycle would start. No diarrhea in fact he has not had a good bowel movement in this past month. Objective Physical Examination General Exam: Positive: Alert, Cooperative, No Acute Distress Eye Exam: Positive: PERRLA, Conjunctiva & lids normal, EOMI; Negative: Sclera icteric ENT Exam: Positive: Atraumatic, Mucous membr. moist/pink, Pharynx Normal Neck Exam: Positive: Supple; Negative: JVD, thyromegaly Chest Exam: Positive: Clear to auscultation, Normal air movement Heart Exam: Positive: Rate Normal, Normal S1, Normal S2; Negative: Murmurs, Rubs Telemetry: Positive: No significant arrhythmia Abdomen Exam: Positive: Normal bowel sounds, Soft, Tenderness (right lower quadrant); Negative: Hepatospenomegaly Extremity Exam: Positive: Normal pulses; Negative: Clubbing, Cyanosis, Edema Skin Exam: Positive: Nl turgor and temperature; Negative: Breakdown, Lesion Neuro Exam: Positive: Normal Gait, Normal Speech, Cranial Nerves 3-12 NL, Reflexes 2+ Psych Exam: Positive: Mental status NL, Oriented x 3 Assessment /Plan Assessment This is a 36-year-old male with significant medical history of hyperlipidemia, hypertension and diabetes who presented with complaints of intractable nausea, vomiting and abdominal pain for 1 month with loss of 23 pounds and drop in 4 pant sizes. Patient reported that he has had nausea, vomiting since he left the hospital 4 weeks ago when he had a diabetic ulcer and subsequent right toe amputation. He was on oral antibiotics at home but he finished them about 2 weeks ago. Patient was admitted for intractable nausea and vomiting and unable to tolerate p.o. And presented to the emergency room his blood sugars were over 500 with A1c of 11.2. Intractable nausea/vomiting in patient with hyperglycemia Concern for gastroparesis. Symptomatic treatment with the metoclopramide, IV fluid, clear liquids and advance diet as tolerated Schedule gastric emptying study as an outpatient Patient should also be referred to GI for an EGD due to the presence of significant weight loss. Uncontrolled DM With A1c of 11.2 Continue with Levemir and lispro Protein calorie malnutrition 23 pound weight loss in 1 month Due to inability to take p.o. This could be due to uncontrolled sugars/gastroparesis If symptoms do not resolve would need a EGD as an outpatient KO Due to elevated sugars osmotic diuresis and inability to take p.o. Now improved HTN Continue lisinopril HDL Continue statin Plan/VTE VTE Prophylaxis Ordered?: Yes VS, I&O, 24H, Fishbone Vital Signs/I&O Vital Signs Date Time Temp Pulse Resp B/P (MAP) Pulse Ox O2 Delivery O2 Flow Rate FiO2 04/04/21 08:28 133/87 04/04/21 06:00 98.0 100 20 98 Room Air I&O- Last 24 Hours up to 6 AM 04/04/21 06:00 Intake Total 3625 ml Output Total 750 ml Balance 2875 ml Laboratory Data 24H LABS Laboratory Tests 2 04/03/21 13:12: Immature Granulocyte % (Auto) 0.3, Neutrophils (%) (Auto) 71.8H, Lymphocytes (%) (Auto) 20.4L, Monocytes (%) (Auto) 6.1, Eosinophils (%) (Auto) 1.1, Basophils (%) (Auto) 0.3, Neutrophils # (Auto) 5.6, Lymphocytes # (Auto) 1.6, Monocytes # (Auto) 0.5, Eosinophils # (Auto) 0.1, Basophils # (Auto) 0.0, Nucleated Red Blood Cells % (auto) 0.0, Anion Gap 12, Glomerular Filtration Rate > 60.0, Estimated Mean Plasma Glucose 286H, Hemoglobin A1c 11.6, Calcium Level 9.0, Magnesium Level 1.8, Total Bilirubin 0.6, Direct Bilirubin 0.1, Aspartate Amino Transf (AST/SGOT) 15, Alanine Aminotransferase (ALT/SGPT) 27, Alkaline Phosphatase 161H, Total Protein 7.4, Albumin 3.3, Albumin/Globulin Ratio 0.8, Triglycerides Level 264H, Total Cholesterol 318H, LDL Cholesterol 210H, Non-HDL Cholesterol (LDL + VLDL) 263, Total HDL Cholesterol 55, Cholesterol/HDL Ratio 5.781H, Lipase 786H 04/03/21 18:10: Bedside Glucose (Misc Panel) 393H 04/03/21 18:18: Coronavirus (COVID-19)(PCR) NEGATIVE, Influenza Type A (RT-PCR) NEGATIVE, Influenza Type B (RT-PCR) NEGATIVE, Respiratory Syncytial Virus (PCR) NEGATIVE 04/03/21 19:15: Bedside Glucose (Misc Panel) 398H 04/03/21 20:26: Bedside Glucose (Misc Panel) 350H 04/03/21 22:11: Blood Gas Bicarbonate Standard 24.0, Venous Blood pH 7.459H, Venous Blood Partial Pressure CO2 32.4L, Venous Blood Partial Pressure O2 196.2H, Venous Blood Total Carbon Dioxide 23.5L, Venous Blood HCO3 22.5L, Venous Blood Oxygen Saturation 99.1H, Venous Blood Base Excess -0.6, Anion Gap 8, Glomerular Filtration Rate > 60.0, Lactic Acid Level 1.4, Calcium Level 8.3L 04/04/21 02:30: Bedside Glucose (Misc Panel) 266H 04/04/21 06:54: Anion Gap 7L, Glomerular Filtration Rate > 60.0, Calcium Level 8.2L, Immature Granulocyte % (Auto) 0.3, Neutrophils (%) (Auto) 56.3, Lymphocytes (%) (Auto) 34.0, Monocytes (%) (Auto) 7.1, Eosinophils (%) (Auto) 2.0, Basophils (%) (Auto) 0.3, Neutrophils # (Auto) 4.3, Lymphocytes # (Auto) 2.6, Monocytes # (Auto) 0.5, Eosinophils # (Auto) 0.2, Basophils # (Auto) 0.0, Nucleated Red Blood Cells % ( auto) 0.0, Magnesium Level 1.9, Lipase 158 04/04/21 08:30: Urine Color YELLOW, Urine Appearance HAZY, Urine pH 5.0, Urine Specific [place] 1.038, Urine Protein 2+H, Urine Glucose (UA) 3+H, Urine Ketones TRACEH, Urine Blood NEGATIVE, Urine Nitrite NEGATIVE, Urine Bilirubin NEGATIVE, Urine Urobilinogen 0.2, Urine Leukocyte Esterase NEGATIVE, Urine WBC (Auto) 3, Urine RBC (Auto) 4H, Urine Hyaline Casts (Auto) 0, Urine Bacteria (Auto) 3+H, Urine Squamous Epithelial Cells 0, Urine Mucus (Auto) SMALL, Urine Sperm (Auto) SMALLH CBC/BMP Laboratory Tests 04/03/21 13:12 04/03/21 22:11 04/04/21 06:54 Fiorella Lam MD Apr 04, 2021 11:46
[2021-04-04] MEDS ORDERED: HumaLOG INSULIN (NovoLOG) PER UNIT SC SCH ×3 (12:00→21:00)
[2021-04-04 14:00] VITALS: BP 109/55
--- NOTE | 2021-04-04 18:56 | ECGEPIP ---
[facility] - ED Test Date: 2021-04-03 Pat Name: DAKOTA CARR Department: Room: - Gender: Male [employer]st: ANN MARIE : 1985 Requested By: Tamia Wood Order Number: [id number] Reading MD: Stefany Taylor Measurements Intervals [place] Rate: 109 P: 12 VA: 126 QRS: 91 QRSD: 74 T: 33 QT: 356 QTc: 479 Interpretive Statements Sinus tachycardia irbb Possible Left atrial enlargement Rightward axis Electronically Signed on 04-04-2021 18:56:35 EDT by Stefany Taylor
[2021-04-04] MEDS: PANTOPRAZOLE 40MG VIAL (C9113 PER 1) IV SCH (21:46)
[2021-04-04] MEDS: SIMVASTATIN 20 MG TAB PO SCH (21:46)
[2021-04-04] MEDS: LEVEMIR (INSULIN DETEMIR) 1 UNITS/0.01ML SC SCH (21:47)
[2021-04-04 22:00] VITALS: BP 116/77
[2021-04-05] MEDS: METOCLOPRAMIDE INJ 10MG/2ML VIAL (J2765 PER 1) IV SCH (03:35)
[2021-04-05] MEDS ORDERED: METOCLOPRAMIDE INJ 10MG/2ML VIAL (J2765 PER 1) IV PRN (05:55)
[2021-04-05 06:00] VITALS: BP 146/98
[2021-04-05] MEDS ORDERED: METOCLOPRAMIDE 5 MG TAB PO PRN (08:05)
[2021-04-05] MEDS: ASPIRIN 81MG ENTERIC TABLET PO SCH (08:30)
[2021-04-05] MEDS: HumaLOG INSULIN (NovoLOG) PER UNIT SC SCH ×2 (08:30→12:34)
[2021-04-05 08:33] VITALS: BP 172/96
[2021-04-05] MEDS: lisinopriL 5 MG TAB PO SCH (08:33)
[2021-04-05 08:46] LABS: BASO % 0.4 % (0.0-1.0); EOS # 0.1 10^3/uL (0.0-0.5); EOS % 1.9 % (0.0-3.0); HEMATOCRIT 38.2 % (42.0-52.0); HEMOGLOBIN 13.1 g/dl (13.5-17.5); LYMPH # 1.7 10^3/uL (1.5-5.0); LYMPH % 25.1 % (24.0-44.0); MEAN CORPUSCULAR HGB CONC 34.3 g/dl (32.0-36.5); MEAN CORPUSCULAR VOLUME 84.5 fl (80.0-96.0); MONO # 0.5 10^3/uL (0.0-0.8); MONO % 7.1 % (2.0-8.0); NEUTROPHILS # 4.5 10^3/uL (1.5-8.5); NEUTROPHILS % 65.2 % (36.0-66.0); PLATELET COUNT, AUTOMATED 217 10^3/uL (150-450); RED BLOOD COUNT 4.52 10^6/uL (4.30-6.10); WHITE BLOOD COUNT 6.9 10^3/uL (4.0-10.0)
[2021-04-05] MEDS ORDERED: LEVEMIR (INSULIN DETEMIR) 1 UNITS/0.01ML SC SCH (09:00)
[2021-04-05 09:16] LABS: BLOOD UREA NITROGEN 16 MG/DL (7-18); CALCIUM LEVEL 8.5 MG/DL (8.5-10.1); CARBON DIOXIDE LEVEL 28 MEQ/L (21-32); CHLORIDE LEVEL 104 MEQ/L (98-107); CREATININE FOR GFR 1.07 MG/DL (0.70-1.30); GLOMERULAR FILTRATION RATE > 60.0 (>60); GLUCOSE, FASTING 284 MG/DL (70-100); LIPASE 116 U/L (73-393); POTASSIUM SERUM 3.5 MEQ/L (3.5-5.1); SODIUM LEVEL 137 MEQ/L (136-145)
[2021-04-05] MEDS ORDERED: LANTINJ4 SC (11:27)
--- NOTE | 2021-04-05 17:01 | DS.PDOC ---
Discharge Summary General Date of Admission Apr 03, 2021 at 12:49 Date of Discharge 04/05/21 Discharge Summary PROCEDURES PERFORMED DURING STAY: [None]. DISCHARGE DIAGNOSES: Intractable nausea and vomiting likely due to Diabetic Gastroparesis. Uncontrolled DMtype 2 HTN KO Protein calorie malnutrition HDL COMPLICATIONS/CHIEF COMPLAINT: Hyperglycemia. HOSPITAL COURSE: This is a 36-year-old male with significant medical history of hyperlipidemia, hypertension and diabetes who presented with complaints of intractable nausea, vomiting and abdominal pain for 1 month with loss of 23 pounds and drop in 4 pant sizes. Patient reported that he has had nausea, vomiting since he left the hospital 4 weeks ago when he had a diabetic ulcer and subsequent right toe amputation. He was on oral antibiotics at home but he finished them about 2 weeks ago. Patient was admitted for intractable nausea and vomiting and unable to tolerate p.o. And presented to the emergency room his blood sugars were over 500 with A1c of 11.2. Intractable nausea/vomiting in patient with hyperglycemia Concern for gastroparesis. Symptomatic treatment with bowel rest and antiemetics improved his symtoms and he was able to take solid food and keep it down on kaye day of discharge. Schedule gastric emptying study as an outpatient Patient should also be referred to GI for an EGD due to the presence of significant weight loss. Uncontrolled DM With A1c of 11.2 Continue with Levemir and lispro Protein calorie malnutrition 23 pound weight loss in 1 month Due to inability to take p.o. This could be due to uncontrolled sugars/gastroparesis If symptoms do not resolve would need a EGD as an outpatient KO Due to elevated sugars osmotic diuresis and inability to take p.o. Now improved HTN Continue lisinopril HDL Continue statin DISCHARGE MEDICATIONS: Please see below. ALLERGIES: Please see below. PHYSICAL EXAMINATION ON DISCHARGE: VITAL SIGNS: Please see below. General Exam: Positive: Alert, Cooperative, No Acute Distress Eye Exam: Positive: PERRLA, Conjunctiva & lids normal, EOMI; Negative: Sclera icteric ENT Exam: Positive: Atraumatic, Mucous membr. moist/pink, Pharynx Normal Neck Exam: Positive: Supple; Negative: JVD, thyromegaly Chest Exam: Positive: Clear to auscultation, Normal air movement Heart Exam: Positive: Rate Normal, Normal S1, Normal S2; Negative: Murmurs, Rubs Telemetry: Positive: No significant arrhythmia Abdomen Exam: Positive: Normal bowel sounds, Soft, Tenderness (right lower quadrant); Negative: Hepatospenomegaly Extremity Exam: Positive: Normal pulses; Negative: Clubbing, Cyanosis, Edema Skin Exam: Positive: Nl turgor and temperature; Negative: Breakdown, Lesion Neuro Exam: Positive: Normal Gait, Normal Speech, Cranial Nerves 3-12 NL, Reflexes 2+ Psych Exam: Positive: Mental status NL, Oriented x 3 LABORATORY DATA: Please see below. Activity [As tolerated]. DIET: Carb consistent DISCHARGE PLAN: Home DISCHARGE INSTRUCTIONS: PMD in1 week Gastric emptying study as outpatient Gastroenterology referral. DISCHARGE CONDITION: [Stable]. TIME SPENT ON DISCHARGE: 35 minutes. Vital Signs/I&Os Vital Signs Date Time Temp Pulse Resp B/P (MAP) Pulse Ox O2 Delivery O2 Flow Rate FiO2 04/05/21 06:00 97.9 98 18 146/98 (114) 99 Room Air I&O- Last 24 Hours up to 6 AM 04/05/21 06:00 Intake Total 4725 ml Output Total 1900 ml Balance 2825 ml Laboratory Data Labs 24H Laboratory Tests 2 04/04/21 08:30: Urine Color YELLOW, Urine Appearance HAZY, Urine pH 5.0, Urine Specific [place] 1.038, Urine Protein 2+H, Urine Glucose (UA) 3+H, Urine Ketones TRACEH, Urine Blood NEGATIVE, Urine Nitrite NEGATIVE, Urine Bilirubin NEGATIVE, Urine Urobilinogen 0.2, Urine Leukocyte Esterase NEGATIVE, Urine WBC (Auto) 3, Urine RBC (Auto) 4H, Urine Hyaline Casts (Auto) 0, Urine Bacteria (Auto) 3+H, Urine Squamous Epithelial Cells 0, Urine Mucus (Auto) SMALL, Urine Sperm (Auto) SMALLH 04/04/21 12:01: Bedside Glucose (Misc Panel) 246H 04/04/21 16:51: Bedside Glucose (Misc Panel) 385H 04/04/21 20:25: Bedside Glucose (Misc Panel) 336H FSBS Laboratory Tests Test 04/04/21 12:01 04/04/21 16:51 04/04/21 20:25 Range/Units Bedside Glucose (Misc Panel) 246 385 336 70-105 MG/DL Discharge Medications Scheduled Aspirin (Aspirin EC) 81 Mg Tablet.dr, 81 MG PO DAILY, (Reported) Empagliflozin (Jardiance) 10 Mg Tablet, 10 MG PO DAILY, (Reported) Insulin Glargine,Hum.rec.anlog (Lantus Solostar) 100 Unit/1 Ml Insuln.pen, 40 UNITS SC QHS Insulin Human Lispro (Humalog) 100 Unit/1 Ml Vial, 8 UNITS SC AC, (Reported) Lisinopril (Lisinopril) 5 Mg Tablet, 5 MG PO DAILY, (Reported) Simvastatin (Simvastatin) 20 Mg Tablet, 20 MG PO QHS, (Reported) Scheduled PRN Aspirin/Acetaminophen/Caffeine (Excedrin Migraine Caplet) 1 Each Tablet, 1 TAB PO DAILY PRN for MIGRAINE, (Reported) Allergies Coded Allergies: metformin (Verified Adverse Reaction, Mild, VOMITING, 03/11/21) Fiorella Lam MD Apr 05, 2021 08:02
== END 2021-04-05 12:36 | disposition home or self-care (01) ==
LOC: M ED 12:48 → M ED INP 12:49 → M MSPAV 20:05
PROVIDERS: ADMIT Family Medicine; ATTEND Internal Medicine Nephrology
DX: R11.2 Nausea with vomiting, unspecified (principal); E11.65 Type 2 diabetes mellitus with hyperglycemia; E46 Unspecified protein-calorie malnutrition; R63.4 Abnormal weight loss; N17.9 Acute kidney failure, unspecified; R35.89 Other polyuria; R63.8 Other symptoms and signs concerning food and fluid intake; I10 Essential (primary) hypertension; E78.5 Hyperlipidemia, unspecified; R10.11 Right upper quadrant pain; R00.2 Palpitations; R00.0 Tachycardia, unspecified; Z79.899 Other long term (current) drug therapy; Z79.82 Long term (current) use of aspirin; Z79.4 Long term (current) use of insulin; Z79.84 Long term (current) use of oral hypoglycemic drugs; Z88.8 Allergy status to other drugs, medicaments and biological substances; Z86.14 Personal history of Methicillin resistant Staphylococcus aureus infection; Z83.3 Family history of diabetes mellitus
CPT/HCPCS: 36415; 71045; 74177; 76705; 80048; 80061; 80076; 81001; 82803; 83036; 83605; 83690; 83735; 85025; 87631; 90471; 90686; 93005; 96361; 96374; 96375; 96376; 99285; C9113; J2405; J2765; J3475; Q9967

== ENCOUNTER → 2021-06-26 | Outpatient (CLI) | payer OTHER ==
[~2021-06-26] MED LIST changes: +EXCETAB33 PO; +LISI5TAB11 PO
== END ==
LOC: M PLAIMG 07:32
PROVIDERS: ATTEND Physician Assistant Medical
DX: G43.909 Migraine, unspecified, not intractable, without status migrainosus (principal)

== ENCOUNTER → 2021-08-14 | Outpatient (REF) | payer OTHER | LOC: M SFHCPLAZ 16:50 | PROVIDERS: ATTEND Physician Assistant Medical | DX: J02.9 Acute pharyngitis, unspecified (principal) ==

== ENCOUNTER → 2021-12-27 | Outpatient (CLI) | payer OTHER ==
[~2021-12-27] MED LIST changes: +EXCETAB32 PO; -EXCETAB33 PO
== END ==
LOC: M WHC 12:24
PROVIDERS: ATTEND Podiatrist
DX: I82.421 Acute embolism and thrombosis of right iliac vein (principal)

== ENCOUNTER 2022-03-20 18:40 | Emergency (ER) | payer OTHER ==
[~2022-03-20] VITALS: Ht 180.3 cm; Wt 109.7 kg
[2022-03-20] MEDS ORDERED: CETI-24 (18:51)
[2022-03-20] MEDS ORDERED: ACET650T15 PO (18:51)
[2022-03-20] MEDS ORDERED: KETOROLAC 60MG 2ML VIAL IM ONE (21:15)
[2022-03-20] MEDS ORDERED: methocarbamoL 750 MG TAB PO ONE (21:15)
[2022-03-20] MEDS ORDERED: METH-1165 PO (22:37)
[2022-03-20] MEDS ORDERED: NAPR-837 PO (22:37)
[2022-03-20 22:54] VITALS: BP 161/94
== END 2022-03-20 20:25 | disposition home or self-care (01) ==
LOC: M ED 18:40
DX: M62.838 Other muscle spasm (principal); Z88.8 Allergy status to other drugs, medicaments and biological substances
CPT/HCPCS: 96372; 99283; J1885

== ENCOUNTER → 2022-03-25 | Outpatient (REF) | payer OTHER ==
[~2022-03-25] MED LIST changes: +ACET650T15 PO; +CETI-24; +METH-1165 PO; +NAPR-837 PO
== END ==
LOC: M LAB REF 12:24
PROVIDERS: ATTEND Podiatrist
DX: L03.031 Cellulitis of right toe (principal); M79.671 Pain in right foot

== ENCOUNTER → 2022-04-21 | Outpatient (REF) | payer OTHER ==
[2022-04-21 14:05] LABS: APPEARANCE, URINE MANUAL HAZY (CLEAR); COLOR, URINE MANUAL LT YELLOW (YELLOW)
[2022-04-21 14:07] LABS: BILIRUBIN, URINE MANUAL NEGATIVE (NEGATIVE); GLUCOSE, URINE (UA) MANUAL 4+(1000 MG/DL) mg/dL (NEGATIVE); KETONE, URINE MANUAL 1+ mg/dL (NEGATIVE); NITRITE, URINE MANUAL NEGATIVE (NEGATIVE); PROTEIN, URINE MANUAL 3+ mg/dL (NEGATIVE); SPECIFIC GRAVITY,URINE MANUAL 1.005 (1.002-1.035); UROBILINOGEN, URINE MANUAL NORMAL (NORMAL)
[2022-04-21 14:08] LABS: BLOOD URINE MANUAL POSITIVE (NEGATIVE)
[2022-04-21 14:52] LABS: RBC, URINE TNTC /hpf (0-3); SQUAMOUS EPITHELIAL CELL URINE SMALL AMOUNT /hpf (SMALL AMT)
[2022-04-21 14:53] LABS: BACTERIA, URINE SMALL AMOUNT
[2022-04-21 14:54] LABS: LEUKOCYTE ESTERASE, URINE MAN POSITIVE (NEGATIVE); WBC, URINE 20-30 /hpf (0-3)
[2022-04-21 14:55] LABS: HYALINE CAST, URINE NONE SEEN /lpf (0-1)
== END ==
LOC: M LAB REF 12:02
PROVIDERS: ATTEND Physician Assistant Medical
DX: N39.0 Urinary tract infection, site not specified (principal)

== ENCOUNTER 2022-04-23 08:23 | Emergency (ER) | payer OTHER ==
[~2022-04-23] VITALS: Ht 180.3 cm; Wt 102.9 kg
[2022-04-23] MEDS ORDERED: LEVO1TAB39 PO (08:31)
[2022-04-23 12:01] LABS: HEMATOCRIT 34.7 % (42.0-52.0); HEMOGLOBIN 12.2 g/dl (13.5-17.5); MEAN CORPUSCULAR HEMOGLOBIN 28.6 pg (27.0-33.0); MEAN CORPUSCULAR HGB CONC 35.2 g/dl (32.0-36.5); MEAN CORPUSCULAR VOLUME 81.5 fl (80.0-96.0); PLATELET COUNT, AUTOMATED 309 10^3/uL (150-450); RED BLOOD COUNT 4.26 10^6/uL (4.30-6.10); WHITE BLOOD COUNT 7.6 10^3/uL (4.0-10.0)
[2022-04-23 12:56] LABS: ALBUMIN 2.7 GM/DL (3.2-5.2); ALT/SGPT 20 U/L (12-78); BILIRUBIN,TOTAL 0.3 MG/DL (0.2-1.0); BLOOD UREA NITROGEN 20 MG/DL (7-18); CALCIUM LEVEL 9.3 MG/DL (8.5-10.1); CARBON DIOXIDE LEVEL 28 MEQ/L (21-32); CHLORIDE LEVEL 95 MEQ/L (98-107); CREATININE FOR GFR 1.12 MG/DL (0.70-1.30); GLOMERULAR FILTRATION RATE > 60.0 (>60); GLUCOSE, FASTING 471 MG/DL (70-100); POTASSIUM SERUM 4.7 MEQ/L (3.5-5.1); SODIUM LEVEL 129 MEQ/L (136-145); TOTAL PROTEIN 7.2 GM/DL (6.4-8.2)
[2022-04-23] MEDS ORDERED: NS 1,000 ML IV ONE (14:05)
[2022-04-23] MEDS ORDERED: KETOROLAC 30 MG/ML 1ML VIAL IV ONE (14:55)
[2022-04-23 15:29] LABS: HEMOGLOBIN A1c 12.4 %
[2022-04-23 17:16] LABS: GC DNA AMPLIFICATION NEGATIVE (NEGATIVE)
[2022-04-23] MEDS ORDERED: PYRI1TAB5 PO (17:34)
[2022-04-23 17:50] VITALS: BP 141/87
== END 2022-04-23 18:17 | disposition home or self-care (01) ==
LOC: M ED 08:23
DX: R31.9 Hematuria, unspecified (principal); R30.0 Dysuria; R81 Glycosuria; E11.69 Type 2 diabetes mellitus with other specified complication; I10 Essential (primary) hypertension; Z86.16 Personal history of COVID-19; Z79.4 Long term (current) use of insulin; Z79.82 Long term (current) use of aspirin; Z79.899 Other long term (current) drug therapy; Z88.8 Allergy status to other drugs, medicaments and biological substances
CPT/HCPCS: 36415; 74176; 80053; 81000; 81015; 83036; 85027; 87086; 87661; 87810; 87850; 96361; 96374; 99284; J1885

== ENCOUNTER → 2022-04-28 | Outpatient (REF) | payer OTHER ==
[~2022-04-28] MED LIST changes: +LEVO1TAB39 PO; +PYRI1TAB5 PO; +[UNRECOGNIZED DRUG - OTHER]
[2022-04-29 14:01] LABS: APPEARANCE, URINE MANUAL CLOUDY (CLEAR); COLOR, URINE MANUAL YELLOW (YELLOW)
[2022-04-29 14:02] LABS: BILIRUBIN, URINE MANUAL NEGATIVE (NEGATIVE); BLOOD URINE MANUAL POSITIVE (NEGATIVE); GLUCOSE, URINE (UA) MANUAL 4+(1000 MG/DL) mg/dL (NEGATIVE); KETONE, URINE MANUAL 3+ mg/dL (NEGATIVE); LEUKOCYTE ESTERASE, URINE MAN POSITIVE (NEGATIVE); NITRITE, URINE MANUAL NEGATIVE (NEGATIVE); PROTEIN, URINE MANUAL 3+ mg/dL (NEGATIVE); UROBILINOGEN, URINE MANUAL NORMAL (NORMAL)
[2022-04-29 14:21] LABS: WBC, URINE 30-40 /hpf (0-3)
[2022-04-29 14:23] LABS: AMORPHOUS SEDIMENT, URINE LARGE AMOUNT (NEGATIVE); BACTERIA, URINE SMALL AMOUNT; MUCUS, URINE MOD AMOUNT (NEGATIVE); SQUAMOUS EPITHELIAL CELL URINE SMALL AMOUNT /hpf (SMALL AMT)
== END ==
LOC: M SMT 12:57
PROVIDERS: ATTEND Physician Assistant
DX: N41.0 Acute prostatitis (principal)

== ENCOUNTER 2022-04-29 14:57 | Inpatient (IN) | payer OTHER ==
[~2022-04-29] VITALS: Ht 180.3 cm; Wt 112.8 kg
[~2022-04-29 14:57] MED LIST changes: -[UNRECOGNIZED DRUG - OTHER]
[2022-04-29] MEDS ORDERED: METOCLOPRAMIDE INJ 10MG/2ML VIAL (J2765 PER 1) IV ONE (15:40)
[2022-04-29] MEDS ORDERED: NS 1,000 ML IV ONE ×2 (15:40→21:50)
[2022-04-29 16:14] LABS: BASO % 0.3 % (0.0-1.0); HEMATOCRIT 25.9 % (42.0-52.0); HEMOGLOBIN 7.9 g/dl (13.5-17.5); LYMPH # 1.2 10^3/uL (1.5-5.0); LYMPH % 7.9 % (24.0-44.0); MEAN CORPUSCULAR HEMOGLOBIN 29.2 pg (27.0-33.0); MEAN CORPUSCULAR HGB CONC 30.5 g/dl (32.0-36.5); MEAN CORPUSCULAR VOLUME 95.6 fl (80.0-96.0); MONO # 0.5 10^3/uL (0.0-0.8); MONO % 3.7 % (2.0-8.0); NEUTROPHILS # 12.3 10^3/uL (1.5-8.5); NEUTROPHILS % 85.1 % (36.0-66.0); PLATELET COUNT, AUTOMATED 662 10^3/uL (150-450); RED BLOOD COUNT 2.71 10^6/uL (4.30-6.10); WHITE BLOOD COUNT 14.5 10^3/uL (4.0-10.0)
[2022-04-29 16:28] LABS: ABG BASE EXCESS -15.4 (-2.0-2.0); ABG HCO3 9.3 MEQ/L (22.0-26.0); ABG O2 SATURATION 98.3 % (95.0-99.0); ABG PARTIAL PRESSURE O2 120.7 mmHg (75.0-100.0); ABG STANDARD HCO3 12.3 MEQ/L (22.0-26.0); ABG TOTAL CO2 9.9 MEQ/L (22.0-29.0); ABG pH (ARTERIAL) 7.312 UNITS (7.350-7.450)
[2022-04-29 16:31] LABS: ABG PARTIAL PRESSURE CO2 18.8 mmHg (35.0-45.0)
[2022-04-29 16:51] LABS: RSV AMPLIFICATION POSITIVE (NEGATIVE)
[2022-04-29 17:19] LABS: ALBUMIN 2.3 G/DL (3.2-5.2); ALT/SGPT 14 U/L (7.0-40); BILIRUBIN,DIRECT 0.3 MG/DL (<0.4); BILIRUBIN,TOTAL 0.8 MG/DL (0.3-1.2); BLOOD UREA NITROGEN 63 MG/DL (9-23); CALCIUM LEVEL 9.6 MG/DL (8.5-10.1); CARBON DIOXIDE LEVEL 12 MMOL/L (20-31); CHLORIDE LEVEL 107 MMOL/L (98-107); CREATININE FOR GFR 1.26 MG/DL (0.70-1.30); GLOMERULAR FILTRATION RATE > 60.0 (>60); GLUCOSE, FASTING 676 MG/DL (60-100); HEMOGLOBIN A1c 9.6 % (4.0-6.0); LIPASE 34 U/L (12-53); MAGNESIUM LEVEL 2.4 MG/DL (1.8-2.4); PHOSPHORUS LEVEL 6.6 MG/DL (2.5-4.9); POTASSIUM SERUM 4.9 MMOL/L (3.5-5.1); SODIUM LEVEL 152 MMOL/L (136-145); TOTAL PROTEIN 6.6 G/DL
[2022-04-29 17:27] LABS: CPK CREATINE PHOSPHOKINASE 38 U/L (46-171)
[2022-04-29] MEDS ORDERED: INSULIN REGULAR IN 0.9 % NACL 100 UNIT in IV 1 EA IV SCH ×2 (17:30)
[2022-04-29] MEDS ORDERED: HumuLIN R (REGULAR) INSULIN (NovoLIN R) **100U/ML** PER UNIT IV ONE (17:30)
[2022-04-29] MEDS ORDERED: INSULIN IV RATE CHANGE DOCUMENTATION ML/HR XX SCH (17:30)
[2022-04-29] MEDS ORDERED: ISOVUE-370 76% 100ML VIAL As Ordered ONE (17:40)
[2022-04-29 17:42] LABS: CK-MB VALUE MASS < 1.0 NG/ML (<3.6); MB/CK RELATIVE INDEX 2.63 (< OR =4)
[2022-04-29 17:49] LABS: OSMOLALITY SERUM 392 MOSM/KG (275-295)
[2022-04-29 18:18] LABS: ACETONE/KETONE > 46.00 MG/DL (<2.81)
[2022-04-29] MEDS ORDERED: PIPERACILLIN/TAZOBACTAM SOD 3.375 GM in D5W MINI-BAG PLUS 50 ML IV ONE (18:55)
[2022-04-29] MEDS ORDERED: [UNRECOGNIZED DRUG - OTHER] (20:42)
[2022-04-29] MEDS ORDERED: HOME MED LIST COMPLETE! XX SCH (20:45)
[2022-04-29] MEDS ORDERED: NS 1,000 ML IV SCH (21:50)
[2022-04-29] MEDS ORDERED: KCL 10MEQ/100ML SWI (KRUN) 10 MEQ in IV 1 EA IV ONE (23:00)
[2022-04-29] MEDS: INSULIN REGULAR IN 0.9 % NACL 100 UNIT in IV 1 EA IV SCH ×2 (23:11)
[2022-04-29 23:45] LABS: BLOOD UREA NITROGEN 54 MG/DL (9-23); CALCIUM LEVEL 9.2 MG/DL (8.5-10.1); CARBON DIOXIDE LEVEL 18 MMOL/L (20-31); CHLORIDE LEVEL 119 MMOL/L (98-107); CREATININE FOR GFR 1.33 MG/DL (0.70-1.30); GLOMERULAR FILTRATION RATE > 60.0 (>60); GLUCOSE, FASTING 386 MG/DL (60-100); PHOSPHORUS LEVEL 3.2 MG/DL (2.5-4.9); POTASSIUM SERUM 3.7 MMOL/L (3.5-5.1); SODIUM LEVEL 159 MMOL/L (136-145)
[2022-04-30] VITALS (25 sets, daily range): BP systolic 109–175; BP diastolic 56–85
[2022-04-30] MEDS: INSULIN IV RATE CHANGE DOCUMENTATION ML/HR XX SCH ×6 (00:17→13:06)
[2022-04-30 01:29] LABS: BLOOD UREA NITROGEN 64 MG/DL (9-23); CALCIUM LEVEL 8.7 MG/DL (8.5-10.1); CARBON DIOXIDE LEVEL 21 MMOL/L (20-31); CHLORIDE LEVEL 119 MMOL/L (98-107); CREATININE FOR GFR 1.39 MG/DL (0.70-1.30); GLOMERULAR FILTRATION RATE > 60.0 (>60); GLUCOSE, FASTING 356 MG/DL (60-100); PHOSPHORUS LEVEL 3.3 MG/DL (2.5-4.9); POTASSIUM SERUM 3.7 MMOL/L (3.5-5.1); SODIUM LEVEL 159 MMOL/L (136-145)
[2022-04-30] MEDS: ONDANSETRON 4MG 2ML VIAL IV SCH ×2 (02:09→08:09)
[2022-04-30] MEDS ORDERED: NS 0.45% 1,000 ML IV SCH ×2 (02:15→23:35)
[2022-04-30] MEDS: PIPERACILLIN/TAZOBACTAM SOD 3.375 GM in D5W MINI-BAG PLUS 50 ML IV SCH ×4 (03:22→20:21)
[2022-04-30] MEDS ORDERED: METOCLOPRAMIDE INJ 10MG/2ML VIAL (J2765 PER 1) IV ONE (04:00)
[2022-04-30] MEDS: INSULIN REGULAR IN 0.9 % NACL 100 UNIT in IV 1 EA IV SCH ×2 (04:14)
[2022-04-30] MEDS ORDERED: D5W/0.45% SODIUM CHLORIDE 1,000 ML IV SCH (05:10)
[2022-04-30 06:26] LABS: MEAN CORPUSCULAR HEMOGLOBIN 29.6 pg (27.0-33.0); MEAN CORPUSCULAR HGB CONC 31.1 g/dl (32.0-36.5); MEAN CORPUSCULAR VOLUME 95.4 fl (80.0-96.0); PLATELET COUNT, AUTOMATED 632 10^3/uL (150-450); RED BLOOD COUNT 2.16 10^6/uL (4.30-6.10); WHITE BLOOD COUNT 13.4 10^3/uL (4.0-10.0)
[2022-04-30 06:35] LABS: HEMATOCRIT 20.6 % (42.0-52.0); HEMOGLOBIN 6.4 g/dl (13.5-17.5)
[2022-04-30 07:04] LABS: CALCIUM LEVEL 8.4 MG/DL (8.5-10.1); CREATININE FOR GFR 1.54 MG/DL (0.70-1.30); GLOMERULAR FILTRATION RATE 54.1 (>60); PHOSPHORUS LEVEL 3.7 MG/DL (2.5-4.9)
[2022-04-30] MEDS ORDERED: KCL 20MEQ IN 0.45NS 1000ML 1,000 ML IV SCH (09:00)
[2022-04-30] MEDS ORDERED: LR 500 ML IV SCH ×2 (09:00→11:25)
[2022-04-30] MEDS ORDERED: HumuLIN N INSULIN (NovoLIN N) PER UNIT SC SCH (09:00)
[2022-04-30] MEDS ORDERED: KCL 20MEQ IN D5/0.45NS 1000ML 1,000 ML IV SCH (09:10)
[2022-04-30 10:27] LABS: VENOUS BASE EXCESS 2.2 (-2.0-2.0); VENOUS HCO3 25.6 MEQ/L (23.0-27.0); VENOUS PARTIAL PRESSURE CO2 34.5 mmHg (38.0-50.0); VENOUS PARTIAL PRESSURE O2 248.2 mmHg (30.0-50.0); VENOUS PH 7.489 UNITS (7.330-7.430); VENOUS STANDARD HCO3 26.4 MEQ/L; VENOUS TOTAL CO2 26.7 MEQ/L (24.0-28.0)
[2022-04-30 11:19] LABS: CALCIUM LEVEL 8.2 MG/DL (8.5-10.1); CREATININE FOR GFR 1.78 MG/DL (0.70-1.30); GLOMERULAR FILTRATION RATE 45.8 (>60); POTASSIUM SERUM 3.7 MMOL/L (3.5-5.1)
[2022-04-30] MEDS ORDERED: INSULIN REGULAR IN 0.9 % NACL 100 UNIT in IV 1 EA IV SCH ×2 (11:50)
[2022-04-30] MEDS ORDERED: INSULIN LISPRO (NovoLOG) PER UNIT SC SCH ×3 (12:00→21:00)
[2022-04-30] MEDS ORDERED: VANCOMYCIN HCL 1,000 MG, VIAL MATE ADAPTER 1 EACH in NS 250 ML IV ONE ×2 (13:00→14:00)
[2022-04-30] MEDS ORDERED: KCL 20MEQ IN D5W 1000ML 1,000 ML IV SCH (13:00)
[2022-04-30] MEDS ORDERED: LIDOCAINE 2% 5ML JELLY UROJET TOP PRN (13:05)
[2022-04-30 13:43] LABS: CALCIUM LEVEL 8.2 MG/DL (8.5-10.1); CREATININE FOR GFR 1.87 MG/DL (0.70-1.30); GLOMERULAR FILTRATION RATE 43.2 (>60); POTASSIUM SERUM 3.8 MMOL/L (3.5-5.1)
[2022-04-30] MEDS ORDERED: LACTATED RINGER'S 1000 ML IV ONE (13:45)
[2022-04-30] MEDS ORDERED: LR 1,000 ML IV ONE (13:50)
[2022-04-30] MEDS: ACETAMINOPHEN TAB 650MG DOSE (2X325MG) PO PRN (13:54)
[2022-04-30 15:30] LABS: MEAN CORPUSCULAR HEMOGLOBIN 30.3 pg (27.0-33.0); MEAN CORPUSCULAR HGB CONC 31.9 g/dl (32.0-36.5); PLATELET COUNT, AUTOMATED 602 10^3/uL (150-450); RED BLOOD COUNT 2.01 10^6/uL (4.30-6.10)
[2022-04-30 15:37] LABS: HEMATOCRIT 19.1 % (42.0-52.0); HEMOGLOBIN 6.1 g/dl (13.5-17.5)
[2022-04-30] MEDS ORDERED: DEXTROSE 50% 50 ML SYRINGE IV PRN (15:55)
[2022-04-30] MEDS ORDERED: GLUCOSE 4GM CHEW TABLET PO PRN (15:55)
[2022-04-30] MEDS ORDERED: GLUCAGON INJ 1MG VIAL SC PRN (15:55)
[2022-04-30] MEDS ORDERED: D5W 1000ML IV ONE (16:05)
[2022-04-30 16:06] LABS: CALCIUM LEVEL 7.9 MG/DL (8.5-10.1); CREATININE FOR GFR 1.99 MG/DL (0.70-1.30); GLOMERULAR FILTRATION RATE 40.2 (>60); POTASSIUM SERUM 3.8 MMOL/L (3.5-5.1)
[2022-04-30] MEDS ORDERED: D5W 1,000 ML IV SCH (16:25)
[2022-04-30] MEDS: ONDANSETRON 4MG 2ML VIAL IV PRN (20:21)
[2022-04-30] MEDS ORDERED: LEVEMIR (INSULIN DETEMIR) 1 UNITS/0.01ML SC SCH (21:00)
[2022-04-30] MEDS: hydrALAZINE 20MG/ML 1ML VIAL (J0360 PER 20MG) IV PRN (21:12)
[2022-04-30 22:45] LABS: HEMATOCRIT 27.5 % (42.0-52.0); HEMOGLOBIN 8.7 g/dl (13.5-17.5)
[2022-04-30 23:12] LABS: CALCIUM LEVEL 8.4 MG/DL (8.5-10.1); CREATININE FOR GFR 2.34 MG/DL (0.70-1.30); GLOMERULAR FILTRATION RATE 33.4 (>60); POTASSIUM SERUM 3.9 MMOL/L (3.5-5.1)
[2022-05-01] VITALS (18 sets, daily range): BP systolic 124–177; BP diastolic 64–94
[2022-05-01] MEDS ORDERED: PANTOPRAZOLE 40MG VIAL IV SCH
[2022-05-01] MEDS ORDERED: METOCLOPRAMIDE INJ 10MG/2ML VIAL (J2765 PER 1) IV SCH
[2022-05-01] MEDS ORDERED: METOCLOPRAMIDE INJ 10MG/2ML VIAL (J2765 PER 1) IV PRN
[2022-05-01] MEDS ORDERED: VANCOMYCIN HCL 750 MG, VIAL MATE ADAPTER 1 EACH in D5W 250 ML IV SCH (01:00)
[2022-05-01] MEDS: PIPERACILLIN/TAZOBACTAM SOD 3.375 GM in D5W MINI-BAG PLUS 50 ML IV SCH (03:17)
[2022-05-01 05:01] LABS: HEMATOCRIT 22.5 % (42.0-52.0); HEMOGLOBIN 7.4 g/dl (13.5-17.5); MEAN CORPUSCULAR HEMOGLOBIN 30.3 pg (27.0-33.0); MEAN CORPUSCULAR HGB CONC 32.9 g/dl (32.0-36.5); MEAN CORPUSCULAR VOLUME 92.2 fl (80.0-96.0); PLATELET COUNT, AUTOMATED 525 10^3/uL (150-450); RED BLOOD COUNT 2.44 10^6/uL (4.30-6.10); WHITE BLOOD COUNT 11.4 10^3/uL (4.0-10.0)
[2022-05-01] MEDS ORDERED: INSULIN LISPRO (NovoLOG) PER UNIT SC SCH ×5 (06:00→12:00)
[2022-05-01 06:01] LABS: ALBUMIN 1.8 G/DL (3.2-5.2); BILIRUBIN,TOTAL 1.7 MG/DL (0.3-1.2); CALCIUM LEVEL 7.4 MG/DL (8.5-10.1); CREATININE FOR GFR 2.55 MG/DL (0.70-1.30); GLOMERULAR FILTRATION RATE 30.2 (>60); POTASSIUM SERUM 3.9 MMOL/L (3.5-5.1); TOTAL PROTEIN 4.9 G/DL (5.7-8.2)
[2022-05-01] MEDS ORDERED: HumuLIN R (REGULAR) INSULIN (NovoLIN R) **100U/ML** PER UNIT SC STA (06:09)
[2022-05-01] MEDS ORDERED: LEVEMIR (INSULIN DETEMIR) 1 UNITS/0.01ML SC SCH (09:00)
[2022-05-01] MEDS ORDERED: lisinopriL 5 MG TAB PO SCH (09:00)
[2022-05-01] MEDS ORDERED: CEFEPIME HCL 1 GM in D5W MINI-BAG PLUS 50 ML IV SCH (09:00)
[2022-05-01] MEDS ORDERED: CEFEPIME HCL 2 GM in D5W MINI-BAG PLUS 50 ML IV SCH ×4 (09:00)
[2022-05-01] MEDS ORDERED: VANCOMYCIN HCL 1,000 MG, VIAL MATE ADAPTER 1 EACH in NS 250 ML IV SCH (09:05)
[2022-05-01] MEDS: PANTOPRAZOLE 40MG VIAL IV SCH (09:22)
[2022-05-01] MEDS: D5W 1,000 ML IV SCH ×3 (09:23→20:45)
[2022-05-01] MEDS: INSULIN REGULAR IN 0.9 % NACL 100 UNIT in IV 1 EA IV SCH ×6 (09:55→23:50)
[2022-05-01 10:53] LABS: CALCIUM LEVEL 8.3 MG/DL (8.5-10.1); CREATININE FOR GFR 2.59 MG/DL (0.70-1.30); GLOMERULAR FILTRATION RATE 29.7 (>60); POTASSIUM SERUM 3.7 MMOL/L (3.5-5.1)
[2022-05-01] MEDS: metroNIDAZOLE 500 MG in IV 1 EA IV SCH ×2 (11:22→17:40)
[2022-05-01] MEDS: INSULIN IV RATE CHANGE DOCUMENTATION ML/HR XX SCH ×5 (11:31→20:18)
[2022-05-01 12:55] LABS: FIBRINOGEN 633 MG/DL (268-480); INR 1.31; PROTHROMBIN TIME 16.5 SECONDS (12.5-14.5)
[2022-05-01 13:33] LABS: HEMATOCRIT 25.3 % (42.0-52.0); HEMOGLOBIN 8.3 g/dl (13.5-17.5)
[2022-05-01 13:45] LABS: D-DIMER QUANT > 4000 ng/ml (<500)
[2022-05-01] MEDS ORDERED: VANCOMYCIN HCL 1,000 MG, VIAL MATE ADAPTER 1 EACH in D5W 250 ML IV SCH (15:00)
[2022-05-01 15:01] LABS: CREATININE FOR GFR 2.46 MG/DL (0.70-1.30); GLOMERULAR FILTRATION RATE 31.5 (>60); POTASSIUM SERUM 3.6 MMOL/L (3.5-5.1)
[2022-05-01 18:52] LABS: CALCIUM LEVEL 7.9 MG/DL (8.5-10.1); CREATININE FOR GFR 2.34 MG/DL (0.70-1.30); GLOMERULAR FILTRATION RATE 33.4 (>60); MAGNESIUM LEVEL 1.6 MG/DL (1.8-2.4); POTASSIUM SERUM 3.4 MMOL/L (3.5-5.1)
[2022-05-01] MEDS ORDERED: MAG SULF 1GM/100ML (MAG RUN) 1 GM in IV 1 EA IV ONE (19:15)
[2022-05-01] MEDS ORDERED: POTASSIUM CHLORIDE 10MEQ SR TABLET PO ONE (19:15)
[2022-05-01] MEDS: hydrALAZINE 20MG/ML 1ML VIAL (J0360 PER 20MG) IV PRN (20:08)
[2022-05-01] MEDS ORDERED: POTASSIUM CHLORIDE 10% LIQ 20 MEQ/15 ML UDC PO ONE (20:25)
[2022-05-01 23:21] LABS: HEMATOCRIT 26.3 % (42.0-52.0); HEMOGLOBIN 8.6 g/dl (13.5-17.5)
[2022-05-01 23:53] LABS: CALCIUM LEVEL 8.5 MG/DL (8.5-10.1); CREATININE FOR GFR 2.15 MG/DL (0.70-1.30); GLOMERULAR FILTRATION RATE 36.8 (>60); POTASSIUM SERUM 3.3 MMOL/L (3.5-5.1)
[2022-05-02] VITALS (10 sets, daily range): BP systolic 126–150; BP diastolic 56–85
[2022-05-02] MEDS ORDERED: KCL 10MEQ/100ML SWI (KRUN) 10 MEQ in IV 1 EA IV ONE ×3 (01:00→15:15)
[2022-05-02] MEDS: D5W 1,000 ML IV SCH ×3 (03:07→18:28)
[2022-05-02] MEDS: INSULIN IV RATE CHANGE DOCUMENTATION ML/HR XX SCH ×10 (05:02→22:08)
[2022-05-02 06:21] LABS: HEMATOCRIT 24.3 % (42.0-52.0)
[2022-05-02 07:42] LABS: CALCIUM LEVEL 7.5 MG/DL (8.5-10.1); CREATININE FOR GFR 1.97 MG/DL (0.70-1.30); GLOMERULAR FILTRATION RATE 40.7 (>60); POTASSIUM SERUM 3.6 MMOL/L (3.5-5.1)
[2022-05-02 07:48] LABS: MEAN CORPUSCULAR HEMOGLOBIN 29.9 pg (27.0-33.0); MEAN CORPUSCULAR HGB CONC 32.1 g/dl (32.0-36.5); MEAN CORPUSCULAR VOLUME 93.2 fl (80.0-96.0); PLATELET COUNT, AUTOMATED 397 10^3/uL (150-450); RED BLOOD COUNT 2.64 10^6/uL (4.30-6.10)
[2022-05-02 08:27] LABS: VANCOMYCIN RANDOM 19.3 UG/ML
[2022-05-02] MEDS: PANTOPRAZOLE 40MG VIAL IV SCH (08:51)
[2022-05-02] MEDS: INSULIN REGULAR IN 0.9 % NACL 100 UNIT in IV 1 EA IV SCH ×4 (08:54→16:44)
[2022-05-02 09:18] LABS: CALCIUM LEVEL 7.7 MG/DL (8.5-10.1); CREATININE FOR GFR 1.88 MG/DL (0.70-1.30); POTASSIUM SERUM 3.5 MMOL/L (3.5-5.1)
[2022-05-02] MEDS ORDERED: VANCOMYCIN HCL 750 MG, VIAL MATE ADAPTER 1 EACH in D5W 250 ML IV SCH ×2 (12:00→13:00)
[2022-05-02 13:20] LABS: HEMATOCRIT 24.1 % (42.0-52.0); HEMOGLOBIN 7.8 g/dl (13.5-17.5)
[2022-05-02 14:08] LABS: CALCIUM LEVEL 8.1 MG/DL (8.5-10.1); CREATININE FOR GFR 1.84 MG/DL (0.70-1.30); POTASSIUM SERUM 3.5 MMOL/L (3.5-5.1)
[2022-05-02 17:53] LABS: CALCIUM LEVEL 8.2 MG/DL (8.5-10.1); CREATININE FOR GFR 1.85 MG/DL (0.70-1.30); GLOMERULAR FILTRATION RATE 43.8 (>60); POTASSIUM SERUM 3.3 MMOL/L (3.5-5.1)
[2022-05-02] MEDS: KCL 10MEQ/100ML SWI (KRUN) 10 MEQ in IV 1 EA IV SCH ×2 (18:41→20:09)
[2022-05-02 21:33] LABS: HEMATOCRIT 23.6 % (42.0-52.0); HEMOGLOBIN 7.6 g/dl (13.5-17.5)
[2022-05-02 22:07] LABS: CALCIUM LEVEL 7.9 MG/DL (8.5-10.1); CREATININE FOR GFR 1.86 MG/DL (0.70-1.30); GLOMERULAR FILTRATION RATE 43.5 (>60); POTASSIUM SERUM 3.6 MMOL/L (3.5-5.1)
[2022-05-03] VITALS: BP 145/81
[2022-05-03 04:00] VITALS: BP 166/83
[2022-05-03 05:18] LABS: CALCIUM LEVEL 7.7 MG/DL (8.5-10.1); CREATININE FOR GFR 1.92 MG/DL (0.70-1.30); GLOMERULAR FILTRATION RATE 41.9 (>60); POTASSIUM SERUM 4.3 MMOL/L (3.5-5.1)
[2022-05-03 05:35] LABS: BASO % 0.4 % (0.0-1.0); EOS # 0.1 10^3/uL (0.0-0.5); EOS % 1.3 % (0.0-3.0); HEMATOCRIT 29.6 % (42.0-52.0); HEMOGLOBIN 9.2 g/dl (13.5-17.5); LYMPH # 1.9 10^3/uL (1.5-5.0); LYMPH % 20.2 % (24.0-44.0); MEAN CORPUSCULAR HEMOGLOBIN 30.2 pg (27.0-33.0); MEAN CORPUSCULAR HGB CONC 31.1 g/dl (32.0-36.5); MONO # 0.6 10^3/uL (0.0-0.8); NEUTROPHILS # 6.4 10^3/uL (1.5-8.5); NEUTROPHILS % 68.9 % (36.0-66.0); PLATELET COUNT, AUTOMATED 371 10^3/uL (150-450); RED BLOOD COUNT 3.05 10^6/uL (4.30-6.10); WHITE BLOOD COUNT 9.3 10^3/uL (4.0-10.0)
[2022-05-03 08:00] VITALS: BP 148/73
[2022-05-03] MEDS ORDERED: LEVEMIR (INSULIN DETEMIR) 1 UNITS/0.01ML SC SCH (09:00)
[2022-05-03] MEDS: PANTOPRAZOLE 40MG VIAL IV SCH (09:15)
[2022-05-03] MEDS ORDERED: GLUCOSE 4GM CHEW TABLET PO PRN (09:25)
[2022-05-03] MEDS ORDERED: GLUCAGON INJ 1MG VIAL SC PRN (09:25)
[2022-05-03] MEDS ORDERED: DEXTROSE 50% 50 ML SYRINGE IV PRN (09:25)
[2022-05-03 10:34] LABS: CALCIUM LEVEL 7.3 MG/DL (8.5-10.1); CREATININE FOR GFR 1.96 MG/DL (0.70-1.30); GLOMERULAR FILTRATION RATE 40.9 (>60)
[2022-05-03] MEDS ORDERED: LEVEMIR (INSULIN DETEMIR) 1 UNITS/0.01ML SC ONE (10:40)
[2022-05-03] MEDS: METOPROLOL TART 25 MG TABLET PO SCH ×2 (10:52→21:03)
[2022-05-03] MEDS: LEVEMIR (INSULIN DETEMIR) 1 UNITS/0.01ML SC SCH ×2 (10:52→21:03)
[2022-05-03 12:00] VITALS: BP 130/77
[2022-05-03] MEDS: INSULIN LISPRO (NovoLOG) PER UNIT SC SCH ×3 (13:12→21:04)
[2022-05-03] MEDS: VANCOMYCIN HCL 750 MG, VIAL MATE ADAPTER 1 EACH in D5W 250 ML IV SCH (13:13)
[2022-05-03] MEDS: VANCOMYCIN HCL 500 MG in D5W MINI-BAG PLUS 100 ML IV SCH (15:21)
[2022-05-03 16:00] VITALS: BP 124/71
[2022-05-03 20:00] VITALS: BP 136/76
[2022-05-03] MEDS ORDERED: METOPROLOL TART 25 MG TABLET PO SCH (21:00)
[2022-05-03] MEDS: HEPARIN SOD (PORCINE) 5000UNITS/ML 1ML VIAL/SYRINGE SQ SCH (21:03)
[2022-05-04] VITALS (13 sets, daily range): BP systolic 136–163; BP diastolic 72–89
[2022-05-04] MEDS: ACETAMINOPHEN TAB 650MG DOSE (2X325MG) PO PRN (04:21)
[2022-05-04 06:03] LABS: MEAN CORPUSCULAR HEMOGLOBIN 30.9 pg (27.0-33.0); MEAN CORPUSCULAR HGB CONC 33.2 g/dl (32.0-36.5); MEAN CORPUSCULAR VOLUME 93.1 fl (80.0-96.0); PLATELET COUNT, AUTOMATED 274 10^3/uL (150-450); RED BLOOD COUNT 2.17 10^6/uL (4.30-6.10); WHITE BLOOD COUNT 6.7 10^3/uL (4.0-10.0)
[2022-05-04 06:04] LABS: HEMATOCRIT 20.2 % (42.0-52.0); HEMOGLOBIN 6.7 g/dl (13.5-17.5)
[2022-05-04 06:59] LABS: ALBUMIN 1.8 G/DL (3.2-5.2); BILIRUBIN,TOTAL 0.3 MG/DL (0.3-1.2); CALCIUM LEVEL 7.7 MG/DL (8.5-10.1); CREATININE FOR GFR 2.14 MG/DL (0.70-1.30); POTASSIUM SERUM 3.7 MMOL/L (3.5-5.1); TOTAL PROTEIN 4.8 G/DL (5.7-8.2)
[2022-05-04 08:02] LABS: HEMATOCRIT 22.3 % (42.0-52.0); HEMOGLOBIN 7.4 g/dl (13.5-17.5); MEAN CORPUSCULAR HGB CONC 33.2 g/dl (32.0-36.5); MEAN CORPUSCULAR VOLUME 93.3 fl (80.0-96.0); PLATELET COUNT, AUTOMATED 314 10^3/uL (150-450); RED BLOOD COUNT 2.39 10^6/uL (4.30-6.10); WHITE BLOOD COUNT 6.8 10^3/uL (4.0-10.0)
[2022-05-04] MEDS: INSULIN LISPRO (NovoLOG) PER UNIT SC SCH ×4 (08:13→20:18)
[2022-05-04] MEDS: LEVEMIR (INSULIN DETEMIR) 1 UNITS/0.01ML SC SCH ×2 (08:14→20:18)
[2022-05-04] MEDS: PANTOPRAZOLE 40MG TAB (PROTONIX) PO SCH (08:14)
[2022-05-04] MEDS: METOPROLOL TART 25 MG TABLET PO SCH ×2 (08:14→20:15)
[2022-05-04] MEDS: HEPARIN SOD (PORCINE) 5000UNITS/ML 1ML VIAL/SYRINGE SQ SCH ×2 (08:15→20:16)
[2022-05-04 08:59] LABS: FERRITIN 1921.7 NG/ML (10.5-307.3); PERCENT SATURATION 20.7 % (19.7-50.0)
[2022-05-04] MEDS: VANCOMYCIN HCL 750 MG, VIAL MATE ADAPTER 1 EACH in D5W 250 ML IV SCH (12:46)
[2022-05-04] MEDS: FERROUS SULFATE 325MG TAB PO SCH ×2 (14:07→20:15)
[2022-05-04] MEDS: VANCOMYCIN HCL 500 MG in D5W MINI-BAG PLUS 100 ML IV SCH (14:08)
[2022-05-04 18:19] LABS: HEMATOCRIT 31.6 % (42.0-52.0); HEMOGLOBIN 10.6 g/dl (13.5-17.5); MEAN CORPUSCULAR HEMOGLOBIN 31.2 pg (27.0-33.0); MEAN CORPUSCULAR HGB CONC 33.5 g/dl (32.0-36.5); MEAN CORPUSCULAR VOLUME 92.9 fl (80.0-96.0); PLATELET COUNT, AUTOMATED 360 10^3/uL (150-450); WHITE BLOOD COUNT 8.6 10^3/uL (4.0-10.0)
[2022-05-05] VITALS: BP 151/84
[2022-05-05] MEDS: hydrALAZINE 20MG/ML 1ML VIAL (J0360 PER 20MG) IV PRN ×2 (02:29→23:57)
[2022-05-05 04:00] VITALS: BP 146/77
[2022-05-05 05:11] LABS: HEMATOCRIT 24.4 % (42.0-52.0); MEAN CORPUSCULAR HEMOGLOBIN 31.3 pg (27.0-33.0); MEAN CORPUSCULAR VOLUME 92.1 fl (80.0-96.0); PLATELET COUNT, AUTOMATED 269 10^3/uL (150-450); RED BLOOD COUNT 2.65 10^6/uL (4.30-6.10)
[2022-05-05 05:13] LABS: HEMOGLOBIN 8.3 g/dl (13.5-17.5)
[2022-05-05 05:58] LABS: ALBUMIN 1.9 G/DL (3.2-5.2); BILIRUBIN,TOTAL 0.2 MG/DL (0.3-1.2); CALCIUM LEVEL 7.5 MG/DL (8.5-10.1); CREATININE FOR GFR 2.03 MG/DL (0.70-1.30); GLOMERULAR FILTRATION RATE 39.3 (>60); POTASSIUM SERUM 3.8 MMOL/L (3.5-5.1)
[2022-05-05] MEDS: INSULIN LISPRO (NovoLOG) PER UNIT SC SCH ×4 (07:30→20:32)
[2022-05-05 08:00] VITALS: BP 155/86
[2022-05-05] MEDS: FERROUS SULFATE 325MG TAB PO SCH ×2 (08:26→20:40)
[2022-05-05] MEDS: HEPARIN SOD (PORCINE) 5000UNITS/ML 1ML VIAL/SYRINGE SQ SCH ×2 (08:27→20:39)
[2022-05-05] MEDS: METOPROLOL TART 25 MG TABLET PO SCH ×2 (08:27→20:40)
[2022-05-05] MEDS: PANTOPRAZOLE 40MG TAB (PROTONIX) PO SCH (08:27)
[2022-05-05] MEDS: LEVEMIR (INSULIN DETEMIR) 1 UNITS/0.01ML SC SCH ×2 (08:27→20:40)
[2022-05-05 12:00] VITALS: BP 149/94
[2022-05-05] MEDS: VANCOMYCIN HCL 750 MG, VIAL MATE ADAPTER 1 EACH in D5W 250 ML IV SCH (12:08)
[2022-05-05] MEDS: VANCOMYCIN HCL 500 MG in D5W MINI-BAG PLUS 100 ML IV SCH (13:25)
[2022-05-05 15:18] LABS: BASO % 0.3 % (0.0-1.0); EOS # 0.1 10^3/uL (0.0-0.5); EOS % 1.8 % (0.0-3.0); HEMATOCRIT 26.8 % (42.0-52.0); HEMOGLOBIN 8.8 g/dl (13.5-17.5); LYMPH # 1.1 10^3/uL (1.5-5.0); LYMPH % 13.4 % (24.0-44.0); MEAN CORPUSCULAR HEMOGLOBIN 30.9 pg (27.0-33.0); MEAN CORPUSCULAR HGB CONC 32.8 g/dl (32.0-36.5); MONO # 0.7 10^3/uL (0.0-0.8); MONO % 8.8 % (2.0-8.0); NEUTROPHILS # 5.9 10^3/uL (1.5-8.5); NEUTROPHILS % 74.2 % (36.0-66.0); PLATELET COUNT, AUTOMATED 298 10^3/uL (150-450); RED BLOOD COUNT 2.85 10^6/uL (4.30-6.10)
[2022-05-05] MEDS ORDERED: LIDOCAINE 1% MDV 20ML VIAL As Ordered ONE (15:27)
[2022-05-05 16:00] VITALS: BP 127/75
[2022-05-05 20:00] VITALS: BP 177/91
[2022-05-06] VITALS: BP 159/87
[2022-05-06 04:00] VITALS: BP 156/87
[2022-05-06] MEDS: ACETAMINOPHEN TAB 650MG DOSE (2X325MG) PO PRN ×2 (04:00→12:43)
[2022-05-06 04:11] LABS: HEMOGLOBIN 8.8 g/dl (13.5-17.5); MEAN CORPUSCULAR HEMOGLOBIN 31.2 pg (27.0-33.0); MEAN CORPUSCULAR HGB CONC 32.6 g/dl (32.0-36.5); MEAN CORPUSCULAR VOLUME 95.7 fl (80.0-96.0); PLATELET COUNT, AUTOMATED 291 10^3/uL (150-450); RED BLOOD COUNT 2.82 10^6/uL (4.30-6.10); WHITE BLOOD COUNT 8.5 10^3/uL (4.0-10.0)
[2022-05-06 04:45] LABS: ALBUMIN 2.1 G/DL (3.2-5.2); BILIRUBIN,TOTAL 0.3 MG/DL (0.3-1.2); CALCIUM LEVEL 7.5 MG/DL (8.5-10.1); CREATININE FOR GFR 1.89 MG/DL (0.70-1.30); GLOMERULAR FILTRATION RATE 42.7 (>60); POTASSIUM SERUM 4.1 MMOL/L (3.5-5.1); TOTAL PROTEIN 5.3 G/DL (5.7-8.2)
[2022-05-06 08:00] VITALS: BP 170/93
[2022-05-06] MEDS: FERROUS SULFATE 325MG TAB PO SCH ×2 (08:28→20:14)
[2022-05-06] MEDS: PANTOPRAZOLE 40MG TAB (PROTONIX) PO SCH (08:29)
[2022-05-06] MEDS: METOPROLOL TART 25 MG TABLET PO SCH (08:29)
[2022-05-06] MEDS: HEPARIN SOD (PORCINE) 5000UNITS/ML 1ML VIAL/SYRINGE SQ SCH ×2 (08:30→20:14)
[2022-05-06] MEDS: INSULIN LISPRO (NovoLOG) PER UNIT SC SCH ×4 (08:30→20:13)
[2022-05-06] MEDS: LEVEMIR (INSULIN DETEMIR) 1 UNITS/0.01ML SC SCH ×2 (08:30→20:13)
[2022-05-06 12:00] VITALS: BP 141/78
[2022-05-06] MEDS ORDERED: METOPROLOL TART 25 MG TABLET PO ONE (12:00)
[2022-05-06] MEDS: VANCOMYCIN HCL 500 MG in D5W MINI-BAG PLUS 100 ML IV SCH (12:38)
[2022-05-06] MEDS: VANCOMYCIN HCL 750 MG, VIAL MATE ADAPTER 1 EACH in D5W 250 ML IV SCH (12:38)
[2022-05-06 16:00] VITALS: BP 139/79
[2022-05-06 20:00] VITALS: BP 138/82
[2022-05-06] MEDS ORDERED: SIMVASTATIN 20 MG TAB PO SCH (21:00)
[2022-05-07] VITALS: BP 150/84
[2022-05-07 04:00] VITALS: BP 159/88
[2022-05-07] MEDS: ONDANSETRON 4MG 2ML VIAL IV PRN (04:18)
[2022-05-07 04:31] LABS: BASO % 0.2 % (0.0-1.0); EOS # 0.2 10^3/uL (0.0-0.5); EOS % 2.1 % (0.0-3.0); HEMOGLOBIN 8.6 g/dl (13.5-17.5); LYMPH # 1.3 10^3/uL (1.5-5.0); MEAN CORPUSCULAR HEMOGLOBIN 31.3 pg (27.0-33.0); MEAN CORPUSCULAR HGB CONC 33.1 g/dl (32.0-36.5); MEAN CORPUSCULAR VOLUME 94.5 fl (80.0-96.0); MONO # 0.9 10^3/uL (0.0-0.8); MONO % 10.7 % (2.0-8.0); NEUTROPHILS % 70.6 % (36.0-66.0); PLATELET COUNT, AUTOMATED 288 10^3/uL (150-450); RED BLOOD COUNT 2.75 10^6/uL (4.30-6.10); WHITE BLOOD COUNT 8.5 10^3/uL (4.0-10.0)
[2022-05-07 06:11] LABS: ALBUMIN 2.2 G/DL (3.2-5.2); BILIRUBIN,TOTAL 0.3 MG/DL (0.3-1.2); CALCIUM LEVEL 7.7 MG/DL (8.5-10.1); CREATININE FOR GFR 2.03 MG/DL (0.70-1.30); GLOMERULAR FILTRATION RATE 39.3 (>60); MAGNESIUM LEVEL 1.5 MG/DL (1.8-2.4); POTASSIUM SERUM 4.2 MMOL/L (3.5-5.1); TOTAL PROTEIN 5.5 G/DL (5.7-8.2)
[2022-05-07] MEDS ORDERED: MAGNESIUM OXIDE 400MG TAB (MAG-OX) PO ONE (07:15)
[2022-05-07] MEDS: INSULIN LISPRO (NovoLOG) PER UNIT SC SCH ×2 (07:30→12:30)
[2022-05-07 08:00] VITALS: BP 160/89
[2022-05-07] MEDS: HEPARIN SOD (PORCINE) 5000UNITS/ML 1ML VIAL/SYRINGE SQ SCH (08:40)
[2022-05-07] MEDS: PANTOPRAZOLE 40MG TAB (PROTONIX) PO SCH (08:41)
[2022-05-07] MEDS: LEVEMIR (INSULIN DETEMIR) 1 UNITS/0.01ML SC SCH (08:41)
[2022-05-07] MEDS: FERROUS SULFATE 325MG TAB PO SCH (08:41)
[2022-05-07] MEDS: METOPROLOL TART 50 MG TAB PO SCH ×2 (08:43→13:26)
[2022-05-07] MEDS ORDERED: METOPROLOL TART 50 MG TAB PO SCH (09:00)
[2022-05-07 12:00] VITALS: BP 143/83
[2022-05-07] MEDS: VANCOMYCIN HCL 750 MG, VIAL MATE ADAPTER 1 EACH in D5W 250 ML IV SCH (12:30)
[2022-05-07 13:26] VITALS: BP 143/83
[2022-05-07] MEDS ORDERED: LOPR1TAB6 PO (13:26)
[2022-05-07] MEDS ORDERED: LANTINJ4 SC (13:26)
[2022-05-07] MEDS ORDERED: PANT40TA29 PO (13:26)
[2022-05-07] MEDS ORDERED: FERR1TAB8 PO (13:26)
[2022-05-07] MEDS ORDERED: AMLO1TAB25 PO (13:26)
[2022-05-07] MEDS ORDERED: HUMA100I14 SC (13:26)
[2022-05-07] MEDS: VANCOMYCIN HCL 500 MG in D5W MINI-BAG PLUS 100 ML IV SCH (13:27)
[2022-05-07] MEDS ORDERED: REGL5TAB2 PO (13:34)
[2022-05-07] MEDS ORDERED: [UNRECOGNIZED DRUG - CODE] MC (13:56)
== END 2022-05-07 14:44 | disposition home health service (06) | DRG 638 ==
LOC: EDBD 14:57 → M ED 14:57 → M ED INP 21:48 → ENRESERV 22:46 → M ICU 04-30 00:10
PROVIDERS: ADMIT Internal Medicine Pulmonary Disease; ATTEND Family Medicine
PROC: 30233N1 Transfusion of Nonautologous Red Blood Cells into Peripheral Vein, Percutaneous Approach (ICD-10-PCS; 2022-04-29)
PROC: 02HV33Z Insertion of Infusion Device into Superior Vena Cava, Percutaneous Approach (ICD-10-PCS; principal; 2022-05-05 15:43)
DX: E11.10 Type 2 diabetes mellitus with ketoacidosis without coma (principal); E87.0 Hyperosmolality and hypernatremia; N41.0 Acute prostatitis; N17.9 Acute kidney failure, unspecified; K51.00 Ulcerative (chronic) pancolitis without complications; N13.30 Unspecified hydronephrosis; R78.81 Bacteremia; N30.00 Acute cystitis without hematuria; D50.9 Iron deficiency anemia, unspecified; B97.4 Respiratory syncytial virus as the cause of diseases classified elsewhere; E11.65 Type 2 diabetes mellitus with hyperglycemia; E86.0 Dehydration; Z91.138 Patient's unintentional underdosing of medication regimen for other reason; T38.3X6A Underdosing of insulin and oral hypoglycemic [antidiabetic] drugs, initial encounter; Z91.14 Patient's other noncompliance with medication regimen; N18.2 Chronic kidney disease, stage 2 (mild); E11.22 Type 2 diabetes mellitus with diabetic chronic kidney disease; E11.319 Type 2 diabetes mellitus with unspecified diabetic retinopathy without macular edema; B95.62 Methicillin resistant Staphylococcus aureus infection as the cause of diseases classified elsewhere; R74.01 Elevation of levels of liver transaminase levels; Z79.82 Long term (current) use of aspirin; Z89.411 Acquired absence of right great toe; Z89.412 Acquired absence of left great toe; Z79.899 Other long term (current) drug therapy; Z79.4 Long term (current) use of insulin; Z88.8 Allergy status to other drugs, medicaments and biological substances

== ENCOUNTER 2022-05-13 15:32 | Inpatient (IN) | payer OTHER ==
[~2022-05-13] VITALS: Ht 180.3 cm; Wt 113.6 kg
[~2022-05-13 15:32] MED LIST changes: +AMLO1TAB25 PO; +FERR1TAB8 PO; +HUMA100I14 SC; +LOPR1TAB6 PO; +PANT40TA29 PO; +REGL5TAB2 PO; +[UNRECOGNIZED DRUG - CODE] MC; +[UNRECOGNIZED DRUG - OTHER]
[2022-05-13] MEDS: NS 1,000 ML IV SCH (16:20)
[2022-05-13] MEDS ORDERED: NS 500 ML IV ONE (16:20)
[2022-05-13] MEDS ORDERED: METOCLOPRAMIDE INJ 10MG/2ML VIAL (J2765 PER 1) IV ONE (16:20)
[2022-05-13] MEDS ORDERED: SODIUM CHLORIDE 0.9% INJ 10 ML SYR IV PRN (16:20)
[2022-05-13 17:28] LABS: VENOUS BASE EXCESS 2.4 (-2.0-2.0); VENOUS HCO3 26.9 MEQ/L (23.0-27.0); VENOUS O2 SATURATION 87.6 % (60.0-80.0); VENOUS PARTIAL PRESSURE CO2 41.7 mmHg (38.0-50.0); VENOUS PARTIAL PRESSURE O2 52.2 mmHg (30.0-50.0); VENOUS PH 7.428 UNITS (7.330-7.430); VENOUS STANDARD HCO3 26.4 MEQ/L; VENOUS TOTAL CO2 28.2 MEQ/L (24.0-28.0)
[2022-05-13 17:31] LABS: BASO % 0.4 % (0.0-1.0); EOS # 0.1 10^3/uL (0.0-0.5); EOS % 1.3 % (0.0-3.0); HEMATOCRIT 27.5 % (42.0-52.0); HEMOGLOBIN 9.1 g/dl (13.5-17.5); LYMPH # 1.1 10^3/uL (1.5-5.0); LYMPH % 16.8 % (24.0-44.0); MEAN CORPUSCULAR HEMOGLOBIN 31.2 pg (27.0-33.0); MEAN CORPUSCULAR HGB CONC 33.1 g/dl (32.0-36.5); MEAN CORPUSCULAR VOLUME 94.2 fl (80.0-96.0); MONO # 0.5 10^3/uL (0.0-0.8); MONO % 7.2 % (2.0-8.0); NEUTROPHILS % 74.2 % (36.0-66.0); PLATELET COUNT, AUTOMATED 341 10^3/uL (150-450); RED BLOOD COUNT 2.92 10^6/uL (4.30-6.10); WHITE BLOOD COUNT 6.8 10^3/uL (4.0-10.0)
[2022-05-13 17:42] LABS: HEMOGLOBIN A1c 5.6 % (4.0-6.0)
[2022-05-13 17:43] LABS: RSV AMPLIFICATION NEGATIVE (NEGATIVE)
[2022-05-13 18:00] LABS: ALBUMIN 2.8 G/DL (3.2-5.2)
[2022-05-13] MEDS ORDERED: SODIUM CHLORIDE 0.9% INJ 10 ML SYR IV SCH (18:00)
[2022-05-13 18:05] LABS: CALCIUM LEVEL 8.6 MG/DL (8.5-10.1)
[2022-05-13 18:06] LABS: MAGNESIUM LEVEL 1.4 MG/DL (1.8-2.4)
[2022-05-13 18:07] LABS: BILIRUBIN,DIRECT 0.1 MG/DL (<0.4); BILIRUBIN,TOTAL 0.4 MG/DL (0.3-1.2); CREATININE FOR GFR 1.61 MG/DL (0.70-1.30); GLOMERULAR FILTRATION RATE 51.4 (>60)
[2022-05-13 18:08] LABS: TOTAL PROTEIN 6.6 G/DL (5.7-8.2)
[2022-05-13] MEDS ORDERED: MAG SULF 1GM/100ML (MAG RUN) 1 GM in IV 1 EA IV ONE ×2 (18:20→20:40)
[2022-05-13 18:31] LABS: ACETONE/KETONE 0.28 MMOL/L (0.02-0.27)
[2022-05-13] MEDS ORDERED: METOPROLOL TART 50 MG TAB PO ONE (18:40)
[2022-05-13] MEDS ORDERED: KETOROLAC 30 MG/ML 1ML VIAL IV ONE (18:40)
[2022-05-13] MEDS ORDERED: METOPROLOL 5 MG/5 ML VIAL IV STA (18:42)
[2022-05-13] MEDS ORDERED: SIMVASTATIN 20 MG TAB PO SCH (21:00)
[2022-05-13] MEDS ORDERED: INSULIN LISPRO (NovoLOG) PER UNIT SC SCH (21:00)
[2022-05-13] MEDS: LEVEMIR (INSULIN DETEMIR) 1 UNITS/0.01ML SC SCH (21:00)
[2022-05-13] MEDS ORDERED: ACETAMINOPHEN TAB 650MG DOSE (2X325MG) PO PRN (22:15)
[2022-05-13] MEDS ORDERED: hydrALAZINE 20MG/ML 1ML VIAL (J0360 PER 20MG) IV PRN (22:15)
[2022-05-13] MEDS ORDERED: AMLO1TAB25 PO (22:24)
[2022-05-13] MEDS ORDERED: PANT-23 PO (22:24)
[2022-05-13] MEDS ORDERED: INSUHUMDS SC (22:24)
[2022-05-13] MEDS ORDERED: METO50TA7 PO (22:24)
[2022-05-13] MEDS ORDERED: LANTINJ4 SC (22:24)
[2022-05-13] MEDS ORDERED: REGL5TAB2 PO (22:24)
[2022-05-13] MEDS ORDERED: VANC1.2510 IV (22:24)
[2022-05-13] MEDS ORDERED: HOME MED LIST COMPLETE! XX SCH (22:25)
[2022-05-13] MEDS ORDERED: DEXTROSE 50% 50 ML SYRINGE IV PRN (22:30)
[2022-05-13] MEDS ORDERED: GLUCAGON INJ 1MG VIAL SC PRN (22:30)
[2022-05-13] MEDS ORDERED: GLUCOSE 4GM CHEW TABLET PO PRN (22:30)
[2022-05-13] MEDS ORDERED: METOCLOPRAMIDE 5 MG TAB PO PRN (22:50)
[2022-05-14] VITALS (7 sets, daily range): BP systolic 144–224; BP diastolic 82–109
[2022-05-14] MEDS: NS 1,000 ML IV SCH (00:29)
[2022-05-14] MEDS ORDERED: HEPARIN SOD (PORCINE) 5000UNITS/ML 1ML VIAL/SYRINGE SC SCH (06:00)
[2022-05-14 06:02] LABS: HEMATOCRIT 24.2 % (42.0-52.0); HEMOGLOBIN 7.9 g/dl (13.5-17.5); MEAN CORPUSCULAR HEMOGLOBIN 30.7 pg (27.0-33.0); MEAN CORPUSCULAR HGB CONC 32.6 g/dl (32.0-36.5); MEAN CORPUSCULAR VOLUME 94.2 fl (80.0-96.0); PLATELET COUNT, AUTOMATED 298 10^3/uL (150-450); RED BLOOD COUNT 2.57 10^6/uL (4.30-6.10)
[2022-05-14] MEDS ORDERED: LABETALOL 100MG/20ML VIAL IV STA (06:19)
[2022-05-14 06:27] LABS: POTASSIUM SERUM 3.6 MMOL/L (3.5-5.1)
[2022-05-14 06:33] LABS: CALCIUM LEVEL 7.9 MG/DL (8.5-10.1)
[2022-05-14 06:34] LABS: MAGNESIUM LEVEL 1.6 MG/DL (1.8-2.4)
[2022-05-14 06:36] LABS: CREATININE FOR GFR 1.61 MG/DL (0.70-1.30); GLOMERULAR FILTRATION RATE 51.4 (>60)
[2022-05-14] MEDS ORDERED: MAG SULF 1GM/100ML (MAG RUN) 1 GM in IV 1 EA IV ONE (06:55)
[2022-05-14] MEDS ORDERED: POTASSIUM CHLORIDE 10MEQ SR TABLET PO ONE (06:55)
[2022-05-14] MEDS ORDERED: METOCLOPRAMIDE INJ 10MG/2ML VIAL (J2765 PER 1) IV ONE (07:00)
[2022-05-14] MEDS: LEVEMIR (INSULIN DETEMIR) 1 UNITS/0.01ML SC SCH (08:34)
[2022-05-14] MEDS: INSULIN LISPRO (NovoLOG) PER UNIT SC SCH ×2 (08:35→12:00)
[2022-05-14] MEDS ORDERED: METOPROLOL TART 50 MG TAB PO SCH (09:00)
[2022-05-14] MEDS ORDERED: PANTOPRAZOLE 40MG TAB (PROTONIX) PO SCH (09:00)
[2022-05-14] MEDS ORDERED: AMITRIPTYLINE 25MG TABLET PO SCH (09:00)
[2022-05-14] MEDS ORDERED: INFLUENZA QUADRIVALENT PF VACCINE 0.5ML SYRINGE IM.IMMUN ONE (09:00)
[2022-05-14] MEDS ORDERED: RIZA10TA58 PO (10:24)
[2022-05-14] MEDS ORDERED: ONDA4TAB6 PO (10:24)
[2022-05-14] MEDS ORDERED: AMIT25TA17 PO (10:24)
[2022-05-14] MEDS ORDERED: PILL CUTTER 1 EACH XX PRN (11:25)
[2022-05-14] MEDS ORDERED: BACITRACIN OINTMENT 30GM TUBE TOP ONE (12:20)
[2022-05-14 15:05] LABS: ERYTHROCYTE SEDIMENTATION RATE 108 mm/hr (0-15)
[2022-05-15 08:21] LABS: C REACTIVE PROTEIN QUANTITATIV 0.9 MG/DL (<1.0)
== END 2022-05-14 13:42 | disposition home or self-care (01) | DRG 74 ==
LOC: EDBD 15:32 → M ED 15:32 → M ED INP 22:14 → ENRESERV 05-14 00:27 → M PCU 05-14 02:14
PROVIDERS: ADMIT Family Medicine; ATTEND Student in an Organized Health Care Education/Training Program
DX: G50.0 Trigeminal neuralgia (principal); N17.9 Acute kidney failure, unspecified; E11.22 Type 2 diabetes mellitus with diabetic chronic kidney disease; G43.909 Migraine, unspecified, not intractable, without status migrainosus; I12.9 Hypertensive chronic kidney disease with stage 1 through stage 4 chronic kidney disease, or unspecified chronic kidney disease; N18.30 Chronic kidney disease, stage 3 unspecified; E83.42 Hypomagnesemia; Z79.4 Long term (current) use of insulin; Z79.899 Other long term (current) drug therapy; Z88.8 Allergy status to other drugs, medicaments and biological substances

== ENCOUNTER → 2022-05-19 | Outpatient (CLI) | payer OTHER ==
[~2022-05-19] MED LIST changes: +AMIT25TA17 PO; +METO50TA7 PO; +ONDA4TAB6 PO; +PANT-23 PO; +RIZA10TA58 PO; +VANC1.2510 IV
[2022-05-19 10:13] LABS: BASO % 0.4 % (0.0-1.0); EOS # 0.1 10^3/uL (0.0-0.5); EOS % 2.4 % (0.0-3.0); HEMATOCRIT 28.8 % (42.0-52.0); HEMOGLOBIN 9.6 g/dl (13.5-17.5); LYMPH # 1.2 10^3/uL (1.5-5.0); LYMPH % 22.5 % (24.0-44.0); MEAN CORPUSCULAR HEMOGLOBIN 31.1 pg (27.0-33.0); MEAN CORPUSCULAR HGB CONC 33.3 g/dl (32.0-36.5); MEAN CORPUSCULAR VOLUME 93.2 fl (80.0-96.0); MONO # 0.4 10^3/uL (0.0-0.8); NEUTROPHILS # 3.6 10^3/uL (1.5-8.5); NEUTROPHILS % 66.2 % (36.0-66.0); PLATELET COUNT, AUTOMATED 276 10^3/uL (150-450); RED BLOOD COUNT 3.09 10^6/uL (4.30-6.10); WHITE BLOOD COUNT 5.5 10^3/uL (4.0-10.0)
[2022-05-19 10:33] LABS: HEMOGLOBIN A1c 5.3 % (4.0-6.0)
[2022-05-19 10:36] LABS: ERYTHROCYTE SEDIMENTATION RATE > 140 mm/hr (0-15)
[2022-05-19 22:25] LABS: C REACTIVE PROTEIN QUANTITATIV 1.7 MG/DL (<1.0)
[2022-05-19 22:27] LABS: CALCIUM LEVEL 8.3 MG/DL (8.5-10.1); CREATININE FOR GFR 1.72 MG/DL (0.70-1.30); GLOMERULAR FILTRATION RATE 47.6 (>60); POTASSIUM SERUM 4.1 MMOL/L (3.5-5.1)
== END ==
LOC: M LAB 09:15
PROVIDERS: ATTEND Internal Medicine Infectious Disease
DX: N41.0 Acute prostatitis (principal)

== ENCOUNTER → 2022-05-22 | Outpatient (CLI) | payer OTHER ==
[2022-05-22 18:27] LABS: BASO % 0.3 % (0.0-1.0); EOS # 0.1 10^3/uL (0.0-0.5); EOS % 2.2 % (0.0-3.0); HEMATOCRIT 28.2 % (42.0-52.0); HEMOGLOBIN 9.8 g/dl (13.5-17.5); LYMPH # 1.2 10^3/uL (1.5-5.0); LYMPH % 20.7 % (24.0-44.0); MEAN CORPUSCULAR HEMOGLOBIN 31.3 pg (27.0-33.0); MEAN CORPUSCULAR HGB CONC 34.8 g/dl (32.0-36.5); MEAN CORPUSCULAR VOLUME 90.1 fl (80.0-96.0); MONO # 0.5 10^3/uL (0.0-0.8); NEUTROPHILS # 4.1 10^3/uL (1.5-8.5); NEUTROPHILS % 68.3 % (36.0-66.0); PLATELET COUNT, AUTOMATED 312 10^3/uL (150-450); RED BLOOD COUNT 3.13 10^6/uL (4.30-6.10)
[2022-05-22 21:39] LABS: ALBUMIN 3.2 G/DL (3.2-5.2); BILIRUBIN,TOTAL 0.3 MG/DL (0.3-1.2); CALCIUM LEVEL 8.4 MG/DL (8.5-10.1); CREATININE FOR GFR 1.61 MG/DL (0.70-1.30); GLOMERULAR FILTRATION RATE 51.4 (>60); POTASSIUM SERUM 3.8 MMOL/L (3.5-5.1); TOTAL PROTEIN 6.9 G/DL (5.7-8.2)
== END ==
LOC: M PLALAB 14:51
PROVIDERS: ATTEND Physician Assistant Medical
DX: N18.31 Chronic kidney disease, stage 3a (principal); R78.81 Bacteremia

== ENCOUNTER → 2022-06-05 | Outpatient (CLI) | payer OTHER ==
[2022-06-05 16:17] LABS: BASO % 0.3 % (0.0-1.0); EOS # 0.1 10^3/uL (0.0-0.5); EOS % 1.9 % (0.0-3.0); HEMATOCRIT 30.2 % (42.0-52.0); HEMOGLOBIN 10.7 g/dl (13.5-17.5); LYMPH # 1.4 10^3/uL (1.5-5.0); LYMPH % 22.8 % (24.0-44.0); MEAN CORPUSCULAR HEMOGLOBIN 31.4 pg (27.0-33.0); MEAN CORPUSCULAR HGB CONC 35.4 g/dl (32.0-36.5); MEAN CORPUSCULAR VOLUME 88.6 fl (80.0-96.0); MONO # 0.4 10^3/uL (0.0-0.8); NEUTROPHILS # 4.2 10^3/uL (1.5-8.5); NEUTROPHILS % 67.4 % (36.0-66.0); PLATELET COUNT, AUTOMATED 359 10^3/uL (150-450); RED BLOOD COUNT 3.41 10^6/uL (4.30-6.10); WHITE BLOOD COUNT 6.3 10^3/uL (4.0-10.0)
[2022-06-05 16:44] LABS: MAGNESIUM LEVEL 1.3 MG/DL (1.8-2.4)
[2022-06-05 16:45] LABS: ALBUMIN 3.5 G/DL (3.2-5.2); ALKALINE PHOSPHATASE 156 U/L (46-116); ALT/SGPT 50 U/L (7.0-40); AST/SGOT 32 U/L (<34); BILIRUBIN,TOTAL 0.4 MG/DL (0.3-1.2); BLOOD UREA NITROGEN 30 MG/DL (9-23); CALCIUM LEVEL 9.4 MG/DL (8.5-10.1); CARBON DIOXIDE LEVEL 26 MMOL/L (20-31); CHLORIDE LEVEL 101 MMOL/L (98-107); GLOMERULAR FILTRATION RATE > 60.0 (>60); GLUCOSE, FASTING 222 MG/DL (60-100); IRON (FE) 92 UG/DL (65-175); POTASSIUM SERUM 5.1 MMOL/L (3.5-5.1); SODIUM LEVEL 138 MMOL/L (136-145)
[2022-06-05 16:47] LABS: FERRITIN 1122.5 NG/ML (10.5-307.3)
[2022-06-05 17:19] LABS: HEMOGLOBIN A1c 5.6 % (4.0-6.0)
== END ==
LOC: M PLALAB 11:43
PROVIDERS: ATTEND Physician Assistant Medical
DX: E11.8 Type 2 diabetes mellitus with unspecified complications (principal); E83.42 Hypomagnesemia; N18.31 Chronic kidney disease, stage 3a; R78.81 Bacteremia; D64.9 Anemia, unspecified

== ENCOUNTER → 2022-07-06 | Outpatient (CLI) | payer OTHER ==
[~2022-07-06] MED LIST changes: +SPIR-10
== END ==
LOC: M LABSMTC 09:02
PROVIDERS: ATTEND Anesthesiology
DX: Z01.818 Encounter for other preprocedural examination (principal)

== ENCOUNTER → 2022-07-08 | Outpatient (CLI) | payer OTHER ==
[2022-07-08 13:44] LABS: BLOOD UREA NITROGEN 30 MG/DL (9-23); CALCIUM LEVEL 8.9 MG/DL (8.5-10.1); CARBON DIOXIDE LEVEL 29 MMOL/L (20-31); CHLORIDE LEVEL 105 MMOL/L (98-107); CREATININE FOR GFR 0.91 MG/DL (0.70-1.30); GLOMERULAR FILTRATION RATE > 60.0 (>60); GLUCOSE, FASTING 184 MG/DL (60-100); POTASSIUM SERUM 4.7 MMOL/L (3.5-5.1); SODIUM LEVEL 138 MMOL/L (136-145)
== END ==
LOC: M PLALAB 10:38
PROVIDERS: ATTEND Physician Assistant Medical
DX: N18.31 Chronic kidney disease, stage 3a (principal)

== ENCOUNTER 2022-07-10 07:17 | Day surgery (SDC) | payer OTHER ==
[~2022-07-10] VITALS: Ht 180.3 cm; Wt 107.0 kg
[2022-07-10] MEDS ORDERED: propofoL 200 MG/20 ML VIAL As Ordered ONE (08:21)
[2022-07-10] MEDS ORDERED: LIDOCAINE 2% 100MG/5ML SDV (FOR ANES.) As Ordered ONE (08:21)
[2022-07-10 09:09] VITALS: BP 156/85
[2022-07-11] MEDS ORDERED: NS 1,000 ML IV ONE (06:00)
== END 2022-07-10 09:11 | disposition home or self-care (01) ==
LOC: M OPP 07:17
PROVIDERS: ATTEND Surgery
DX: D50.9 Iron deficiency anemia, unspecified (principal); Z79.4 Long term (current) use of insulin; Z79.899 Other long term (current) drug therapy; Z88.8 Allergy status to other drugs, medicaments and biological substances; E11.9 Type 2 diabetes mellitus without complications; G47.33 Obstructive sleep apnea (adult) (pediatric); Z99.89 Dependence on other enabling machines and devices; I10 Essential (primary) hypertension; E78.00 Pure hypercholesterolemia, unspecified; K31.84 Gastroparesis; Z86.14 Personal history of Methicillin resistant Staphylococcus aureus infection

== ENCOUNTER → 2022-07-28 | Outpatient (CLI) | payer OTHER | LOC: M PLAIMG 11:59 | PROVIDERS: ATTEND Physician Assistant Medical | DX: M25.571 Pain in right ankle and joints of right foot (principal); Z89.421 Acquired absence of other right toe(s); M77.31 Calcaneal spur, right foot ==

== ENCOUNTER → 2022-08-06 | Outpatient (REF) | payer OTHER | LOC: M LAB REF 13:59 | PROVIDERS: ATTEND Podiatrist | DX: L03.039 Cellulitis of unspecified toe (principal) ==

== ENCOUNTER → 2022-08-22 | Outpatient (CLI) | payer OTHER ==
[2022-08-22 14:08] LABS: ALBUMIN 3.1 G/DL (3.2-5.2); ALKALINE PHOSPHATASE 114 U/L (46-116); ALT/SGPT 30 U/L (7.0-40); AST/SGOT 20 U/L (<34); BILIRUBIN,TOTAL 0.5 MG/DL (0.3-1.2); BLOOD UREA NITROGEN 37 MG/DL (9-23); CALCIUM LEVEL 9.3 MG/DL (8.5-10.1); CARBON DIOXIDE LEVEL 29 MMOL/L (20-31); CHLORIDE LEVEL 105 MMOL/L (98-107); CREATININE FOR GFR 1.19 MG/DL (0.70-1.30); GLOMERULAR FILTRATION RATE > 60.0 (>60); GLUCOSE, FASTING 101 MG/DL (60-100); POTASSIUM SERUM 4.4 MMOL/L (3.5-5.1); SODIUM LEVEL 141 MMOL/L (136-145); TOTAL PROTEIN 6.6 G/DL (5.7-8.2)
== END ==
LOC: M PLALAB 10:38
PROVIDERS: ATTEND Physician Assistant Medical
DX: E11.9 Type 2 diabetes mellitus without complications (principal)

== ENCOUNTER → 2022-08-25 | Outpatient (CLI) | payer OTHER ==
[~2022-08-25] MED LIST changes: +PROHANCE 279.3MG/ML 15ML VIAL ONE; +PROHANCE 279.3MG/ML 5ML VIAL ONE
== END ==
LOC: M PLAIMG 07:44
PROVIDERS: ATTEND Physician Assistant Medical
DX: S98.111A Complete traumatic amputation of right great toe, initial encounter (principal); E11.8 Type 2 diabetes mellitus with unspecified complications; R60.0 Localized edema; M25.571 Pain in right ankle and joints of right foot; Z86.14 Personal history of Methicillin resistant Staphylococcus aureus infection; W18.30XA Fall on same level, unspecified, initial encounter; Y92.009 Unspecified place in unspecified non-institutional (private) residence as the place of occurrence of the external cause

== ENCOUNTER → 2022-09-04 | Outpatient (CLI) | payer OTHER ==
[~2022-09-04] MED LIST changes: -PROHANCE 279.3MG/ML 15ML VIAL ONE; -PROHANCE 279.3MG/ML 5ML VIAL ONE
[2022-09-04 13:58] LABS: BASO % 0.5 % (0.0-1.0); EOS # 0.1 10^3/uL (0.0-0.5); EOS % 2.1 % (0.0-3.0); HEMATOCRIT 32.4 % (42.0-52.0); HEMOGLOBIN 11.1 g/dl (13.5-17.5); LYMPH # 1.5 10^3/uL (1.5-5.0); LYMPH % 26.6 % (24.0-44.0); MEAN CORPUSCULAR HEMOGLOBIN 30.3 pg (27.0-33.0); MEAN CORPUSCULAR HGB CONC 34.3 g/dl (32.0-36.5); MEAN CORPUSCULAR VOLUME 88.5 fl (80.0-96.0); MONO # 0.4 10^3/uL (0.0-0.8); MONO % 7.6 % (2.0-8.0); NEUTROPHILS # 3.6 10^3/uL (1.5-8.5); PLATELET COUNT, AUTOMATED 301 10^3/uL (150-450); RED BLOOD COUNT 3.66 10^6/uL (4.30-6.10); WHITE BLOOD COUNT 5.7 10^3/uL (4.0-10.0)
[2022-09-04 14:25] LABS: ERYTHROCYTE SEDIMENTATION RATE 45 mm/hr (0-15)
[2022-09-04 15:36] LABS: ALBUMIN 3.2 G/DL (3.2-5.2); ALKALINE PHOSPHATASE 108 U/L (46-116); ALT/SGPT 33 U/L (7.0-40); AST/SGOT 24 U/L (<34); BILIRUBIN,TOTAL 0.5 MG/DL (0.3-1.2); BLOOD UREA NITROGEN 30 MG/DL (9-23); CALCIUM LEVEL 8.7 MG/DL (8.5-10.1); CARBON DIOXIDE LEVEL 28 MMOL/L (20-31); CHLORIDE LEVEL 99 MMOL/L (98-107); CREATININE FOR GFR 1.05 MG/DL (0.70-1.30); GLOMERULAR FILTRATION RATE > 60.0 (>60); GLUCOSE, FASTING 449 MG/DL (60-100); POTASSIUM SERUM 4.7 MMOL/L (3.5-5.1); SODIUM LEVEL 134 MMOL/L (136-145); TOTAL PROTEIN 6.4 G/DL (5.7-8.2)
== END ==
LOC: M PLALAB 09:12
PROVIDERS: ATTEND Physician Assistant Medical
DX: Z86.14 Personal history of Methicillin resistant Staphylococcus aureus infection (principal)

== ENCOUNTER → 2022-10-10 | Outpatient (CLI) | payer OTHER ==
[2022-10-10 15:04] LABS: ALBUMIN 3.2 G/DL (3.2-5.2); ALKALINE PHOSPHATASE 105 U/L (46-116); ALT/SGPT 32 U/L (7.0-40); AST/SGOT 22 U/L (<34); BILIRUBIN,TOTAL 0.5 MG/DL (0.3-1.2); BLOOD UREA NITROGEN 50 MG/DL (9-23); CALCIUM LEVEL 8.9 MG/DL (8.5-10.1); CARBON DIOXIDE LEVEL 29 MMOL/L (20-31); CHLORIDE LEVEL 106 MMOL/L (98-107); CREATININE FOR GFR 1.38 MG/DL (0.70-1.30); GLOMERULAR FILTRATION RATE > 60.0 (>60); GLUCOSE, FASTING 71 MG/DL (60-100); POTASSIUM SERUM 5.3 MMOL/L (3.5-5.1); SODIUM LEVEL 140 MMOL/L (136-145); TOTAL PROTEIN 6.7 G/DL (5.7-8.2)
[2022-10-10 15:05] LABS: BASO % 0.5 % (0.0-1.0); EOS # 0.1 10^3/uL (0.0-0.5); EOS % 1.1 % (0.0-3.0); HEMATOCRIT 32.1 % (42.0-52.0); HEMOGLOBIN 11.2 g/dl (13.5-17.5); LYMPH # 1.9 10^3/uL (1.5-5.0); LYMPH % 29.6 % (24.0-44.0); MEAN CORPUSCULAR HEMOGLOBIN 30.9 pg (27.0-33.0); MEAN CORPUSCULAR HGB CONC 34.9 g/dl (32.0-36.5); MEAN CORPUSCULAR VOLUME 88.7 fl (80.0-96.0); MONO # 0.5 10^3/uL (0.0-0.8); MONO % 7.9 % (2.0-8.0); NEUTROPHILS # 3.9 10^3/uL (1.5-8.5); NEUTROPHILS % 60.6 % (36.0-66.0); PLATELET COUNT, AUTOMATED 373 10^3/uL (150-450); RED BLOOD COUNT 3.62 10^6/uL (4.30-6.10); WHITE BLOOD COUNT 6.5 10^3/uL (4.0-10.0)
[2022-10-10 15:35] LABS: ERYTHROCYTE SEDIMENTATION RATE 50 mm/hr (0-15)
[2022-10-10 15:49] LABS: HEMOGLOBIN A1c 6.1 % (4.0-6.0)
== END ==
LOC: M PLALAB 12:24
PROVIDERS: ATTEND Physician Assistant Medical
DX: S98.111A Complete traumatic amputation of right great toe, initial encounter (principal); I12.9 Hypertensive chronic kidney disease with stage 1 through stage 4 chronic kidney disease, or unspecified chronic kidney disease; N18.31 Chronic kidney disease, stage 3a; E11.8 Type 2 diabetes mellitus with unspecified complications; R60.0 Localized edema; W18.30XA Fall on same level, unspecified, initial encounter; Y92.009 Unspecified place in unspecified non-institutional (private) residence as the place of occurrence of the external cause

== ENCOUNTER → 2022-11-11 | Outpatient (REF) | payer OTHER | LOC: M SFHCPLAZ 11:06 | PROVIDERS: ATTEND Physician Assistant Medical | DX: I10 Essential (primary) hypertension (principal); Z86.14 Personal history of Methicillin resistant Staphylococcus aureus infection; E11.8 Type 2 diabetes mellitus with unspecified complications; S98.111A Complete traumatic amputation of right great toe, initial encounter ==

== ENCOUNTER → 2022-11-11 | Outpatient (CLI) | payer OTHER ==
[2022-11-11 10:52] LABS: BASO % 0.5 % (0.0-1.0); EOS # 0.1 10^3/uL (0.0-0.5); EOS % 2.3 % (0.0-3.0); HEMATOCRIT 32.1 % (42.0-52.0); HEMOGLOBIN 11.4 g/dl (13.5-17.5); LYMPH # 1.7 10^3/uL (1.5-5.0); LYMPH % 28.1 % (24.0-44.0); MEAN CORPUSCULAR HGB CONC 35.5 g/dl (32.0-36.5); MEAN CORPUSCULAR VOLUME 87.2 fl (80.0-96.0); MONO # 0.5 10^3/uL (0.0-0.8); MONO % 7.4 % (2.0-8.0); NEUTROPHILS # 3.7 10^3/uL (1.5-8.5); NEUTROPHILS % 61.4 % (36.0-66.0); PLATELET COUNT, AUTOMATED 320 10^3/uL (150-450); RED BLOOD COUNT 3.68 10^6/uL (4.30-6.10); WHITE BLOOD COUNT 6.1 10^3/uL (4.0-10.0)
[2022-11-11 10:59] LABS: ERYTHROCYTE SEDIMENTATION RATE 48 mm/hr (0-15)
[2022-11-11 11:14] LABS: ALKALINE PHOSPHATASE 123 U/L (46-116); ALT/SGPT 46 U/L (7.0-40); AST/SGOT 30 U/L (<34); BILIRUBIN,TOTAL 0.5 MG/DL (0.3-1.2); BLOOD UREA NITROGEN 26 MG/DL (9-23); CALCIUM LEVEL 8.4 MG/DL (8.5-10.1); CARBON DIOXIDE LEVEL 29 MMOL/L (20-31); CHLORIDE LEVEL 105 MMOL/L (98-107); CREATININE FOR GFR 1.15 MG/DL (0.70-1.30); GLOMERULAR FILTRATION RATE > 60.0 (>60); GLUCOSE, FASTING 148 MG/DL (60-100); POTASSIUM SERUM 4.6 MMOL/L (3.5-5.1); SODIUM LEVEL 141 MMOL/L (136-145); TOTAL PROTEIN 6.1 G/DL (5.7-8.2)
== END ==
LOC: M PLALAB 08:48
PROVIDERS: ATTEND Physician Assistant Medical
DX: Z86.14 Personal history of Methicillin resistant Staphylococcus aureus infection (principal)

== ENCOUNTER → 2022-11-12 | Outpatient (CLI) | payer OTHER | LOC: M RAD 11:42 | PROVIDERS: ATTEND Physician Assistant Medical | DX: I10 Essential (primary) hypertension (principal) ==

== ENCOUNTER → 2022-12-18 | Outpatient (REF) | payer OTHER | LOC: M LAB REF 17:05 | PROVIDERS: ATTEND Podiatrist | DX: L03.031 Cellulitis of right toe (principal) ==

== ENCOUNTER → 2022-12-22 | Outpatient (REF) | payer OTHER | LOC: M LAB REF 11:42 | PROVIDERS: ATTEND Podiatrist | DX: L03.031 Cellulitis of right toe (principal) ==

== ENCOUNTER 2023-03-27 06:33 | Day surgery (SDC) | payer OTHER ==
[~2023-03-27] VITALS: Ht 180.3 cm; Wt 113.4 kg
[~2023-03-27 06:33] MED LIST changes: -AMIT25TA17 PO; +AMIT25TA19 PO; +LR 1,000 ML IV SCH; -SPIR-10; +SPIR-10 PO; +TORS5TAB2 PO; +VALS40TA9 PO; +ceFAZolin SOD 2 GM in IV 1 EA IV ONE; +fentaNYL 100 MCG/2 ML INJECTION IV PRN; +oxyCODONE 5MG TAB PO PRN
[2023-03-27] MEDS ORDERED: LR 1,000 ML IV SCH (07:00)
[2023-03-27] MEDS ORDERED: ONDANSETRON 4MG 2ML VIAL As Ordered ONE (07:15)
[2023-03-27] MEDS ORDERED: dexmedeTOMIDine (4MCG/ML)200MCG/50ML BTL (PRECEDEX) As Ordered ONE (07:15)
[2023-03-27] MEDS ORDERED: propofoL 200 MG/20 ML VIAL As Ordered ONE (07:17)
[2023-03-27] MEDS ORDERED: LIDOCAINE 2% 100MG/5ML SDV (FOR ANES.) As Ordered ONE (07:17)
[2023-03-27] MEDS ORDERED: ROCURONIUM BROMIDE 50MG/5ML VIAL As Ordered ONE (07:17)
[2023-03-27] MEDS ORDERED: SUGAMMADEX SODIUM 500 MG/5 ML VIAL (BRIDION) As Ordered ONE (07:17)
[2023-03-27] MEDS ORDERED: fentaNYL 100 MCG/2 ML INJECTION As Ordered ONE (07:21)
[2023-03-27] MEDS ORDERED: MIDAZOLAM INJ 2MG/2ML VIAL As Ordered ONE (07:22)
[2023-03-27] MEDS ORDERED: EXCETAB32 PO (07:31)
[2023-03-27] MEDS ORDERED: INSULIN LISPRO (NovoLOG) PER UNIT SC PRN (07:55)
[2023-03-27] MEDS ORDERED: GENTAMICIN SULF 80MG/2ML VIAL As Ordered ONE (08:13)
[2023-03-27] MEDS ORDERED: ROPIvacaine 0.5% 30ML VIAL As Ordered ONE (08:13)
[2023-03-27 09:45] VITALS: BP 122/68; TEMP 98.2; O2SAT 98
== END 2023-03-27 09:51 | disposition home or self-care (01) ==
LOC: M SDC 06:33
PROVIDERS: ATTEND Podiatrist
DX: L89.893 Pressure ulcer of other site, stage 3 (principal); E11.621 Type 2 diabetes mellitus with foot ulcer; E11.40 Type 2 diabetes mellitus with diabetic neuropathy, unspecified; N28.9 Disorder of kidney and ureter, unspecified; G47.30 Sleep apnea, unspecified; I10 Essential (primary) hypertension; E78.00 Pure hypercholesterolemia, unspecified; K31.84 Gastroparesis; Z88.8 Allergy status to other drugs, medicaments and biological substances; Z79.899 Other long term (current) drug therapy; Z79.4 Long term (current) use of insulin
CPT/HCPCS: 11042; 28820; 73630; 76000; 87070; 87075; 87076; 87077; 87186; 87205; 88304; 88311; J0690; J1100; J1580; J1815; J2250; J2405; J2795; J3010

== ENCOUNTER → 2023-05-18 | Outpatient (REF) | payer OTHER ==
[~2023-05-18] MED LIST changes: -LR 1,000 ML IV SCH; -ceFAZolin SOD 2 GM in IV 1 EA IV ONE; -fentaNYL 100 MCG/2 ML INJECTION IV PRN; -oxyCODONE 5MG TAB PO PRN
== END ==
LOC: M SFHCPLAZ 16:51
PROVIDERS: ATTEND Physician Assistant Medical
DX: R05.1 Acute cough (principal)

== ENCOUNTER → 2023-08-25 | Outpatient (CLI) | payer OTHER ==
[~2023-08-25] MED LIST changes: -ASPI-161 PO; +ASPI-615 PO
[2023-08-25 14:26] LABS: BASO % 0.6 % (0.0-1.0); EOS # 0.2 10^3/uL (0.0-0.5); EOS % 2.6 % (0.0-3.0); HEMATOCRIT 31.1 % (42.0-52.0); LYMPH # 2.2 10^3/uL (1.5-5.0); LYMPH % 32.1 % (24.0-44.0); MEAN CORPUSCULAR HEMOGLOBIN 31.3 pg (27.0-33.0); MEAN CORPUSCULAR HGB CONC 35.4 g/dl (32.0-36.5); MEAN CORPUSCULAR VOLUME 88.6 fl (80.0-96.0); MONO # 0.5 10^3/uL (0.0-0.8); MONO % 7.7 % (2.0-8.0); NEUTROPHILS # 3.9 10^3/uL (1.5-8.5); NEUTROPHILS % 56.7 % (36.0-66.0); PLATELET COUNT, AUTOMATED 354 10^3/uL (150-450); RED BLOOD COUNT 3.51 10^6/uL (4.30-6.10); WHITE BLOOD COUNT 6.9 10^3/uL (4.0-10.0)
[2023-08-25 14:30] LABS: ALKALINE PHOSPHATASE 112 U/L (46-116); ALT/SGPT 35 U/L (7.0-40); AST/SGOT 22 U/L (<34); BILIRUBIN,TOTAL 0.4 MG/DL (0.3-1.2); BLOOD UREA NITROGEN 38 MG/DL (9-23); CALCIUM LEVEL 8.8 MG/DL (8.5-10.1); CARBON DIOXIDE LEVEL 30 MMOL/L (20-31); CHLORIDE LEVEL 108 MMOL/L (98-107); CREATININE FOR GFR 1.33 MG/DL (0.70-1.30); GLOMERULAR FILTRATION RATE > 60.0 (>60); GLUCOSE, FASTING 82 MG/DL (60-100); IRON (FE) 98 UG/DL (65-175); POTASSIUM SERUM 4.5 MMOL/L (3.5-5.1); SODIUM LEVEL 141 MMOL/L (136-145); TOTAL PROTEIN 6.3 G/DL (5.7-8.2)
[2023-08-25 14:34] LABS: FERRITIN 823.8 NG/ML (10.5-307.3)
[2023-08-25 14:42] LABS: HEMOGLOBIN A1c 6.6 % (4.0-6.0)
== END ==
LOC: M PLALAB 09:51
PROVIDERS: ATTEND Physician Assistant Medical
DX: E11.8 Type 2 diabetes mellitus with unspecified complications (principal); I12.9 Hypertensive chronic kidney disease with stage 1 through stage 4 chronic kidney disease, or unspecified chronic kidney disease; N18.31 Chronic kidney disease, stage 3a; D64.9 Anemia, unspecified

== ENCOUNTER → 2023-09-23 | Outpatient (CLI) | payer OTHER ==
[2023-09-23 10:37] LABS: BASO % 0.4 % (0.0-1.0); EOS # 0.2 10^3/uL (0.0-0.5); EOS % 2.2 % (0.0-3.0); HEMATOCRIT 28.6 % (42.0-52.0); HEMOGLOBIN 9.6 g/dl (13.5-17.5); LYMPH # 2.2 10^3/uL (1.5-5.0); LYMPH % 28.7 % (24.0-44.0); MEAN CORPUSCULAR HEMOGLOBIN 30.4 pg (27.0-33.0); MEAN CORPUSCULAR HGB CONC 33.6 g/dl (32.0-36.5); MEAN CORPUSCULAR VOLUME 90.5 fl (80.0-96.0); MONO # 0.7 10^3/uL (0.0-0.8); MONO % 9.1 % (2.0-8.0); NEUTROPHILS # 4.5 10^3/uL (1.5-8.5); NEUTROPHILS % 59.2 % (36.0-66.0); PLATELET COUNT, AUTOMATED 328 10^3/uL (150-450); RED BLOOD COUNT 3.16 10^6/uL (4.30-6.10); WHITE BLOOD COUNT 7.6 10^3/uL (4.0-10.0)
[2023-09-23 10:57] LABS: HEMOGLOBIN A1c 6.8 % (4.0-6.0)
[2023-09-23 11:10] LABS: FERRITIN 693.7 NG/ML (10.5-307.3)
== END ==
LOC: M PLALAB 08:04
PROVIDERS: ATTEND Physician Assistant Medical
DX: R71.0 Precipitous drop in hematocrit (principal)

== ENCOUNTER → 2024-01-15 | Outpatient (CLI) | payer OTHER ==
[~2024-01-15] MED LIST changes: +ONDA-282 PO; -ONDA4TAB6 PO
[2024-01-15 13:04] LABS: BASO % 0.5 % (0.0-1.0); EOS # 0.2 10^3/uL (0.0-0.5); EOS % 2.7 % (0.0-3.0); HEMATOCRIT 29.1 % (42.0-52.0); HEMOGLOBIN 10.1 g/dl (13.5-17.5); LYMPH # 1.7 10^3/uL (1.5-5.0); LYMPH % 25.8 % (24.0-44.0); MEAN CORPUSCULAR HEMOGLOBIN 31.1 pg (27.0-33.0); MEAN CORPUSCULAR HGB CONC 34.7 g/dl (32.0-36.5); MEAN CORPUSCULAR VOLUME 89.5 fl (80.0-96.0); MONO # 0.5 10^3/uL (0.0-0.8); MONO % 7.7 % (2.0-8.0); NEUTROPHILS # 4.2 10^3/uL (1.5-8.5); NEUTROPHILS % 62.7 % (36.0-66.0); PLATELET COUNT, AUTOMATED 366 10^3/uL (150-450); RED BLOOD COUNT 3.25 10^6/uL (4.30-6.10); WHITE BLOOD COUNT 6.6 10^3/uL (4.0-10.0)
[2024-01-15 13:39] LABS: FERRITIN 906.4 NG/ML (10.5-307.3)
== END ==
LOC: M PLALAB 09:58
PROVIDERS: ATTEND Physician Assistant Medical
DX: D64.9 Anemia, unspecified (principal)

== ENCOUNTER → 2024-05-06 | Outpatient (CLI) | payer OTHER ==
[2024-05-06 13:36] LABS: BASO % 0.4 % (0.0-1.0); EOS # 0.2 10^3/uL (0.0-0.5); EOS % 2.4 % (0.0-3.0); HEMATOCRIT 33.4 % (42.0-52.0); HEMOGLOBIN 11.7 g/dl (13.5-17.5); LYMPH # 1.9 10^3/uL (1.5-5.0); LYMPH % 22.5 % (24.0-44.0); MEAN CORPUSCULAR HEMOGLOBIN 30.8 pg (27.0-33.0); MEAN CORPUSCULAR VOLUME 87.9 fl (80.0-96.0); MONO # 0.6 10^3/uL (0.0-0.8); MONO % 6.5 % (2.0-8.0); NEUTROPHILS # 5.7 10^3/uL (1.5-8.5); NEUTROPHILS % 67.6 % (36.0-66.0); PLATELET COUNT, AUTOMATED 361 10^3/uL (150-450); WHITE BLOOD COUNT 8.4 10^3/uL (4.0-10.0)
[2024-05-06 13:46] LABS: ERYTHROCYTE SEDIMENTATION RATE 67 mm/hr (0-15)
[2024-05-06 13:53] LABS: PSA SCREENING 0.11 NG/ML (< 4.00)
[2024-05-06 13:54] LABS: ALBUMIN 3.2 G/DL (3.2-5.2); ALKALINE PHOSPHATASE 165 U/L (40-129); ALT/SGPT 31 U/L (7.0-40); AST/SGOT 21 U/L (<34); BILIRUBIN,TOTAL 0.5 MG/DL (0.3-1.2); BLOOD UREA NITROGEN 34 MG/DL (9-23); CALCIUM LEVEL 9.8 MG/DL (8.5-10.1); CARBON DIOXIDE LEVEL 26 MMOL/L (20-31); CHLORIDE LEVEL 104 MMOL/L (98-107); CHOLESTEROL LEVEL 252 MG/DL (<200); CREATININE FOR GFR 1.17 MG/DL (0.70-1.30); GLOMERULAR FILTRATION RATE > 60.0 (>60); GLUCOSE, FASTING 105 MG/DL (60-100); HDL CHOLESTEROL 48.4 MG/DL (>40); LDL CHOLESTEROL 151.4 MG/DL (<100); NON-HDL-C 203.6 MG/DL; POTASSIUM SERUM 4.9 MMOL/L (3.5-5.1); SODIUM LEVEL 140 MMOL/L (136-145); TOTAL PROTEIN 7.1 G/DL (5.7-8.2); TRIGLYCERIDES LEVEL 261 MG/DL (<150)
[2024-05-06 14:15] LABS: HEMOGLOBIN A1c 9.2 % (4.0-6.0)
== END ==
LOC: M PLALAB 10:47
PROVIDERS: ATTEND Physician Assistant Medical
DX: Z12.5 Encounter for screening for malignant neoplasm of prostate (principal)

== ENCOUNTER → 2024-05-09 | Outpatient (REF) | payer OTHER | LOC: M SFHCPLAZ 12:25 | PROVIDERS: ATTEND Physician Assistant Medical | DX: R71.0 Precipitous drop in hematocrit (principal) ==

== ENCOUNTER → 2024-06-16 | Outpatient (CLI) | payer OTHER ==
[2024-06-16 13:04] LABS: BASO % 0.5 % (0.0-1.0); EOS # 0.1 10^3/uL (0.0-0.5); EOS % 1.9 % (0.0-3.0); HEMATOCRIT 31.8 % (42.0-52.0); HEMOGLOBIN 10.7 g/dl (13.5-17.5); LYMPH # 1.5 10^3/uL (1.5-5.0); LYMPH % 23.5 % (24.0-44.0); MEAN CORPUSCULAR HEMOGLOBIN 30.2 pg (27.0-33.0); MEAN CORPUSCULAR HGB CONC 33.6 g/dl (32.0-36.5); MEAN CORPUSCULAR VOLUME 89.8 fl (80.0-96.0); MONO # 0.4 10^3/uL (0.0-0.8); MONO % 6.5 % (2.0-8.0); NEUTROPHILS # 4.3 10^3/uL (1.5-8.5); NEUTROPHILS % 67.4 % (36.0-66.0); PLATELET COUNT, AUTOMATED 147 10^3/uL (150-450); RED BLOOD COUNT 3.54 10^6/uL (4.30-6.10); WHITE BLOOD COUNT 6.3 10^3/uL (4.0-10.0)
[2024-06-16 13:13] LABS: FERRITIN 868.3 NG/ML (10.5-307.3)
[2024-06-16 13:30] LABS: HEMOGLOBIN A1c 6.7 % (4.0-6.0)
== END ==
LOC: M PLALAB 10:36
PROVIDERS: ATTEND Physician Assistant Medical
DX: I10 Essential (primary) hypertension (principal)

== ENCOUNTER → 2024-07-15 | Outpatient (CLI) | payer OTHER ==
[2024-07-15 14:04] LABS: BASO % 0.4 % (0.0-1.0); EOS # 0.1 10^3/uL (0.0-0.5); EOS % 1.9 % (0.0-3.0); HEMATOCRIT 30.9 % (42.0-52.0); HEMOGLOBIN 10.5 g/dl (13.5-17.5); LYMPH # 2.1 10^3/uL (1.5-5.0); LYMPH % 30.4 % (24.0-44.0); MEAN CORPUSCULAR VOLUME 88.3 fl (80.0-96.0); MONO # 0.5 10^3/uL (0.0-0.8); MONO % 7.9 % (2.0-8.0); NEUTROPHILS % 59.1 % (36.0-66.0); PLATELET COUNT, AUTOMATED 328 10^3/uL (150-450); WHITE BLOOD COUNT 6.8 10^3/uL (4.0-10.0)
[2024-07-15 14:10] LABS: BILIRUBIN,TOTAL 0.3 MG/DL (0.3-1.2); CALCIUM LEVEL 9.4 MG/DL (8.5-10.1); CREATININE FOR GFR 1.64 MG/DL (0.70-1.30); GLOMERULAR FILTRATION RATE 49.8 (>60); TOTAL PROTEIN 6.5 G/DL (5.7-8.2)
== END ==
LOC: M PLALAB 09:42
PROVIDERS: ATTEND Physician Assistant Medical
DX: D64.9 Anemia, unspecified (principal); N18.31 Chronic kidney disease, stage 3a

== ENCOUNTER → 2024-07-27 | Outpatient (REF) | payer OTHER ==
[2024-07-27 14:43] LABS: APPEARANCE, URINE CLEAR (CLEAR); BACTERIA, URINE AUTO NEGATIVE (NEGATIVE); BILIRUBIN, URINE AUTO NEGATIVE (NEGATIVE); BLOOD, URINE BLOOD NEGATIVE (NEGATIVE); COLOR, URINE YELLOW (YELLOW); GLUCOSE, URINE (UA) AUTO 2+ mg/dL (NEGATIVE); KETONE, URINE AUTO NEGATIVE (NEGATIVE); LEUKOCYTE ESTERASE, URINE AUTO NEGATIVE (NEGATIVE); NITRITE, URINE AUTO NEGATIVE (NEGATIVE); PROTEIN, URINE AUTO 3+ mg/dL (NEGATIVE); RBC, URINE AUTO 0 /HPF (0-3); SPECIFIC GRAVITY URINE AUTO 1.015 (1.002-1.035); SQUAMOUS EPITHELIAL CELL UR AU 0 /HPF (0-6); UROBILINOGEN, URINE AUTO 0.2 mg/dL (0.0-2.0); WBC, URINE AUTO 0 /HPF (0-3)
== END ==
LOC: M SFHCPLAZ 12:50
PROVIDERS: ATTEND Physician Assistant Medical
DX: I10 Essential (primary) hypertension (principal)

== ENCOUNTER → 2024-08-09 | Outpatient (CLI) | payer OTHER ==
[2024-08-09 14:57] LABS: BASO % 0.5 % (0.0-1.0); EOS # 0.2 10^3/uL (0.0-0.5); EOS % 1.9 % (0.0-3.0); HEMATOCRIT 33.2 % (42.0-52.0); HEMOGLOBIN 11.3 g/dl (13.5-17.5); LYMPH # 1.8 10^3/uL (1.5-5.0); LYMPH % 22.8 % (24.0-44.0); MEAN CORPUSCULAR HEMOGLOBIN 29.4 pg (27.0-33.0); MEAN CORPUSCULAR VOLUME 86.5 fl (80.0-96.0); MONO # 0.6 10^3/uL (0.0-0.8); MONO % 7.1 % (2.0-8.0); NEUTROPHILS # 5.2 10^3/uL (1.5-8.5); NEUTROPHILS % 67.3 % (36.0-66.0); PLATELET COUNT, AUTOMATED 377 10^3/uL (150-450); RED BLOOD COUNT 3.84 10^6/uL (4.30-6.10); WHITE BLOOD COUNT 7.7 10^3/uL (4.0-10.0)
[2024-08-09 15:28] LABS: ALKALINE PHOSPHATASE 131 U/L (40-129); ALT/SGPT 25 U/L (7.0-40); AST/SGOT 18 U/L (<34); BILIRUBIN,TOTAL 0.4 MG/DL (0.3-1.2); BLOOD UREA NITROGEN 30 MG/DL (9-23); CALCIUM LEVEL 8.7 MG/DL (8.5-10.1); CARBON DIOXIDE LEVEL 30 MMOL/L (20-31); CHLORIDE LEVEL 102 MMOL/L (98-107); CREATININE FOR GFR 1.27 MG/DL (0.70-1.30); GLOMERULAR FILTRATION RATE > 60.0 (>60); GLUCOSE, FASTING 120 MG/DL (60-100); IRON (FE) 75 UG/DL (65-175); POTASSIUM SERUM 5.1 MMOL/L (3.5-5.1); SODIUM LEVEL 139 MMOL/L (136-145); TOTAL PROTEIN 6.7 G/DL (5.7-8.2)
[2024-08-09 15:30] LABS: FERRITIN 844.9 NG/ML (10.5-307.3)
== END ==
LOC: M PLALAB 11:51
PROVIDERS: ATTEND Physician Assistant Medical
DX: I10 Essential (primary) hypertension (principal)

== ENCOUNTER → 2024-09-23 | Outpatient (REF) | payer OTHER ==
[2024-09-23 18:04] LABS: TOTAL PROTEIN,RANDOM URINE 87.2 MG/DL (0.0-14.0)
[2024-09-23 18:09] LABS: CREATININE,RANDOM URINE 83.4 MG/DL
== END ==
LOC: M LAB REF 17:12
PROVIDERS: ATTEND Internal Medicine Nephrology
DX: R80.9 Proteinuria, unspecified (principal)

== ENCOUNTER → 2024-10-10 | Outpatient (REF) | payer OTHER | LOC: M SFHCPLAZ 12:59 | PROVIDERS: ATTEND Physician Assistant Medical | DX: J06.9 Acute upper respiratory infection, unspecified (principal) ==

== ENCOUNTER → 2025-02-10 | Outpatient (CLI) | payer OTHER ==
[~2025-02-10] MED LIST changes: +ACET-1515 PO; -ACET650T15 PO
[2025-02-10 17:14] LABS: BASO # 0.1 10^3/uL (0.0-0.2); BASO % 0.4 % (0.0-1.0); EOS # 0.1 10^3/uL (0.0-0.5); EOS % 1.1 % (0.0-3.0); LYMPH # 1.5 10^3/uL (1.5-5.0); LYMPH % 11.9 % (24.0-44.0); MONO # 0.8 10^3/uL (0.0-0.8); MONO % 6.5 % (2.0-8.0); NEUTROPHILS # 9.7 10^3/uL (1.5-8.5); NEUTROPHILS % 79.4 % (36.0-66.0); PLATELET COUNT, AUTOMATED 391 10^3/uL (150-450)
[2025-02-10 17:58] LABS: ALT/SGPT 35.0 U/L (7.0-40); AST/SGOT 25.0 U/L (<34); CALCIUM LEVEL 9.2 MG/DL (8.5-10.1); CARBON DIOXIDE LEVEL 28.0 MMOL/L (20-31); CHLORIDE LEVEL 100.0 MMOL/L (98-107); CREATININE FOR GFR 1.37 MG/DL (0.70-1.30); GLOMERULAR FILTRATION RATE 66.5 (>60); POTASSIUM SERUM 4.7 MMOL/L (3.5-5.1); SODIUM LEVEL 140.0 MMOL/L (136-145)
[2025-02-10 18:08] LABS: CREATININE, URINE 80.0 MG/DL
[2025-02-10 18:21] LABS: MALB URINE SIEMENS 1613.0 MG/L; MAU/CREAT RATIO 2016.2 MCG/MG (0.0-30.0)
[2025-02-10 18:53] LABS: ESTIMATED AVERAGE GLUCOSE 177.0 MG/DL (60-110)
== END ==
LOC: M PLALAB 15:52
PROVIDERS: ATTEND Physician Assistant Medical
DX: M25.511 Pain in right shoulder (principal); E11.65 Type 2 diabetes mellitus with hyperglycemia; I12.9 Hypertensive chronic kidney disease with stage 1 through stage 4 chronic kidney disease, or unspecified chronic kidney disease; N18.31 Chronic kidney disease, stage 3a; E11.22 Type 2 diabetes mellitus with diabetic chronic kidney disease

== ENCOUNTER → 2025-02-23 | Outpatient (REF) | payer OTHER ==
[2025-02-23 17:46] LABS: TOTAL PROTEIN,RANDOM URINE 195.0 MG/DL (0.0-14.0)
== END ==
LOC: M LAB REF 16:34
PROVIDERS: ATTEND Internal Medicine Nephrology
DX: R80.9 Proteinuria, unspecified (principal)

== ENCOUNTER → 2025-04-12 | Outpatient (REF) | payer OTHER ==
[2025-04-12 17:45] LABS: APPEARANCE, URINE CLEAR (CLEAR); BACTERIA, URINE AUTO NEGATIVE (NEGATIVE); BILIRUBIN, URINE AUTO NEGATIVE (NEGATIVE); BLOOD, URINE BLOOD NEGATIVE (NEGATIVE); GLUCOSE, URINE (UA) AUTO 3+ mg/dL (NEGATIVE); KETONE, URINE AUTO NEGATIVE (NEGATIVE); LEUKOCYTE ESTERASE, URINE AUTO NEGATIVE (NEGATIVE); NITRITE, URINE AUTO NEGATIVE (NEGATIVE); PROTEIN, URINE AUTO 2+ mg/dL (NEGATIVE); RBC, URINE AUTO 0 /HPF (0-3); SPECIFIC GRAVITY URINE AUTO 1.011 (1.002-1.035); SQUAMOUS EPITHELIAL CELL UR AU 0 /HPF (0-6); UROBILINOGEN, URINE AUTO 0.2 mg/dL (0.0-2.0); WBC, URINE AUTO 0 /HPF (0-3)
== END ==
LOC: M SFHCPLAZ 16:46
PROVIDERS: ATTEND Physician Assistant Medical
DX: N39.41 Urge incontinence (principal)

== ENCOUNTER → 2025-04-25 | Outpatient (CLI) | payer OTHER ==
[2025-04-25 13:58] LABS: FREE T4 1.25 NG/DL (0.89-1.76)
[2025-04-25 14:03] LABS: ESTIMATED AVERAGE GLUCOSE 206.0 MG/DL (60-110)
== END ==
LOC: M PLAIMG 10:34
PROVIDERS: ATTEND Physician Assistant Medical
DX: M54.50 Low back pain, unspecified (principal); N52.9 Male erectile dysfunction, unspecified